=== PATIENT | female | born 1980 | race Two or more races ===

== ENCOUNTER 2024-10-14 13:42 | Inpatient (IN) | payer MEDICAID, OTHER ==
[~2024-10-14] VITALS: Ht 152.4 cm; Wt 58.5 kg
[2024-10-14] MEDS: InsuLIN REG 1unit/0.01ml Soln (100units/ml) IV ONE ×3 (16:28→20:10)
[2024-10-14] MEDS: ONDANSETRON HCL 4 MG/2 ML VIAL IV ONE (16:28)
[2024-10-14] MEDS: SODIUM CHLORIDE 0.9% 1,000 ML IV ONE (16:33)
--- NOTE | 2024-10-14 16:34 | ED.PDOC ---
GI ASSESSMENT HPI Comments 44-year-old female with a history of type 2 diabetes, insulin dependent, hypertension, GERD and a previous unknown abdominal surgery at [facility] 7 months ago brought in by EMS from home complaining of upper abdominal pain radiating to her lower abdomen for the last 4-5 days, associated with fever, nausea but no vomiting. She denies diarrhea, constipation or dysuria. EMS reports patient's blood glucose was in the 500s, and a L of IV normal saline was initiated EN route to the ED. Patient notes she had an abdominal surgery 7 months ago at [facility]. She states she can not recall what procedure was done or why she required surgery. Chief Complaint: General Weakness Time Seen by MD: 14:05 Primary Care Provider: GER Allergies: Coded Allergies: NO KNOWN ALLERGIES (Unverified , 10/14/24) Mode of Arrival: EMS Past Medical History PAST MEDICAL HISTORY: DM, GERD, HTN Surgical History (Other): Unknown abdominal surgery at [facility] 7 months ago Constitutional: denies: chills, diaphoresis, fatigue, fever, malaise, sweats, weakness, others EENTM: denies: blurred vision, double vision, ear bleeding, ear discharge, ear drainage, ear pain, ear ringing, eye pain, eye redness, hearing loss, mouth pain, mouth swelling, nasal discharge, nose bleeding, nose congestion, nose pain, photophobia, tearing, throat pain, throat swelling, voice changes, others Respiratory: denies: cough, hemoptysis, orthopnea, SOB at rest, shortness of breath, SOB with excertion, stridor, wheezing, others Cardiovascular: denies: chest pain, dizzy spells, diaphoresis, Dyspnea on exertion, edema, irregular heart beat, left arm pain, lightheadedness, palpitations, PND, syncope, others Gastrointestinal: denies: abdomen distended, abdominal pain, blood streaked bowels, constipated, diarrhea, dysphagia, difficulty swallowing, hematemesis, melena, nausea, poor appetite, poor fluid intake, rectal bleeding, rectal pain, vomiting, others Genitourinary: denies: abnormal vagina bleeding, burning, dyspareunia, dysuria, flank pain, frequency, hematuria, incontinence, pain, , vagina discharge, urgency, others Neurological: denies: dizziness, fainting, headache, left sided numbness, left sided weakness, numbness, paresthesia, pre-existing deficit, right sided numbness, right sided weakness, seizure, speech problems, tingling, tremors, weakness, others Musculoskeletal: denies: back pain, gout, joint pain, joint swelling, muscle pain, muscle stiffness, neck pain, others Integumetry: denies: bruises, change in color, change in hair/nails, dryness, laceration, lesions, lumps, rash, wounds, others Allergic/Immunocompromised: denies: Difficulty Healing, Frequent Infections, Hives, Itching, others Hematologic/Lymphatic: denies: anemia, blood clots, easy bleeding, easy bruising, swollen glands, others Endocrine: denies: excessive hunger, excessive sweating, excessive thirst, excessive urination, flushing, intolerance to cold, intolerance to heat, unexplained weight gain, unexplained weight loss, others Psychiatric: denies: anxiety, bipolar disorder, depression, hopeless, panic disorder, schizophrenia, sleepless, suicidal, others All Other Systems: Reviewed and Negative (Comprehensive systems review obtained and negative except for what is stated in the HPI.) Physical Exam General Appearance: Mild Distress HEENT: PERRL/EOMI Neck: Full Range of Motion, Normal Inspection Respiratory: Lungs Clear, No Accessory Muscle Use, No Respiratory Distress, Normal Breath Sounds Cardiovascular: No Edema, No JVD, Regular Rate/Rhythm Breast Exam: Deferred Gastrointestinal: Diffuse, Soft, Tenderness Genitalia: Deferred Pelvic: Deferred Rectal: Deferred Extremities: Normal inspection, Normal range of motion, Non-tender, No pedal edema Neurologic: Alert (Oriented x4), Normal Affect, Normal Mood, Other (No gross focal deficit) Cerebellar Function: NOT DONE Reflexes: NOT DONE Skin: Dry, Normal Color, Warm Lymphatic: NOT DONE Was a procedure done? Was a procedure done?: No GI differential Dx Differential Diagnosis: Angina/VT, Bowel Obstruction, Cholecystitis, Constipation, Diverticular disease, Ectopic , Gastritis/PUD, Ga stroenteritis, Inflammatory BD, Ischemic Bowel, Pancreatitis, UTI, Dehydration, Diabetes/ DKA, Electrolyte Imbalance, Food Poisoning, , Bacterial, Viral, Hypovolemia, Impaction, Renal Failure, Stress Ulcer X-Ray, Labs, Meds, VS Vital Signs Date Time Temp Pulse Resp B/P (MAP) Pulse Ox O2 Delivery O2 Flow Rate FiO2 3/9/25 20:18 107 17 97 Room Air* 0 21 10/14/24 19:30 98.3 102 17 119/87 (98) 99 98.3 10/14/24 18:24 119 10/14/24 18:00 97.4 115 29 115/65 (82) 97 97.4 10/14/24 17:56 112 29 115/69 10/14/24 17:14 111 35 115/69 10/14/24 16:00 97.7 109 20 120/62 (81) 98 97.7 10/14/24 14:10 Room Air* 0 21 10/14/24 13:59 104 10/14/24 13:55 97.5 108 16 105/66 (79) 99 97.5 10/14/24 13:42 97.5 108 16 105/66 (79) 99 Lab Test 10/14/24 20:15 10/14/24 20:05 10/14/24 18:54 10/14/24 18:15 Range/Units Urine Color Yellow Yellow Urine Clarity Turbid H Clear Urine pH 5.0 5.0-9.0 Urine Specific Irving 1.023 1.001-1.035 Urine Protein Trace H Negative Urine Ketones 1+ H Negative Urine Blood Negative Negative /uL Urine Nitrite Negative Negative Urine Bilirubin Negative Negative Urine Urobilinogen 2 H Negative mg/dL Urine Leukocyte Esterase 3+ Negative /uL Urine RBC 8 0 - 4 /hpf Urine Microscopic WBC 50 H 0-5 /HPF Urine Squamous Epithelial Cells Few <5 /hpf Urine Bacteria None seen None Seen /hpf Urine Hyaline Casts Many 0 - 2 /lpf Urine Mucus Few None Seen Urine Glucose 4+ H Normal mg/dL POC Glucose 510 *H 465 *H 70-106 mg/dl Sodium Level 127 L 136-145 mmol/L Potassium Level 4.4 3.5-5.1 mmol/L Chloride Level 90 L 98-107 mmol/L Carbon Dioxide Level 21 20-31 mmol/L Anion Gap 16 H 5-15 Blood Urea Nitrogen 39 H 9-23 mg/dL Creatinine 1.82 H 0.550-1.02 mg/dL Glomerular Filtration Rate Calc 34 >90 mL/min BUN/Creatinine Ratio 21.4 H 10.0-20.0 Serum Glucose 653 *H 74-106 mg/dL Lactic Acid Level 2.3 *H 0.4-2.0 mmol/L Calcium Level 9.0 8.7-10.4 mg/dL Troponin I High Sensitivity < 3 L </=34 ng/L Test 10/14/24 17:05 10/14/24 16:37 10/14/24 16:31 Range/Units POC Glucose 570 *H 70-106 mg/dl White Blood Count 15.4 H 4.4-10.8 10^3/uL Red Blood Count 4.65 4.0-5.20 10^6/uL Hemoglobin 12.2 12.2-16.2 g/dL Hematocrit 38.0 36.0-46.0 % Mean Corpuscular Volume 81.7 80.0-100.0 fL Mean Corpuscular Hemoglobin 26.3 L 28.0-32.0 pg Mean Corpuscular Hemoglobin Concent 32.2 32.0-36.0 g/dL Red Cell Distribution Width 16.3 H 11.8-14.3 % Platelet Count 464 H 140-450 10^3/uL Mean Platelet Volume 8.3 6.9-10.8 fL Neutrophils (%) (Auto) 95.6 H 37.0-80.0 % Lymphocytes (%) (Auto) 3.0 L 10.0-50.0 % Monocytes (%) (Auto) 1.2 0.0-12.0 % Eosinophils (%) (Auto) 0.1 0.0-7.0 % Basophils (%) (Auto) 0.1 0.0-2.0 % Neutrophils # (Auto) 14.7 H 1.6-8.6 10 ^3/uL Lymphocytes # (Auto) 0.5 0.4-5.4 10 ^3/uL Monocytes # (Auto) 0.2 0-1.3 10 ^3/uL Eosinophils # (Auto) 0 0-0.8 10 ^3/uL Basophils # (Auto) 0 0-0.2 10 ^3/uL Nucleated Red Blood Cells 0.0 % Sodium Level 124 L 136-145 mmol/L Potassium Level 4.4 3.5-5.1 mmol/L Chloride Level 86 L 98-107 mmol/L Carbon Dioxide Level 21 20-31 mmol/L Anion Gap 17 H 5-15 Blood Urea Nitrogen 34 H 9-23 mg/dL Creatinine 1.75 H 0.550-1.02 mg/dL Glomerular Filtration Rate Calc 36 >90 mL/min BUN/Creatinine Ratio 19.4 10.0-20.0 Serum Glucose 653 *H 74-106 mg/dL Lactic Acid Level 2.4 *H 0.4-2.0 mmol/L Calcium Level 8.6 L 8.7-10.4 mg/dL Total Bilirubin 0.3 0.2-1.0 mg/dL Aspartate Amino Transferase (AST) 16 13-40 U/L Alanine Aminotransferase (ALT) < 9 7-40 U/L Alkaline Phosphatase 78 46-116 U/L Troponin I High Sensitivity 3 L </=34 ng/L Total Protein 6.3 5.7-8.2 g/dL Albumin 3.1 L 3.2-4.8 g/dL Lipase 21 12-53 U/L Beta-Hydroxybutyric Acid 4.131 H < 0.4 mmol/L Beta HCG, Quantitative 2.1 1.5-4.2 mIU/mL Blood Gas Specimen Type Arterial Blood Gas Sample Site Right radial Blood Gas Patient Temperature 37.0 Arterial Blood Date Drawn [id number] Arterial Blood pH 7.469 H 7.350-7.450 Arterial Blood Partial Pressure CO2 31.2 L 32.0-45.0 mmHg Arterial Blood Partial Pressure O2 83.0 83.0-108.0 mmHg Arterial Blood HCO3 22.1 21.0-28.0 mmol/L Arterial Blood Oxygen Saturation 96.3 94.0-98.0 % Arterial Blood Base Excess -0.7 -2.0-3.0 mmol/L Arterial Blood Oxyhemoglobin 95.3 94.0-98.0 % Arterial Blood Carboxyhemoglobin 0.5 0.5-1.5 % Arterial Blood Methemoglobin 0.5 0.0-1.5 % Navi Test Yes Blood Gas Total Hemoglobin 13.00 12.0-16.0 g/dL Blood Gas Modality Room air FiO2 % 21.0 Current Medications Medications (Trade) Dose Ordered Sig/Rl Route Start Time Stop Time Status Last Admin Sodium Chloride 1,000 ml @ 1,000 mls/hr Q1H ONCE IV 10/14/24 16:30 10/14/24 17:29 DC 10/14/24 16:33 Ondansetron HCl (Zofran) 4 mg ONCE ONCE IV 10/14/24 16:30 10/14/24 16:31 DC 10/14/24 16:28 Insulin Human Regular (InsuLIN R) 7 units ONCE ONCE IV 10/14/24 16:30 10/14/24 16:31 DC 10/14/24 16:28 Morphine Sulfate 4 mg ONCE ONCE IV 10/14/24 16:45 10/14/24 16:46 DC 10/14/24 17:14 Insulin Human Regular (InsuLIN R) 10 units ONCE ONCE IV 10/14/24 18:00 10/14/24 18:01 DC 10/14/24 18:06 Sodium Chloride 2,000 ml @ 1,000 mls/hr Q2H ONCE IV 10/14/24 18:00 10/14/24 19:59 DC 10/14/24 18:06 Insulin Human Regular (InsuLIN R) 6 units ONCE ONCE IV 10/14/24 19:00 10/14/24 19:05 DC 10/14/24 20:10 [place] [id number] Ph: [phone] DIAGNOSTIC IMAGING Diagnostic Imaging Report : [id number] Signed PATIENT: AMANDA PERALTACT: [id number] UNIT: [id number] : 1980 LOC: ER ROOM / BED: / AGE / SEX: 44 / F ADM STATUS: REG ER SERVICE 658 ORDERING PHYSICIAN: KHRIS HO MD PROCEDURE(s): PELUS - PELVIC REASON: RLQ mass, eval for TOA ORDER NUMBER(s): [id number], ACCESSION NUMBER(s): [id number] Procedure: US PELVIC Study Date and Requested Time: 10/14/2024 07:14 PM Study Description: US PELVIC History: RLQ mass, eval for TOA Comparison: CT abdomen and pelvis 10/14/2024 Technique: Multiple transabdominal and transvaginal high resolution huynh-scale images obtained of the uterus and adnexa with color Doppler for evaluation of adnexal blood flow and vascularity as indicated. Findings: Uterus measures 11.8 x 4.4 x 5.1 cm, with 6.4 x 5.4 x 5.3 cm complex structure over the right side of the uterine fundus. Endometrium within normal limits, measuring 0.7 cm in thickness with smooth contour. Cervix is not well- visualized Bilateral ovaries are not visualized. Small amount of free fluid within the cul-de-sac. Incidentally noted thickened urinary bladder wall. Impression: 6.4 x 5.4 x 5.3 cm complex structure over the right-side of the uterine fundus which may represent an intrapelvic inflamed structure abutting the uterus versus tubo-ovarian abscess when correlated with CT abdomen and pelvis 10/14/2024 Bilateral ovaries are not visualized. Incidentally noted thickened urinary bladder wall. Recommend correlation with urinalysis for cystitis. ATED BY: YOLETTE STANTON DO DICTATED DATE/TIME: 10/14/242007 SIGNED BY: YOLETTE STANTON DO SIGNED DATE/TIME: 10/14/242007 CC: [place] [address] Ph: [phone] DIAGNOSTIC IMAGING Diagnostic Imaging Report : [id number] Signed PATIENT: AMANDA PERALTACT: [id number] UNIT: [id number] : 1980 LOC: ER ROOM / BED: / AGE / SEX: 44 / F ADM STATUS: REG ER SERVICE 55 ORDERING PHYSICIAN: KHRIS HO MD PROCEDURE(s): RTLQD - RIGHT LOWER QUAD REASON: RLQ mass, eval for appy/periappendiceal abscess ORDER NUMBER(s): [id number], ACCESSION NUMBER(s): [id number] Exam: US RIGHT LOWER QUAD Date: 10/14/2024 07:07 PM Clinical History: RLQ mass, eval for appy/periappendiceal abscess Comparison: None Technique: Targeted sonographic evaluation of the soft tissues of the [facility] was obtained utilizing grayscale and color Doppler imaging. Findings: There is no evidence for drainable collection. There is no evidence for solid or cystic mass in the site. No vascular abnormalities identified at this site. IMPRESSION: 1. No definite sonographic abnormality is identified in the soft tissues of the [facility]. ATED BY: MADISYN GALAVIZ Jr., DO DICTATED DATE/TIME: 10/14/241953 SIGNED BY: MADISYN GALAVIZ Jr., SIGNED DATE/TIME: 10/14/241953 CC: [place] [address] Ph: [phone] DIAGNOSTIC IMAGING Diagnostic Imaging Report : [id number] Signed PATIENT: ANNITA HARDY ACCT: [id number] UNIT: [id number] : 1980 LOC: ER ROOM / BED: / AGE / SEX: 44 / F ADM STATUS: REG ER SERVICE 16 ORDERING PHYSICIAN: KHRIS HO MD PROCEDURE(s): CXR1 - CHEST XRAY 1 VIEW REASON: gen weak hyperglycemia ORDER NUMBER(s): [id number], ACCESSION NUMBER(s): [id number] EXAM: XR Chest, 1 View CLINICAL INDICATION: gen weak hyperglycemia TECHNIQUE: Frontal view of the chest. COMPARISON: None FINDINGS: LUNGS AND PLEURAL SPACES: Unremarkable. No consolidation. No pneumothorax. HEART: Unremarkable. No cardiomegaly. MEDIASTINUM: Unremarkable. Normal mediastinal contour. BONES/JOINTS: Unremarkable. No acute fracture. OTHER FINDINGS: . None. IMPRESSION: No acute cardiopulmonary process. ATED BY: ANDREEA BARAJAS MD DICTATED DATE/TIME: 10/14/241753 SIGNED BY: ANDREEA BARAJAS MD SIGNED DATE/TIME: 10/14/241753 CC: [place] [address] Ph: [phone] DIAGNOSTIC IMAGING Diagnostic Imaging Report : [id number] Signed PATIENT: TALAT PERALTAAACCT: [id number] UNIT: [id number] : 1980 LOC: ER ROOM / BED: / AGE / SEX: 44 / F ADM STATUS: REG ER SERVICE 16 ORDERING PHYSICIAN: KHRIS HO MD PROCEDURE(s): ABPL - CT AB PEL WO CON-NO ORAL OR IV REASON: abd pain n/v ORDER NUMBER(s): [id number], ACCESSION NUMBER(s): [id number] Procedure: CT CT AB PEL WO CON-NO ORAL OR IV 10/14/2024 05:35 PM Indication: abd pain n/v Comparison Study: None Technique: Axial images were obtained and reformatted in coronal and sagittal planes. All CT scans at this medical facility are performed using dose modulation techniques as appropriate to a performed exam including the following: Automated exposure control was utilized; adjustment of the MA and/or KV according to patient size; and use of iterative reconstruction technique. CT Dose: CTDI volume is 11.8 mGy. Dose-length product is 628.85 mGy*cm FINDINGS: Lower Chest: Unremarkable. Hepatobiliary: Liver is grossly unremarkable. No calcified gallstones. No intrahepatic or extrahepatic ductal dilatation. Small amount of free fluid is seen adjacent to the liver extending to the right paracolic gutter. Small amount of fluid also noted in the left paracolic gutter extending to the pelvis. Spleen: Unremarkable. Pancreas: Unremarkable. Adrenal Glands: Unremarkable. tract: The kidneys are normal in size bilaterally without hydronephrosis or nephrolithiasis. Mild superior bladder wall thickening. GI tract: Distal esophagus is fluid distended measuring 2.7 cm in transverse suggesting gastroesophageal reflux. With mild circumferential mural thickening. Diffuse mesenteric fat infiltration noted. No evidence of pneumatosis intestinalis or pneumoperitoneum. The large bowel is grossly unremarkable. The appendix is not identified. Ill-defined, large approximately 7 x 6 cm inflammatory mass between the cecum and the uterine fundus the mass effect on the uterus noted. Lymphatics: No mesenteric, retroperitoneal or periportal lymphadenopathy. Vasculature: The abdominal aorta is normal in in caliber. Pelvic Organs: The uterus is anteverted. The left ovary is unremarkable. The right ovary is not well seen. Extensive inflammatory changes between the right uterine cornua/ovarian and cecum noted. Small amount of free fluid in cul-de-sac. Bones/soft tissues: No acute abnormality. Other: None. IMPRESSION: 1. Ill-defined, large approximately 7 x 6 cm inflammatory mass in the right lower quadrant between the cecum and uterus mass effect on the uterus that may represent appendiceal phlegmon, tubo-ovarian abscess or other etiologies. Evaluation is very limited due to lack of IV contrast. Recommend further evaluation by pelvic ultrasound, right lower quadrant sonogram if possible CT scan of the abdomen and pelvis with IV contrast. No free intraperitoneal air. 2. Extensive inflammatory changes of the mesentery most prominent in the right lower quadrant. 3. Small abdominopelvic ascites. 4. Mild superior bladder wall thickening likely related to the inflammatory changes in the right side of the pelvis. 5. Mild fluid distention of jejunum likely ileus. No evidence of bowel obstruction. 6. Moderate fluid distention of stomach with evidence of gastroesophageal reflux. No signs of aspiration pneumonia at this time. Recommend placement of an NG tube. ATED BY: JANE MCNEIL MD DICTATED DATE/TIME: 10/14/241827 SIGNED BY: JANE MCNEIL MD SIGNED DATE/TIME: 10/14/241827 CC: X-Ray, Labs, Meds, VS Comment 44-year-old female with a history of type 2 diabetes, insulin dependent, hypertension, GERD and a previous unknown abdominal surgery at [facility] 7 months ago brought in by EMS from home complaining of upper abdominal pain radiating to her lower abdomen for the last 4-5 days, associated with fever, nausea and hyperglycemia Vitals remarkable for heart rate 108 Exam remarkable for diffuse abdominal tenderness to percussion and palpation with voluntary guarding Rhythm strip independently interpreted by me: Sinus tach, rate 108, no ectopy. Chest x-ray IMPRESSION: No acute cardiopulmonary process. CT abdomen and pelvis IMPRESSION: 1. Ill-defined, large approximately 7 x 6 cm inflammatory mass in the right lower quadrant between the cecum and uterus mass effect on the uterus that may represent appendiceal phlegmon, tubo-ovarian abscess or other etiologies. Evaluation is very limited due to lack of IV contrast. Recommend further evaluation by pelvic ultrasound, right lower quadrant sonogram if possible CT scan of the abdomen and pelvis with IV contrast. No free intraperitoneal air. 2. Extensive inflammatory changes of the mesentery most prominent in the right lower quadrant. 3. Small abdominopelvic ascites. 4. Mild superior bladder wall thickening likely related to the inflammatory changes in the right side of the pelvis. 5. Mild fluid distention of jejunum likely ileus. No evidence of bowel obstr uction. 6. Moderate fluid distention of stomach with evidence of gastroesophageal reflux. No signs of aspiration pneumonia at this time. Recommend placement of an NG tube. Pelvic ultrasound Impression: 6.4 x 5.4 x 5.3 cm complex structure over the right-side of the uterine fundus which may represent an intrapelvic inflamed structure abutting the uterus versus tubo-ovarian abscess when correlated with CT abdomen and pelvis 10/14/2024 Bilateral ovaries are not visualized. Incidentally noted thickened urinary bladder wall. Recommend correlation with urinalysis for cystitis. Right lower quadrant ultrasound Findings: There is no evidence for drainable collection. There is no evidence for solid or cystic mass in the site. No vascular abnormalities identified at this site. IMPRESSION: 1. No definite sonographic abnormality is identified in the soft tissues CBC remarkable for WBC 15.4, platelets 464, CMP remarkable for sodium 124, chloride 86, BUN 36 creatinine 1.75, glucose 653, lactic 2.3, troponin negative, beta hydroxybutyrate 4.131, lipase normal, hCG negative, UA abnormal consistent with UTI, ABG pH 7.469, pCO2 31.2 Patient treated with the following in the ED: 1 L 0.9 normal saline IV bolus x2, regular insulin 7 units IV, regular insulin 10 units IV, morphine 4 mg IV, Zofran 4 mg IV, Zosyn 4.5 g IV, vancomycin IV per pharmacy On re-evaluation, patient states pain has improved. 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 Ruiz, who agreed to see the patient. Time of 1ST Reevaluation: 14:45 Reevaluation 1ST: Unchanged Patient Education/Counseling: Diagnosis, Treatment Family Education/Counseling: No Family Present Departure 1 Departure Time of Disposition: 20:00 Impression: Primary Impression: Diabetic ketosis Additional Impressions: Electrolyte imbalance Tubo-ovarian abscess UTI (urinary tract infection) Qualified Codes: N39.0 - Urinary tract infection, site not specified Disposition: ADMITTED INPATIENT Admit to: Tele Condition: Guarded Critical Care Note Critical Care Time?: Yes (45 min-critical care time only) Critical care comment: Critical care time including multiple bedside re-evaluations, review of lab and imaging studies, and discussion of the case with the admitting and consulting providers. Patient is high risk for metabolic decompensation. Stability Stability form required: No Heart Score Heart Score: Heart Score Response (Comments) Value History N/A 0 EKG N/A 0 Age N/A 0 Risk Factors N/A 0 Troponin N/A 0 Total 0 I personally scribed for KHRIS HO MD ([email or web address]) on 10/14/24 at 21:50. Electronically submitted by Yves Ngo ([facility]). KHRIS HO MD Oct 14, 2024 16:34
[2024-10-14 16:38] LABS: Base Excess -0.7 mmol/L (-2.0-3.0)
[2024-10-14 16:49] LABS: Basophils # (auto) 0 10 ^3/uL (0-0.2); Basophils % (auto) 0.1 % (0.0-2.0); Eosinophils # (auto) 0 10 ^3/uL (0-0.8); Eosinophils % (auto) 0.1 % (0.0-7.0); Hemoglobin 12.2 g/dL (12.2-16.2); Lymphocytes # (auto) 0.5 10 ^3/uL (0.4-5.4); Mean Corpuscular Hemoglobin 26.3 pg (28.0-32.0); Mean Corpuscular Hgb Conc. 32.2 g/dL (32.0-36.0); Mean Corpuscular Volume 81.7 fL (80.0-100.0); Monocytes # (auto) 0.2 10 ^3/uL (0-1.3); Monocytes % (auto) 1.2 % (0.0-12.0); Neutrophils # (auto) 14.7 10 ^3/uL (1.6-8.6); Neutrophils % (auto) 95.6 % (37.0-80.0); Platelet Count (auto) 464 10^3/uL (140-450); Red Blood Cells 4.65 10^6/uL (4.0-5.20); Red Cell Distribution Width 16.3 % (11.8-14.3); White Blood Cell 15.4 10^3/uL (4.4-10.8)
[2024-10-14 17:04] LABS: Alkaline Phosphatase 78 U/L (46-116); Anion Gap 17 (5-15); Aspartate Aminotransferase 16 U/L (13-40); BUN/Creatinine Ratio 19.4 (10.0-20.0); Bilirubin, Total 0.3 mg/dL (0.2-1.0); Carbon Dioxide 21 mmol/L (20-31); Lipase 21 U/L (12-53); Potassium 4.4 mmol/L (3.5-5.1); Total Protein 6.3 g/dL (5.7-8.2)
[2024-10-14 17:12] LABS: Lactic Acid w/Reflex 2.4 mmol/L (0.4-2.0)
[2024-10-14 17:13] LABS: Alanine Aminotransferase < 9 U/L (7-40); Albumin 3.1 g/dL (3.2-4.8); Blood Urea Nitrogen 34 mg/dL (9-23); Calcium 8.6 mg/dL (8.7-10.4); Chloride 86 mmol/L (98-107); Glucose 653 mg/dL (74-106); Sodium 124 mmol/L (136-145)
[2024-10-14] MEDS: MORPHINE SULFATE 4 MG/ML SYR/VIAL IV ONE (17:14)
--- NOTE | 2024-10-14 17:57 | DVH ---
EXAM: XR Chest, 1 View CLINICAL INDICATION: gen weak hyperglycemia TECHNIQUE: Frontal view of the chest. COMPARISON: None FINDINGS: LUNGS AND PLEURAL SPACES: Unremarkable. No consolidation. No pneumothorax. HEART: Unremarkable. No cardiomegaly. MEDIASTINUM: Unremarkable. Normal mediastinal contour. BONES/JOINTS: Unremarkable. No acute fracture. OTHER FINDINGS: . None. IMPRESSION: No acute cardiopulmonary process.
[2024-10-14] MEDS: SODIUM CHLORIDE 0.9% 2,000 ML IV ONE (18:06)
--- NOTE | 2024-10-14 18:31 | DVH ---
Procedure: CT CT AB PEL WO CON-NO ORAL OR IV 10/14/2024 05:35 PM Indication: abd pain n/v Comparison Study: None Technique: Axial images were obtained and reformatted in coronal and sagittal planes. All CT scans at this medical facility are performed using dose modulation techniques as appropriate to a performed e xam including the following: Automated exposure control was utilized; adjustment of the MA and/or KV according to patient size; and use of iterative reconstruction technique. CT Dose: CTDI volume is 11. 8 mGy. Dose-length product is 628.85 mGy*cm FINDINGS: Lower Chest: Unremarkable. Hepatobiliary: Liver is grossly unremarkable. No calcified gallstones. No intrahepatic or extrahepat ic ductal dilatation. Small amount of free fluid is seen adjacent to the liver extending to the right paracolic gutter. Small amount of fluid also noted in the left paracolic gutter extending to the pe lvis. Spleen: Unremarkable. Pancreas: Unremarkable. Adrenal Glands: Unremarkable. tract: The kidneys are normal in size bilaterally without hydronephrosis or nephrolithiasis. Mild superior bladder wall thickening. GI tract: Distal esophagus is fluid distended measuring 2.7 cm in transverse suggesting gastroesophag eal reflux. With mild circumferential mural thickening. Diffuse mesenteric fat infiltration noted. No evidence of pneumatosis intestinalis or pneumoperitoneum. The large bowel is grossly unremarkable. The appendix is not identified. Ill-defined, large approximately 7 x 6 cm inflammatory mass between the cecum and the uterine fundus the mass effect on the uterus noted. Lymphatics: No mesenteric, retroperitoneal or periportal lymphadenopathy. Vasculature: The abdominal aorta is normal in in caliber. Pelvic Organs: The uterus is anteverted. The left ovary is unremarkable. The right ovary is not wel l seen. Extensive inflammatory changes between the right uterine cornua/ovarian and cecum noted. Sma ll amount of free fluid in cul-de-sac. Bones/soft tissues: No acute abnormality. Other: None. IMPRESSION: 1. Ill-defined, large approximately 7 x 6 cm inflammatory mass in the right lower quadrant between th e cecum and uterus mass effect on the uterus that may represent appendiceal phlegmon, tubo-ovarian ab scess or other etiologies. Evaluation is very limited due to lack of IV contrast. Recommend further evaluation by pelvic ultrasound, right lower quadrant sonogram if possible CT scan of the abdomen and pelvis with IV contrast. No free intraperitoneal air. 2. Extensive inflammatory changes of the mesentery most prominent in the right lower quadrant. 3. Small abdominopelvic ascites. 4. Mild superior bladder wall thickening likely related to the inflammatory changes in the right side of the pelvis. 5. Mild fluid distention of jejunum likely ileus. No evidence of bowel obstruction. 6. Moderate fluid distention of stomach with evidence of gastroesophageal reflux. No signs of aspirat ion pneumonia at this time. Recommend placement of an NG tube.
[2024-10-14 19:49] LABS: Potassium 4.4 mmol/L (3.5-5.1)
[2024-10-14 19:50] LABS: Anion Gap 16 (5-15); Carbon Dioxide 21 mmol/L (20-31)
[2024-10-14 19:56] LABS: BUN/Creatinine Ratio 21.4 (10.0-20.0)
--- NOTE | 2024-10-14 19:57 | DVH ---
Exam: US RIGHT LOWER QUAD Date: 10/14/2024 07:07 PM Clinical History: RLQ mass, eval for appy/periappendiceal abscess Comparison: None Technique: Targeted sonographic evaluation of the soft tissues of the [facility] was obtained utiliz ing grayscale and color Doppler imaging. Findings: There is no evidence for drainable collection. There is no evidence for solid or cystic mass in the site. No vascular abnormalities identified at this site. IMPRESSION: 1. No definite sonographic abnormality is identified in the soft tissues of the [facility]
[2024-10-14 20:01] LABS: Blood Urea Nitrogen 39 mg/dL (9-23); Chloride 90 mmol/L (98-107); Sodium 127 mmol/L (136-145)
[2024-10-14 20:03] LABS: Glucose 653 mg/dL (74-106)
--- NOTE | 2024-10-14 20:10 | DVH ---
Procedure: US PELVIC Study Date and Requested Time: 10/14/2024 07:14 PM Study Description: US PELVIC History: RLQ mass, eval for TOA Comparison: CT abdomen and pelvis 10/14/2024 Technique: Multiple transabdominal and transvaginal high resolution huynh-scale images obtained of the uterus and adnexa with color Doppler for evaluation of adnexal blood flow and vascularity as indicat ed. Findings: Uterus measures 11.8 x 4.4 x 5.1 cm, with 6.4 x 5.4 x 5.3 cm complex structure over the right side of the uterine fundus. Endometrium within normal limits, measuring 0.7 cm in thickness with smooth con tour. Cervix is not well-visualized Bilateral ovaries are not visualized. Small amount of free fluid within the cul-de-sac. Incidentally noted thickened urinary bladder wall. Impression: 6.4 x 5.4 x 5.3 cm complex structure over the right-side of the uterine fundus which may represent an intrapelvic inflamed structure abutting the uterus versus tubo-ovarian abscess when correlated with CT abdomen and pelvis 10/14/2024 Bilateral ovaries are not visualized. Incidentally noted thickened urinary bladder wall. Recommend correlation with urinalysis for cystiti s.
[2024-10-14 20:16] LABS: Urine Bacteria None Seen /hpf (None Seen)
[2024-10-14 20:18] VITALS: PULSE 107; RESP 17; O2SAT 97
[2024-10-14 20:28] LABS: Urine Blood Negative /uL (Negative); Urine Clarity Turbid (Clear); Urine Color Yellow (Yellow); Urine Hyaline Cast MANY /lpf (0 - 2); Urine Mucus FEW (None Seen); Urine Protein, UAD TRACE (Negative); Urine Specific Gravity 1.023 (1.001-1.035); Urine Squamous Epithelial Cell FEW /hpf (<5); Urine Urobilinogen 2 mg/dL (Negative); Urine WBC 50 /HPF (0-5)
[2024-10-14] MEDS: VANCOMYCIN 1GM/250ML KIT 250 ML IV ONE ×2 (20:53→21:54)
[2024-10-14] MEDS ORDERED: ONDANSETRON HCL 4 MG/2 ML VIAL IV PRN (21:00)
[2024-10-14] MEDS ORDERED: NITROGLYCERIN 0.4 MG SL TAB SL PRN (21:00)
[2024-10-14] MEDS ORDERED: VANCOMYCIN 1GM/250ML KIT 250 ML IV ONE (21:00)
[2024-10-14] MEDS ORDERED: DEXTROSE (50%) 50ML SYRG IV PRN (21:00)
[2024-10-14] MEDS ORDERED: VANCOMYCIN PER PHARMACY 0 MG IV SCH (21:00)
[2024-10-14] MEDS: SODIUM CHLORIDE 0.9% 1,000 ML IV SCH (21:38)
[2024-10-14 22:10] LABS: INR 1.25 (0.9-1.15)
[2024-10-14] MEDS: InsuLIN REG 1unit/0.01ml Soln (100units/ml) SC SCH (22:16)
[2024-10-14] MEDS: PIPERACILLIN-TAZOB 3.375GM 100 ML IV SCH (22:23)
--- NOTE | 2024-10-14 23:24 | DVHINCON2 ---
Date of service: Oct 14, 2024 Referring Physician ER Attending Reason for Consultation Incidental finding left adnexal complex mass 6 x 4 x 5.4 x 5.3. Past Medical History Cardiac: No pertinent Hx Pulmonary: No pertinent Hx Central Nervous System: No pertinent Hx GI: No pertinent Hx Psychiatric: Anxiety Past Surgical History: Family History: DM Smoker: No Hx (Negative) Alocohol: None Drugs: None Lives with: Homeless Domestic Violence: Neg Review of Systems Constitutional: No symptom reported Ears, Nose, & Throat: No symptom reported Eyes: No symptom reported Pulmonary/Respiratory: No symptom reported Cardiovascular: No symptom reported Gastrointestinal: No symptom reported Genitourinary: No symptom reported Musculoskeletal: No symptom reported Skin: No symptom reported Psychiatric: No symptom reported Endocrine: No symptom reported Hemotologic/Lymphatic: No symptom reported H&P Exam Vital Signs Vital Signs Date Time Temp Pulse Resp B/P (MAP) Pulse Ox O2 Delivery O2 Flow Rate FiO2 10/14/24 22:00 98.2 102 14 114/64 (81) 97 98.2 10/14/24 20:18 Room Air* 0 21 Wounds None seen Labs/Xrays Labs Test 10/14/24 21:10 10/14/24 20:15 10/14/24 20:05 10/14/24 18:15 Range/Units Prothrombin Time 13.0 H 9.3-11.8 sec Prothrombin Time INR 1.25 H 0.9-1.15 Activated Partial Thromboplast Time 31.0 24.5-34.5 SEC Urine Color Yellow Yellow Urine Clarity Turbid H Clear Urine pH 5.0 5.0-9.0 Urine Specific [place] 1.023 1.001-1.035 Urine Protein Trace H Negative Urine Ketones 1+ H Negative Urine Blood Negative Negative /uL Urine Nitrite Negative Negative Urine Bilirubin Negative Negative Urine Urobilinogen 2 H Negative mg/dL Urine Leukocyte Esterase 3+ Negative /uL Urine RBC 8 0 - 4 /hpf Urine Microscopic WBC 50 H 0-5 /HPF Urine Squamous Epithelial Cells Few <5 /hpf Urine Bacteria None seen None Seen /hpf Urine Hyaline Casts Many 0 - 2 /lpf Urine Mucus Few None Seen Urine Glucose 4+ H Normal mg/dL POC Glucose 510 *H 70-106 mg/dl Sodium Level 127 L 136-145 mmol/L Potassium Level 4.4 3.5-5.1 mmol/L Chloride Level 90 L 98-107 mmol/L Carbon Dioxide Level 21 20-31 mmol/L Anion Gap 16 H 5-15 Blood Urea Nitrogen 39 H 9-23 mg/dL Creatinine 1.82 H 0.550-1.02 mg/dL Glomerular Filtration Rate Calc 34 >90 mL/min BUN/Creatinine Ratio 21.4 H 10.0-20.0 Serum Glucose 653 *H 74-106 mg/dL Lactic Acid Level 2.3 *H 0.4-2.0 mmol/L Calcium Level 9.0 8.7-10.4 mg/dL Troponin I High Sensitivity < 3 L </=34 ng/L Test 10/14/24 16:37 10/14/24 16:31 Range/Units White Blood Count 15.4 H 4.4-10.8 10^3/uL Red Blood Count 4.65 4.0-5.20 10^6/uL Hemoglobin 12.2 12.2-16.2 g/dL Hematocrit 38.0 36.0-46.0 % Mean Corpuscular Volume 81.7 80.0-100.0 fL Mean Corpuscular Hemoglobin 26.3 L 28.0-32.0 pg Mean Corpuscular Hemoglobin Concent 32.2 32.0-36.0 g/dL Red Cell Distribution Width 16.3 H 11.8-14.3 % Platelet Count 464 H 140-450 10^3/uL Mean Platelet Volume 8.3 6.9-10.8 fL Neutrophils (%) (Auto) 95.6 H 37.0-80.0 % Lymphocytes (%) (Auto) 3.0 L 10.0-50.0 % Monocytes (%) (Auto) 1.2 0.0-12.0 % Eosinophils (%) (Auto) 0.1 0.0-7.0 % Basophils (%) (Auto) 0.1 0.0-2.0 % Neutrophils # (Auto) 14.7 H 1.6-8.6 10 ^3/uL Lymphocytes # (Auto) 0.5 0.4-5.4 10 ^3/uL Monocytes # (Auto) 0.2 0-1.3 10 ^3/uL Eosinophils # (Auto) 0 0-0.8 10 ^3/uL Basophils # (Auto) 0 0-0.2 10 ^3/uL Nucleated Red Blood Cells 0.0 % Total Bilirubin 0.3 0.2-1.0 mg/dL Aspartate Amino Transferase (AST) 16 13-40 U/L Alanine Aminotransferase (ALT) < 9 7-40 U/L Alkaline Phosphatase 78 46-116 U/L Total Protein 6.3 5.7-8.2 g/dL Albumin 3.1 L 3.2-4.8 g/dL Lipase 21 12-53 U/L Beta-Hydroxybutyric Acid 4.131 H < 0.4 mmol/L Beta HCG, Quantitative 2.1 1.5-4.2 mIU/mL Blood Gas Specimen Type Arterial Blood Gas Sample Site Right radial Blood Gas Patient Temperature 37.0 Arterial Blood Date Drawn [id number] Arterial Blood pH 7.469 H 7.350-7.450 Arterial Blood Partial Pressure CO2 31.2 L 32.0-45.0 mmHg Arterial Blood Partial Pressure O2 83.0 83.0-108.0 mmHg Arterial Blood HCO3 22.1 21.0-28.0 mmol/L Arterial Blood Oxygen Saturation 96.3 94.0-98.0 % Arterial Blood Base Excess -0.7 -2.0-3.0 mmol/L Arterial Blood Oxyhemoglobin 95.3 94.0-98.0 % Arterial Blood Carboxyhemoglobin 0.5 0.5-1.5 % Arterial Blood Methemoglobin 0.5 0.0-1.5 % Navi Test Yes Blood Gas Total Hemoglobin 13.00 12.0-16.0 g/dL Blood Gas Modality Room air FiO2 % 21.0 Assessment/Plan Primary Diagnosis DKA conscious, pelvic right adnexal mass, PID, epigastric pain Plan Recommend as discussed with ER physician admission to medical medical hospitalist service for DKA management, no acute abdomen at this time, no s urgery at this time, recommend PID coverage IV antibiotics aerobic anaerobic Gram-negative. We will continue to follow up. Plan discussed with: Patient HEIDY GUTIERREZ DO Oct 14, 2024 23:23
[2024-10-14] MEDS ORDERED: OMEP20TA PO (23:38)
[2024-10-14] MEDS ORDERED: LISI2.5T47 PO (23:38)
[2024-10-14] MEDS ORDERED: INSLISPI SC (23:38)
[2024-10-15] VITALS (17 sets, daily range): BP systolic 101–134; BP diastolic 54–85; PULSE 109–122; RESP 20–44; TEMP 97.1–98.4; O2SAT 91–98
[2024-10-15] MEDS ORDERED: InsuLIN REG 1unit/0.01ml Soln (100units/ml) SC SCH ×2
[2024-10-15] MEDS ORDERED: ACCU-CHEK COMFORT CURVE STRIP VI SCH
--- NOTE | 2024-10-15 00:38 | DVHHP2 ---
History of Present Illness Reason for Visit: Abdominal pain History of Present Illness 44-year-old female presents for evaluation of abdominal pain. Patient reports a one-week history of epigastric abdominal pain that is radiating down to her right lower abdomen. She reports fever and nausea. She describes the pain as sharp. Patient is homeless and she reports being noncompliant with her blood sugar checks. On arrival patient's blood sugar was reading greater than 500. Patient is also tachycardic. No cardiac or respiratory complaints. Past Medical History Hypertension diabetes mellitus Family History Noncontributory Smoke: No ALCOHOL: none Drugs: None Lives: Homeless Review of Systems Review of Systems Review of systems are currently negative otherwise addressed in HPI. Allergies: Coded Allergies: NO KNOWN ALLERGIES (Unverified , 10/14/24) Medications Current Medications Medications Dose Ordered Sig/Rl Route Start Time Stop Time Status Last Admin Dose Admin Sodium Chloride 1,000 ml @ 100 mls/hr Q10H IV 10/14/24 21:00 10/14/24 21:38 100 MLS/HR Vancomycin HCl 0 ml @ 0 mls/hr UD IV 10/14/24 21:00 UNV Piperacillin Sod/ Tazobactam Sod 100 ml @ 25 mls/hr Q8HR IV 10/14/24 22:00 10/14/24 22:23 25 MLS/HR Ondansetron HCl 4 mg Q4HP PRN IV 10/14/24 21:00 Morphine Sulfate 2 mg Q4HPRN PRN IV 10/14/24 21:00 Nitroglycerin 0.4 mg Q5MINP PRN SL 10/14/24 21:00 Morphine Sulfate 2 mg Q30M PRN IV 10/14/24 21:00 Diagnostic Test (Pha) 1 strip IQ4HR 10/15/24 00:00 Insulin Human Regular IQ4HR SC 10/14/24 22:15 10/14/24 22:16 20 UNITS Exam Vital Signs Vital Signs Date Time Temp Pulse Resp B/P (MAP) Pulse Ox O2 Delivery O2 Flow Rate FiO2 10/14/24 22:00 98.2 102 14 114/64 (81) 97 98.2 10/14/24 20:18 Room Air* 0 21 Exam Gen: 44-year-old female in moderate Skin: Warm, dry, normal color and texture, no rash. HEENT: Normocephalic atraumatic, mucous membranes moist and pink. Neck: Cervical and supraclavicular nodes normal without enlargement, trachea is midline, thyroid gland is normal without masses. Pulmonary: Clear to auscultation and percussion bilaterally. Cardiac: Sinus tachycardia Abdomen: Soft, right lower quadrant tenderness, nondistended, bowel sounds present all 4 quadrants, no guarding, no rigidity, no organomegaly. Extremities: No cyanosis, clubbing, no edema Neuro: Cranial nerves II through XII grossly intact, normal affect and speech, no focal motor deficits. Labs/Xrays ORDERING PHYSICIAN: KHRIS HO MD PROCEDURE(s): CXR1 - CHEST XRAY 1 VIEW REASON: gen weak hyperglycemia ORDER NUMBER(s): [id number], ACCESSION NUMBER(s): [id number] EXAM: XR Chest, 1 View CLINICAL INDICATION: gen weak hyperglycemia TECHNIQUE: Frontal view of the chest. COMPARISON: None FINDINGS: LUNGS AND PLEURAL SPACES: Unremarkable. No consolidation. No pneumothorax. HEART: Unremarkable. No cardiomegaly. MEDIASTINUM: Unremarkable. Normal mediastinal contour. BONES/JOINTS: Unremarkable. No acute fracture. OTHER FINDINGS: . None. IMPRESSION: No acute cardiopulmonary process. RING PHYSICIAN: KHRIS HO MD PROCEDURE(s): RTLQD - RIGHT LOWER QUAD REASON: RLQ mass, eval for appy/periappendiceal abscess ORDER NUMBER(s): [id number], ACCESSION NUMBER(s): [id number] Exam: US RIGHT LOWER QUAD Date: 10/14/2024 07:07 PM Clinical History: RLQ mass, eval for appy/periappendiceal abscess Comparison: None Technique: Targeted sonographic evaluation of the soft tissues of the [facility] was obtained utilizing grayscale and color Doppler imaging. Findings: There is no evidence for drainable collection. There is no evidence for solid or cystic mass in the site. No vascular abnormalities identified at this site. IMPRESSION: 1. No definite sonographic abnormality is identified in the soft tissues of the [facility]. ATED BY: MADISYN GALAVIZ Jr., DO DICTATED DATE/TIME: 10/14/241953 ORDERING PHYSICIAN: KHRIS HO MD PROCEDURE(s): RTLQD - RIGHT LOWER QUAD REASON: RLQ mass, eval for appy/periappendiceal abscess ORDER NUMBER(s): [id number], ACCESSION NUMBER(s): [id number] Exam: US RIGHT LOWER QUAD Date: 10/14/2024 07:07 PM Clinical History: RLQ mass, eval for appy/periappendiceal abscess Comparison: None Technique: Targeted sonographic evaluation of the soft tissues of the [facility] was obtained utilizing grayscale and color Doppler imaging. Findings: There is no evidence for drainable collection. There is no evidence for solid or cystic mass in the site. No vascular abnormalities identified at this site. IMPRESSION: 1. No definite sonographic abnormality is identified in the soft tissues of the [facility]. ATED BY: MADISYN GALAVIZ Jr., DO DICTATED DATE/TIME: 10/14/241953 ORDERING PHYSICIAN: KHRIS HO MD PROCEDURE(s): PELUS - PELVIC REASON: RLQ mass, eval for TOA ORDER NUMBER(s): [id number], ACCESSION NUMBER(s): [id number] Procedure: US PELVIC Study Date and Requested Time: 10/14/2024 07:14 PM Study Description: US PELVIC History: RLQ mass, eval for TOA Comparison: CT abdomen and pelvis 10/14/2024 Technique: Multiple transabdominal and transvaginal high resolution huynh-scale images obtained of the uterus and adnexa with color Doppler for evaluation of adnexal blood flow and vascularity as indicated. Findings: Uterus measures 11.8 x 4.4 x 5.1 cm, with 6.4 x 5.4 x 5.3 cm complex structure over the right side of the uterine fundus. Endometrium within normal limits, measuring 0.7 cm in thickness with smooth contour. Cervix is not well- visualized Bilateral ovaries are not visualized. Small amount of free fluid within the cul-de-sac. Incidentally noted thickened urinary bladder wall. Impression: 6.4 x 5.4 x 5.3 cm complex structure over the right-side of the uterine fundus which may represent an intrapelvic inflamed structure abutting the uterus versus tubo-ovarian abscess when correlated with CT abdomen and pelvis 10/14/2024 Bilateral ovaries are not visualized. Incidentally noted thickened urinary bladder wall. Recommend correlation with urinalysis for cystitis. RING PHYSICIAN: KHRIS HO MD PROCEDURE(s): ABPL - CT AB PEL WO CON-NO ORAL OR IV REASON: abd pain n/v ORDER NUMBER(s): [id number], ACCESSION NUMBER(s): [id number] Procedure: CT CT AB PEL WO CON-NO ORAL OR IV 10/14/2024 05:35 PM Indication: abd pain n/v Comparison Study: None Technique: Axial images were obtained and reformatted in coronal and sagittal planes. All CT scans at this medical facility are performed using dose modulation techniques as appropriate to a performed exam including the following: Automated exposure control was utilized; adjustment of the MA and/or KV according to patient size; and use of iterative reconstruction technique. CT Dose: CTDI volume is 11.8 mGy. Dose-length product is 628.85 mGy*cm FINDINGS: Lower Chest: Unremarkable. Hepatobiliary: Liver is grossly unremarkable. No calcified gallstones. No intrahepatic or extrahepatic ductal dilatation. Small amount of free fluid is seen adjacent to the liver extending to the right paracolic gutter. Small amount of fluid also noted in the left paracolic gutter extending to the pelvis. Spleen: Unremarkable. Pancreas: Unremarkable. Adrenal Glands: Unremarkable. tract: The kidneys are normal in size bilaterally without hydronephrosis or nephrolithiasis. Mild superior bladder wall thickening. GI tract: Distal esophagus is fluid distended measuring 2.7 cm in transverse suggesting gastroesophageal reflux. With mild circumferential mural thickening. Diffuse mesenteric fat infiltration noted. No evidence of pneumatosis intestinalis or pneumoperitoneum. The large bowel is grossly unremarkable. The appendix is not identified. Ill-defined, large approximately 7 x 6 cm inflammatory mass between the cecum and the uterine fundus the mass effect on the uterus noted. Lymphatics: No mesenteric, retroperitoneal or periportal lymphadenopathy. Vasculature: The abdominal aorta is normal in in caliber. Pelvic Organs: The uterus is anteverted. The left ovary is unremarkable. The right ovary is not well seen. Extensive inflammatory changes between the right uterine cornua/ovarian and cecum noted. Small amount of free fluid in cul-de-sac. Bones/soft tissues: No acute abnormality. Other: None. IMPRESSION: 1. Ill-defined, large approximately 7 x 6 cm inflammatory mass in the right lower quadrant between the cecum and uterus mass effect on the uterus that may represent appendiceal phlegmon, tubo-ovarian abscess or other etiologies. Evalu ation is very limited due to lack of IV contrast. Recommend further evaluation by pelvic ultrasound, right lower quadrant sonogram if possible CT scan of the abdomen and pelvis with IV contrast. No free intraperitoneal air. 2. Extensive inflammatory changes of the mesentery most prominent in the right lower quadrant. 3. Small abdominopelvic ascites. 4. Mild superior bladder wall thickening likely related to the inflammatory changes in the right side of the pelvis. 5. Mild fluid distention of jejunum likely ileus. No evidence of bowel obstruction. 6. Moderate fluid distention of stomach with evidence of gastroesophageal reflux. No signs of aspiration pneumonia at this time. Recommend placement of an NG tube. Labs Test 10/15/24 00:27 10/14/24 21:10 10/14/24 20:15 10/14/24 20:05 Range/Units Prothrombin Time 13.0 H 9.3-11.8 sec Prothrombin Time INR 1.25 H 0.9-1.15 Activated Partial Thromboplast Time 31.0 24.5-34.5 SEC Urine Color Yellow Yellow Urine Clarity Turbid H Clear Urine pH 5.0 5.0-9.0 Urine Specific [place] 1.023 1.001-1.035 Urine Protein Trace H Negative Urine Ketones 1+ H Negative Urine Blood Negative Negative /uL Urine Nitrite Negative Negative Urine Bilirubin Negative Negative Urine Urobilinogen 2 H Negative mg/dL Urine Leukocyte Esterase 3+ Negative /uL Urine RBC 8 0 - 4 /hpf Urine Microscopic WBC 50 H 0-5 /HPF Urine Squamous Epithelial Cells Few <5 /hpf Urine Bacteria None seen None Seen /hpf Urine Hyaline Casts Many 0 - 2 /lpf Urine Mucus Few None Seen Urine Glucose 4+ H Normal mg/dL POC Glucose 510 *H 70-106 mg/dl Test 10/14/24 18:15 10/14/24 16:37 10/14/24 16:31 Range/Units Sodium Level 127 L 136-145 mmol/L Potassium Level 4.4 3.5-5.1 mmol/L Chloride Level 90 L 98-107 mmol/L Carbon Dioxide Level 21 20-31 mmol/L Anion Gap 16 H 5-15 Blood Urea Nitrogen 39 H 9-23 mg/dL Creatinine 1.82 H 0.550-1.02 mg/dL Glomerular Filtration Rate Calc 34 >90 mL/min BUN/Creatinine Ratio 21.4 H 10.0-20.0 Serum Glucose 653 *H 74-106 mg/dL Lactic Acid Level 2.3 *H 0.4-2.0 mmol/L Calcium Level 9.0 8.7-10.4 mg/dL White Blood Count 15.4 H 4.4-10.8 10^3/uL Red Blood Count 4.65 4.0-5.20 10^6/uL Hemoglobin 12.2 12.2-16.2 g/dL Hematocrit 38.0 36.0-46.0 % Mean Corpuscular Volume 81.7 80.0-100.0 fL Mean Corpuscular Hemoglobin 26.3 L 28.0-32.0 pg Mean Corpuscular Hemoglobin Concent 32.2 32.0-36.0 g/dL Red Cell Distribution Width 16.3 H 11.8-14.3 % Platelet Count 464 H 140-450 10^3/uL Mean Platelet Volume 8.3 6.9-10.8 fL Neutrophils (%) (Auto) 95.6 H 37.0-80.0 % Lymphocytes (%) (Auto) 3.0 L 10.0-50.0 % Monocytes (%) (Auto) 1.2 0.0-12.0 % Eosinophils (%) (Auto) 0.1 0.0-7.0 % Basophils (%) (Auto) 0.1 0.0-2.0 % Neutrophils # (Auto) 14.7 H 1.6-8.6 10 ^3/uL Lymphocytes # (Auto) 0.5 0.4-5.4 10 ^3/uL Monocytes # (Auto) 0.2 0-1.3 10 ^3/uL Eosinophils # (Auto) 0 0-0.8 10 ^3/uL Basophils # (Auto) 0 0-0.2 10 ^3/uL Nucleated Red Blood Cells 0.0 % Total Bilirubin 0.3 0.2-1.0 mg/dL Aspartate Amino Transferase (AST) 16 13-40 U/L Alanine Aminotransferase (ALT) < 9 7-40 U/L Alkaline Phosphatase 78 46-116 U/L Total Protein 6.3 5.7-8.2 g/dL Albumin 3.1 L 3.2-4.8 g/dL Lipase 21 12-53 U/L Beta-Hydroxybutyric Acid 4.131 H < 0.4 mmol/L Beta HCG, Quantitative 2.1 1.5-4.2 mIU/mL Blood Gas Specimen Type Arterial Blood Gas Sample Site Right radial Blood Gas Patient Temperature 37.0 Arterial Blood Date Drawn [id number] Arterial Blood pH 7.469 H 7.350-7.450 Arterial Blood Partial Pressure CO2 31.2 L 32.0-45.0 mmHg Arterial Blood Partial Pressure O2 83.0 83.0-108.0 mmHg Arterial Blood HCO3 22.1 21.0-28.0 mmol/L Arterial Blood Oxygen Saturation 96.3 94.0-98.0 % Arterial Blood Base Excess -0.7 -2.0-3.0 mmol/L Arterial Blood Oxyhemoglobin 95.3 94.0-98.0 % Arterial Blood Carboxyhemoglobin 0.5 0.5-1.5 % Arterial Blood Methemoglobin 0.5 0.0-1.5 % Navi Test Yes Blood Gas Total Hemoglobin 13.00 12.0-16.0 g/dL Blood Gas Modality Room air FiO2 % 21.0 Assessment/Plan Assessment/Plan Assessment Right adnexal mass,? Abscess Sepsis Acute kidney injury Mild DKA Plan Admit the patient to [facility] to the hospitalist Insulin drip per protocol OBGYN NPO Zosyn/vancomycin Pain management Continue treatment per orders. Total critical care time excluding procedures performed is 50 minutes. Plan discussed with: Patient My Orders Orders - AMANDA BORGES AGACNP Procedure Category Date Status Time Sodium Chloride 0.9% PHA 10/14/24 In Process 21:00 * Sports Physiologist Consultation CONS 10/14/24 Transmitted 20:55 Vancomycin Per PHA 10/14/24 Pending Pharmacy 21:00 Piperacillin-Tazob PHA 10/14/24 In Process 3.375gm (Zosyn 3.375g 22:00 Admit ADMIT 10/14/24 Transmitted 20:55 Ondansetron Hcl PHA 10/14/24 In Process (Zofran) 21:00 Complete Blood Count LAB 10/15/24 Logged 04:00 Comprehensive LAB 10/15/24 Logged Metabolic Panel 04:00 Npo (Nothing By DIET 10/15/24 Transmitted Mouth) Diet Breakfast Condition: Stable EMELINA 10/14/24 In Process 20:55 Bedrest With Bathroom EMELINA 10/14/24 In Process Privileg 20:55 Morphine Sulfate PHA 10/14/24 In Process Injection 21:00 Nitroglycerin PHA 10/14/24 In Process Sublingual (Ntrostat 21:00 Morphine Sulfate PHA 10/14/24 In Process Injection 21:00 Stat Ekg For Chest EMELINA 10/14/24 In Process Pain 20:55 Notify Md Of Changes EMELINA 10/14/24 In Process From Base 20:55 Magazine Hand For [facility] 10/14/24 In Process 24 Hours 20:55 Emergency Dysrhythmia EMELINA 10/14/24 In Process Protocol 20:55 Rhythm Strips Once EMELINA 10/14/24 In Process Every Shift 20:55 Oxygen By Nasal RT 10/14/24 Transmitted Cannula 20:55 Glucose Blood PHA 10/15/24 In Process (Accu-Chek Comfort 00:00 Insulin R (Human) PHA 10/14/24 In Process (Insulin R) 22:15 Hepatitis B Surface LAB 10/14/24 In Process Antigen 23:31 Hepatitis C Antibody LAB 10/14/24 In Process 23:31 * [employer] Operator CONS 10/14/24 Transmitted Consult 23:31 Sodium Chloride 0.9% PHA 10/15/24 In Process 00:00 Date of Service: Oct 14, 2024 Billing Provider: AMANDA BORGES Common Visit Codes: [id number] CARE 30-74 MIN AMANDA BORGES Oct 15, 2024 00:38
[2024-10-15] MEDS ORDERED: DEXTROSE (50%) 50ML SYRG IV PRN (00:45)
[2024-10-15] MEDS: ACCU-CHEK COMFORT CURVE STRIP VI SCH ×2 (00:47→02:12)
[2024-10-15 01:01] LABS: Potassium 4.2 mmol/L (3.5-5.1)
[2024-10-15 01:02] LABS: Anion Gap 10 (5-15); Carbon Dioxide 23 mmol/L (20-31)
[2024-10-15 01:03] LABS: Calcium 8.7 mg/dL (8.7-10.4)
[2024-10-15 01:14] LABS: Blood Urea Nitrogen 31 mg/dL (9-23); Chloride 92 mmol/L (98-107); Glucose 438 mg/dL (74-106); Sodium 125 mmol/L (136-145)
[2024-10-15] MEDS: INSULIN LANTUS (GLARGINE) 1 /0.01ml (100units/ml) SC ONE ×2 (01:21→16:35)
[2024-10-15] MEDS: SODIUM CHLORIDE 0.9% 500 ML IV ONE (02:04)
[2024-10-15] MEDS: INSULIN DRIP 100 UNIT/100ML 100 ML IV SCH (02:23)
[2024-10-15 05:23] LABS: Basophils # (auto) 0 10 ^3/uL (0-0.2); Eosinophils # (auto) 0 10 ^3/uL (0-0.8); Eosinophils % (auto) 0.1 % (0.0-7.0); Hematocrit 36.2 % (36.0-46.0); Hemoglobin 12.1 g/dL (12.2-16.2); Lymphocytes # (auto) 0.8 10 ^3/uL (0.4-5.4); Mean Corpuscular Hemoglobin 26.7 pg (28.0-32.0); Mean Corpuscular Hgb Conc. 33.4 g/dL (32.0-36.0); Mean Corpuscular Volume 80.1 fL (80.0-100.0); Monocytes # (auto) 0.5 10 ^3/uL (0-1.3); Monocytes % (auto) 2.3 % (0.0-12.0); Neutrophils # (auto) 18.5 10 ^3/uL (1.6-8.6); Neutrophils % (auto) 93.6 % (37.0-80.0); Platelet Count (auto) 422 10^3/uL (140-450); Red Blood Cells 4.52 10^6/uL (4.0-5.20); Red Cell Distribution Width 16.3 % (11.8-14.3); White Blood Cell 19.7 10^3/uL (4.4-10.8)
--- NOTE | 2024-10-15 05:25 | DVHPN2 ---
Chief Complaints Patient reports: No new complaints, Feels better, Other (No significant change) Objective Vitals Vital Signs Date Time Temp Pulse Resp B/P (MAP) Pulse Ox O2 Delivery O2 Flow Rate FiO2 10/15/24 04:00 116 10/15/24 04:00 30 106/68 (81) 95 10/15/24 00:30 Room Air* 0 21 10/15/24 00:00 98.1 98.1 Medications Current Medications Medications (Trade) Dose Ordered Sig/Rl Route PRN Reason Start Time Stop Time Status Last Admin Dextrose 50 ml UD PRN IV SEE CURRENT ALGORITHM or SCALE 10/15/24 00:45 Diagnostic Test (Pha) (Accu-Chek Comfort Curve T) 1 strip IQ4HR 10/15/24 00:00 10/15/24 04:03 Diagnostic Test (Pha) (Accu-Chek Comfort Curve T) 1 strip Q90MIN 10/15/24 01:30 10/15/24 03:56 Insulin Glargine (Lantus) 15 units DAILY SC 10/16/24 10:00 Insulin Human (Reg)/Sodium Chloride 100 ml @ 0.5 mls/hr Q24H IV 10/15/24 00:45 10/15/24 02:23 Insulin Human Regular (InsuLIN R) IQ4HR SC 10/14/24 22:15 10/15/24 00:46 Morphine Sulfate 2 mg Q30M PRN IV FOR CHEST PAIN 10/14/24 21:00 Morphine Sulfate 2 mg Q4HPRN PRN IV SEVERE PAIN (7-10 PAIN SCALE) 10/14/24 21:00 Nitroglycerin (Ntrostat Sublingual) 0.4 mg Q5MINP PRN SL FOR CHEST PAIN 10/14/24 21:00 Ondansetron HCl (Zofran) 4 mg Q4HP PRN IV NAUSEA / VOMITING 10/14/24 21:00 Piperacillin Sod/ Tazobactam Sod 100 ml @ 25 mls/hr Q8HR IV 10/14/24 22:00 10/14/24 22:23 Sodium Chloride 1,000 ml @ 100 mls/hr Q10H IV 10/14/24 21:00 10/14/24 21:38 Vancomycin HCl 0 ml @ 0 mls/hr UD IV 10/14/24 21:00 UNV General: Normal Lungs: Normal Cardiovascular: Normal (tachy 115) Abdominal: Soft (she continues to have mild epigastric pain) Musculoskeletal: Normal Skin: Normal Neurological: Normal Studies Test 10/15/24 04:32 Range/Units Serum Glucose Pending Ass/Plan Assessment DKA PID tachy sepsis Glucose 219 improved Sat 95% Plan Recommend 24 hours additional IV antibiotics with no significant clinical and/or laboratory improvement consider transfer to higher level care for exploratory laparotomy by General surgery possible appendectomy lysis of small bowel /colonic adhesions, possible TAHBSO. 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 HEIDY GUTIERREZ DO Oct 15, 2024 05:25
[2024-10-15 05:30] LABS: Alkaline Phosphatase 81 U/L (46-116); Anion Gap 11 (5-15); Aspartate Aminotransferase 21 U/L (13-40); BUN/Creatinine Ratio 36.1 (10.0-20.0); Carbon Dioxide 22 mmol/L (20-31); Potassium 3.7 mmol/L (3.5-5.1); Total Protein 6.3 g/dL (5.7-8.2)
[2024-10-15 05:31] LABS: Alanine Aminotransferase < 9 U/L (7-40); Albumin 3.1 g/dL (3.2-4.8); Bilirubin, Total 0.2 mg/dL (0.2-1.0); Blood Urea Nitrogen 30 mg/dL (9-23); Chloride 97 mmol/L (98-107); Glucose 222 mg/dL (74-106); Sodium 130 mmol/L (136-145)
[2024-10-15] MEDS: MORPHINE SULFATE INJ 2 MG/ml SYRG IV PRN (06:04)
[2024-10-15 06:52] LABS: Anion Gap 9 (5-15); Carbon Dioxide 24 mmol/L (20-31); Potassium 3.6 mmol/L (3.5-5.1)
[2024-10-15 06:53] LABS: Calcium 9.1 mg/dL (8.7-10.4)
[2024-10-15 06:56] LABS: Chloride 98 mmol/L (98-107); Sodium 131 mmol/L (136-145)
[2024-10-15 06:58] LABS: BUN/Creatinine Ratio 41.4 (10.0-20.0)
[2024-10-15 07:03] LABS: Blood Urea Nitrogen 29 mg/dL (9-23); Glucose 151 mg/dL (74-106)
[2024-10-15 10:34] LABS: Hepatitis B Surface Antigen Negative (Negative); Hepatitis C Antibody Negative (Negative)
[2024-10-15] MEDS: VANCOMYCIN 1GM/250ML KIT 250 ML IV SCH (11:47)
[2024-10-15 13:28] LABS: Anion Gap 11 (5-15); Carbon Dioxide 21 mmol/L (20-31); Chloride 99 mmol/L (98-107); Potassium 3.9 mmol/L (3.5-5.1)
[2024-10-15 13:29] LABS: Calcium 9.2 mg/dL (8.7-10.4)
[2024-10-15 13:34] LABS: BUN/Creatinine Ratio 35.1 (10.0-20.0); Blood Urea Nitrogen 20 mg/dL (9-23); Glucose 125 mg/dL (74-106); Sodium 131 mmol/L (136-145)
--- NOTE | 2024-10-15 15:51 | DVHPN2 ---
Subjective Patient continues to report having severe right lower quadrant pain Reviewed: Care Plan, Labs, Medications Changes from previous H/P or p: No Changes Objective Vitals Vital Signs Date Time Temp Pulse Resp B/P (MAP) Pulse Ox O2 Delivery O2 Flow Rate FiO2 10/15/24 14:00 122 38 102/54 (70) 91 10/15/24 14:00 Room Air* 0 21 10/15/24 12:00 98.2 98.2 Intake/Output Intake and Output 10/15/24 06:59 Intake Total 4250 ml Balance 4250 ml Intake IV Total 4250 ml General Appearance: Alert, Oriented X3, Cooperative, moderate distress HEENT: Atraumatic, PERRLA Cardiovascular: Normal S1, Normal S2 Abdomen: Normal bowel sounds, Soft, No hepatospenomegaly, Other (Right lower quadrant tenderness) Genitourinary: No Apparent Abnormalities Musculoskeletal: Normal sensory function, Normal motor function, Weak motor strength RLE, Weak motor strength LLE Skin: Dry, Intact, Warm Psych/Mental Status: Mental status NL, Mood NL Medications Current Medications Medications Dose Ordered Sig/Rl Route Start Time Stop Time Status Last Admin Dose Admin Sodium Chloride 1,000 ml @ 100 mls/hr Q10H IV 10/14/24 21:00 10/15/24 06:45 100 MLS/HR Vancomycin HCl 0 ml @ 0 mls/hr UD IV 10/14/24 21:00 Piperacillin Sod/ Tazobactam Sod 100 ml @ 25 mls/hr Q8HR IV 10/14/24 22:00 10/15/24 06:19 25 MLS/HR Ondansetron HCl 4 mg Q4HP PRN IV 10/14/24 21:00 Morphine Sulfate 2 mg Q4HPRN PRN IV 10/14/24 21:00 10/15/24 06:04 2 MG Nitroglycerin 0.4 mg Q5MINP PRN SL 10/14/24 21:00 Morphine Sulfate 2 mg Q30M PRN IV 10/14/24 21:00 Diagnostic Test (Pha) 1 strip IQ4HR 10/15/24 00:00 10/15/24 04:03 1 STRIP Insulin Human Regular IQ4HR SC 10/14/24 22:15 10/15/24 00:46 20 UNITS Dextrose 50 ml UD PRN IV 10/15/24 00:45 Diagnostic Test (Pha) 1 strip Q90MIN 10/15/24 01:30 10/15/24 12:56 1 STRIP Insulin Glargine 15 units DAILY SC 10/16/24 10:00 Vancomycin HCl 250 ml @ 200 mls/hr Q12H IV 10/15/24 11:00 10/15/24 11:47 200 MLS/HR Acetaminophen/ Hydrocodone Bitart 1 tab Q6HPRN PRN PO 10/15/24 15:45 UNV Acetaminophen 500 mg Q8HP PRN PO 10/15/24 15:45 UNV Ondansetron HCl 4 mg Q6HP PRN IV 10/15/24 15:45 UNV Laboratory Results Laboratory Tests 10/15/24 04:32 10/15/24 12:44 Chemistry Test 10/14/24 16:37 10/14/24 18:15 10/15/24 00:27 10/15/24 04:32 Albumin 3.1 g/dL (3.2-4.8) L 3.1 g/dL (3.2-4.8) L Calcium Level 8.6 mg/dL (8.7-10.4) L 9.0 mg/dL (8.7-10.4) 8.7 mg/dL (8.7-10.4) 9.0 mg/dL (8.7-10.4) Total Protein 6.3 g/dL (5.7-8.2) 6.3 g/dL (5.7-8.2) Test 10/15/24 06:27 10/15/24 12:44 Calcium Level 9.1 mg/dL (8.7-10.4) 9.2 mg/dL (8.7-10.4) Coagulation Test 10/14/24 21:10 Prothrombin Time 13.0 sec (9.3-11.8) H Prothrombin Time INR 1.25 (0.9-1.15) H Activated Partial Thromboplast Time 31.0 SEC (24.5-34.5) Lipid panel Test 10/14/24 16:37 Lipase 21 U/L (12-53) LFT Test 10/14/24 16:37 10/15/24 04:32 Alanine Aminotransferase (ALT) < 9 U/L (7-40) < 9 U/L (7-40) Alkaline Phosphatase 78 U/L (46-116) 81 U/L (46-116) Aspartate Amino Transferase (AST) 16 U/L (13-40) 21 U/L (13-40) Total Bilirubin 0.3 mg/dL (0.2-1.0) 0.2 mg/dL (0.2-1.0) Urinalysis Test 10/14/24 20:15 Urine Color Yellow (Yellow) Urine Clarity Turbid (Clear) H Urine pH 5.0 (5.0-9.0) Urine Specific [place] 1.023 (1.001-1.035) Urine Protein Trace (Negative) H Urine Ketones 1+ (Negative) H Urine Blood Negative /uL (Negative) Urine Nitrite Negative (Negative) Urine Bilirubin Negative (Negative) Urine Urobilinogen 2 mg/dL (Negative) H Urine Leukocyte Esterase 3+ /uL (Negative) Urine RBC 8 /hpf (0 - 4) Urine Microscopic WBC 50 /HPF (0-5) H Urine Squamous Epithelial Cells Few /hpf (<5) Urine Bacteria None seen /hpf (None Seen) Urine Hyaline Casts Many /lpf (0 - 2) Urine Mucus Few (None Seen) Urine Glucose 4+ mg/dL (Normal) H Blood Gas Results Test 10/14/24 16:31 Arterial Blood pH 7.469 (7.350-7.450) FiO2 % 21.0 Labs and/or images reviewed: Labs reviewed by me, Image(s) reviewed by me Assessment/Plan Assessment/Plan Impression: -diabetic ketoacidosis -severe sepsis -? Pelvic inflammatory disease -rule out appendicitis -complicated cystitis -diabetes mellitus with noncompliance -acute kidney injury, vasomotor nephropathy Plan: -DKA resolved, stop insulin drip, start Lantus and regular insulin sliding scale -increase normal saline to 150 mL/hour -continue vancomycin and Zosyn -UDS -blood and urine culture -attempt consistent carbohydrate diet -IV prokinetic -CT scan of the abdomen and pelvis with IV and oral contrast -transfer to telemetry unit -repeat labs in a.m. Critical care time spent with patient discussing and formulating plan of care: 40 minutes. This does not include time spent performing procedures. This medical document was created using an electronic medical record system with [employer] dictation system. Although this document has been carefully reviewed, there may still be some phonetic and typographical errors. These areas are purely typographical due to imperfections of the software programs, and do not reflect any compromise in the patient's medical care. Plan discussed with: Patient, Other (RN) My Orders Orders - GARY LIM NP Procedure Category Date Status Time Consistent DIET 10/15/24 Transmitted Carb(Ccho)Diabetes Dinner Drug Screen LAB 10/15/24 Logged 15:28 Hemoglobin A1c LAB 10/15/24 Logged 15:28 Basic Metabolic Panel LAB 10/16/24 Verified 04:00 Phosphorus LAB 10/16/24 Verified 04:00 Magnesium LAB 10/16/24 Verified 04:00 PTPTT LAB 10/16/24 Verified 04:00 Insulin Lantus PHA 10/15/24 Logged (Glargine) (Lantus) 15:30 Transfer Orders XFER 10/15/24 Transmitted 15:33 Hydrocodone-Acet PHA 10/15/24 Logged 5/325mg Tab ([place] 15:45 Acetaminophen Tab Or PHA 10/15/24 Logged Cap (Tylenol Tablet 15:45 Ondansetron Hcl PHA 10/15/24 Logged (Zofran) 15:45 Metoclopramide PHA 10/15/24 Logged Injection (Reglan 15:45 Ct Ab Pel With Oral CT 10/15/24 Logged Con Only 15:35 Date of Service: Oct 15, 2024 Billing Provider: GARY LIM NP Common Visit Codes: [id number] CARE 30-74 MIN GARY LIM NP Oct 15, 2024 15:51
[2024-10-15] MEDS: SODIUM CHLORIDE 0.9% 1,000 ML IV SCH (16:24)
[2024-10-15] MEDS: METOCLOPRAMIDE HCL 5MG/ml INJ 2ml VIAL IV ONE (16:25)
[2024-10-15 19:22] LABS: Chloride 99 mmol/L (98-107); Potassium 3.8 mmol/L (3.5-5.1)
[2024-10-15 19:23] LABS: Anion Gap 12 (5-15); Carbon Dioxide 20 mmol/L (20-31); Sodium 131 mmol/L (136-145)
[2024-10-15 19:28] LABS: BUN/Creatinine Ratio 27.5 (10.0-20.0); Blood Urea Nitrogen 14 mg/dL (9-23)
[2024-10-15 19:36] LABS: Glucose 142 mg/dL (74-106)
--- NOTE | 2024-10-15 23:00 | DVHPN2 ---
Chief Complaints Patient reports: No new complaints, Other (Patient is very confused ... Decreased cognition) Objective Vitals Vital Signs Date Time Temp Pulse Resp B/P (MAP) Pulse Ox O2 Delivery O2 Flow Rate FiO2 10/15/24 20:00 115 10/15/24 20:00 30 91 Room Air* 0 21 10/15/24 19:00 128/78 (95) 10/15/24 17:00 98.4 98.4 Medications Current Medications Medications (Trade) Dose Ordered Sig/Rl Route PRN Reason Start Time Stop Time Status Last Admin Acetaminophen (Tylenol Tablet Or Capsule) 500 mg Q8HP PRN PO PAIN SCALE 1-3 OR TEMP>100.4 10/15/24 15:45 Acetaminophen/ Hydrocodone Bitart ([employer] 5/325MG Tab) 1 tab Q6HPRN PRN PO MODERATE PAIN (4-6 PAIN SCALE) 10/15/24 15:45 Dextrose 50 ml UD PRN IV SEE CURRENT ALGORITHM or SCALE 10/15/24 00:45 Diagnostic Test (Pha) (Accu-Chek Comfort Curve T) 1 strip IQ4HR 10/15/24 00:00 10/15/24 20:37 Insulin Glargine (Lantus) 15 units DAILY SC 10/16/24 10:00 Ondansetron HCl (Zofran) 4 mg Q6HP PRN IV NAUSEA / VOMITING 10/15/24 15:45 Sodium Chloride 1,000 ml @ 150 mls/hr Q6H40M IV 10/15/24 16:00 10/15/24 21:20 Vancomycin HCl 250 ml @ 200 mls/hr Q12H IV 10/15/24 11:00 10/15/24 11:47 General: Normal, Cachetic Lungs: Normal Cardiovascular: Normal (tachy 115) Abdominal: Other (Her abdominopelvic exam was tender throughout left and right upper and lower quadrants pelvic exam she has cervical motion tenderness with malodorous discharge from the vagina) Musculoskeletal: Normal Skin: Normal Neurological: Normal Others Pelvic exam malodorous discharge cervical motion tenderness tenderness right and left adnexa and mid suprapubic area. She also has tenderness upper right and left quadrants and epigastric. Studies Laboratory Tests 10/15/24 18:30 10/15/24 04:32 Test 10/15/24 18:30 Range/Units Serum Glucose 142 H 74-106 mg/dL Ass/Plan Assessment DKA PID tachy sepsis Glucose was 219 now 150s Plan Recommend continued abx for 24 hrs if no sig improvement clinically transfer to higher level care for combined [facility] oncology / gen surgery / hospitalist team DKA, likely will need exploratory laparotomy possible appendectomy, small bowel lysis of adhesions, hysterectomy, BSO.... For further PROJECTION PRINTER consultation notify HEIDY Akins DO Oct 15, 2024 23:00
[2024-10-16] VITALS (16 sets, daily range): BP systolic 105–131; BP diastolic 66–82; PULSE 84–118; RESP 13–40; TEMP 96.7–98.8; O2SAT 93–100
[2024-10-16 06:28] LABS: Eosinophils # (auto) 0 10 ^3/uL (0-0.8); Lymphocytes # (auto) 0.6 10 ^3/uL (0.4-5.4); Lymphocytes % (auto) 2.7 % (10.0-50.0)
[2024-10-16 06:32] LABS: Basophils # (auto) 0.1 10 ^3/uL (0-0.2); Basophils % (auto) 0.5 % (0.0-2.0); Eosinophils % (auto) 0.1 % (0.0-7.0); Hematocrit 31.5 % (36.0-46.0); Hemoglobin 10.2 g/dL (12.2-16.2); Mean Corpuscular Hemoglobin 26.5 pg (28.0-32.0); Mean Corpuscular Hgb Conc. 32.5 g/dL (32.0-36.0); Mean Corpuscular Volume 81.5 fL (80.0-100.0); Monocytes # (auto) 0.4 10 ^3/uL (0-1.3); Monocytes % (auto) 1.8 % (0.0-12.0); Neutrophils % (auto) 94.9 % (37.0-80.0); Platelet Count (auto) 413 10^3/uL (140-450); Red Blood Cells 3.86 10^6/uL (4.0-5.20); Red Cell Distribution Width 16.5 % (11.8-14.3); White Blood Cell 22.1 10^3/uL (4.4-10.8)
[2024-10-16 06:45] LABS: Anion Gap 9 (5-15); Carbon Dioxide 23 mmol/L (20-31); Chloride 100 mmol/L (98-107); INR 1.05 (0.9-1.15); Partial Thromboplastin Time 30.7 SEC (24.5-34.5); Prothrombin Time 11.1 sec (9.3-11.8)
[2024-10-16 06:50] LABS: Calcium 8.4 mg/dL (8.7-10.4); Potassium 3.5 mmol/L (3.5-5.1); Sodium 132 mmol/L (136-145)
[2024-10-16 06:51] LABS: BUN/Creatinine Ratio 26.2 (10.0-20.0); Blood Urea Nitrogen 11 mg/dL (9-23); Magnesium 1.9 mg/dL (1.6-2.6)
[2024-10-16 06:52] LABS: Glucose 181 mg/dL (74-106)
[2024-10-16 06:53] LABS: Phosphorus 2.4 mg/dL (2.4-5.1)
[2024-10-16] MEDS: GASTROGRAFIN 30 ML SOL ONE (07:13)
--- NOTE | 2024-10-16 08:15 | ECG ---
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
--- NOTE | 2024-10-16 08:36 | DVHPN2 ---
Subjective Patient continues to report having severe right lower quadrant pain Reviewed: Care Plan, Labs, Medications Changes from previous H/P or p: No Changes General: Per HPI Objective Vitals Vital Signs Date Time Temp Pulse Resp B/P (MAP) Pulse Ox O2 Delivery O2 Flow Rate FiO2 10/16/24 06:00 98.8 112 32 123/74 (90) 100 98.8 10/16/24 06:00 Room Air* 0 21 Intake/Output Intake and Output 10/16/24 07:00 Intake Total 3605.0 ml Output Total 350 ml Balance 3255.0 ml Intake Oral 350 ml IV Total 3255.0 ml Output Urine Total 350 ml # Voids 1 General Appearance: Alert, Oriented X3, Cooperative, moderate distress, Other (Generalized weakness) HEENT: Atraumatic, PERRLA Cardiovascular: Normal S1, Normal S2 Abdomen: Normal bowel sounds, Soft, No hepatospenomegaly, Other (Severe tenderness to right lower quadrant.) Genitourinary: No Apparent Abnormalities Musculoskeletal: Normal sensory function, Normal motor function, Weak motor strength RLE, Weak motor strength LLE Neuro: Normal speech, Cranial nerves 3-12 NL Skin: Dry, Intact, Warm Psych/Mental Status: Mental status NL, Mood NL Medications Current Medications Medications Dose Ordered Sig/Rl Route Start Time Stop Time Status Last Admin Dose Admin Vancomycin HCl 0 ml @ 0 mls/hr UD IV 10/14/24 21:00 Piperacillin Sod/ Tazobactam Sod 100 ml @ 25 mls/hr Q8HR IV 10/14/24 22:00 10/16/24 05:45 25 MLS/HR Morphine Sulfate 2 mg Q4HPRN PRN IV 10/14/24 21:00 10/16/24 05:06 2 MG Nitroglycerin 0.4 mg Q5MINP PRN SL 10/14/24 21:00 Morphine Sulfate 2 mg Q30M PRN IV 10/14/24 21:00 Diagnostic Test (Pha) 1 strip IQ4HR 10/15/24 00:00 10/16/24 04:19 1 STRIP Insulin Human Regular IQ4HR SC 10/14/24 22:15 10/16/24 04:27 4 UNITS Dextrose 50 ml UD PRN IV 10/15/24 00:45 Insulin Glargine 15 units DAILY SC 10/16/24 10:00 Vancomycin HCl 250 ml @ 200 mls/hr Q12H IV 10/15/24 11:00 10/15/24 23:14 200 MLS/HR Acetaminophen/ Hydrocodone Bitart 1 tab Q6HPRN PRN PO 10/15/24 15:45 Acetaminophen 500 mg Q8HP PRN PO 10/15/24 15:45 Ondansetron HCl 4 mg Q6HP PRN IV 10/15/24 15:45 Sodium Chloride 1,000 ml @ 150 mls/hr Q6H40M IV 10/15/24 16:00 10/15/24 21:20 150 MLS/HR Laboratory Results Laboratory Tests 10/16/24 06:00 Chemistry Test 10/15/24 12:44 10/15/24 18:30 10/16/24 06:00 Calcium Level 9.2 mg/dL (8.7-10.4) 9.0 mg/dL (8.7-10.4) 8.4 mg/dL (8.7-10.4) L Magnesium Level 1.9 mg/dL (1.6-2.6) Phosphorus Level 2.4 mg/dL (2.4-5.1) Coagulation Test 10/16/24 06:00 Prothrombin Time 11.1 sec (9.3-11.8) Prothrombin Time INR 1.05 (0.9-1.15) Activated Partial Thromboplast Time 30.7 SEC (24.5-34.5) Urinalysis Test 10/14/24 20:15 Urine Color Yellow (Yellow) Urine Clarity Turbid (Clear) H Urine pH 5.0 (5.0-9.0) Urine Specific [place] 1.023 (1.001-1.035) Urine Protein Trace (Negative) H Urine Ketones 1+ (Negative) H Urine Blood Negative /uL (Negative) Urine Nitrite Negative (Negative) Urine Bilirubin Negative (Negative) Urine Urobilinogen 2 mg/dL (Negative) H Urine Leukocyte Esterase 3+ /uL (Negative) Urine RBC 8 /hpf (0 - 4) Urine Microscopic WBC 50 /HPF (0-5) H Urine Squamous Epithelial Cells Few /hpf (<5) Urine Bacteria None seen /hpf (None Seen) Urine Hyaline Casts Many /lpf (0 - 2) Urine Mucus Few (None Seen) Urine Glucose 4+ mg/dL (Normal) H Microbiology Microbiology Date/Time Source Procedure Growth Status 10/14/24 16:37 Blood Blood Culture - Preliminary Resulted Labs and/or images reviewed: Labs reviewed by me, Image(s) reviewed by me Assessment/Plan Assessment/Plan Impression: -diabetic ketoacidosis -severe sepsis -? Pelvic inflammatory disease -rule out appendicitis -complicated cystitis -diabetes mellitus with noncompliance -acute kidney injury, vasomotor nephropathy Plan: -events patient continues to present with severe malaise, right lower quadrant pain. Patient will be made NPO. Plans for CT scan of the abdomen and pelvis with IV and oral contrast. -change IV fluid to normal saline with 20 mEq of potassium chloride at 100 mL/hour -surgical consultation pending findings of CT scan -continue vancomycin and Zosyn -UDS -blood and urine culture -attempt consistent carbohydrate diet -IV prokinetic -CT scan of the abdomen and pelvis with IV and oral contrast -repeat labs in a.m. Critical care time spent with patient discussing and formulating plan of care: 40 minutes. This does not include time spent performing procedures. This medical document was created using an electronic medical record system with Qraved dictation system. Although this document has been carefully reviewed, there may still be some phonetic and typographical errors. These areas are purely typographical due to imperfections of the software programs, and do not reflect any compromise in the patient's medical care. Plan discussed with: Patient, Other (RN) My Orders Orders - GARY LIM PT SITTER Procedure Category Date Status Time Drug Screen LAB 10/15/24 Logged 15:28 Transfer Orders XFER 10/15/24 Transmitted 15:33 Hydrocodone-Acet PHA 10/15/24 In Process 5/325mg Tab ([place] 15:45 Acetaminophen Tab Or PHA 10/15/24 In Process Cap (Tylenol Tablet 15:45 Ondansetron Hcl PHA 10/15/24 In Process (Zofran) 15:45 Sodium Chloride 0.9% PHA 10/15/24 In Process 16:00 Transfer Orders XFER 10/15/24 Transmitted 16:[address] Pelvis W CT 10/16/24 Logged Con-Oral & Iv 08:16 Ct Abd Pelvis W CT 10/16/24 Logged Con-Oral & Iv 07:00 Npo Except For EMELINA 10/16/24 Transmitted Medications 08:24 Ns W Potassium 20meq PHA 10/16/24 Transmitted 08:30 Date of Service: Oct 16, 2024 Billing Provider: GARY LIM NP Common Visit Codes: [id number] CARE 30-74 MIN GARY LIM NP Oct 16, 2024 08:36
[2024-10-16] MEDS: ONDANSETRON HCL 4 MG/2 ML VIAL IV PRN (08:46)
[2024-10-16] MEDS: GOLYTELY 4L KIT PO ONE (09:37)
[2024-10-16] MEDS: INSULIN LANTUS (GLARGINE) 1 /0.01ml (100units/ml) SC SCH (10:14)
--- NOTE | 2024-10-16 10:27 | DVHINCON2 ---
Date of service: Oct 16, 2024 Referring Physician Joseph History of Present Illness HPI 44y Hx of C/Section x1, s/p BTL Admitted with acute abdominal pain and RUQ inflammatory mass seen on CT Patient endorses 2 wk history of acute RLQ pain, N/V and subjective fevers at home Denies any prior history of STI Patient is homeless, endorses prior use of drugs including methamphetamines, last used x 1 week ago Patient has not responded to IV antibiotics, pain is severe with a rigid abdomen and increasing leukocytosis. Home Meds Reported Medications Lisinopril (Lisinopril) 2.5 Mg Tab, 2.5 MG PO DAILY for 30 Days, MG 10/14/24 Omeprazole (Gnp Omeprazole) 20 Mg Tab, 1 TAB PO DAILY, #90 TAB 1 Refill 10/14/24 Insulin Lispro (Human) (Humalog) 100 Unit/Ml Inj, SC, INJ 10/14/24 Past Medical History Cardiac: No pertinent Hx Pulmonary: No pertinent Hx Central Nervous System: No pertinent Hx GI: No pertinent Hx Hemotology/Oncology: No pertinent Hx Hepatobiliary: No pertinent Hx Psychiatric: No pertinent Hx Musculoskeletal: No pertinent Hx Rheumotologic: No pertinent Hx Infectious Disease: No peritnent Hx ENT: No pertinent Hx Endocrine: IDDM Dermatology: No pertinent Hx Past Surgical History: , Tubal ligation Family History: No pertinent Hx Patient Family History: Diabetes mellitus G8 MOTHER FH: cirrhosis G8 MOTHER FH: heart disease G8 MOTHER Smoker: No Hx (Negative) Alocohol: None Lives with: Homeless Review of Systems Constitutional: Chills, Fever, Malaise, Weakness Ears, Nose, & Throat: No symptom reported Eyes: No symptom reported Pulmonary/Respiratory: No symptom reported Cardiovascular: No symptom reported Gastrointestinal: Nausea, Abdominal Pain Genitourinary: No symptom reported Musculoskeletal: No symptom reported Skin: No symptom reported Psychiatric: No symptom reported Endocrine: No symptom reported H&P Exam Vital Signs Vital Signs Date Time Temp Pulse Resp B/P (MAP) Pulse Ox O2 Delivery O2 Flow Rate FiO2 10/16/24 08:41 109 20 115/71 10/16/24 08:00 100 Room Air* 0 21 10/16/24 06:00 98.8 98.8 General Appeara: Moderate distress Head Exam: Normal inspection Neck Exam: Non-tender Eye Exam: bilateral eye PERRL Mouth: Dry mouth Cardiovascular/Chest: Tachycardia Abdominal Exam: Other (rigid abdomen, tender in RLQ and epigastrium. No palp masses) Rectal Exam: Deferred Pelvic Exam: Not done Appearance: Appropriate appearance Thoughts/Psych: Normal thought pattern Labs/Xrays Labs Test 10/16/24 08:26 10/16/24 06:00 10/15/24 04:32 10/15/24 00:27 Range/Units POC Glucose 190 H 70-106 mg/dl White Blood Count 22.1 H 4.4-10.8 10^3/uL Red Blood Count 3.86 L 4.0-5.20 10^6/uL Hemoglobin 10.2 #L 12.2-16.2 g/dL Hematocrit 31.5 #L 36.0-46.0 % Mean Corpuscular Volume 81.5 80.0-100.0 fL Mean Corpuscular Hemoglobin 26.5 L 28.0-32.0 pg Mean Corpuscular Hemoglobin Concent 32.5 32.0-36.0 g/dL Red Cell Distribution Width 16.5 H 11.8-14.3 % Platelet Count 413 140-450 10^3/uL Mean Platelet Volume 7.3 6.9-10.8 fL Neutrophils (%) (Auto) 94.9 H 37.0-80.0 % Lymphocytes (%) (Auto) 2.7 L 10.0-50.0 % Monocytes (%) (Auto) 1.8 0.0-12.0 % Eosinophils (%) (Auto) 0.1 0.0-7.0 % Basophils (%) (Auto) 0.5 0.0-2.0 % Neutrophils # (Auto) 21.0 H 1.6-8.6 10 ^3/uL Lymphocytes # (Auto) 0.6 0.4-5.4 10 ^3/uL Monocytes # (Auto) 0.4 0-1.3 10 ^3/uL Eosinophils # (Auto) 0 0-0.8 10 ^3/uL Basophils # (Auto) 0.1 0-0.2 10 ^3/uL Nucleated Red Blood Cells 0.0 % Prothrombin Time 11.1 9.3-11.8 sec Prothrombin Time INR 1.05 0.9-1.15 Activated Partial Thromboplast Time 30.7 24.5-34.5 SEC Sodium Level 132 L 136-145 mmol/L Potassium Level 3.5 3.5-5.1 mmol/L Chloride Level 100 98-107 mmol/L Carbon Dioxide Level 23 20-31 mmol/L Anion Gap 9 5-15 Blood Urea Nitrogen 11 9-23 mg/dL Creatinine 0.42 L 0.550-1.02 mg/dL Glomerular Filtration Rate Calc 122 >90 mL/min BUN/Creatinine Ratio 26.2 H 10.0-20.0 Serum Glucose 181 H 74-106 mg/dL Calcium Level 8.4 L 8.7-10.4 mg/dL Phosphorus Level 2.4 2.4-5.1 mg/dL Magnesium Level 1.9 1.6-2.6 mg/dL Hemoglobin A1c 13.5 H <5.7 % A1C Total Bilirubin 0.2 0.2-1.0 mg/dL Aspartate Amino Transferase (AST) 21 13-40 U/L Alanine Aminotransferase (ALT) < 9 7-40 U/L Alkaline Phosphatase 81 46-116 U/L Total Protein 6.3 5.7-8.2 g/dL Albumin 3.1 L 3.2-4.8 g/dL Troponin I High Sensitivity < 3 L </=34 ng/L Test 10/14/24 20:15 10/14/24 18:15 10/14/24 16:37 10/14/24 16:31 Range/Units Urine Color Yellow Yellow Urine Clarity Turbid H Clear Urine pH 5.0 5.0-9.0 Urine Specific [place] 1.023 1.001-1.035 Urine Protein Trace H Negative Urine Ketones 1+ H Negative Urine Blood Negative Negative /uL Urine Nitrite Negative Negative Urine Bilirubin Negative Negative Urine Urobilinogen 2 H Negative mg/dL Urine Leukocyte Esterase 3+ Negative /uL Urine RBC 8 0 - 4 /hpf Urine Microscopic WBC 50 H 0-5 /HPF Urine Squamous Epithelial Cells Few <5 /hpf Urine Bacteria None seen None Seen /hpf Urine Hyaline Casts Many 0 - 2 /lpf Urine Mucus Few None Seen Urine Glucose 4+ H Normal mg/dL Lactic Acid Level 2.3 *H 0.4-2.0 mmol/L Lipase 21 12-53 U/L Beta-Hydroxybutyric Acid 4.131 H < 0.4 mmol/L Beta HCG, Quantitative 2.1 1.5-4.2 mIU/mL Hepatitis B Surface Antigen Negative Negative Hepatitis C Antibody Negative Negative Blood Gas Specimen Type Arterial Blood Gas Sample Site Right radial Blood Gas Patient Temperature 37.0 Arterial Blood Date Drawn [id number] Arterial Blood pH 7.469 H 7.350-7.450 Arterial Blood Partial Pressure CO2 31.2 L 32.0-45.0 mmHg Arterial Blood Partial Pressure O2 83.0 83.0-108.0 mmHg Arterial Blood HCO3 22.1 21.0-28.0 mmol/L Arterial Blood Oxygen Saturation 96.3 94.0-98.0 % Arterial Blood Base Excess -0.7 -2.0-3.0 mmol/L Arterial Blood Oxyhemoglobin 95.3 94.0-98.0 % Arterial Blood Carboxyhemoglobin 0.5 0.5-1.5 % Arterial Blood Methemoglobin 0.5 0.0-1.5 % Navi Test Yes Blood Gas Total Hemoglobin 13.00 12.0-16.0 g/dL Blood Gas Modality Room air FiO2 % 21.0 Microbiology Date/Time Source Procedure Growth Status 10/14/24 16:37 Blood Blood Culture - Preliminary Resulted Assessment/Plan Admitting Diagnosis: 1. Pelvic Abscess TOA vs Acute appendicitis 2. Sepsis due to intrapelvic infection 3. Poorly controlled DM s/p DKA 4. Homeless Plan I was asked by Dr. Tomlin and Dr. Ruiz to assume care of patient She has NOT responded to medical therapy and condition has worsened clinically I obtained a general surgery consultation w/ Dr. Ramirez and we met at bedside to examine patient together Patient has an acute abdomen and needs to proceed to surgery I have consented patient for surgery: EXPLORATORY LAPAROTOMY, TOTAL VS SUBTOTAL HYSTERECTOMY, BSO, APPENDECTOMY, POSSIBLE BOWEL RESECTION, POSSIBLE COLOSTOMY, PLACEMENT OF CIRILO DRAINS, AND ALL OTHER INDICATED PROCEDURE. Patient verbalized understanding and agrees to proceed Risks/benefits/alternatives to surgery discussed in detail Risks of scar, bleeding, infection, injury to bowel/bladder, adjacent organs, blood transfusion, colostomy, sexual dysfunction, recurrence of infection, all discussed in detail. Plan discussed with: Patient, Other (Dr. Ramirez) Date of Service: Oct 16, 2024 Billing Provider: STANLEY HOOKS DO Common Visit Codes: CONSULT ONLY Consultation Codes: [id number] CONSULT <60MIN STANLEY HOOKS DO Oct 16, 2024 10:27
[2024-10-16] MEDS ORDERED: HYDROmorphone HCL 2 MG/ML VL/or syr ONE (10:39)
[2024-10-16] MEDS ORDERED: fentaNYL CITRATE 100 MCG/2 ML VL ONE ×2 (10:39→11:07)
[2024-10-16] MEDS: BUPIVACAINE W/ EPINEPH 0.5% INJ 50ML MDV IJ ONE (10:41)
[2024-10-16] MEDS ORDERED: DexAMETHasone SOD PHOS 10MG/1ML VIAL INJ ONE (10:52)
[2024-10-16] MEDS ORDERED: ETOMIDATE (2MG/ML) 20ML VIAL IV ONE (10:52)
[2024-10-16] MEDS ORDERED: PROPOFOL 10 MG/ML 20 ML IV ONE (10:52)
[2024-10-16] MEDS ORDERED: ROCURONIUM 10MG/ML 10ML VIAL IV ONE (11:24)
[2024-10-16] MEDS ORDERED: VANCOMYCIN PER PHARMACY 0 MG IV SCH (12:30)
[2024-10-16] MEDS ORDERED: VANCOMYCIN 750MG KIT 100 ML IV SCH (13:00)
[2024-10-16] MEDS: D5W/SOD CHL 0.45%/KCL 20MEQ 1,000 ML IV SCH (13:30)
[2024-10-16] MEDS ORDERED: hydrALAZINE HCL 20 MG/ML VL IV PRN (13:45)
[2024-10-16] MEDS ORDERED: MORPHINE SULFATE 4 MG/ML SYR/VIAL IV PRN (13:45)
[2024-10-16] MEDS: ONDANSETRON HCL 4 MG/2 ML VIAL IV ONE (13:45)
[2024-10-16] MEDS ORDERED: MIDAZOLAM HCL 2MG/2ML 2ml VIAL (1mg/ml) IV PRN (13:45)
[2024-10-16] MEDS ORDERED: ePHEDrine SULFATE 50 MG/ML AMP IV PRN (13:45)
[2024-10-16] MEDS: SUCCINYLCHOLINE CHLORIDE 20 MG/ML 10ML VIAL IV ONE (13:53)
[2024-10-16] MEDS: SODIUM CHLORIDE 0.9% 1,000 ML IV ONE (13:55)
--- NOTE | 2024-10-16 14:00 | DVHOP ---
DATE OF SURGERY: 10/16/2024 PREOPERATIVE DIAGNOSES: Acute abdomen. POSTOPERATIVE DIAGNOSES: Acute abdomen, right tubo-ovarian abscess, peritonitis. SURGEON: Jude Lee DO FINAL DRESSING CUTTER: Kvng Ramirez MD, general surgeon OTHER FINAL DRESSING CUTTER: Chad Hobbs NP TYPE OF ANESTHESIA: General endotracheal. ANESTHESIOLOGIST: Harshad Woodson MD ANESTHESIA: General anesthesia. DESCRIPTION OF FINDINGS: Midline laparotomy incision, frozen pelvis, edema and inflammation of the greater omentum and mesentery, dilated bowels. There was a fluid collection and pus in the right lower quadrant that was cultured and drained. No gross evidence of malignancy. A normal-sized uterus, intra-abdominal adhesions, left fallopian tube and ovary grossly within normal limits. The appendix was not grossly inflamed. PROCEDURES PERFORMED: Exploratory laparotomy, evacuation of pelvic abscess, right salpingo-oophorectomy, appendectomy, partial omentectomy. TECHNICAL PROCEDURE: After informed consent was obtained, the patient was taken to the operating room where she underwent smooth induction with general anesthesia. The patient was placed in the supine position. She was sterilely prepped and draped in the usual fashion. A midline incision was made and carried down sharply to the underlying layer of fascia. The fascia was incised and extended superiorly and inferiorly. Entrance into the peritoneal cavity was then performed sharply. The peritoneal incision was extended superiorly and inferiorly with good visualization of underlying organs. Upon entry into the abdomen, the above noted findings were noted. Exploration of the abdomen revealed a large inflammatory mass in the right lower quadrant through a manipulation. There was purulent fluid that was drained. The fluid was cultured x2. The pelvis was thoroughly irrigated. The appendix was found. It was adherent to the mesentery of the large bowel. The appendix was freed by Dr. Ramirez. The appendiceal artery and the mesoappendix was transected and suture ligated with 0 Vicryl ties. The appendiceal stump was clamped and cut at the confluence with the cecum and tied with 2 ties of 0 Vicryl. The appendix was submitted to pathology. Next, the infundibulopelvic ligament and utero-ovarian ligaments were identified. They were clamped, transected and suture ligated with 0 Vicryl across the utero-ovarian ligament. The DOROTHY stapler was used for added hemostasis. The remainder of the uterus and left tube and ovary were not removed. There were loculations and fluid in the left upper quadrant. The abdomen and pelvis were thoroughly flushed with approximately 5 liters of saline. Vascular pedicles were inspected. Two CIRILO drains were inserted, 1 in the lower pelvis and 1 in the upper abdomen. The ends of the drains were tied in the left lower quadrant and right lower quadrant with 0 silk ties. At this point, all instrumentation was removed from the patient's abdomen. I then proceeded to close the rectus fascia using 0 double looped PDS in continuous running fashion using a good tissue approximation. The subcutaneous tissue was approximated with 2-0 plain gut and the skin closed in subcuticular fashion using 3-0 Monocryl on a PS2 needle. Steri-Strips and sterile dressing was then placed over the incisions. The patient was awakened and taken to recovery room in guarded condition. INTRAOPERATIVE COMPLICATIONS: None. ESTIMATED BLOOD LOSS: 100 mL. POSTOPERATIVE CONDITION: Guarded due to acute illness. SPECIMENS: Right fallopian tube and ovary, segment of the omentum and appendix. DO JOANA Herrera/NINA TID: [id number] RECEIPT: [id number] MTD
[2024-10-16] MEDS: HYDROmorphone HCL 2 MG/ML VL/or syr IV PRN (14:05)
[2024-10-16] MEDS: VANCOMYCIN 750 MG/150 ML IV SCH (16:03)
[2024-10-16] MEDS: SOD CHL 0.9%/ KCL 20MEQ 1,000 ML IV SCH (18:30)
--- NOTE | 2024-10-16 23:11 | DVHINCON2 ---
DATE OF CONSULTATION: 10/16/2024 HISTORY OF PRESENT ILLNESS: The patient was seen in the Emergency Room for complaint of abdominal pain, nausea, and vomiting. The patient was admitted through the Emergency Room with a complaint of abdominal pain, fever, nausea, and vomiting. The patient was admitted on 10/14/2024. I was consulted this morning on 10/16/2024. The patient examined in her bed in the ER bay 9. She is a 44-year-old homeless female who presents with several days of right lower quadrant abdominal pain. The patient had been previously evaluated by BLACK STUDIES PROFESSOR sharepoint consultant and the ER physician. The patient is a methamphetamine user, claims not to have used any methamphetamine in the last 2 weeks. SOCIAL HISTORY: She is a nonsmoker, nondrinker. ALLERGIES: Has no known medicinal allergies. REVIEW OF SYSTEMS: There is no significant contributory information in any of the 12 systems reviewed. PHYSICAL EXAMINATION: GENERAL: The patient is well-developed, well-nourished, in distress due to abdominal pain. She seems somewhat confused on occasion. HEENT: The patient's pupils are equal, round, react to light equally. Sclerae nonicteric. Extraocular motion is intact. Uvula midline. Trachea midline. Carotids are full without bruits. Jugular veins are collapsed. HEART: Regular rate and rhythm without murmur or gallop. ABDOMEN: Tender in all 4 quadrants, maximally tender in the right lower quadrant with guarding and rebound tenderness. The patient is without CVA tenderness. EXTREMITIES: No peripheral vascular insufficiency. No venous stasis. LABORATORY DATA: On admission, her white count was 15.4, which has now risen to 22.1, with a marked left shift. The patient's platelet count is 413. . Hemoglobin is 10.2 and hematocrit is 31.5, somewhat lower than admitting values due to rehydration and dilution. The patient's coags, her INR is 10.5 and her PT is 11.1. The patient's chemistry shows hyponatremia, normal potassium, normal chloride. The patient's bilirubin is normal. The patient's imaging was done by means of a CT scan without contrast, which shows a phlegmon in the right lower quadrant. The remainder of her imaging is not significantly contributory to the current illness. The patient most likely has either a tubo-ovarian abscess, possibly periappendiceal abscess, which I doubt. ASSESSMENT AND PLAN: Due to the patient's white count, slight confusion and extreme tenderness, she needs an urgent abdominal exploration. The operation, risks and potential complications were explained in detail. MD DIANA Leblanc/KIMBERLY/BECKA TID: [id number] RECEIPT: [id number]
[2024-10-17] VITALS (10 sets, daily range): BP systolic 111–129; BP diastolic 68–77; PULSE 79–102; RESP 16–81; TEMP 96.9–97.7; O2SAT 94–96
--- NOTE | 2024-10-17 00:34 | DVH ---
CHEST RADIOGRAPH Indication: ng tube placement confirmation Technique: Single frontal view of the chest was obtained Comparison: XY CHEST XRAY 1 VIEW on DOS: 10/14/24 FINDINGS: Lines and Tubes: Enteric tube appears in proper position. Lungs: Clear Pleura: No effusion. No pneumothorax. Cardiomediastinal contours: Unremarkable Bones: Unremarkable IMPRESSION: Low lung volumes with mild bronchovascular crowding. Enteric tube appears in proper position.
--- NOTE | 2024-10-17 06:41 | DVHPN2 ---
Visit Coding OBGYN Date of Service: Oct 17, 2024 Billing Provider: STANLEY HOOKS DO [facility] Common Visit Codes: PROCEDURE ONLY [facility] Procedure Codes: [id number] OVIDUCT/OVARY (Exploratory laparotomy, Right Salpingoophorectomy, Appendectomy (general surgeon)) STANLEY HOOKS DO Oct 17, 2024 06:41
--- NOTE | 2024-10-17 06:43 | DVHPN2 ---
Subjective Progress Notes Subjective POD#1 s/p Ex Lap RSO Appendectomy, Evacuation of pelvic abscess S: Moderate pain. Objective PHYSICAL EXAM Physical Exam: Alert, NAD Abd: non distended, tenderness+, Drains x [address] ext: neg nikki sign Vital Signs and I&O Vital Signs Date Time Temp Pulse Resp B/P (MAP) Pulse Ox O2 Delivery O2 Flow Rate FiO2 10/17/24 05:00 97.5 79 20 118/77 (91) 94 97.5 10/16/24 20:00 Nasal Cannula* 6 44 Intake and Output 10/17/24 07:00 Intake Total 1550 ml Output Total 1335 ml Balance 215 ml Intake Oral 0 ml IV Total 1550 ml Output Urine Total 1110 ml Gastric Drainage Total 150 ml Drainage Total 30 ml Other 45 ml Lab results Laboratory Tests Test 10/14/24 16:31 10/14/24 16:37 10/14/24 17:05 10/14/24 18:15 Range/Units Blood Gas Specimen Type Arterial Blood Gas Sample Site Right radial Blood Gas Patient Temperature 37.0 Arterial Blood Date Drawn [id number] Arterial Blood pH 7.469 H 7.350-7.450 Arterial Blood Partial Pressure CO2 31.2 L 32.0-45.0 mmHg Arterial Blood Partial Pressure O2 83.0 83.0-108.0 mmHg Arterial Blood HCO3 22.1 21.0-28.0 mmol/L Arterial Blood Oxygen Saturation 96.3 94.0-98.0 % Arterial Blood Base Excess -0.7 -2.0-3.0 mmol/L Arterial Blood Oxyhemoglobin 95.3 94.0-98.0 % Arterial Blood Carboxyhemoglobin 0.5 0.5-1.5 % Arterial Blood Methemoglobin 0.5 0.0-1.5 % Navi Test Yes Blood Gas Total Hemoglobin 13.00 12.0-16.0 g/dL Blood Gas Modality Room air FiO2 % 21.0 White Blood Count 15.4 H 4.4-10.8 10^3/uL Red Blood Count 4.65 4.0-5.20 10^6/uL Hemoglobin 12.2 12.2-16.2 g/dL Hematocrit 38.0 36.0-46.0 % Mean Corpuscular Volume 81.7 80.0-100.0 fL Mean Corpuscular Hemoglobin 26.3 L 28.0-32.0 pg Mean Corpuscular Hemoglobin Concent 32.2 32.0-36.0 g/dL Red Cell Distribution Width 16.3 H 11.8-14.3 % Platelet Count 464 H 140-450 10^3/uL Mean Platelet Volume 8.3 6.9-10.8 fL Neutrophils (%) (Auto) 95.6 H 37.0-80.0 % Lymphocytes (%) (Auto) 3.0 L 10.0-50.0 % Monocytes (%) (Auto) 1.2 0.0-12.0 % Eosinophils (%) (Auto) 0.1 0.0-7.0 % Basophils (%) (Auto) 0.1 0.0-2.0 % Neutrophils # (Auto) 14.7 H 1.6-8.6 10 ^3/uL Lymphocytes # (Auto) 0.5 0.4-5.4 10 ^3/uL Monocytes # (Auto) 0.2 0-1.3 10 ^3/uL Eosinophils # (Auto) 0 0-0.8 10 ^3/uL Basophils # (Auto) 0 0-0.2 10 ^3/uL Nucleated Red Blood Cells 0.0 % Sodium Level 124 L 127 L 136-145 mmol/L Potassium Level 4.4 4.4 3.5-5.1 mmol/L Chloride Level 86 L 90 L 98-107 mmol/L Carbon Dioxide Level 21 21 20-31 mmol/L Anion Gap 17 H 16 H 5-15 Blood Urea Nitrogen 34 H 39 H 9-23 mg/dL Creatinine 1.75 H 1.82 H 0.550-1.02 mg/dL Glomerular Filtration Rate Calc 36 34 >90 mL/min BUN/Creatinine Ratio 19.4 21.4 H 10.0-20.0 Serum Glucose 653 *H 653 *H 74-106 mg/dL Lactic Acid Level 2.4 *H 2.3 *H 0.4-2.0 mmol/L Calcium Level 8.6 L 9.0 8.7-10.4 mg/dL Total Bilirubin 0.3 0.2-1.0 mg/dL Aspartate Amino Transferase (AST) 16 13-40 U/L Alanine Aminotransferase (ALT) < 9 7-40 U/L Alkaline Phosphatase 78 46-116 U/L Troponin I High Sensitivity 3 L < 3 L </=34 ng/L Total Protein 6.3 5.7-8.2 g/dL Albumin 3.1 L 3.2-4.8 g/dL Lipase 21 12-53 U/L Beta-Hydroxybutyric Acid 4.131 H < 0.4 mmol/L Beta HCG, Quantitative 2.1 1.5-4.2 mIU/mL Hepatitis B Surface Antigen Negative Negative Hepatitis C Antibody Negative Negative POC Glucose 570 *H 70-106 mg/dl Test 10/14/24 18:54 10/14/24 20:05 10/14/24 20:15 10/14/24 21:10 Range/Units POC Glucose 465 *H 510 *H 70-106 mg/dl Urine Color Yellow Yellow Urine Clarity Turbid H Clear Urine pH 5.0 5.0-9.0 Urine Specific [place] 1.023 1.001-1.035 Urine Protein Trace H Negative Urine Ketones 1+ H Negative Urine Blood Negative Negative /uL Urine Nitrite Negative Negative Urine Bilirubin Negative Negative Urine Urobilinogen 2 H Negative mg/dL Urine Leukocyte Esterase 3+ Negative /uL Urine RBC 8 0 - 4 /hpf Urine Microscopic WBC 50 H 0-5 /HPF Urine Squamous Epithelial Cells Few <5 /hpf Urine Bacteria None seen None Seen /hpf Urine Hyaline Casts Many 0 - 2 /lpf Urine Mucus Few None Seen Urine Glucose 4+ H Normal mg/dL Prothrombin Time 13.0 H 9.3-11.8 sec Prothrombin Time INR 1.25 H 0.9-1.15 Activated Partial Thromboplast Time 31.0 24.5-34.5 SEC Test 10/15/24 00:27 10/15/24 00:41 10/15/24 01:21 10/15/24 02:12 Range/Units Sodium Level 125 L 136-145 mmol/L Potassium Level 4.2 3.5-5.1 mmol/L Chloride Level 92 L 98-107 mmol/L Carbon Dioxide Level 23 20-31 mmol/L Anion Gap 10 5-15 Blood Urea Nitrogen 31 H 9-23 mg/dL Creatinine 1.15 #H 0.550-1.02 mg/dL Glomerular Filtration Rate Calc 60 >90 mL/min BUN/Creatinine Ratio 27.0 H 10.0-20.0 Serum Glucose 438 *H 74-106 mg/dL Calcium Level 8.7 8.7-10.4 mg/dL Troponin I High Sensitivity < 3 L </=34 ng/L POC Glucose 367 H 348 H 302 H 70-106 mg/dl Test 10/15/24 03:56 10/15/24 04:32 10/15/24 05:24 10/15/24 06:27 Range/Units POC Glucose 219 H 156 H 70-106 mg/dl White Blood Count 19.7 #H 4.4-10.8 10^3/uL Red Blood Count 4.52 4.0-5.20 10^6/uL Hemoglobin 12.1 L 12.2-16.2 g/dL Hematocrit 36.2 36.0-46.0 % Mean Corpuscular Volume 80.1 80.0-100.0 fL Mean Corpuscular Hemoglobin 26.7 L 28.0-32.0 pg Mean Corpuscular Hemoglobin Concent 33.4 32.0-36.0 g/dL Red Cell Distribution Width 16.3 H 11.8-14.3 % Platelet Count 422 140-450 10^3/uL Mean Platelet Volume 7.9 6.9-10.8 fL Neutrophils (%) (Auto) 93.6 H 37.0-80.0 % Lymphocytes (%) (Auto) 4.0 L 10.0-50.0 % Monocytes (%) (Auto) 2.3 0.0-12.0 % Eosinophils (%) (Auto) 0.1 0.0-7.0 % Basophils (%) (Auto) 0.0 0.0-2.0 % Neutrophils # (Auto) 18.5 H 1.6-8.6 10 ^3/uL Lymphocytes # (Auto) 0.8 0.4-5.4 10 ^3/uL Monocytes # (Auto) 0.5 0-1.3 10 ^3/uL Eosinophils # (Auto) 0 0-0.8 10 ^3/uL Basophils # (Auto) 0 0-0.2 10 ^3/uL Nucleated Red Blood Cells 0.0 % Sodium Level 130 #L 131 L 136-145 mmol/L Potassium Level 3.7 3.6 3.5-5.1 mmol/L Chloride Level 97 L 98 98-107 mmol/L Carbon Dioxide Level 22 24 20-31 mmol/L Anion Gap 11 9 5-15 Blood Urea Nitrogen 30 H 29 H 9-23 mg/dL Creatinine 0.83 0.70 0.550-1.02 mg/dL Glomerular Filtration Rate Calc 88 108 >90 mL/min BUN/Creatinine Ratio 36.1 H 41.4 H 10.0-20.0 Serum Glucose 222 H 151 H 74-106 mg/dL Hemoglobin A1c 13.5 H <5.7 % A1C Calcium Level 9.0 9.1 8.7-10.4 mg/dL Total Bilirubin 0.2 0.2-1.0 mg/dL Aspartate Amino Transferase (AST) 21 13-40 U/L Alanine Aminotransferase (ALT) < 9 7-40 U/L Alkaline Phosphatase 81 46-116 U/L Total Protein 6.3 5.7-8.2 g/dL Albumin 3.1 L 3.2-4.8 g/dL Test 10/15/24 06:51 10/15/24 08:33 10/15/24 10:11 10/15/24 11:32 Range/Units POC Glucose 117 H 122 H 112 H 121 H 70-106 mg/dl Test 10/15/24 12:44 10/15/24 12:52 10/15/24 14:42 10/15/24 16:31 Range/Units Sodium Level 131 L 136-145 mmol/L Potassium Level 3.9 3.5-5.1 mmol/L Chloride Level 99 98-107 mmol/L Carbon Dioxide Level 21 20-31 mmol/L Anion Gap 11 5-15 Blood Urea Nitrogen 20 9-23 mg/dL Creatinine 0.57 0.550-1.02 mg/dL Glomerular Filtration Rate Calc 113 >90 mL/min BUN/Creatinine Ratio 35.1 H 10.0-20.0 Serum Glucose 125 H 74-106 mg/dL Calcium Level 9.2 8.7-10.4 mg/dL POC Glucose 116 H 112 H 130 H 70-106 mg/dl Test 10/15/24 18:30 10/15/24 20:29 10/15/24 23:40 10/16/24 04:22 Range/Units Sodium Level 131 L 136-145 mmol/L Potassium Level 3.8 3.5-5.1 mmol/L Chloride Level 99 98-107 mmol/L Carbon Dioxide Level 20 20-31 mmol/L Anion Gap 12 5-15 Blood Urea Nitrogen 14 9-23 mg/dL Creatinine 0.51 L 0.550-1.02 mg/dL Glomerular Filtration Rate Calc 117 >90 mL/min BUN/Creatinine Ratio 27.5 H 10.0-20.0 Serum Glucose 142 H 74-106 mg/dL Calcium Level 9.0 8.7-10.4 mg/dL POC Glucose 152 H 213 H 167 H 70-106 mg/dl Test 10/16/24 06:00 10/16/24 08:26 10/16/24 10:13 10/16/24 10:14 Range/Units White Blood Count 22.1 H 4.4-10.8 10^3/uL Red Blood Count 3.86 L 4.0-5.20 10^6/uL Hemoglobin 10.2 #L 12.2-16.2 g/dL Hematocrit 31.5 #L 36.0-46.0 % Mean Corpuscular Volume 81.5 80.0-100.0 fL Mean Corpuscular Hemoglobin 26.5 L 28.0-32.0 pg Mean Corpuscular Hemoglobin Concent 32.5 32.0-36.0 g/dL Red Cell Distribution Width 16.5 H 11.8-14.3 % Platelet Count 413 140-450 10^3/uL Mean Platelet Volume 7.3 6.9-10.8 fL Neutrophils (%) (Auto) 94.9 H 37.0-80.0 % Lymphocytes (%) (Auto) 2.7 L 10.0-50.0 % Monocytes (%) (Auto) 1.8 0.0-12.0 % Eosinophils (%) (Auto) 0.1 0.0-7.0 % Basophils (%) (Auto) 0.5 0.0-2.0 % Neutrophils # (Auto) 21.0 H 1.6-8.6 10 ^3/uL Lymphocytes # (Auto) 0.6 0.4-5.4 10 ^3/uL Monocytes # (Auto) 0.4 0-1.3 10 ^3/uL Eosinophils # (Auto) 0 0-0.8 10 ^3/uL Basophils # (Auto) 0.1 0-0.2 10 ^3/uL Nucleated Red Blood Cells 0.0 % Prothrombin Time 11.1 9.3-11.8 sec Prothrombin Time INR 1.05 0.9-1.15 Activated Partial Thromboplast Time 30.7 24.5-34.5 SEC Sodium Level 132 L 136-145 mmol/L Potassium Level 3.5 3.5-5.1 mmol/L Chloride Level 100 98-107 mmol/L Carbon Dioxide Level 23 20-31 mmol/L Anion Gap 9 5-15 Blood Urea Nitrogen 11 9-23 mg/dL Creatinine 0.42 L 0.550-1.02 mg/dL Glomerular Filtration Rate Calc 122 >90 mL/min BUN/Creatinine Ratio 26.2 H 10.0-20.0 Serum Glucose 181 H 74-106 mg/dL Calcium Level 8.4 L 8.7-10.4 mg/dL Phosphorus Level 2.4 2.4-5.1 mg/dL Magnesium Level 1.9 1.6-2.6 mg/dL Hepatitis C Antibody Pending POC Glucose 190 H 216 H 70-106 mg/dl Vancomycin Level Trough 8.6 5-10 ug/mL Test 10/16/24 13:39 10/16/24 16:11 10/16/24 21:15 10/17/24 00:12 Range/Units POC Glucose 200 H 245 H 192 H 70-106 mg/dl Treponema pallidum Antibody Non-reactive Negative HIV (1&2) Antibody Negative Negative Test 10/17/24 03:27 Range/Units POC Glucose 167 H 70-106 mg/dl Assessment and Plan ASSESSMENT AND PLAN Assessment and Plan POD#1 s/p ex lap , RSO, Appendectomy Plan: Continue supportive care Broad spectrum IV antibiotics Pending wound culture (abscess) results Keep NPO until flatus My orders: Orders - STANLEY HOOKS DO * Surgical Consult (10/16/24 ) Procedure Being Performed: (10/17/24 04:00) Obtain Consent For: (10/17/24 04:00) Obtain Consent For Anesthesia (10/16/24 09:27) Chlamydia/Gc Amplification (10/16/24 13:20) Plan discussed with: Patient Visit Coding OBGYN Date of Service: Oct 17, 2024 Billing Provider: STANLEY HOOKS DO HYDROPULPER Common Visit Codes: [id number] INP/OBS CARE(HIGH) STANLEY HOOKS DO Oct 17, 2024 06:43
[2024-10-17 07:14] LABS: Chloride 106 mmol/L (98-107); Potassium 4.4 mmol/L (3.5-5.1); Sodium 136 mmol/L (136-145)
[2024-10-17 07:15] LABS: Anion Gap 8 (5-15); Carbon Dioxide 22 mmol/L (20-31)
[2024-10-17 07:19] LABS: Calcium 8.4 mg/dL (8.7-10.4)
[2024-10-17 07:20] LABS: BUN/Creatinine Ratio 29.3 (10.0-20.0); Blood Urea Nitrogen 12 mg/dL (9-23)
[2024-10-17 07:25] LABS: Glucose 172 mg/dL (74-106)
[2024-10-17 07:27] LABS: Hemoglobin 9.4 g/dL (12.2-16.2)
[2024-10-17 07:31] LABS: Mean Corpuscular Hemoglobin 27.1 pg (28.0-32.0); Mean Corpuscular Hgb Conc. 33.5 g/dL (32.0-36.0); Platelet Count (auto) 412 10^3/uL (140-450); Red Blood Cells 3.46 10^6/uL (4.0-5.20); White Blood Cell 17.9 10^3/uL (4.4-10.8)
[2024-10-17 07:39] LABS: Basophils % (manual) 0 (0.0-2.0); Blast Cells 0; Eosinophils % (manual) 0 (0-7); Metamyelocytes % 0; Myelocytes % 0; Promyelocytes % 0; Reactive Lymphocytes 0
--- NOTE | 2024-10-17 09:09 | DVHPN2 ---
Progress Note Date Seen: Oct 17, 2024 Medical Necessity Reason Pt with a Central, PICC or Fol: No Objective vital signs Vital Sign Date Time Temp Pulse Resp B/P (MAP) Pulse Ox O2 Delivery O2 Flow Rate FiO2 10/17/24 05:00 97.5 79 20 118/77 (91) 94 97.5 10/16/24 20:00 Nasal Cannula* 6 44 Total Intake and Output 10/16/24 10/16/24 10/17/24 15:00 23:00 07:00 Intake Total 250 ml 100 ml 1200 ml Output Total 0 ml 75 ml 1260 ml Balance 250 ml 25 ml -60 ml medications Current Medications Medications Dose Ordered Sig/Rl Route Start Time Stop Time Status Last Admin Dose Admin Vancomycin HCl 0 ml @ 0 mls/hr UD IV 10/14/24 21:00 Piperacillin Sod/ Tazobactam Sod 100 ml @ 25 mls/hr Q8HR IV 10/14/24 22:00 10/17/24 06:06 25 MLS/HR Morphine Sulfate 2 mg Q4HPRN PRN IV 10/14/24 21:00 10/17/24 03:47 2 MG Nitroglycerin 0.4 mg Q5MINP PRN SL 10/14/24 21:00 Morphine Sulfate 2 mg Q30M PRN IV 10/14/24 21:00 Diagnostic Test (Pha) 1 strip IQ4HR 10/15/24 00:00 10/17/24 08:33 1 STRIP Insulin Human Regular IQ4HR SC 10/14/24 22:15 10/17/24 00:20 4 UNITS Dextrose 50 ml UD PRN IV 10/15/24 00:45 Insulin Glargine 15 units DAILY SC 10/16/24 10:00 10/16/24 10:14 15 UNITS Acetaminophen/ Hydrocodone Bitart 1 tab Q6HPRN PRN PO 10/15/24 15:45 Acetaminophen 500 mg Q8HP PRN PO 10/15/24 15:45 Ondansetron HCl 4 mg Q6HP PRN IV 10/15/24 15:45 10/16/24 08:46 4 MG Potassium Chloride/Sodium Chloride 1,000 ml @ 100 mls/hr Q10H IV 10/16/24 08:30 10/17/24 06:24 100 MLS/HR Vancomycin HCl 100 ml @ 100 mls/hr Q8H IV 10/16/24 14:15 10/17/24 06:06 100 MLS/HR laboratory and microbiology Laboratory Tests 10/17/24 06:31 Test 10/17/24 06:31 Range/Units Serum Glucose 172 H 74-106 mg/dL Problem List/Assessment/Plan Problem List/Assessment/Plan 10/17/24FEELS BETTER THAN BEFORE OPERATION, NO FLATUS,IS HUNGRY, ABDOMEN SOFT, APPROPRIATELY TENDER, CIRILO DRAINAGE SEROSANGUINEOUS. WILL DC NGT AND ALLOW ICE CHIPS, NEEDS TO START AMBULATION/ WBC STILL ELEVATED, H/H/STABLE. Plan discussed with: Patient RUBEN DEL VALLE MD Oct 17, 2024 09:08
[2024-10-17 11:52] LABS: Band Neutrophils % (manual) 9; Lymphocytes % (manual) 4 (10.0-50.0); Monocytes % (manual) 4 (0-12)
[2024-10-17 11:53] LABS: Platelet Estimate Adequate
--- NOTE | 2024-10-17 14:24 | DVHPN2 ---
Subjective Patient was states that her abdominal pain has improved. Denies having any bowel sounds, flatus, but does report belching. Reviewed: Care Plan, Labs, Medications Changes from previous H/P or p: No Changes General: Per HPI Objective Vitals Vital Signs Date Time Temp Pulse Resp B/P (MAP) Pulse Ox O2 Delivery O2 Flow Rate FiO2 10/17/24 13:00 97.5 89 16 126/75 (92) 96 97.5 10/16/24 20:00 Nasal Cannula* 6 44 Intake/Output Intake and Output 10/17/24 07:00 Intake Total 1550 ml Output Total 1335 ml Balance 215 ml Intake Oral 0 ml IV Total 1550 ml Output Urine Total 1110 ml Gastric Drainage Total 150 ml Drainage Total 30 ml Other 45 ml General Appearance: Alert, Oriented X3, Cooperative, moderate distress, Other (Generalized weakness) HEENT: Atraumatic, PERRLA Lungs: Clear to auscultation, Normal air movement Cardiovascular: Normal S1, Normal S2 Abdomen: Normal bowel sounds, Soft, No hepatospenomegaly, Other (Severe tenderness to right lower quadrant.) Genitourinary: No Apparent Abnormalities Musculoskeletal: Normal sensory function, Normal motor function, Weak motor strength RLE, Weak motor strength LLE Neuro: Normal speech, Cranial nerves 3-12 NL Skin: Dry, Intact, Warm Psych/Mental Status: Mental status NL, Mood NL Medications Current Medications Medications Dose Ordered Sig/Rl Route Start Time Stop Time Status Last Admin Dose Admin Vancomycin HCl 0 ml @ 0 mls/hr UD IV 10/14/24 21:00 Piperacillin Sod/ Tazobactam Sod 100 ml @ 25 mls/hr Q8HR IV 10/14/24 22:00 10/17/24 06:06 25 MLS/HR Morphine Sulfate 2 mg Q4HPRN PRN IV 10/14/24 21:00 10/17/24 10:03 2 MG Nitroglycerin 0.4 mg Q5MINP PRN SL 10/14/24 21:00 Morphine Sulfate 2 mg Q30M PRN IV 10/14/24 21:00 Dextrose 50 ml UD PRN IV 10/15/24 00:45 Insulin Glargine 15 units DAILY SC 10/16/24 10:00 10/17/24 10:01 15 UNITS Acetaminophen/ Hydrocodone Bitart 1 tab Q6HPRN PRN PO 10/15/24 15:45 Acetaminophen 500 mg Q8HP PRN PO 10/15/24 15:45 Ondansetron HCl 4 mg Q6HP PRN IV 10/15/24 15:45 10/16/24 08:46 4 MG Vancomycin HCl 100 ml @ 100 mls/hr Q8H IV 10/16/24 14:15 10/17/24 06:06 100 MLS/HR Pantoprazole Sodium 40 mg DAILY IV 10/18/24 10:00 UNV Laboratory Results Laboratory Tests 10/17/24 06:31 Chemistry Test 10/17/24 06:31 Calcium Level 8.4 mg/dL (8.7-10.4) L Urinalysis Test 10/14/24 20:15 Urine Color Yellow (Yellow) Urine Clarity Turbid (Clear) H Urine pH 5.0 (5.0-9.0) Urine Specific [place] 1.023 (1.001-1.035) Urine Protein Trace (Negative) H Urine Ketones 1+ (Negative) H Urine Blood Negative /uL (Negative) Urine Nitrite Negative (Negative) Urine Bilirubin Negative (Negative) Urine Urobilinogen 2 mg/dL (Negative) H Urine Leukocyte Esterase 3+ /uL (Negative) Urine RBC 8 /hpf (0 - 4) Urine Microscopic WBC 50 /HPF (0-5) H Urine Squamous Epithelial Cells Few /hpf (<5) Urine Bacteria None seen /hpf (None Seen) Urine Hyaline Casts Many /lpf (0 - 2) Urine Mucus Few (None Seen) Urine Glucose 4+ mg/dL (Normal) H Microbiology Microbiology Date/Time Source Procedure Growth Status 10/16/24 12:55 Abdomen Gram Stain - Final Resulted 10/16/24 12:55 Abdomen Anaerobic Culture - Preliminary Resulted 10/16/24 12:55 Abdomen Aerobic Culture - Preliminary Resulted 10/14/24 20:15 Voided Urine Urine Culture - Final Complete 10/14/24 16:37 Blood Blood Culture - Preliminary Resulted Labs and/or images reviewed: Labs reviewed by me, Image(s) reviewed by me Assessment/Plan Assessment/Plan Impression: -diabetic ketoacidosis -severe sepsis -? Pelvic inflammatory disease -rule out appendicitis -complicated cystitis -diabetes mellitus with noncompliance -acute kidney injury, vasomotor nephropathy Plan: -events: Patient taken to OR yesterday for exploratory laparotomy with findings of large abscess, appendicitis. -continue clear liquid diet -change IV fluids to normal saline at 75 mL/hour -continue vancomycin and Zosyn -blood and urine culture -continue Lantus and regular insulin sliding scale -PPI -pain management -repeat labs in a.m. Total time spent with patient discussing and formulating plan of care: 35 minutes. This medical document was created using an electronic medical record system with [employer] dictation system. Although this document has been carefully reviewed, there may still be some phonetic and typographical errors. These areas are purely typographical due to imperfections of the software programs, and do not reflect any compromise in the patient's medical care. Plan discussed with: Patient, Other (RN) My Orders Orders - GARY LIM NP Procedure Category Date Status Time Hepatitis C Antibody LAB 10/16/24 In Process 16:31 * Certified Coder CONS 10/16/24 Transmitted Consult 16:31 Pantoprazole PHA 10/18/24 Logged (Protonix) 10:00 Basic Metabolic Panel LAB 10/18/24 Verified 04:00 Complete Blood Count LAB 10/18/24 Verified 04:00 Date of Service: Oct 17, 2024 Billing Provider: GARY LIM NP Common Visit Codes: [id number] INP/OBS CARE(HIGH) GARY LIM NP Oct 17, 2024 14:24
[2024-10-17] MEDS: SODIUM CHLORIDE 0.9% 1,000 ML IV SCH (15:18)
[2024-10-17] MEDS: InsuLIN REG 1unit/0.01ml Soln (100units/ml) SC SCH (19:21)
[2024-10-17] MEDS: ACCU-CHEK COMFORT CURVE STRIP VI SCH (19:21)
[2024-10-18] VITALS (10 sets, daily range): BP systolic 112–129; BP diastolic 69–79; PULSE 76–107; RESP 16–20; TEMP 97.5–97.8; O2SAT 90–94
--- NOTE | 2024-10-18 07:00 | DVHPN2 ---
Subjective Progress Notes Subjective Moderate pain, no fever/chills. No BM or flatus. Denies N/V. Patient is hungry Objective PHYSICAL EXAM Physical Exam: Abdomen: Non distended, soft, incision C/D/I CIRILO drains x 2, minimal serosang. d/c ext no cyanosis or edema Vital Signs and I&O Vital Signs Date Time Temp Pulse Resp B/P (MAP) Pulse Ox O2 Delivery O2 Flow Rate FiO2 10/18/24 05:00 97.6 90 16 126/79 (95) 94 97.6 10/17/24 20:00 Nasal Cannula* 2 28 Intake and Output 10/18/24 07:00 Intake Total 1200 ml Output Total 1300 ml Balance -100 ml Intake Oral 400 ml IV Total 400 ml Other 400 ml Output Urine Total 1300 ml Lab results Laboratory Tests Test 10/14/24 16:31 10/14/24 16:37 10/14/24 17:05 10/14/24 18:15 Range/Units Blood Gas Specimen Type Arterial Blood Gas Sample Site Right radial Blood Gas Patient Temperature 37.0 Arterial Blood Date Drawn [id number] Arterial Blood pH 7.469 H 7.350-7.450 Arterial Blood Partial Pressure CO2 31.2 L 32.0-45.0 mmHg Arterial Blood Partial Pressure O2 83.0 83.0-108.0 mmHg Arterial Blood HCO3 22.1 21.0-28.0 mmol/L Arterial Blood Oxygen Saturation 96.3 94.0-98.0 % Arterial Blood Base Excess -0.7 -2.0-3.0 mmol/L Arterial Blood Oxyhemoglobin 95.3 94.0-98.0 % Arterial Blood Carboxyhemoglobin 0.5 0.5-1.5 % Arterial Blood Methemoglobin 0.5 0.0-1.5 % Navi Test Yes Blood Gas Total Hemoglobin 13.00 12.0-16.0 g/dL Blood Gas Modality Room air FiO2 % 21.0 White Blood Count 15.4 H 4.4-10.8 10^3/uL Red Blood Count 4.65 4.0-5.20 10^6/uL Hemoglobin 12.2 12.2-16.2 g/dL Hematocrit 38.0 36.0-46.0 % Mean Corpuscular Volume 81.7 80.0-100.0 fL Mean Corpuscular Hemoglobin 26.3 L 28.0-32.0 pg Mean Corpuscular Hemoglobin Concent 32.2 32.0-36.0 g/dL Red Cell Distribution Width 16.3 H 11.8-14.3 % Platelet Count 464 H 140-450 10^3/uL Mean Platelet Volume 8.3 6.9-10.8 fL Neutrophils (%) (Auto) 95.6 H 37.0-80.0 % Lymphocytes (%) (Auto) 3.0 L 10.0-50.0 % Monocytes (%) (Auto) 1.2 0.0-12.0 % Eosinophils (%) (Auto) 0.1 0.0-7.0 % Basophils (%) (Auto) 0.1 0.0-2.0 % Neutrophils # (Auto) 14.7 H 1.6-8.6 10 ^3/uL Lymphocytes # (Auto) 0.5 0.4-5.4 10 ^3/uL Monocytes # (Auto) 0.2 0-1.3 10 ^3/uL Eosinophils # (Auto) 0 0-0.8 10 ^3/uL Basophils # (Auto) 0 0-0.2 10 ^3/uL Nucleated Red Blood Cells 0.0 % Sodium Level 124 L 127 L 136-145 mmol/L Potassium Level 4.4 4.4 3.5-5.1 mmol/L Chloride Level 86 L 90 L 98-107 mmol/L Carbon Dioxide Level 21 21 20-31 mmol/L Anion Gap 17 H 16 H 5-15 Blood Urea Nitrogen 34 H 39 H 9-23 mg/dL Creatinine 1.75 H 1.82 H 0.550-1.02 mg/dL Glomerular Filtration Rate Calc 36 34 >90 mL/min BUN/Creatinine Ratio 19.4 21.4 H 10.0-20.0 Serum Glucose 653 *H 653 *H 74-106 mg/dL Lactic Acid Level 2.4 *H 2.3 *H 0.4-2.0 mmol/L Calcium Level 8.6 L 9.0 8.7-10.4 mg/dL Total Bilirubin 0.3 0.2-1.0 mg/dL Aspartate Amino Transferase (AST) 16 13-40 U/L Alanine Aminotransferase (ALT) < 9 7-40 U/L Alkaline Phosphatase 78 46-116 U/L Troponin I High Sensitivity 3 L < 3 L </=34 ng/L Total Protein 6.3 5.7-8.2 g/dL Albumin 3.1 L 3.2-4.8 g/dL Lipase 21 12-53 U/L Beta-Hydroxybutyric Acid 4.131 H < 0.4 mmol/L Beta HCG, Quantitative 2.1 1.5-4.2 mIU/mL Hepatitis B Surface Antigen Negative Negative Hepatitis C Antibody Negative Negative POC Glucose 570 *H 70-106 mg/dl Test 10/14/24 18:54 10/14/24 20:05 10/14/24 20:15 10/14/24 21:10 Range/Units POC Glucose 465 *H 510 *H 70-106 mg/dl Urine Color Yellow Yellow Urine Clarity Turbid H Clear Urine pH 5.0 5.0-9.0 Urine Specific [place] 1.023 1.001-1.035 Urine Protein Trace H Negative Urine Ketones 1+ H Negative Urine Blood Negative Negative /uL Urine Nitrite Negative Negative Urine Bilirubin Negative Negative Urine Urobilinogen 2 H Negative mg/dL Urine Leukocyte Esterase 3+ Negative /uL Urine RBC 8 0 - 4 /hpf Urine Microscopic WBC 50 H 0-5 /HPF Urine Squamous Epithelial Cells Few <5 /hpf Urine Bacteria None seen None Seen /hpf Urine Hyaline Casts Many 0 - 2 /lpf Urine Mucus Few None Seen Urine Glucose 4+ H Normal mg/dL Prothrombin Time 13.0 H 9.3-11.8 sec Prothrombin Time INR 1.25 H 0.9-1.15 Activated Partial Thromboplast Time 31.0 24.5-34.5 SEC Test 10/15/24 00:27 10/15/24 00:41 10/15/24 01:21 10/15/24 02:12 Range/Units Sodium Level 125 L 136-145 mmol/L Potassium Level 4.2 3.5-5.1 mmol/L Chloride Level 92 L 98-107 mmol/L Carbon Dioxide Level 23 20-31 mmol/L Anion Gap 10 5-15 Blood Urea Nitrogen 31 H 9-23 mg/dL Creatinine 1.15 #H 0.550-1.02 mg/dL Glomerular Filtration Rate Calc 60 >90 mL/min BUN/Creatinine Ratio 27.0 H 10.0-20.0 Serum Glucose 438 *H 74-106 mg/dL Calcium Level 8.7 8.7-10.4 mg/dL Troponin I High Sensitivity < 3 L </=34 ng/L POC Glucose 367 H 348 H 302 H 70-106 mg/dl Test 10/15/24 03:56 10/15/24 04:32 10/15/24 05:24 10/15/24 06:27 Range/Units POC Glucose 219 H 156 H 70-106 mg/dl White Blood Count 19.7 #H 4.4-10.8 10^3/uL Red Blood Count 4.52 4.0-5.20 10^6/uL Hemoglobin 12.1 L 12.2-16.2 g/dL Hematocrit 36.2 36.0-46.0 % Mean Corpuscular Volume 80.1 80.0-100.0 fL Mean Corpuscular Hemoglobin 26.7 L 28.0-32.0 pg Mean Corpuscular Hemoglobin Concent 33.4 32.0-36.0 g/dL Red Cell Distribution Width 16.3 H 11.8-14.3 % Platelet Count 422 140-450 10^3/uL Mean Platelet Volume 7.9 6.9-10.8 fL Neutrophils (%) (Auto) 93.6 H 37.0-80.0 % Lymphocytes (%) (Auto) 4.0 L 10.0-50.0 % Monocytes (%) (Auto) 2.3 0.0-12.0 % Eosinophils (%) (Auto) 0.1 0.0-7.0 % Basophils (%) (Auto) 0.0 0.0-2.0 % Neutrophils # (Auto) 18.5 H 1.6-8.6 10 ^3/uL Lymphocytes # (Auto) 0.8 0.4-5.4 10 ^3/uL Monocytes # (Auto) 0.5 0-1.3 10 ^3/uL Eosinophils # (Auto) 0 0-0.8 10 ^3/uL Basophils # (Auto) 0 0-0.2 10 ^3/uL Nucleated Red Blood Cells 0.0 % Sodium Level 130 #L 131 L 136-145 mmol/L Potassium Level 3.7 3.6 3.5-5.1 mmol/L Chloride Level 97 L 98 98-107 mmol/L Carbon Dioxide Level 22 24 20-31 mmol/L Anion Gap 11 9 5-15 Blood Urea Nitrogen 30 H 29 H 9-23 mg/dL Creatinine 0.83 0.70 0.550-1.02 mg/dL Glomerular Filtration Rate Calc 88 108 >90 mL/min BUN/Creatinine Ratio 36.1 H 41.4 H 10.0-20.0 Serum Glucose 222 H 151 H 74-106 mg/dL Hemoglobin A1c 13.5 H <5.7 % A1C Calcium Level 9.0 9.1 8.7-10.4 mg/dL Total Bilirubin 0.2 0.2-1.0 mg/dL Aspartate Amino Transferase (AST) 21 13-40 U/L Alanine Aminotransferase (ALT) < 9 7-40 U/L Alkaline Phosphatase 81 46-116 U/L Total Protein 6.3 5.7-8.2 g/dL Albumin 3.1 L 3.2-4.8 g/dL Test 10/15/24 06:51 10/15/24 08:33 10/15/24 10:11 10/15/24 11:32 Range/Units POC Glucose 117 H 122 H 112 H 121 H 70-106 mg/dl Test 10/15/24 12:44 10/15/24 12:52 10/15/24 14:42 10/15/24 16:31 Range/Units Sodium Level 131 L 136-145 mmol/L Potassium Level 3.9 3.5-5.1 mmol/L Chloride Level 99 98-107 mmol/L Carbon Dioxide Level 21 20-31 mmol/L Anion Gap 11 5-15 Blood Urea Nitrogen 20 9-23 mg/dL Creatinine 0.57 0.550-1.02 mg/dL Glomerular Filtration Rate Calc 113 >90 mL/min BUN/Creatinine Ratio 35.1 H 10.0-20.0 Serum Glucose 125 H 74-106 mg/dL Calcium Level 9.2 8.7-10.4 mg/dL POC Glucose 116 H 112 H 130 H 70-106 mg/dl Test 10/15/24 18:30 10/15/24 20:29 10/15/24 23:40 10/16/24 04:22 Range/Units Sodium Level 131 L 136-145 mmol/L Potassium Level 3.8 3.5-5.1 mmol/L Chloride Level 99 98-107 mmol/L Carbon Dioxide Level 20 20-31 mmol/L Anion Gap 12 5-15 Blood Urea Nitrogen 14 9-23 mg/dL Creatinine 0.51 L 0.550-1.02 mg/dL Glomerular Filtration Rate Calc 117 >90 mL/min BUN/Creatinine Ratio 27.5 H 10.0-20.0 Serum Glucose 142 H 74-106 mg/dL Calcium Level 9.0 8.7-10.4 mg/dL POC Glucose 152 H 213 H 167 H 70-106 mg/dl Test 10/16/24 06:00 10/16/24 08:26 10/16/24 10:13 10/16/24 10:14 Range/Units White Blood Count 22.1 H 4.4-10.8 10^3/uL Red Blood Count 3.86 L 4.0-5.20 10^6/uL Hemoglobin 10.2 #L 12.2-16.2 g/dL Hematocrit 31.5 #L 36.0-46.0 % Mean Corpuscular Volume 81.5 80.0-100.0 fL Mean Corpuscular Hemoglobin 26.5 L 28.0-32.0 pg Mean Corpuscular Hemoglobin Concent 32.5 32.0-36.0 g/dL Red Cell Distribution Width 16.5 H 11.8-14.3 % Platelet Count 413 140-450 10^3/uL Mean Platelet Volume 7.3 6.9-10.8 fL Neutrophils (%) (Auto) 94.9 H 37.0-80.0 % Lymphocytes (%) (Auto) 2.7 L 10.0-50.0 % Monocytes (%) (Auto) 1.8 0.0-12.0 % Eosinophils (%) (Auto) 0.1 0.0-7.0 % Basophils (%) (Auto) 0.5 0.0-2.0 % Neutrophils # (Auto) 21.0 H 1.6-8.6 10 ^3/uL Lymphocytes # (Auto) 0.6 0.4-5.4 10 ^3/uL Monocytes # (Auto) 0.4 0-1.3 10 ^3/uL Eosinophils # (Auto) 0 0-0.8 10 ^3/uL Basophils # (Auto) 0.1 0-0.2 10 ^3/uL Nucleated Red Blood Cells 0.0 % Prothrombin Time 11.1 9.3-11.8 sec Prothrombin Time INR 1.05 0.9-1.15 Activated Partial Thromboplast Time 30.7 24.5-34.5 SEC Sodium Level 132 L 136-145 mmol/L Potassium Level 3.5 3.5-5.1 mmol/L Chloride Level 100 98-107 mmol/L Carbon Dioxide Level 23 20-31 mmol/L Anion Gap 9 5-15 Blood Urea Nitrogen 11 9-23 mg/dL Creatinine 0.42 L 0.550-1.02 mg/dL Glomerular Filtration Rate Calc 122 >90 mL/min BUN/Creatinine Ratio 26.2 H 10.0-20.0 Serum Glucose 181 H 74-106 mg/dL Calcium Level 8.4 L 8.7-10.4 mg/dL Phosphorus Level 2.4 2.4-5.1 mg/dL Magnesium Level 1.9 1.6-2.6 mg/dL Hepatitis C Antibody Pending POC Glucose 190 H 216 H 70-106 mg/dl Vancomycin Level Trough 8.6 5-10 ug/mL Test 10/16/24 13:39 10/16/24 16:11 10/16/24 21:15 10/17/24 00:12 Range/Units POC Glucose 200 H 245 H 192 H 70-106 mg/dl Treponema pallidum Antibody Non-reactive Negative HIV (1&2) Antibody Negative Negative Test 10/17/24 03:27 10/17/24 06:31 10/17/24 08:33 10/17/24 12:40 Range/Units POC Glucose 167 H 165 H 70-106 mg/dl White Blood Count 17.9 H 4.4-10.8 10^3/uL Red Blood Count 3.46 L 4.0-5.20 10^6/uL Hemoglobin 9.4 L 12.2-16.2 g/dL Hematocrit 28.0 #L 36.0-46.0 % Mean Corpuscular Volume 81.0 80.0-100.0 fL Mean Corpuscular Hemoglobin 27.1 L 28.0-32.0 pg Mean Corpuscular Hemoglobin Concent 33.5 32.0-36.0 g/dL Red Cell Distribution Width 17.0 H 11.8-14.3 % Platelet Count 412 140-450 10^3/uL Mean Platelet Volume 7.4 6.9-10.8 fL Neutrophils (%) (Auto) 37.0-80.0 % Lymphocytes (%) (Auto) 10.0-50.0 % Monocytes (%) (Auto) 0.0-12.0 % Basophils (%) (Auto) 0.0-2.0 % Neutrophils # (Auto) 1.6-8.6 10 ^3/uL Lymphocytes # (Auto) 0.4-5.4 10 ^3/uL Monocytes # (Auto) 0-1.3 10 ^3/uL Differential Total Cells Counted 100.0 100 Neutrophils % (Manual) 83 H 37.0-80.0 Band Neutrophils % (Manual) 9 Lymphocytes % (Manual) 4 L 10.0-50.0 Monocytes % (Manual) 4 0-12 Eosinophils % (Manual) 0 0-7 Basophils % (Manual) 0 0.0-2.0 Metamyelocytes % (manual) 0 Myelocytes % (Manual) 0 Promyelocytes % (Manual) 0 Blast Cells % (Manual) 0 Reactive Lymphocytes 0 Platelet Estimate Adequate Sodium Level 136 136-145 mmol/L Potassium Level 4.4 3.5-5.1 mmol/L Chloride Level 106 98-107 mmol/L Carbon Dioxide Level 22 20-31 mmol/L Anion Gap 8 5-15 Blood Urea Nitrogen 12 9-23 mg/dL Creatinine 0.41 L 0.550-1.02 mg/dL Glomerular Filtration Rate Calc 123 >90 mL/min BUN/Creatinine Ratio 29.3 H 10.0-20.0 Serum Glucose 172 H 74-106 mg/dL Calcium Level 8.4 L 8.7-10.4 mg/dL Vancomycin Level Trough 15.1 H 5-10 ug/mL Test 10/17/24 19:20 10/17/24 21:45 10/18/24 06:20 10/18/24 06:29 Range/Units POC Glucose 142 H 135 H 126 H 70-106 mg/dl White Blood Count Pending Red Blood Count Pending Hemoglobin Pending Hematocrit Pending Mean Corpuscular Volume Pending Mean Corpuscular Hemoglobin Pending Mean Corpuscular Hemoglobin Concent Pending Red Cell Distribution Width Pending Platelet Count Pending Mean Platelet Volume Pending Neutrophils (%) (Auto) Pending Lymphocytes (%) (Auto) Pending Monocytes (%) (Auto) Pending Basophils (%) (Auto) Pending Neutrophils # (Auto) Pending Lymphocytes # (Auto) Pending Monocytes # (Auto) Pending Sodium Level Pending Potassium Level Pending Chloride Level Pending Carbon Dioxide Level Pending Anion Gap Pending Blood Urea Nitrogen Pending Creatinine Pending Glomerular Filtration Rate Calc Pending BUN/Creatinine Ratio Pending Serum Glucose Pending Calcium Level Pending Phosphorus Level Pending Magnesium Level Pending Assessment and Plan ASSESSMENT AND PLAN Assessment and Plan POD#2 s/p Ex Lap RSO appendectomy for TOA/Pelvic abscess, improving Plan: 1. D/C hoover catheter 2. Incentive Spirometry 10x/hr while awake 3. Ambulate with PT 4. Advance to liquid diet if ok by general surgeon today My orders: Orders - STANLEY HOOKS DO * Surgical Consult (10/16/24 ) Procedure Being Performed: (10/17/24 04:00) Obtain Consent For: (10/17/24 04:00) Obtain Consent For Anesthesia (10/16/24 09:27) Chlamydia/Gc Amplification (10/16/24 13:20) Plan discussed with: Patient Visit Coding OBGYN Date of Service: Oct 18, 2024 Billing Provider: STANLEY HOOKS DO [employer] Common Visit Codes: [id number] SAME DATE (HIGH) STANLEY HOOKS DO Oct 18, 2024 07:00
[2024-10-18 07:10] LABS: Hematocrit 29.3 % (36.0-46.0); Hemoglobin 9.4 g/dL (12.2-16.2); Mean Corpuscular Hgb Conc. 32.3 g/dL (32.0-36.0); Mean Corpuscular Volume 80.6 fL (80.0-100.0); Platelet Count (auto) 471 10^3/uL (140-450); Red Blood Cells 3.63 10^6/uL (4.0-5.20); White Blood Cell 16.7 10^3/uL (4.4-10.8)
[2024-10-18 07:15] LABS: Basophils % (manual) 0 (0.0-2.0); Blast Cells 0; Eosinophils % (manual) 0 (0-7); Promyelocytes % 0; Reactive Lymphocytes 0
[2024-10-18 07:24] LABS: Anion Gap 8 (5-15); Carbon Dioxide 21 mmol/L (20-31); Chloride 108 mmol/L (98-107); Potassium 3.9 mmol/L (3.5-5.1); Sodium 137 mmol/L (136-145)
[2024-10-18 07:28] LABS: Calcium 8.4 mg/dL (8.7-10.4)
[2024-10-18 07:30] LABS: BUN/Creatinine Ratio 33.3 (10.0-20.0); Blood Urea Nitrogen 11 mg/dL (9-23); Magnesium 1.9 mg/dL (1.6-2.6)
[2024-10-18 07:32] LABS: Glucose 127 mg/dL (74-106); Phosphorus 2.8 mg/dL (2.4-5.1)
--- NOTE | 2024-10-18 08:56 | DVHPN2 ---
Progress Note Date Seen: Oct 18, 2024 Medical Necessity Reason Pt with a Central, PICC or Fol: No Objective vital signs Vital Sign Date Time Temp Pulse Resp B/P (MAP) Pulse Ox O2 Delivery O2 Flow Rate FiO2 10/18/24 05:00 97.6 90 16 126/79 (95) 94 97.6 10/17/24 20:00 Nasal Cannula* 2 28 Total Intake and Output 10/17/24 10/17/24 10/18/24 15:00 23:00 07:00 Intake Total 200 ml 500 ml 600 ml Output Total 900 ml 400 ml Balance 200 ml -400 ml 200 ml medications Current Medications Medications Dose Ordered Sig/Rl Route Start Time Stop Time Status Last Admin Dose Admin Vancomycin HCl 0 ml @ 0 mls/hr UD IV 10/14/24 21:00 Piperacillin Sod/ Tazobactam Sod 100 ml @ 25 mls/hr Q8HR IV 10/14/24 22:00 10/18/24 05:44 25 MLS/HR Morphine Sulfate 2 mg Q4HPRN PRN IV 10/14/24 21:00 10/18/24 02:57 2 MG Nitroglycerin 0.4 mg Q5MINP PRN SL 10/14/24 21:00 Morphine Sulfate 2 mg Q30M PRN IV 10/14/24 21:00 Insulin Glargine 15 units DAILY SC 10/16/24 10:00 10/17/24 10:01 15 UNITS Acetaminophen/ Hydrocodone Bitart 1 tab Q6HPRN PRN PO 10/15/24 15:45 Acetaminophen 500 mg Q8HP PRN PO 10/15/24 15:45 Ondansetron HCl 4 mg Q6HP PRN IV 10/15/24 15:45 10/16/24 08:46 4 MG Vancomycin HCl 100 ml @ 100 mls/hr Q8H IV 10/16/24 14:15 10/18/24 05:44 100 MLS/HR Pantoprazole Sodium 40 mg DAILY IV 10/18/24 10:00 Sodium Chloride 1,000 ml @ 75 mls/hr [id number] IV 10/17/24 14:30 10/17/24 15:18 75 MLS/HR Diagnostic Test (Pha) 1 strip ACHS 10/17/24 17:00 10/18/24 06:34 1 STRIP Insulin Human Regular ACHS SC 10/17/24 17:00 Dextrose 50 ml UD PRN IV 10/17/24 14:30 laboratory and microbiology Laboratory Tests 10/18/24 06:20 Test 10/18/24 06:20 Range/Units Serum Glucose 127 H 74-106 mg/dL Problem List/Assessment/Plan Problem List/Assessment/Plan 10/17/24FEELS BETTER THAN BEFORE OPERATION, NO FLATUS,IS HUNGRY, ABDOMEN SOFT, APPROPRIATELY TENDER, CIRILO DRAINAGE SEROSANGUINEOUS. WILL DC NGT AND ALLOW ICE CHIPS, NEEDS TO START AMBULATION/ WBC STILL ELEVATED, H/H/STABLE. 10/18/24 afebrile, normotensive, wound clean and well approximated, drainage sero sanguineous, labs ok with leukocytosis decreasing. abdomen soft, appropriately tender , patient claims to have passed flatus, will start po intake, must ambulate Plan discussed with: Patient Dietary Evaluation Review Comments: 1) Advance to CCHO 45 + 2 gm Na diet as medically feasible 2) Conor 1 pk BID 3) Continue current plan of care Expected Outcomes/Goals: Pt will meet >75% estimated needs Fu 2-3 days RUBEN DEL VALLE MD Oct 18, 2024 08:56
[2024-10-18] MEDS: PANTOPRAZOLE 40 MG/10 ML VIAL INJ IV SCH (09:57)
[2024-10-18 10:25] LABS: Band Neutrophils % (manual) 9; Lymphocytes % (manual) 8 (10.0-50.0); Metamyelocytes % 3; Monocytes % (manual) 7 (0-12); Myelocytes % 2; Platelet Estimate Increased
--- NOTE | 2024-10-18 10:41 | DVH ---
Date: 10/18/2024 09:24 AM Examination: XY KUB ABDOMEN SINGLE VIEW History: post op ileus Comparison: None TECHNIQUE: Frontal views of the abdomen was obtained. FINDINGS: Large stool burden. Diffusely dilated small bowel loops, which could represent a small bowel ileus. IMPRESSION: Large stool burden. Diffusely dilated small bowel loops, which could represent a small bowel ileus.
--- NOTE | 2024-10-18 13:13 | DVHPN2 ---
Subjective Denies flatus. C/O surgical site pain. Reviewed: Care Plan, Labs, Medications Changes from previous H/P or p: No Changes General: Per HPI Objective Vitals Vital Signs Date Time Temp Pulse Resp B/P (MAP) Pulse Ox O2 Delivery O2 Flow Rate FiO2 10/18/24 11:56 97.8 76 20 129/78 (95) 92 97.8 10/18/24 08:18 Nasal Cannula* 5 40 Intake/Output Intake and Output 10/18/24 07:00 Intake Total 1300 ml Output Total 1300 ml Balance 0 ml Intake Oral 400 ml IV Total 500 ml Other 400 ml Output Urine Total 1300 ml General Appearance: Alert, Oriented X3, Cooperative, moderate distress, Other (Generalized weakness) HEENT: Atraumatic, PERRLA Lungs: Clear to auscultation, Normal air movement Cardiovascular: Normal S1, Normal S2 Abdomen: Normal bowel sounds, Soft, No hepatospenomegaly, Other (Dressing D&I) Genitourinary: No Apparent Abnormalities Musculoskeletal: Normal sensory function, Normal motor function, Weak motor strength RLE, Weak motor strength LLE Neuro: Normal speech, Cranial nerves 3-12 NL Skin: Dry, Intact, Warm Psych/Mental Status: Mental status NL, Mood NL Medications Current Medications Medications Dose Ordered Sig/Rl Route Start Time Stop Time Status Last Admin Dose Admin Vancomycin HCl 0 ml @ 0 mls/hr UD IV 10/14/24 21:00 Piperacillin Sod/ Tazobactam Sod 100 ml @ 25 mls/hr Q8HR IV 10/14/24 22:00 10/18/24 05:44 25 MLS/HR Morphine Sulfate 2 mg Q4HPRN PRN IV 10/14/24 21:00 10/18/24 09:58 2 MG Nitroglycerin 0.4 mg Q5MINP PRN SL 10/14/24 21:00 Morphine Sulfate 2 mg Q30M PRN IV 10/14/24 21:00 Insulin Glargine 15 units DAILY SC 10/16/24 10:00 10/18/24 09:59 15 UNITS Acetaminophen/ Hydrocodone Bitart 1 tab Q6HPRN PRN PO 10/15/24 15:45 Acetaminophen 500 mg Q8HP PRN PO 10/15/24 15:45 Ondansetron HCl 4 mg Q6HP PRN IV 10/15/24 15:45 10/16/24 08:46 4 MG Vancomycin HCl 100 ml @ 100 mls/hr Q8H IV 10/16/24 14:15 10/18/24 05:44 100 MLS/HR Pantoprazole Sodium 40 mg DAILY IV 10/18/24 10:00 10/18/24 09:57 40 MG Sodium Chloride 1,000 ml @ 75 mls/hr [id number] IV 10/17/24 14:30 10/17/24 15:18 75 MLS/HR Diagnostic Test (Pha) 1 strip ACHS 10/17/24 17:00 10/18/24 11:31 1 STRIP Insulin Human Regular ACHS SC 10/17/24 17:00 10/18/24 11:35 3 UNITS Dextrose 50 ml UD PRN IV 10/17/24 14:30 Laboratory Results Laboratory Tests 10/18/24 06:20 Chemistry Test 10/18/24 06:20 Calcium Level 8.4 mg/dL (8.7-10.4) L Magnesium Level 1.9 mg/dL (1.6-2.6) Phosphorus Level 2.8 mg/dL (2.4-5.1) Urinalysis Test 10/14/24 20:15 Urine Color Yellow (Yellow) Urine Clarity Turbid (Clear) H Urine pH 5.0 (5.0-9.0) Urine Specific [place] 1.023 (1.001-1.035) Urine Protein Trace (Negative) H Urine Ketones 1+ (Negative) H Urine Blood Negative /uL (Negative) Urine Nitrite Negative (Negative) Urine Bilirubin Negative (Negative) Urine Urobilinogen 2 mg/dL (Negative) H Urine Leukocyte Esterase 3+ /uL (Negative) Urine RBC 8 /hpf (0 - 4) Urine Microscopic WBC 50 /HPF (0-5) H Urine Squamous Epithelial Cells Few /hpf (<5) Urine Bacteria None seen /hpf (None Seen) Urine Hyaline Casts Many /lpf (0 - 2) Urine Mucus Few (None Seen) Urine Glucose 4+ mg/dL (Normal) H Microbiology Microbiology Date/Time Source Procedure Growth Status 10/16/24 12:55 Abdomen Gram Stain - Final Resulted 10/16/24 12:55 Abdomen Anaerobic Culture - Preliminary Resulted 10/16/24 12:55 Aerobic Culture - Preliminary Streptococcus Group B Resulted 10/14/24 20:15 Voided Urine Urine Culture - Final Complete 10/14/24 16:37 Blood Blood Culture - Preliminary Resulted Labs and/or images reviewed: Labs reviewed by me, Image(s) reviewed by me Assessment/Plan Assessment/Plan Impression: -diabetic ketoacidosis -severe sepsis -? Pelvic inflammatory disease -rule out appendicitis -complicated cystitis -diabetes mellitus with noncompliance -acute kidney injury, vasomotor nephropathy Plan: -events: OOB to chair -continue IVF. -Positive Strep B. Change antibiotics to Ampicillin -blood and urine culture -continue Lantus and regular insulin sliding scale -PPI -pain management -repeat labs in a.m. Total time spent with patient discussing and formulating plan of care: 35 minutes. This medical document was created using an electronic medical record system with [employer] dictation system. Although this document has been carefully reviewed, there may still be some phonetic and typographical errors. These areas are purely typographical due to imperfections of the software programs, and do not reflect any compromise in the patient's medical care. Plan discussed with: Patient, Other (RN) My Orders Orders - GARY LIM NP Procedure Category Date Status Time Pantoprazole PHA 10/18/24 In Process (Protonix) 10:00 Sodium Chloride 0.9% PHA 10/17/24 In Process 14:30 Glucose Blood PHA 10/17/24 In Process (Accu-Chek Comfort 17:00 Insulin R (Human) PHA 10/17/24 In Process (Insulin R) 17:00 Dextrose 50% Syringe PHA 10/17/24 In Process 14:30 Morphine Sulfate PHA 10/18/24 Verified Injection 13:15 Comprehensive LAB 10/19/24 Verified Metabolic Panel 04:00 Complete Blood Count LAB 10/19/24 Verified 04:00 Date of Service: Oct 18, 2024 Billing Provider: GARY LIM NP Common Visit Codes: [id number] INP/OBS CARE(HIGH) GARY LIM NP Oct 18, 2024 13:13
[2024-10-18] MEDS: AMPICILLIN SOD 2GM INJ 2 GM in SODIUM CHL 0.9% 100 ML IV SCH (16:14)
[2024-10-18] MEDS: MORPHINE SULFATE INJ 2 MG/ml SYRG IV ONE (16:15)
[2024-10-19] VITALS (7 sets, daily range): BP systolic 120–138; BP diastolic 71–81; PULSE 94–105; RESP 18–22; TEMP 97.5–98.1; O2SAT 87–95
[2024-10-19 05:28] LABS: Basophils # (auto) 0 10 ^3/uL (0-0.2); Hemoglobin 10.4 g/dL (12.2-16.2); Monocytes # (auto) 0.6 10 ^3/uL (0-1.3); White Blood Cell 14.4 10^3/uL (4.4-10.8)
[2024-10-19 05:30] LABS: Basophils % (auto) 0.1 % (0.0-2.0); Eosinophils # (auto) 0.6 10 ^3/uL (0-0.8); Eosinophils % (auto) 4.1 % (0.0-7.0); Hematocrit 34.2 % (36.0-46.0); Lymphocytes # (auto) 0.8 10 ^3/uL (0.4-5.4); Lymphocytes % (auto) 5.3 % (10.0-50.0); Mean Corpuscular Hemoglobin 19.2 pg (28.0-32.0); Mean Corpuscular Hgb Conc. 30.5 g/dL (32.0-36.0); Mean Corpuscular Volume 62.9 fL (80.0-100.0); Monocytes % (auto) 4.3 % (0.0-12.0); Neutrophils # (auto) 12.4 10 ^3/uL (1.6-8.6); Neutrophils % (auto) 86.2 % (37.0-80.0); Nucleated Red Blood Cells % 0.1 %; Platelet Count (auto) 270 10^3/uL (140-450); Red Blood Cells 5.43 10^6/uL (4.0-5.20); Red Cell Distribution Width 15.4 % (11.8-14.3)
[2024-10-19] MEDS: DEXTROSE (50%) 50ML SYRG IV PRN (05:40)
[2024-10-19 05:41] LABS: Alanine Aminotransferase 13 U/L (7-40); Albumin 4.1 g/dL (3.2-4.8); Alkaline Phosphatase 104 U/L (46-116); Anion Gap 6 (5-15); BUN/Creatinine Ratio 27.5 (10.0-20.0); Bilirubin, Total 0.8 mg/dL (0.2-1.0); Blood Urea Nitrogen 22 mg/dL (9-23); Calcium 9.4 mg/dL (8.7-10.4); Carbon Dioxide 30 mmol/L (20-31); Chloride 104 mmol/L (98-107); Potassium 4.3 mmol/L (3.5-5.1); Sodium 140 mmol/L (136-145); Total Protein 6.5 g/dL (5.7-8.2)
[2024-10-19 05:51] LABS: Aspartate Aminotransferase 10 U/L (13-40); Glucose 135 mg/dL (74-106)
[2024-10-19 08:01] LABS: Hypochromia Marked; Ovalocytes FEW; Platelet Estimate Adequate
--- NOTE | 2024-10-19 09:57 | DVHPN2 ---
Subjective Date Seen: Oct 19, 2024 Post op day Post op day: 3 Patient reports: No new complaints, Other (Patient is very confused ... Decreased cognition) Nursing reports: No new complaints General: Normal HNT: Normal Cardiovascular: Normal Respiratory: Normal Gastrointestinal: Nausea, Abdominal Pain Genitourinary: Normal Musculoskeletal: Normal Neurological: Normal Objective Vitals Vital Sign Date Time Temp Pulse Resp B/P (MAP) Pulse Ox O2 Delivery O2 Flow Rate FiO2 10/19/24 09:48 103 22 124/76 10/19/24 08:00 98.1 98.1 10/19/24 05:00 90 10/18/24 20:00 Nasal Cannula* 5 40 Total Intake and Output 10/18/24 10/18/24 10/19/24 15:00 23:00 07:00 Intake Total 100 ml 220 ml 1075 ml Output Total 550 ml 95 ml 350 ml Balance -450 ml 125 ml 725 ml Medications Current Medications Medications Dose Ordered Sig/Rl Route Start Time Stop Time Status Last Admin Dose Admin Morphine Sulfate 2 mg Q4HPRN PRN IV 10/14/24 21:00 10/19/24 09:48 2 MG Nitroglycerin 0.4 mg Q5MINP PRN SL 10/14/24 21:00 Morphine Sulfate 2 mg Q30M PRN IV 10/14/24 21:00 Insulin Glargine 15 units DAILY SC 10/16/24 10:00 10/18/24 09:59 15 UNITS Acetaminophen/ Hydrocodone Bitart 1 tab Q6HPRN PRN PO 10/15/24 15:45 Acetaminophen 500 mg Q8HP PRN PO 10/15/24 15:45 Ondansetron HCl 4 mg Q6HP PRN IV 10/15/24 15:45 10/16/24 08:46 4 MG Pantoprazole Sodium 40 mg DAILY IV 10/18/24 10:00 10/19/24 09:47 40 MG Sodium Chloride 1,000 ml @ 75 mls/hr [id number] IV 10/17/24 14:30 10/19/24 05:30 75 MLS/HR Diagnostic Test (Pha) 1 strip ACHS 10/17/24 17:00 10/19/24 05:39 1 STRIP Insulin Human Regular ACHS SC 10/17/24 17:00 10/18/24 22:00 3 UNITS Dextrose 50 ml UD PRN IV 10/17/24 14:30 10/19/24 05:40 50 ML Ampicillin Sodium 2 gm/Sodium Chloride 100 ml @ 100 mls/hr Q6HR IV 10/18/24 18:00 10/19/24 05:30 100 MLS/HR General: Normal, Well developed, Well nourished, Cachetic Head/Eyes: Normal ENT: Normal Lungs: Normal Cardiovascular: Normal (tachy 115) Abdominal: Normal, Soft, Other (Her abdominopelvic exam was tender throughout left and right upper and lower quadrants pelvic exam she has cervical motion tenderness with malodorous discharge from the vagina) Musculoskeletal: Normal Extremities: Normal, No edema Skin: Normal Neurological: Normal Labs and Microbiology Laboratory Tests 10/19/24 04:54 Test 10/19/24 04:54 Range/Units Serum Glucose 135 H 74-106 mg/dL Ass/Plan Labs and/or images reviewed: Labs reviewed by me, Image(s) reviewed by me Problem List 10/17/24FEELS BETTER THAN BEFORE OPERATION, NO FLATUS,IS HUNGRY, ABDOMEN SOFT, APPROPRIATELY TENDER, CIRILO DRAINAGE SEROSANGUINEOUS. WILL DC NGT AND ALLOW ICE CHIPS, NEEDS TO START AMBULATION/ WBC STILL ELEVATED, H/H/STABLE. 10/18/24 afebrile, normotensive, wound clean and well approximated, drainage sero sanguineous, labs ok with leukocytosis decreasing. abdomen soft, appropriately tender , patient claims to have passed flatus, will start po intake, must ambulate Assessment/Plan patient complaint of abdominal pain and nausea from pain abdomen soft , non distended, appropriately tender passing flatus, no BM CIRILO drain serous fluid 10cc Plan: Continue with current diet patient to ambulate continue IV antibiotics Prognosis: Excellent Plan discussed with Dr. Ramirez , patient Visit Coding Surgery Date of Service if different f: Oct 19, 2024 Billing Provider: RUBEN RAMIREZ MD Surgery Visit Codes: [id number] INP/OBS CARE(HIGH) [facility] Oct 19, 2024 09:57
[2024-10-19] MEDS: HYDROcodone-ACET 5/325MG TAB PO PRN (12:42)
--- NOTE | 2024-10-19 12:52 | DVHPN2 ---
Subjective Denies flatus. C/O surgical site pain. Reviewed: Care Plan, Labs, Medications Changes from previous H/P or p: No Changes General: Per HPI Objective Vitals Vital Signs Date Time Temp Pulse Resp B/P (MAP) Pulse Ox O2 Delivery O2 Flow Rate FiO2 10/19/24 10:18 94 20 128/81 10/19/24 08:00 98.1 98.1 10/19/24 08:00 Nasal Cannula* 2 28 10/19/24 05:00 90 Intake/Output Intake and Output 10/19/24 07:00 Intake Total 1395 ml Output Total 995 ml Balance 400 ml Intake Oral 220 ml IV Total 1175 ml Output Urine Total 850 ml Drainage Total 145 ml General Appearance: Alert, Oriented X3, Cooperative, moderate distress, Other (Generalized weakness) HEENT: Atraumatic, PERRLA Lungs: Clear to auscultation, Normal air movement Cardiovascular: Normal S1, Normal S2 Abdomen: Normal bowel sounds, Soft, No hepatospenomegaly, Other (Dressing D&I) Genitourinary: No Apparent Abnormalities Musculoskeletal: Normal sensory function, Normal motor function, Weak motor strength RLE, Weak motor strength LLE Neuro: Normal speech, Cranial nerves 3-12 NL Skin: Dry, Intact, Warm Psych/Mental Status: Mental status NL, Mood NL Medications Current Medications Medications Dose Ordered Sig/Rl Route Start Time Stop Time Status Last Admin Dose Admin Morphine Sulfate 2 mg Q4HPRN PRN IV 10/14/24 21:00 10/19/24 09:48 2 MG Nitroglycerin 0.4 mg Q5MINP PRN SL 10/14/24 21:00 Morphine Sulfate 2 mg Q30M PRN IV 10/14/24 21:00 Insulin Glargine 15 units DAILY SC 10/16/24 10:00 10/19/24 10:00 15 UNITS Acetaminophen/ Hydrocodone Bitart 1 tab Q6HPRN PRN PO 10/15/24 15:45 10/19/24 12:42 1 TAB Acetaminophen 500 mg Q8HP PRN PO 10/15/24 15:45 Ondansetron HCl 4 mg Q6HP PRN IV 10/15/24 15:45 10/16/24 08:46 4 MG Pantoprazole Sodium 40 mg DAILY IV 10/18/24 10:00 10/19/24 09:47 40 MG Sodium Chloride 1,000 ml @ 75 mls/hr [id number] IV 10/17/24 14:30 10/19/24 05:30 75 MLS/HR Diagnostic Test (Pha) 1 strip ACHS 10/17/24 17:00 10/19/24 11:06 1 STRIP Insulin Human Regular ACHS SC 10/17/24 17:00 10/19/24 11:07 3 UNITS Dextrose 50 ml UD PRN IV 10/17/24 14:30 10/19/24 05:40 50 ML Ampicillin Sodium 2 gm/Sodium Chloride 100 ml @ 100 mls/hr Q6HR IV 10/18/24 18:00 10/19/24 12:34 100 MLS/HR Laboratory Results Laboratory Tests 10/19/24 04:54 Chemistry Test 10/19/24 04:54 Albumin 4.1 g/dL (3.2-4.8) Calcium Level 9.4 mg/dL (8.7-10.4) Total Protein 6.5 g/dL (5.7-8.2) LFT Test 10/19/24 04:54 Alanine Aminotransferase (ALT) 13 U/L (7-40) Alkaline Phosphatase 104 U/L (46-116) Aspartate Amino Transferase (AST) 10 U/L (13-40) L Total Bilirubin 0.8 mg/dL (0.2-1.0) Urinalysis Test 10/14/24 20:15 Urine Color Yellow (Yellow) Urine Clarity Turbid (Clear) H Urine pH 5.0 (5.0-9.0) Urine Specific [place] 1.023 (1.001-1.035) Urine Protein Trace (Negative) H Urine Ketones 1+ (Negative) H Urine Blood Negative /uL (Negative) Urine Nitrite Negative (Negative) Urine Bilirubin Negative (Negative) Urine Urobilinogen 2 mg/dL (Negative) H Urine Leukocyte Esterase 3+ /uL (Negative) Urine RBC 8 /hpf (0 - 4) Urine Microscopic WBC 50 /HPF (0-5) H Urine Squamous Epithelial Cells Few /hpf (<5) Urine Bacteria None seen /hpf (None Seen) Urine Hyaline Casts Many /lpf (0 - 2) Urine Mucus Few (None Seen) Urine Glucose 4+ mg/dL (Normal) H Microbiology Microbiology Date/Time Source Procedure Growth Status 10/16/24 12:55 Abdomen Gram Stain - Final Resulted 10/16/24 12:55 Abdomen Anaerobic Culture - Preliminary Resulted 10/16/24 12:55 Aerobic Culture - Preliminary Streptococcus Group B Resulted 10/14/24 20:15 Voided Urine Urine Culture - Final Complete 10/14/24 16:37 Blood Blood Culture - Final Staphylococcus epidermidis Complete Labs and/or images reviewed: Labs reviewed by me, Image(s) reviewed by me Assessment/Plan Assessment/Plan Impression: -diabetic ketoacidosis -severe sepsis -? Pelvic inflammatory disease -rule out appendicitis -complicated cystitis -diabetes mellitus with noncompliance -acute kidney injury, vasomotor nephropathy Plan: -events: Hypoglycemic this morning. Stop Lantus. Continue sliding scale. Out of bed as tolerated. Nursing to please ambulate patient. -continue IVF -Positive Strep B. Change antibiotics to Ampicillin -blood and urine culture -continue Lantus and regular insulin sliding scale -PPI -pain management -repeat labs in a.m. Total time spent with patient discussing and formulating plan of care: 35 minutes. This medical document was created using an electronic medical record system with [employer] dictation system. Although this document has been carefully reviewed, there may still be some phonetic and typographical errors. These areas are purely typographical due to imperfections of the software programs, and do not reflect any compromise in the patient's medical care. Plan discussed with: Patient, Other (RN) My Orders Orders - GARY LIM NP Procedure Category Date Status Time Ampicillin Sod 2gm Inj PHA 10/18/24 In Process 18:00 Basic Metabolic Panel LAB 10/20/24 Verified 04:00 Complete Blood Count LAB 10/20/24 Verified 04:00 Date of Service: Oct 19, 2024 Billing Provider: GARY LIM NP Common Visit Codes: [id number] INP/OBS CARE(HIGH) GARY LIM NP Oct 19, 2024 12:52
--- NOTE | 2024-10-19 14:25 | DVHPN2 ---
Subjective Progress Notes Subjective POD#3 s/p Ex LAP,, RSO, Appendectomy, Wash out due to TOA S: Patient is more awake, alert. Moderate to severe pain still requires MS + Flatus, no BM, Tolerating PO liquids only. NO N/V Objective PHYSICAL EXAM Physical Exam: Alert, NAD Abd;: non distended, tympanic+, no masses. Incisions C/D/I/ B/L CIRILO drains w/ minimal output, serosang. fluid Ext No edema or cyanosis. Vital Signs and I&O Vital Signs Date Time Temp Pulse Resp B/P (MAP) Pulse Ox O2 Delivery O2 Flow Rate FiO2 10/19/24 14:01 94 20 128/81 10/19/24 08:00 98.1 98.1 10/19/24 08:00 Nasal Cannula* 2 28 10/19/24 05:00 90 Intake and Output 10/19/24 07:00 Intake Total 1395 ml Output Total 995 ml Balance 400 ml Intake Oral 220 ml IV Total 1175 ml Output Urine Total 850 ml Drainage Total 145 ml Lab results Laboratory Tests Test 10/14/24 16:31 10/14/24 16:37 10/14/24 17:05 10/14/24 18:15 Range/Units Blood Gas Specimen Type Arterial Blood Gas Sample Site Right radial Blood Gas Patient Temperature 37.0 Arterial Blood Date Drawn [id number] Arterial Blood pH 7.469 H 7.350-7.450 Arterial Blood Partial Pressure CO2 31.2 L 32.0-45.0 mmHg Arterial Blood Partial Pressure O2 83.0 83.0-108.0 mmHg Arterial Blood HCO3 22.1 21.0-28.0 mmol/L Arterial Blood Oxygen Saturation 96.3 94.0-98.0 % Arterial Blood Base Excess -0.7 -2.0-3.0 mmol/L Arterial Blood Oxyhemoglobin 95.3 94.0-98.0 % Arterial Blood Carboxyhemoglobin 0.5 0.5-1.5 % Arterial Blood Methemoglobin 0.5 0.0-1.5 % Navi Test Yes Blood Gas Total Hemoglobin 13.00 12.0-16.0 g/dL Blood Gas Modality Room air FiO2 % 21.0 White Blood Count 15.4 H 4.4-10.8 10^3/uL Red Blood Count 4.65 4.0-5.20 10^6/uL Hemoglobin 12.2 12.2-16.2 g/dL Hematocrit 38.0 36.0-46.0 % Mean Corpuscular Volume 81.7 80.0-100.0 fL Mean Corpuscular Hemoglobin 26.3 L 28.0-32.0 pg Mean Corpuscular Hemoglobin Concent 32.2 32.0-36.0 g/dL Red Cell Distribution Width 16.3 H 11.8-14.3 % Platelet Count 464 H 140-450 10^3/uL Mean Platelet Volume 8.3 6.9-10.8 fL Neutrophils (%) (Auto) 95.6 H 37.0-80.0 % Lymphocytes (%) (Auto) 3.0 L 10.0-50.0 % Monocytes (%) (Auto) 1.2 0.0-12.0 % Eosinophils (%) (Auto) 0.1 0.0-7.0 % Basophils (%) (Auto) 0.1 0.0-2.0 % Neutrophils # (Auto) 14.7 H 1.6-8.6 10 ^3/uL Lymphocytes # (Auto) 0.5 0.4-5.4 10 ^3/uL Monocytes # (Auto) 0.2 0-1.3 10 ^3/uL Eosinophils # (Auto) 0 0-0.8 10 ^3/uL Basophils # (Auto) 0 0-0.2 10 ^3/uL Nucleated Red Blood Cells 0.0 % Sodium Level 124 L 127 L 136-145 mmol/L Potassium Level 4.4 4.4 3.5-5.1 mmol/L Chloride Level 86 L 90 L 98-107 mmol/L Carbon Dioxide Level 21 21 20-31 mmol/L Anion Gap 17 H 16 H 5-15 Blood Urea Nitrogen 34 H 39 H 9-23 mg/dL Creatinine 1.75 H 1.82 H 0.550-1.02 mg/dL Glomerular Filtration Rate Calc 36 34 >90 mL/min BUN/Creatinine Ratio 19.4 21.4 H 10.0-20.0 Serum Glucose 653 *H 653 *H 74-106 mg/dL Lactic Acid Level 2.4 *H 2.3 *H 0.4-2.0 mmol/L Calcium Level 8.6 L 9.0 8.7-10.4 mg/dL Total Bilirubin 0.3 0.2-1.0 mg/dL Aspartate Amino Transferase (AST) 16 13-40 U/L Alanine Aminotransferase (ALT) < 9 7-40 U/L Alkaline Phosphatase 78 46-116 U/L Troponin I High Sensitivity 3 L < 3 L </=34 ng/L Total Protein 6.3 5.7-8.2 g/dL Albumin 3.1 L 3.2-4.8 g/dL Lipase 21 12-53 U/L Beta-Hydroxybutyric Acid 4.131 H < 0.4 mmol/L Beta HCG, Quantitative 2.1 1.5-4.2 mIU/mL Hepatitis B Surface Antigen Negative Negative Hepatitis C Antibody Negative Negative POC Glucose 570 *H 70-106 mg/dl Test 10/14/24 18:54 10/14/24 20:05 10/14/24 20:15 10/14/24 21:10 Range/Units POC Glucose 465 *H 510 *H 70-106 mg/dl Urine Color Yellow Yellow Urine Clarity Turbid H Clear Urine pH 5.0 5.0-9.0 Urine Specific [place] 1.023 1.001-1.035 Urine Protein Trace H Negative Urine Ketones 1+ H Negative Urine Blood Negative Negative /uL Urine Nitrite Negative Negative Urine Bilirubin Negative Negative Urine Urobilinogen 2 H Negative mg/dL Urine Leukocyte Esterase 3+ Negative /uL Urine RBC 8 0 - 4 /hpf Urine Microscopic WBC 50 H 0-5 /HPF Urine Squamous Epithelial Cells Few <5 /hpf Urine Bacteria None seen None Seen /hpf Urine Hyaline Casts Many 0 - 2 /lpf Urine Mucus Few None Seen Urine Glucose 4+ H Normal mg/dL Prothrombin Time 13.0 H 9.3-11.8 sec Prothrombin Time INR 1.25 H 0.9-1.15 Activated Partial Thromboplast Time 31.0 24.5-34.5 SEC Test 10/15/24 00:27 10/15/24 00:41 10/15/24 01:21 10/15/24 02:12 Range/Units Sodium Level 125 L 136-145 mmol/L Potassium Level 4.2 3.5-5.1 mmol/L Chloride Level 92 L 98-107 mmol/L Carbon Dioxide Level 23 20-31 mmol/L Anion Gap 10 5-15 Blood Urea Nitrogen 31 H 9-23 mg/dL Creatinine 1.15 #H 0.550-1.02 mg/dL Glomerular Filtration Rate Calc 60 >90 mL/min BUN/Creatinine Ratio 27.0 H 10.0-20.0 Serum Glucose 438 *H 74-106 mg/dL Calcium Level 8.7 8.7-10.4 mg/dL Troponin I High Sensitivity < 3 L </=34 ng/L POC Glucose 367 H 348 H 302 H 70-106 mg/dl Test 10/15/24 03:56 10/15/24 04:32 10/15/24 05:24 10/15/24 06:27 Range/Units POC Glucose 219 H 156 H 70-106 mg/dl White Blood Count 19.7 #H 4.4-10.8 10^3/uL Red Blood Count 4.52 4.0-5.20 10^6/uL Hemoglobin 12.1 L 12.2-16.2 g/dL Hematocrit 36.2 36.0-46.0 % Mean Corpuscular Volume 80.1 80.0-100.0 fL Mean Corpuscular Hemoglobin 26.7 L 28.0-32.0 pg Mean Corpuscular Hemoglobin Concent 33.4 32.0-36.0 g/dL Red Cell Distribution Width 16.3 H 11.8-14.3 % Platelet Count 422 140-450 10^3/uL Mean Platelet Volume 7.9 6.9-10.8 fL Neutrophils (%) (Auto) 93.6 H 37.0-80.0 % Lymphocytes (%) (Auto) 4.0 L 10.0-50.0 % Monocytes (%) (Auto) 2.3 0.0-12.0 % Eosinophils (%) (Auto) 0.1 0.0-7.0 % Basophils (%) (Auto) 0.0 0.0-2.0 % Neutrophils # (Auto) 18.5 H 1.6-8.6 10 ^3/uL Lymphocytes # (Auto) 0.8 0.4-5.4 10 ^3/uL Monocytes # (Auto) 0.5 0-1.3 10 ^3/uL Eosinophils # (Auto) 0 0-0.8 10 ^3/uL Basophils # (Auto) 0 0-0.2 10 ^3/uL Nucleated Red Blood Cells 0.0 % Sodium Level 130 #L 131 L 136-145 mmol/L Potassium Level 3.7 3.6 3.5-5.1 mmol/L Chloride Level 97 L 98 98-107 mmol/L Carbon Dioxide Level 22 24 20-31 mmol/L Anion Gap 11 9 5-15 Blood Urea Nitrogen 30 H 29 H 9-23 mg/dL Creatinine 0.83 0.70 0.550-1.02 mg/dL Glomerular Filtration Rate Calc 88 108 >90 mL/min BUN/Creatinine Ratio 36.1 H 41.4 H 10.0-20.0 Serum Glucose 222 H 151 H 74-106 mg/dL Hemoglobin A1c 13.5 H <5.7 % A1C Calcium Level 9.0 9.1 8.7-10.4 mg/dL Total Bilirubin 0.2 0.2-1.0 mg/dL Aspartate Amino Transferase (AST) 21 13-40 U/L Alanine Aminotransferase (ALT) < 9 7-40 U/L Alkaline Phosphatase 81 46-116 U/L Total Protein 6.3 5.7-8.2 g/dL Albumin 3.1 L 3.2-4.8 g/dL Test 10/15/24 06:51 10/15/24 08:33 10/15/24 10:11 10/15/24 11:32 Range/Units POC Glucose 117 H 122 H 112 H 121 H 70-106 mg/dl Test 10/15/24 12:44 10/15/24 12:52 10/15/24 14:42 10/15/24 16:31 Range/Units Sodium Level 131 L 136-145 mmol/L Potassium Level 3.9 3.5-5.1 mmol/L Chloride Level 99 98-107 mmol/L Carbon Dioxide Level 21 20-31 mmol/L Anion Gap 11 5-15 Blood Urea Nitrogen 20 9-23 mg/dL Creatinine 0.57 0.550-1.02 mg/dL Glomerular Filtration Rate Calc 113 >90 mL/min BUN/Creatinine Ratio 35.1 H 10.0-20.0 Serum Glucose 125 H 74-106 mg/dL Calcium Level 9.2 8.7-10.4 mg/dL POC Glucose 116 H 112 H 130 H 70-106 mg/dl Test 10/15/24 18:30 10/15/24 20:29 10/15/24 23:40 10/16/24 04:22 Range/Units Sodium Level 131 L 136-145 mmol/L Potassium Level 3.8 3.5-5.1 mmol/L Chloride Level 99 98-107 mmol/L Carbon Dioxide Level 20 20-31 mmol/L Anion Gap 12 5-15 Blood Urea Nitrogen 14 9-23 mg/dL Creatinine 0.51 L 0.550-1.02 mg/dL Glomerular Filtration Rate Calc 117 >90 mL/min BUN/Creatinine Ratio 27.5 H 10.0-20.0 Serum Glucose 142 H 74-106 mg/dL Calcium Level 9.0 8.7-10.4 mg/dL POC Glucose 152 H 213 H 167 H 70-106 mg/dl Test 10/16/24 06:00 10/16/24 08:26 10/16/24 10:13 10/16/24 10:14 Range/Units White Blood Count 22.1 H 4.4-10.8 10^3/uL Red Blood Count 3.86 L 4.0-5.20 10^6/uL Hemoglobin 10.2 #L 12.2-16.2 g/dL Hematocrit 31.5 #L 36.0-46.0 % Mean Corpuscular Volume 81.5 80.0-100.0 fL Mean Corpuscular Hemoglobin 26.5 L 28.0-32.0 pg Mean Corpuscular Hemoglobin Concent 32.5 32.0-36.0 g/dL Red Cell Distribution Width 16.5 H 11.8-14.3 % Platelet Count 413 140-450 10^3/uL Mean Platelet Volume 7.3 6.9-10.8 fL Neutrophils (%) (Auto) 94.9 H 37.0-80.0 % Lymphocytes (%) (Auto) 2.7 L 10.0-50.0 % Monocytes (%) (Auto) 1.8 0.0-12.0 % Eosinophils (%) (Auto) 0.1 0.0-7.0 % Basophils (%) (Auto) 0.5 0.0-2.0 % Neutrophils # (Auto) 21.0 H 1.6-8.6 10 ^3/uL Lymphocytes # (Auto) 0.6 0.4-5.4 10 ^3/uL Monocytes # (Auto) 0.4 0-1.3 10 ^3/uL Eosinophils # (Auto) 0 0-0.8 10 ^3/uL Basophils # (Auto) 0.1 0-0.2 10 ^3/uL Nucleated Red Blood Cells 0.0 % Prothrombin Time 11.1 9.3-11.8 sec Prothrombin Time INR 1.05 0.9-1.15 Activated Partial Thromboplast Time 30.7 24.5-34.5 SEC Sodium Level 132 L 136-145 mmol/L Potassium Level 3.5 3.5-5.1 mmol/L Chloride Level 100 98-107 mmol/L Carbon Dioxide Level 23 20-31 mmol/L Anion Gap 9 5-15 Blood Urea Nitrogen 11 9-23 mg/dL Creatinine 0.42 L 0.550-1.02 mg/dL Glomerular Filtration Rate Calc 122 >90 mL/min BUN/Creatinine Ratio 26.2 H 10.0-20.0 Serum Glucose 181 H 74-106 mg/dL Calcium Level 8.4 L 8.7-10.4 mg/dL Phosphorus Level 2.4 2.4-5.1 mg/dL Magnesium Level 1.9 1.6-2.6 mg/dL Hepatitis C Antibody Negative Negative POC Glucose 190 H 216 H 70-106 mg/dl Vancomycin Level Trough 8.6 5-10 ug/mL Test 10/16/24 13:39 10/16/24 16:11 10/16/24 21:15 10/17/24 00:12 Range/Units POC Glucose 200 H 245 H 192 H 70-106 mg/dl Treponema pallidum Antibody Non-reactive Negative HIV (1&2) Antibody Negative Negative Test 10/17/24 03:27 10/17/24 06:31 10/17/24 08:33 10/17/24 12:40 Range/Units POC Glucose 167 H 165 H 70-106 mg/dl White Blood Count 17.9 H 4.4-10.8 10^3/uL Red Blood Count 3.46 L 4.0-5.20 10^6/uL Hemoglobin 9.4 L 12.2-16.2 g/dL Hematocrit 28.0 #L 36.0-46.0 % Mean Corpuscular Volume 81.0 80.0-100.0 fL Mean Corpuscular Hemoglobin 27.1 L 28.0-32.0 pg Mean Corpuscular Hemoglobin Concent 33.5 32.0-36.0 g/dL Red Cell Distribution Width 17.0 H 11.8-14.3 % Platelet Count 412 140-450 10^3/uL Mean Platelet Volume 7.4 6.9-10.8 fL Neutrophils (%) (Auto) 37.0-80.0 % Lymphocytes (%) (Auto) 10.0-50.0 % Monocytes (%) (Auto) 0.0-12.0 % Basophils (%) (Auto) 0.0-2.0 % Neutrophils # (Auto) 1.6-8.6 10 ^3/uL Lymphocytes # (Auto) 0.4-5.4 10 ^3/uL Monocytes # (Auto) 0-1.3 10 ^3/uL Differential Total Cells Counted 100.0 100 Neutrophils % (Manual) 83 H 37.0-80.0 Band Neutrophils % (Manual) 9 Lymphocytes % (Manual) 4 L 10.0-50.0 Monocytes % (Manual) 4 0-12 Eosinophils % (Manual) 0 0-7 Basophils % (Manual) 0 0.0-2.0 Metamyelocytes % (manual) 0 Myelocytes % (Manual) 0 Promyelocytes % (Manual) 0 Blast Cells % (Manual) 0 Reactive Lymphocytes 0 Platelet Estimate Adequate Sodium Level 136 136-145 mmol/L Potassium Level 4.4 3.5-5.1 mmol/L Chloride Level 106 98-107 mmol/L Carbon Dioxide Level 22 20-31 mmol/L Anion Gap 8 5-15 Blood Urea Nitrogen 12 9-23 mg/dL Creatinine 0.41 L 0.550-1.02 mg/dL Glomerular Filtration Rate Calc 123 >90 mL/min BUN/Creatinine Ratio 29.3 H 10.0-20.0 Serum Glucose 172 H 74-106 mg/dL Calcium Level 8.4 L 8.7-10.4 mg/dL Vancomycin Level Trough 15.1 H 5-10 ug/mL Test 10/17/24 19:20 10/17/24 21:45 10/18/24 06:20 10/18/24 06:29 Range/Units POC Glucose 142 H 135 H 126 H 70-106 mg/dl White Blood Count 16.7 H 4.4-10.8 10^3/uL Red Blood Count 3.63 L 4.0-5.20 10^6/uL Hemoglobin 9.4 L 12.2-16.2 g/dL Hematocrit 29.3 L 36.0-46.0 % Mean Corpuscular Volume 80.6 80.0-100.0 fL Mean Corpuscular Hemoglobin 26.0 L 28.0-32.0 pg Mean Corpuscular Hemoglobin Concent 32.3 32.0-36.0 g/dL Red Cell Distribution Width 17.0 H 11.8-14.3 % Platelet Count 471 H 140-450 10^3/uL Mean Platelet Volume 7.3 6.9-10.8 fL Neutrophils (%) (Auto) 37.0-80.0 % Lymphocytes (%) (Auto) 10.0-50.0 % Monocytes (%) (Auto) 0.0-12.0 % Basophils (%) (Auto) 0.0-2.0 % Neutrophils # (Auto) 1.6-8.6 10 ^3/uL Lymphocytes # (Auto) 0.4-5.4 10 ^3/uL Monocytes # (Auto) 0-1.3 10 ^3/uL Differential Total Cells Counted 100.0 100 Neutrophils % (Manual) 71 37.0-80.0 Band Neutrophils % (Manual) 9 Lymphocytes % (Manual) 8 L 10.0-50.0 Monocytes % (Manual) 7 0-12 Eosinophils % (Manual) 0 0-7 Basophils % (Manual) 0 0.0-2.0 Metamyelocytes % (manual) 3 Myelocytes % (Manual) 2 Promyelocytes % (Manual) 0 Blast Cells % (Manual) 0 Reactive Lymphocytes 0 Platelet Estimate Increased Sodium Level 137 136-145 mmol/L Potassium Level 3.9 3.5-5.1 mmol/L Chloride Level 108 H 98-107 mmol/L Carbon Dioxide Level 21 20-31 mmol/L Anion Gap 8 5-15 Blood Urea Nitrogen 11 9-23 mg/dL Creatinine 0.33 L 0.550-1.02 mg/dL Glomerular Filtration Rate Calc 129 >90 mL/min BUN/Creatinine Ratio 33.3 H 10.0-20.0 Serum Glucose 127 H 74-106 mg/dL Calcium Level 8.4 L 8.7-10.4 mg/dL Phosphorus Level 2.8 2.4-5.1 mg/dL Magnesium Level 1.9 1.6-2.6 mg/dL Test 10/18/24 08:18 10/18/24 11:30 10/18/24 15:53 10/19/24 04:54 Range/Units POC Glucose 124 H 169 H 279 H 70-106 mg/dl White Blood Count 14.4 H 4.4-10.8 10^3/uL Red Blood Count 5.43 H 4.0-5.20 10^6/uL Hemoglobin 10.4 L 12.2-16.2 g/dL Hematocrit 34.2 #L 36.0-46.0 % Mean Corpuscular Volume 62.9 #L 80.0-100.0 fL Mean Corpuscular Hemoglobin 19.2 L 28.0-32.0 pg Mean Corpuscular Hemoglobin Concent 30.5 L 32.0-36.0 g/dL Red Cell Distribution Width 15.4 H 11.8-14.3 % Platelet Count 270 140-450 10^3/uL Mean Platelet Volume 8.6 6.9-10.8 fL Neutrophils (%) (Auto) 86.2 H 37.0-80.0 % Lymphocytes (%) (Auto) 5.3 L 10.0-50.0 % Monocytes (%) (Auto) 4.3 0.0-12.0 % Eosinophils (%) (Auto) 4.1 0.0-7.0 % Basophils (%) (Auto) 0.1 0.0-2.0 % Neutrophils # (Auto) 12.4 H 1.6-8.6 10 ^3/uL Lymphocytes # (Auto) 0.8 0.4-5.4 10 ^3/uL Monocytes # (Auto) 0.6 0-1.3 10 ^3/uL Eosinophils # (Auto) 0.6 0-0.8 10 ^3/uL Basophils # (Auto) 0 0-0.2 10 ^3/uL Nucleated Red Blood Cells 0.1 % Platelet Estimate Adequate Hypochromasia (manual) Marked Microcytosis Marked Ovalocytes Few Sodium Level 140 136-145 mmol/L Potassium Level 4.3 3.5-5.1 mmol/L Chloride Level 104 98-107 mmol/L Carbon Dioxide Level 30 20-31 mmol/L Anion Gap 6 5-15 Blood Urea Nitrogen 22 # 9-23 mg/dL Creatinine 0.80 # 0.550-1.02 mg/dL Glomerular Filtration Rate Calc 92 >90 mL/min BUN/Creatinine Ratio 27.5 H 10.0-20.0 Serum Glucose 135 H 74-106 mg/dL Calcium Level 9.4 8.7-10.4 mg/dL Total Bilirubin 0.8 0.2-1.0 mg/dL Aspartate Amino Transferase (AST) 10 L 13-40 U/L Alanine Aminotransferase (ALT) 13 7-40 U/L Alkaline Phosphatase 104 46-116 U/L Total Protein 6.5 5.7-8.2 g/dL Albumin 4.1 3.2-4.8 g/dL Test 10/19/24 05:37 Range/Units POC Glucose 28 *L 70-106 mg/dl Assessment and Plan ASSESSMENT AND PLAN Assessment and Plan POD#3 s/p Ex Lap RSO Appendectomy Pelvic Washout Plan: continue current care, advance diet to regular once OK by General Surgery Labs improving, afebrile Decrease Narcotic pain use if possible Ambulate 4x day and IS 10x/ hr while awake Continue IV antibiotics Care endorsed to primary IM team and Dr. Tomlin MASH GRINDER covering until Tuesday. My orders: Orders - STANLEY HOOKS DO * Surgical Consult (10/16/24 ) Procedure Being Performed: (10/17/24 04:00) Obtain Consent For: (10/17/24 04:00) Obtain Consent For Anesthesia (10/16/24 09:27) Chlamydia/Gc Amplification (10/16/24 13:20) Ambulate X 4 Daily On Pod #1 (10/18/24 07:00) Ambulate (10/18/24 07:00) Out Of Bed Ambulate (10/18/24 07:00) Discontinue Plummer Catheter (10/18/24 07:00) Incentive Spirometry Q 1hr (10/18/24 07:00) Kub Abdomen Single View (10/18/24 07:00) Plan discussed with: Patient Visit Coding OBGYN Date of Service: Oct 19, 2024 Billing Provider: STANLEY HOOKS DO [employer] Common Visit Codes: [id number] INP/OBS CARE(HIGH) STANLEY HOOKS DO Oct 19, 2024 14:25
[2024-10-20] VITALS (8 sets, daily range): BP systolic 135–157; BP diastolic 79–91; PULSE 86–99; RESP 18–20; TEMP 97.4–98; O2SAT 90–94
[2024-10-20 06:32] LABS: Basophils # (auto) 0 10 ^3/uL (0-0.2); Eosinophils # (auto) 0.1 10 ^3/uL (0-0.8); Hemoglobin 9.1 g/dL (12.2-16.2); Lymphocytes # (auto) 0.9 10 ^3/uL (0.4-5.4); Mean Corpuscular Volume 79.7 fL (80.0-100.0); Monocytes # (auto) 0.5 10 ^3/uL (0-1.3); White Blood Cell 10.1 10^3/uL (4.4-10.8)
[2024-10-20 06:34] LABS: Basophils % (auto) 0.2 % (0.0-2.0); Eosinophils % (auto) 0.7 % (0.0-7.0); Hematocrit 27.3 % (36.0-46.0); Lymphocytes % (auto) 9.1 % (10.0-50.0); Mean Corpuscular Hemoglobin 26.5 pg (28.0-32.0); Mean Corpuscular Hgb Conc. 33.3 g/dL (32.0-36.0); Monocytes % (auto) 5.2 % (0.0-12.0); Neutrophils # (auto) 8.6 10 ^3/uL (1.6-8.6); Neutrophils % (auto) 84.8 % (37.0-80.0); Platelet Count (auto) 435 10^3/uL (140-450); Red Blood Cells 3.42 10^6/uL (4.0-5.20); Red Cell Distribution Width 16.4 % (11.8-14.3)
[2024-10-20 06:47] LABS: Chloride 106 mmol/L (98-107); Sodium 139 mmol/L (136-145)
[2024-10-20 06:48] LABS: Anion Gap 7 (5-15); Carbon Dioxide 26 mmol/L (20-31)
[2024-10-20 06:55] LABS: BUN/Creatinine Ratio 15.2 (10.0-20.0); Blood Urea Nitrogen < 5 mg/dL (9-23); Calcium 7.6 mg/dL (8.7-10.4); Glucose 144 mg/dL (74-106); Potassium 3.1 mmol/L (3.5-5.1)
--- NOTE | 2024-10-20 11:39 | DVHPN2 ---
Progress Note Date Seen: Oct 20, 2024 Medical Necessity Reason Pt with a Central, PICC or Fol: No Objective vital signs Vital Sign Date Time Temp Pulse Resp B/P (MAP) Pulse Ox O2 Delivery O2 Flow Rate FiO2 10/20/24 11:00 100 16 140/83 10/20/24 09:00 97.4 90 97.4 10/19/24 20:00 Nasal Cannula* 3 32 Total Intake and Output 10/19/24 10/19/24 10/20/24 15:00 23:00 07:00 Intake Total 520 ml 800 ml Balance 520 ml 800 ml medications Current Medications Medications Dose Ordered Sig/Rl Route Start Time Stop Time Status Last Admin Dose Admin Morphine Sulfate 2 mg Q4HPRN PRN IV 10/14/24 21:00 10/20/24 11:00 2 MG Nitroglycerin 0.4 mg Q5MINP PRN SL 10/14/24 21:00 Morphine Sulfate 2 mg Q30M PRN IV 10/14/24 21:00 Acetaminophen/ Hydrocodone Bitart 1 tab Q6HPRN PRN PO 10/15/24 15:45 10/19/24 23:31 1 TAB Acetaminophen 500 mg Q8HP PRN PO 10/15/24 15:45 Ondansetron HCl 4 mg Q6HP PRN IV 10/15/24 15:45 10/16/24 08:46 4 MG Pantoprazole Sodium 40 mg DAILY IV 10/18/24 10:00 10/20/24 10:58 40 MG Sodium Chloride 1,000 ml @ 75 mls/hr [id number] IV 10/17/24 14:30 10/19/24 20:23 75 MLS/HR Diagnostic Test (Pha) 1 strip ACHS 10/17/24 17:00 10/20/24 11:10 1 STRIP Insulin Human Regular ACHS SC 10/17/24 17:00 10/20/24 05:07 2 UNITS Dextrose 50 ml UD PRN IV 10/17/24 14:30 10/19/24 05:40 50 ML Ampicillin Sodium 2 gm/Sodium Chloride 100 ml @ 100 mls/hr Q6HR IV 10/18/24 18:00 10/20/24 04:45 100 MLS/HR laboratory and microbiology Laboratory Tests 10/20/24 05:59 Test 10/20/24 05:59 Range/Units Serum Glucose 144 H 74-106 mg/dL Problem List/Assessment/Plan Problem List/Assessment/Plan 10/17/24FEELS BETTER THAN BEFORE OPERATION, NO FLATUS,IS HUNGRY, ABDOMEN SOFT, APPROPRIATELY TENDER, CIRILO DRAINAGE SEROSANGUINEOUS. WILL DC NGT AND ALLOW ICE CHIPS, NEEDS TO START AMBULATION/ WBC STILL ELEVATED, H/H/STABLE. 10/18/24 afebrile, normotensive, wound clean and well approximated, drainage sero sanguineous, labs ok with leukocytosis decreasing. abdomen soft, appropriately tender , patient claims to have passed flatus, will start po intake, must ambulate 10/20/24 stable, having bowel movements, tolerated po, abdomen appropriately tender, wound clean and well approximated, CIRILO drainage sero sanguineous, Labs OK, reluctant to ambulate, explained significance. advance po Plan discussed with: Patient Dietary Evaluation Review Comments: 1) Advance to CCHO 45 + 2 gm Na diet as medically feasible 2) Conor 1 pk BID 3) Continue current plan of care Expected Outcomes/Goals: Pt will meet >75% estimated needs Fu 2-3 days RUBEN DEL VALLE MD Oct 20, 2024 11:39
--- NOTE | 2024-10-20 14:43 | DVHPN2 ---
Subjective Reporting positive flatus. Continues to have abdominal pain. Reviewed: Care Plan, Labs, Medications Changes from previous H/P or p: No Changes General: Per HPI Objective Vitals Vital Signs Date Time Temp Pulse Resp B/P (MAP) Pulse Ox O2 Delivery O2 Flow Rate FiO2 10/20/24 13:00 97.7 97 19 147/79 (101) 90 97.7 10/19/24 20:00 Nasal Cannula* 3 32 Intake/Output Intake and Output 10/20/24 07:00 Intake Total 1320 ml Balance 1320 ml Intake Oral 1320 ml # Voids 3 General Appearance: Alert, Oriented X3, Cooperative, moderate distress, Other (Generalized weakness) HEENT: Atraumatic, PERRLA Lungs: Clear to auscultation, Normal air movement Cardiovascular: Normal S1, Normal S2 Abdomen: Normal bowel sounds, Soft, No hepatospenomegaly, Other (Dressing D&I) Genitourinary: No Apparent Abnormalities Musculoskeletal: Normal sensory function, Normal motor function, Weak motor strength RLE, Weak motor strength LLE Neuro: Normal speech, Cranial nerves 3-12 NL Skin: Dry, Intact, Warm Psych/Mental Status: Mental status NL, Mood NL Medications Current Medications Medications Dose Ordered Sig/Rl Route Start Time Stop Time Status Last Admin Dose Admin Morphine Sulfate 2 mg Q4HPRN PRN IV 10/14/24 21:00 10/20/24 11:00 2 MG Nitroglycerin 0.4 mg Q5MINP PRN SL 10/14/24 21:00 Morphine Sulfate 2 mg Q30M PRN IV 10/14/24 21:00 Acetaminophen/ Hydrocodone Bitart 1 tab Q6HPRN PRN PO 10/15/24 15:45 10/20/24 13:47 1 TAB Acetaminophen 500 mg Q8HP PRN PO 10/15/24 15:45 Ondansetron HCl 4 mg Q6HP PRN IV 10/15/24 15:45 10/16/24 08:46 4 MG Pantoprazole Sodium 40 mg DAILY IV 10/18/24 10:00 10/20/24 10:58 40 MG Diagnostic Test (Pha) 1 strip ACHS 10/17/24 17:00 10/20/24 11:10 1 STRIP Insulin Human Regular ACHS SC 10/17/24 17:00 10/20/24 05:07 2 UNITS Dextrose 50 ml UD PRN IV 10/17/24 14:30 10/19/24 05:40 50 ML Ampicillin Sodium 2 gm/Sodium Chloride 100 ml @ 100 mls/hr Q6HR IV 10/18/24 18:00 10/20/24 12:28 100 MLS/HR Laboratory Results Laboratory Tests 10/20/24 05:59 Chemistry Test 10/20/24 05:59 Calcium Level 7.6 mg/dL (8.7-10.4) L Urinalysis Test 10/14/24 20:15 Urine Color Yellow (Yellow) Urine Clarity Turbid (Clear) H Urine pH 5.0 (5.0-9.0) Urine Specific [place] 1.023 (1.001-1.035) Urine Protein Trace (Negative) H Urine Ketones 1+ (Negative) H Urine Blood Negative /uL (Negative) Urine Nitrite Negative (Negative) Urine Bilirubin Negative (Negative) Urine Urobilinogen 2 mg/dL (Negative) H Urine Leukocyte Esterase 3+ /uL (Negative) Urine RBC 8 /hpf (0 - 4) Urine Microscopic WBC 50 /HPF (0-5) H Urine Squamous Epithelial Cells Few /hpf (<5) Urine Bacteria None seen /hpf (None Seen) Urine Hyaline Casts Many /lpf (0 - 2) Urine Mucus Few (None Seen) Urine Glucose 4+ mg/dL (Normal) H Microbiology Microbiology Date/Time Source Procedure Growth Status 10/16/24 12:55 Abdomen Gram Stain - Final Resulted 10/16/24 12:55 Abdomen Anaerobic Culture - Preliminary Resulted 10/16/24 12:55 Aerobic Culture - Final Streptococcus Group B Resulted 10/14/24 20:15 Voided Urine Urine Culture - Final Complete 10/14/24 16:37 Blood Blood Culture - Final Staphylococcus epidermidis Complete Labs and/or images reviewed: Labs reviewed by me, Image(s) reviewed by me Assessment/Plan Assessment/Plan Impression: -diabetic ketoacidosis -severe sepsis -? Pelvic inflammatory disease -rule out appendicitis -complicated cystitis -diabetes mellitus with noncompliance -acute kidney injury, vasomotor nephropathy Plan: -events: Planning of pain. Hypokalemic. Passing gas. White blood cell count now normalized. -continue IVF -Positive Strep B. Change antibiotics to Ampicillin -blood and urine culture -continue Lantus and regular insulin sliding scale -PPI -change to Percocet -ambulate -repeat labs in a.m. Total time spent with patient discussing and formulating plan of care: 35 minutes. This medical document was created using an electronic medical record system with [employer] dictation system. Although this document has been carefully reviewed, there may still be some phonetic and typographical errors. These areas are purely typographical due to imperfections of the software programs, and do not reflect any compromise in the patient's medical care. Plan discussed with: Patient, Other (RN) My Orders Orders - GARY LIM NP Procedure Category Date Status Time Basic Metabolic Panel LAB 10/21/24 Verified 04:00 Magnesium LAB 10/21/24 Verified 04:00 Complete Blood Count LAB 10/21/24 Verified 04:00 Potassium Effervesent PHA 10/20/24 Logged Tab (Klor-Con/Ef) 14:45 Sod Chl 0.9%/ Kcl PHA 10/20/24 Logged 40meq 14:45 Date of Service: Oct 20, 2024 Billing Provider: GARY LIM NP Common Visit Codes: [id number] INP/OBS CARE(HIGH) GARY LIM NP Oct 20, 2024 14:43
[2024-10-20] MEDS: POTASSIUM EFFERVESENT TAB 25 MEQ PO ONE (15:55)
[2024-10-20] MEDS: SOD CHL 0.9%/ KCL 40MEQ 1,000 ML IV ONE (15:59)
--- NOTE | 2024-10-20 18:33 | DVHPN2 ---
Chief Complaints Patient reports: No new complaints, Other (Patient is very confused ... Decreased cognition) Nursing reports: No new complaints Objective Vitals Vital Signs Date Time Temp Pulse Resp B/P (MAP) Pulse Ox O2 Delivery O2 Flow Rate FiO2 10/20/24 17:00 97.4 95 19 152/86 (108) 93 97.4 10/20/24 08:00 Nasal Cannula* 2 28 Medications Current Medications Medications (Trade) Dose Ordered Sig/Rl Route PRN Reason Start Time Stop Time Status Last Admin Oxycodone/ Acetaminophen (Percocet 5/ 325MG Tablet) 1 tab Q4HP PRN PO MODERATE PAIN (4-6 PAIN SCALE) 10/20/24 14:45 General: Normal, Well developed, Well nourished, Cachetic Head/Eyes: Normal ENT: Normal Lungs: Normal Cardiovascular: Normal (tachy 115) Abdominal: Normal, Soft, Other (Her abdominopelvic exam was tender throughout left and right upper and lower quadrants pelvic exam she has cervical motion tenderness with malodorous discharge from the vagina) Musculoskeletal: Normal Extremities: Normal, No edema Skin: Normal Neurological: Normal Studies Laboratory Tests 10/20/24 05:59 Test 10/20/24 05:59 Range/Units Serum Glucose 144 H 74-106 mg/dL Ass/Plan Assessment s/p expl lap Plan supportive care Visit Coding OBGYN Date of Service: Oct 20, 2024 Billing Provider: GUTIERREZ HUTCHINSON DO [facility] Common Visit Codes: [id number] SAME DATE (MOD) [facility] Consultation Codes: [id number] INPATIENT CONSULT (MOD) GUTIERREZ HUTCHINSON DO Oct 20, 2024 18:33
[2024-10-20] MEDS: OXYCODONE W/ ACETAMINOPHEN 5/325MG TABLET PO PRN (22:53)
[2024-10-21] VITALS (8 sets, daily range): BP systolic 137–151; BP diastolic 78–85; PULSE 92–105; RESP 18–20; TEMP 97.7–98.2; O2SAT 90–98
[2024-10-21 07:06] LABS: Hemoglobin 9.1 g/dL (12.2-16.2); Red Cell Distribution Width 16.7 % (11.8-14.3)
[2024-10-21 07:09] LABS: Hematocrit 27.2 % (36.0-46.0); Mean Corpuscular Hemoglobin 26.7 pg (28.0-32.0); Mean Corpuscular Hgb Conc. 33.3 g/dL (32.0-36.0); Mean Corpuscular Volume 80.3 fL (80.0-100.0); Platelet Count (auto) 447 10^3/uL (140-450); Red Blood Cells 3.39 10^6/uL (4.0-5.20); White Blood Cell 10.9 10^3/uL (4.4-10.8)
[2024-10-21 07:13] LABS: Anion Gap 5 (5-15); Carbon Dioxide 29 mmol/L (20-31); Chloride 104 mmol/L (98-107); Potassium 3.8 mmol/L (3.5-5.1); Sodium 138 mmol/L (136-145)
[2024-10-21 07:15] LABS: Calcium 7.9 mg/dL (8.7-10.4)
[2024-10-21 07:20] LABS: Magnesium 1.7 mg/dL (1.6-2.6)
[2024-10-21 07:21] LABS: BUN/Creatinine Ratio 12.2 (10.0-20.0); Blood Urea Nitrogen < 5 mg/dL (9-23); Glucose 228 mg/dL (74-106)
[2024-10-21 07:22] LABS: Band Neutrophils % (manual) 0; Basophils % (manual) 0 (0.0-2.0); Blast Cells 0; Eosinophils % (manual) 0 (0-7); Metamyelocytes % 0; Myelocytes % 0; Promyelocytes % 0; Reactive Lymphocytes 0
[2024-10-21 08:16] LABS: Lymphocytes % (manual) 9 (10.0-50.0); Monocytes % (manual) 5 (0-12); Platelet Estimate Adequate
--- NOTE | 2024-10-21 12:13 | DVHPN2 ---
Chief Complaints Patient reports: No new complaints, Feels better, Other (Patient is very confused ... Decreased cognition) Nursing reports: No new complaints Objective Vitals Vital Signs Date Time Temp Pulse Resp B/P (MAP) Pulse Ox O2 Delivery O2 Flow Rate FiO2 10/21/24 11:55 90 16 137/75 10/21/24 09:00 97.8 91 97.8 10/20/24 20:00 Nasal Cannula* 2 28 Medications Current Medications Medications (Trade) Dose Ordered Sig/Rl Route PRN Reason Start Time Stop Time Status Last Admin Oxycodone/ Acetaminophen (Percocet 5/ 325MG Tablet) 1 tab Q4HP PRN PO MODERATE PAIN (4-6 PAIN SCALE) 10/20/24 14:45 10/21/24 07:05 General: Normal, Well developed, Well nourished, Cachetic Head/Eyes: Normal ENT: Normal Lungs: Normal Cardiovascular: Normal (tachy 115) Abdominal: Normal, Soft, Non tender, Other (Her abdominopelvic exam was tender throughout left and right upper and lower quadrants pelvic exam she has cervical motion tenderness with malodorous discharge from the vagina) Musculoskeletal: Normal Extremities: Normal, No edema Skin: Normal Neurological: Normal Studies Laboratory Tests 10/21/24 05:55 Test 10/21/24 05:55 Range/Units Serum Glucose 228 H 74-106 mg/dL Ass/Plan Assessment s/p expl lap Plan SUPPORTIVE CARE Visit Coding OBGYN Date of Service: Oct 21, 2024 Billing Provider: GUTIERREZ HUTCHINSON DO NURSE ADMINISTRATOR Common Visit Codes: [id number] SAME DATE (HIGH) NURSE ADMINISTRATOR Consultation Codes: [id number] INPATIENT CONSULT (MOD) GUTIERREZ HUTCHINSON DO Oct 21, 2024 12:13
--- NOTE | 2024-10-21 12:49 | DVHPN2 ---
Subjective Reporting positive flatus. Continues to have abdominal pain. Reviewed: Care Plan, Labs, Medications Changes from previous H/P or p: No Changes General: Per HPI Objective Vitals Vital Signs Date Time Temp Pulse Resp B/P (MAP) Pulse Ox O2 Delivery O2 Flow Rate FiO2 10/21/24 11:55 90 16 137/75 10/21/24 09:00 97.8 91 97.8 10/20/24 20:00 Nasal Cannula* 2 28 Intake/Output Intake and Output 10/21/24 07:00 Intake Total 2635 ml Balance 2635 ml Intake Oral 2635 ml # Voids 8 General Appearance: Alert, Oriented X3, Cooperative, moderate distress, Other (Generalized weakness) HEENT: Atraumatic, PERRLA Lungs: Clear to auscultation, Normal air movement Cardiovascular: Normal S1, Normal S2 Abdomen: Normal bowel sounds, Soft, No hepatospenomegaly, Other (Dressing D&I) Genitourinary: No Apparent Abnormalities Musculoskeletal: Normal sensory function, Normal motor function, Weak motor strength RLE, Weak motor strength LLE Neuro: Normal speech, Cranial nerves 3-12 NL Skin: Dry, Intact, Warm Psych/Mental Status: Mental status NL, Mood NL Medications Current Medications Medications Dose Ordered Sig/Rl Route Start Time Stop Time Status Last Admin Dose Admin Morphine Sulfate 2 mg Q4HPRN PRN IV 10/14/24 21:00 10/21/24 10:41 2 MG Nitroglycerin 0.4 mg Q5MINP PRN SL 10/14/24 21:00 Morphine Sulfate 2 mg Q30M PRN IV 10/14/24 21:00 Acetaminophen 500 mg Q8HP PRN PO 10/15/24 15:45 Ondansetron HCl 4 mg Q6HP PRN IV 10/15/24 15:45 10/16/24 08:46 4 MG Pantoprazole Sodium 40 mg DAILY IV 10/18/24 10:00 10/21/24 10:36 40 MG Diagnostic Test (Pha) 1 strip ACHS 10/17/24 17:00 10/21/24 11:55 1 STRIP Insulin Human Regular ACHS SC 10/17/24 17:00 10/21/24 11:55 4 UNITS Dextrose 50 ml UD PRN IV 10/17/24 14:30 10/19/24 05:40 50 ML Ampicillin Sodium 2 gm/Sodium Chloride 100 ml @ 100 mls/hr Q6HR IV 10/18/24 18:00 10/21/24 06:14 100 MLS/HR Oxycodone/ Acetaminophen 1 tab Q4HP PRN PO 10/20/24 14:45 10/21/24 07:05 1 TAB Laboratory Results Laboratory Tests 10/21/24 05:55 Chemistry Test 10/21/24 05:55 Calcium Level 7.9 mg/dL (8.7-10.4) L Magnesium Level 1.7 mg/dL (1.6-2.6) Urinalysis Test 10/14/24 20:15 Urine Color Yellow (Yellow) Urine Clarity Turbid (Clear) H Urine pH 5.0 (5.0-9.0) Urine Specific [place] 1.023 (1.001-1.035) Urine Protein Trace (Negative) H Urine Ketones 1+ (Negative) H Urine Blood Negative /uL (Negative) Urine Nitrite Negative (Negative) Urine Bilirubin Negative (Negative) Urine Urobilinogen 2 mg/dL (Negative) H Urine Leukocyte Esterase 3+ /uL (Negative) Urine RBC 8 /hpf (0 - 4) Urine Microscopic WBC 50 /HPF (0-5) H Urine Squamous Epithelial Cells Few /hpf (<5) Urine Bacteria None seen /hpf (None Seen) Urine Hyaline Casts Many /lpf (0 - 2) Urine Mucus Few (None Seen) Urine Glucose 4+ mg/dL (Normal) H Microbiology Microbiology Date/Time Source Procedure Growth Status 10/16/24 12:55 Abdomen Gram Stain - Final Resulted 10/16/24 12:55 Abdomen Anaerobic Culture - Preliminary Resulted 10/16/24 12:55 Aerobic Culture - Final Streptococcus Group B Resulted 10/14/24 20:15 Voided Urine Urine Culture - Final Complete 10/14/24 16:37 Blood Blood Culture - Final Staphylococcus epidermidis Complete Labs and/or images reviewed: Labs reviewed by me, Image(s) reviewed by me Assessment/Plan Assessment/Plan Impression: -diabetic ketoacidosis -severe sepsis -? Pelvic inflammatory disease -rule out appendicitis -complicated cystitis -diabetes mellitus with noncompliance -acute kidney injury, vasomotor nephropathy Plan: -events: Patient ambulating. Continues to be hypoxic. Chest x-ray pending. Stop IV fluids. -Positive Strep B. Change antibiotics to Ampicillin -continue Lantus and regular insulin sliding scale -stool softener -PPI -pain management achieved with Percocet -ambulate -repeat labs in a.m. Total time spent with patient discussing and formulating plan of care: 35 minutes. This medical document was created using an electronic medical record system with [employer] dictation system. Although this document has been carefully reviewed, there may still be some phonetic and typographical errors. These areas are purely typographical due to imperfections of the software programs, and do not reflect any compromise in the patient's medical care. Plan discussed with: Patient, Other (Rn) My Orders Orders - GARY LIM NP Procedure Category Date Status Time Oxycodone W/ Acet PHA 10/20/24 In Process 5/325mg Tab (Percocet 14:45 Date of Service: Oct 21, 2024 Billing Provider: GARY LIM NP Common Visit Codes: [id number] INP/OBS CARE(HIGH) GARY LIM NP Oct 21, 2024 12:49
--- NOTE | 2024-10-21 16:04 | DVH ---
CHEST RADIOGRAPH Indication: chf Technique: Single frontal view of the chest was obtained COMPARISON: XY CHEST XRAY 1 VIEW on DOS: 10/17/24, FINDINGS: Lines and Tubes: Removal of enteric tube. Lungs: Worsening bibasilar atelectasis versus consolidation, right worse than left. Possible small b ilateral pleural effusions. No pneumothorax. Cardiomediastinal contours: Unremarkable Bones: Unremarkable IMPRESSION: 1. Worsening bibasilar atelectasis versus consolidation with possible component of edema. Possible s mall bilateral pleural effusions.
[2024-10-21] MEDS: DOCUSATE SOD 100 MG CAP PO SCH (22:48)
[2024-10-22] VITALS (12 sets, daily range): BP systolic 98–157; BP diastolic 74–95; PULSE 79–102; RESP 16–20; TEMP 79.9–98.5; O2SAT 92–99
[2024-10-22 08:01] LABS: Basophils # (auto) 0 10 ^3/uL (0-0.2); Basophils % (auto) 0.4 % (0.0-2.0); Eosinophils # (auto) 0.1 10 ^3/uL (0-0.8); Eosinophils % (auto) 1.2 % (0.0-7.0); Hematocrit 27.5 % (36.0-46.0); Hemoglobin 9.1 g/dL (12.2-16.2); Lymphocytes # (auto) 1.2 10 ^3/uL (0.4-5.4); Lymphocytes % (auto) 11.3 % (10.0-50.0); Mean Corpuscular Hemoglobin 26.7 pg (28.0-32.0); Mean Corpuscular Hgb Conc. 33.2 g/dL (32.0-36.0); Mean Corpuscular Volume 80.4 fL (80.0-100.0); Monocytes # (auto) 0.5 10 ^3/uL (0-1.3); Monocytes % (auto) 5.1 % (0.0-12.0); Neutrophils # (auto) 8.6 10 ^3/uL (1.6-8.6); Nucleated Red Blood Cells % 0.1 %; Platelet Count (auto) 522 10^3/uL (140-450); Red Blood Cells 3.42 10^6/uL (4.0-5.20); Red Cell Distribution Width 16.8 % (11.8-14.3); White Blood Cell 10.5 10^3/uL (4.4-10.8)
[2024-10-22 08:30] LABS: Chloride 102 mmol/L (98-107); Sodium 137 mmol/L (136-145)
[2024-10-22 08:31] LABS: Anion Gap 4 (5-15)
[2024-10-22 08:39] LABS: BUN/Creatinine Ratio 9.4 (10.0-20.0); Blood Urea Nitrogen < 5 mg/dL (9-23); Calcium 8.1 mg/dL (8.7-10.4); Carbon Dioxide 31 mmol/L (20-31); Glucose 265 mg/dL (74-106)
[2024-10-22] MEDS: FUROSEMIDE 40 MG/4 ML VIAL IV ONE (11:28)
--- NOTE | 2024-10-22 13:37 | DVHPN2 ---
Progress Note Date Seen: Oct 22, 2024 Medical Necessity Reason Pt with a Central, PICC or Fol: No Objective vital signs Vital Sign Date Time Temp Pulse Resp B/P (MAP) Pulse Ox O2 Delivery O2 Flow Rate FiO2 10/22/24 12:37 97.8 90 18 130/74 (92) 95 97.8 10/21/24 20:00 Nasal Cannula* 4 36 Total Intake and Output 10/21/24 10/21/24 10/22/24 15:00 23:00 07:00 Intake Total 1420 ml 750 ml Output Total 900 ml Balance 1420 ml -150 ml medications Current Medications Medications Dose Ordered Sig/Rl Route Start Time Stop Time Status Last Admin Dose Admin Morphine Sulfate 2 mg Q4HPRN PRN IV 10/14/24 21:00 10/22/24 11:45 2 MG Nitroglycerin 0.4 mg Q5MINP PRN SL 10/14/24 21:00 Morphine Sulfate 2 mg Q30M PRN IV 10/14/24 21:00 Acetaminophen 500 mg Q8HP PRN PO 10/15/24 15:45 Ondansetron HCl 4 mg Q6HP PRN IV 10/15/24 15:45 10/16/24 08:46 4 MG Pantoprazole Sodium 40 mg DAILY IV 10/18/24 10:00 10/22/24 11:28 40 MG Diagnostic Test (Pha) 1 strip ACHS 10/17/24 17:00 10/22/24 11:43 1 STRIP Insulin Human Regular ACHS SC 10/17/24 17:00 10/22/24 11:56 4 UNITS Dextrose 50 ml UD PRN IV 10/17/24 14:30 10/19/24 05:40 50 ML Ampicillin Sodium 2 gm/Sodium Chloride 100 ml @ 100 mls/hr Q6HR IV 10/18/24 18:00 10/22/24 11:29 100 MLS/HR Oxycodone/ Acetaminophen 1 tab Q4HP PRN PO 10/20/24 14:45 10/22/24 08:44 1 TAB Docusate Sodium 100 mg BID PO 10/21/24 22:00 10/22/24 11:28 100 MG laboratory and microbiology Laboratory Tests 10/22/24 07:28 Test 10/22/24 07:28 Range/Units Serum Glucose 265 H 74-106 mg/dL Problem List/Assessment/Plan Problem List/Assessment/Plan 10/17/24FEELS BETTER THAN BEFORE OPERATION, NO FLATUS,IS HUNGRY, ABDOMEN SOFT, APPROPRIATELY TENDER, CHRIS DRAINAGE SEROSANGUINEOUS. WILL DC NGT AND ALLOW ICE CHIPS, NEEDS TO START AMBULATION/ WBC STILL ELEVATED, H/H/STABLE. 10/18/24 afebrile, normotensive, wound clean and well approximated, drainage sero sanguineous, labs ok with leukocytosis decreasing. abdomen soft, appropriately tender , patient claims to have passed flatus, will start po intake, must ambulate 10/20/24 stable, having bowel movements, tolerated po, abdomen appropriately tender, wound clean and well approximated, CHRIS drainage sero sanguineous, Labs OK, reluctant to ambulate, explained significance. advance po 10/22/24 AFEBRILE, NORMOTENSIVE, NORMAL BOWEL ACTIVITY, chris DRAINAGE SEROUS, WOUND CLEAN AND WELL APPROXIMATED, LABS REVIEWED, HAS AMBULATED, ABDOMEN SOFT, NON DISTENDED, APPROPRIATELY TENDER. Plan discussed with: Patient Dietary Evaluation Review Comments: 1) [facility] + 2 gm Na diet as medically feasible 2) Conor 1 pk BID 3) Continue current plan of care Expected Outcomes/Goals: Pt will meet >75% estimated needs Fu 2-3 days RUBEN DEL VLALE MD Oct 22, 2024 13:37
--- NOTE | 2024-10-22 14:56 | DVHPN2 ---
Subjective Reporting positive flatus. Continues to have abdominal pain. Reviewed: Care Plan, Labs, Medications Changes from previous H/P or p: No Changes General: Per HPI Objective Vitals Vital Signs Date Time Temp Pulse Resp B/P (MAP) Pulse Ox O2 Delivery O2 Flow Rate FiO2 10/22/24 12:37 97.8 90 18 130/74 (92) 95 97.8 10/21/24 20:00 Nasal Cannula* 4 36 Intake/Output Intake and Output 10/22/24 07:00 Intake Total 2170 ml Output Total 900 ml Balance 1270 ml Intake Oral 2070 ml IV Total 100 ml Output Urine Total 900 ml # Voids 5 # Bowel Movements 1 General Appearance: Alert, Oriented X3, Cooperative, moderate distress, Other (Generalized weakness) HEENT: Atraumatic, PERRLA Lungs: Clear to auscultation, Normal air movement Cardiovascular: Normal S1, Normal S2 Abdomen: Normal bowel sounds, Soft, No hepatospenomegaly, Other (Dressing D&I) Genitourinary: No Apparent Abnormalities Musculoskeletal: Normal sensory function, Normal motor function, Weak motor strength RLE, Weak motor strength LLE Neuro: Normal speech, Cranial nerves 3-12 NL Skin: Dry, Intact, Warm Psych/Mental Status: Mental status NL, Mood NL Medications Current Medications Medications Dose Ordered Sig/Rl Route Start Time Stop Time Status Last Admin Dose Admin Morphine Sulfate 2 mg Q4HPRN PRN IV 10/14/24 21:00 10/22/24 11:45 2 MG Nitroglycerin 0.4 mg Q5MINP PRN SL 10/14/24 21:00 Morphine Sulfate 2 mg Q30M PRN IV 10/14/24 21:00 Acetaminophen 500 mg Q8HP PRN PO 10/15/24 15:45 Ondansetron HCl 4 mg Q6HP PRN IV 10/15/24 15:45 10/16/24 08:46 4 MG Pantoprazole Sodium 40 mg DAILY IV 10/18/24 10:00 10/22/24 11:28 40 MG Diagnostic Test (Pha) 1 strip ACHS 10/17/24 17:00 10/22/24 11:43 1 STRIP Insulin Human Regular ACHS SC 10/17/24 17:00 10/22/24 11:56 4 UNITS Dextrose 50 ml UD PRN IV 10/17/24 14:30 10/19/24 05:40 50 ML Ampicillin Sodium 2 gm/Sodium Chloride 100 ml @ 100 mls/hr Q6HR IV 10/18/24 18:00 10/22/24 11:29 100 MLS/HR Oxycodone/ Acetaminophen 1 tab Q4HP PRN PO 10/20/24 14:45 10/22/24 08:44 1 TAB Docusate Sodium 100 mg BID PO 10/21/24 22:00 10/22/24 11:28 100 MG Laboratory Results Laboratory Tests 10/22/24 07:28 Chemistry Test 10/22/24 07:28 Calcium Level 8.1 mg/dL (8.7-10.4) L Urinalysis Test 10/14/24 20:15 Urine Color Yellow (Yellow) Urine Clarity Turbid (Clear) H Urine pH 5.0 (5.0-9.0) Urine Specific [place] 1.023 (1.001-1.035) Urine Protein Trace (Negative) H Urine Ketones 1+ (Negative) H Urine Blood Negative /uL (Negative) Urine Nitrite Negative (Negative) Urine Bilirubin Negative (Negative) Urine Urobilinogen 2 mg/dL (Negative) H Urine Leukocyte Esterase 3+ /uL (Negative) Urine RBC 8 /hpf (0 - 4) Urine Microscopic WBC 50 /HPF (0-5) H Urine Squamous Epithelial Cells Few /hpf (<5) Urine Bacteria None seen /hpf (None Seen) Urine Hyaline Casts Many /lpf (0 - 2) Urine Mucus Few (None Seen) Urine Glucose 4+ mg/dL (Normal) H Microbiology Microbiology Date/Time Source Procedure Growth Status 10/16/24 12:55 Abdomen Gram Stain - Final Complete 10/16/24 12:55 Abdomen Anaerobic Culture - Final Complete 10/16/24 12:55 Aerobic Culture - Final Streptococcus Group B Complete 10/14/24 20:15 Voided Urine Urine Culture - Final Complete 10/14/24 16:37 Blood Blood Culture - Final Staphylococcus epidermidis Complete Labs and/or images reviewed: Labs reviewed by me, Image(s) reviewed by me Assessment/Plan Assessment/Plan Impression: -diabetic ketoacidosis -severe sepsis -? Pelvic inflammatory disease -rule out appendicitis -complicated cystitis -diabetes mellitus with noncompliance -acute kidney injury, vasomotor nephropathy -acute hypoxic respiratory failure Plan: -events: X-ray reviewed. Atelectasis and pleural fluid noted. Patient continues to be on O2 supplementation. -continue diuresis -start bronchodilators and EzPAP -Positive Strep B. Change antibiotics to Ampicillin -continue Lantus and regular insulin sliding scale -stool softener, laxative -PPI -pain management achieved with Percocet -ambulate -repeat labs in a.m. Total time spent with patient discussing and formulating plan of care: 35 minutes. This medical document was created using an electronic medical record system with [employer] dictation system. Although this document has been carefully reviewed, there may still be some phonetic and typographical errors. These areas are purely typographical due to imperfections of the software programs, and do not reflect any compromise in the patient's medical care. Plan discussed with: Patient, Other (RN) My Orders Orders - GARY LIM NP Procedure Category Date Status Time Basic Metabolic Panel LAB 10/23/24 Verified 04:00 Complete Blood Count LAB 10/23/24 Verified 04:00 Oob To Chair EMELINA 10/22/24 In Process 08:43 Insulin Lantus PHA 10/22/24 Verified (Glargine) (Lantus) 22:00 Ez-Pap RT 10/22/24 Verified 14:47 Incentive Spirometry ORDERS 10/22/24 Verified Q 1hr 14:47 Albuterol Medneb PHA 10/22/24 Verified (Ventolin Medneb) 18:00 Ipratropium Medneb PHA 10/22/24 Verified (Atrovent Medneb) 18:00 Chest Portable XY 10/23/24 Verified 04:00 Furosemide Tablet PHA 10/23/24 Verified (Lasix Tablet) 10:00 Date of Service: Oct 22, 2024 Billing Provider: GARY LIM NP Common Visit Codes: [id number] INP/OBS CARE(HIGH) GARY LIM NP Oct 22, 2024 14:56
--- NOTE | 2024-10-22 15:28 | DVHPN2 ---
Subjective Progress Notes Subjective Denies any acute complaints. Tolerating regular diet, PO intake is adequate No fever/chills Objective PHYSICAL EXAM Physical Exam: ALert, RIANNA ABd soft, NT Ext soft, neg nikki sign Labs reviewed. Vital Signs and I&O Vital Signs Date Time Temp Pulse Resp B/P (MAP) Pulse Ox O2 Delivery O2 Flow Rate FiO2 10/22/24 12:37 97.8 90 18 130/74 (92) 95 97.8 10/21/24 20:00 Nasal Cannula* 4 36 Intake and Output 10/22/24 07:00 Intake Total 2170 ml Output Total 900 ml Balance 1270 ml Intake Oral 2070 ml IV Total 100 ml Output Urine Total 900 ml # Voids 5 # Bowel Movements 1 Lab results Laboratory Tests Test 10/14/24 16:31 10/14/24 16:37 10/14/24 17:05 10/14/24 18:15 Range/Units Blood Gas Specimen Type Arterial Blood Gas Sample Site Right radial Blood Gas Patient Temperature 37.0 Arterial Blood Date Drawn [id number] Arterial Blood pH 7.469 H 7.350-7.450 Arterial Blood Partial Pressure CO2 31.2 L 32.0-45.0 mmHg Arterial Blood Partial Pressure O2 83.0 83.0-108.0 mmHg Arterial Blood HCO3 22.1 21.0-28.0 mmol/L Arterial Blood Oxygen Saturation 96.3 94.0-98.0 % Arterial Blood Base Excess -0.7 -2.0-3.0 mmol/L Arterial Blood Oxyhemoglobin 95.3 94.0-98.0 % Arterial Blood Carboxyhemoglobin 0.5 0.5-1.5 % Arterial Blood Methemoglobin 0.5 0.0-1.5 % Navi Test Yes Blood Gas Total Hemoglobin 13.00 12.0-16.0 g/dL Blood Gas Modality Room air FiO2 % 21.0 White Blood Count 15.4 H 4.4-10.8 10^3/uL Red Blood Count 4.65 4.0-5.20 10^6/uL Hemoglobin 12.2 12.2-16.2 g/dL Hematocrit 38.0 36.0-46.0 % Mean Corpuscular Volume 81.7 80.0-100.0 fL Mean Corpuscular Hemoglobin 26.3 L 28.0-32.0 pg Mean Corpuscular Hemoglobin Concent 32.2 32.0-36.0 g/dL Red Cell Distribution Width 16.3 H 11.8-14.3 % Platelet Count 464 H 140-450 10^3/uL Mean Platelet Volume 8.3 6.9-10.8 fL Neutrophils (%) (Auto) 95.6 H 37.0-80.0 % Lymphocytes (%) (Auto) 3.0 L 10.0-50.0 % Monocytes (%) (Auto) 1.2 0.0-12.0 % Eosinophils (%) (Auto) 0.1 0.0-7.0 % Basophils (%) (Auto) 0.1 0.0-2.0 % Neutrophils # (Auto) 14.7 H 1.6-8.6 10 ^3/uL Lymphocytes # (Auto) 0.5 0.4-5.4 10 ^3/uL Monocytes # (Auto) 0.2 0-1.3 10 ^3/uL Eosinophils # (Auto) 0 0-0.8 10 ^3/uL Basophils # (Auto) 0 0-0.2 10 ^3/uL Nucleated Red Blood Cells 0.0 % Sodium Level 124 L 127 L 136-145 mmol/L Potassium Level 4.4 4.4 3.5-5.1 mmol/L Chloride Level 86 L 90 L 98-107 mmol/L Carbon Dioxide Level 21 21 20-31 mmol/L Anion Gap 17 H 16 H 5-15 Blood Urea Nitrogen 34 H 39 H 9-23 mg/dL Creatinine 1.75 H 1.82 H 0.550-1.02 mg/dL Glomerular Filtration Rate Calc 36 34 >90 mL/min BUN/Creatinine Ratio 19.4 21.4 H 10.0-20.0 Serum Glucose 653 *H 653 *H 74-106 mg/dL Lactic Acid Level 2.4 *H 2.3 *H 0.4-2.0 mmol/L Calcium Level 8.6 L 9.0 8.7-10.4 mg/dL Total Bilirubin 0.3 0.2-1.0 mg/dL Aspartate Amino Transferase (AST) 16 13-40 U/L Alanine Aminotransferase (ALT) < 9 7-40 U/L Alkaline Phosphatase 78 46-116 U/L Troponin I High Sensitivity 3 L < 3 L </=34 ng/L Total Protein 6.3 5.7-8.2 g/dL Albumin 3.1 L 3.2-4.8 g/dL Lipase 21 12-53 U/L Beta-Hydroxybutyric Acid 4.131 H < 0.4 mmol/L Beta HCG, Quantitative 2.1 1.5-4.2 mIU/mL Hepatitis B Surface Antigen Negative Negative Hepatitis C Antibody Negative Negative POC Glucose 570 *H 70-106 mg/dl Test 10/14/24 18:54 10/14/24 20:05 10/14/24 20:15 10/14/24 21:10 Range/Units POC Glucose 465 *H 510 *H 70-106 mg/dl Urine Color Yellow Yellow Urine Clarity Turbid H Clear Urine pH 5.0 5.0-9.0 Urine Specific Bath 1.023 1.001-1.035 Urine Protein Trace H Negative Urine Ketones 1+ H Negative Urine Blood Negative Negative /uL Urine Nitrite Negative Negative Urine Bilirubin Negative Negative Urine Urobilinogen 2 H Negative mg/dL Urine Leukocyte Esterase 3+ Negative /uL Urine RBC 8 0 - 4 /hpf Urine Microscopic WBC 50 H 0-5 /HPF Urine Squamous Epithelial Cells Few <5 /hpf Urine Bacteria None seen None Seen /hpf Urine Hyaline Casts Many 0 - 2 /lpf Urine Mucus Few None Seen Urine Glucose 4+ H Normal mg/dL Prothrombin Time 13.0 H 9.3-11.8 sec Prothrombin Time INR 1.25 H 0.9-1.15 Activated Partial Thromboplast Time 31.0 24.5-34.5 SEC Test 10/15/24 00:27 10/15/24 00:41 10/15/24 01:21 10/15/24 02:12 Range/Units Sodium Level 125 L 136-145 mmol/L Potassium Level 4.2 3.5-5.1 mmol/L Chloride Level 92 L 98-107 mmol/L Carbon Dioxide Level 23 20-31 mmol/L Anion Gap 10 5-15 Blood Urea Nitrogen 31 H 9-23 mg/dL Creatinine 1.15 #H 0.550-1.02 mg/dL Glomerular Filtration Rate Calc 60 >90 mL/min BUN/Creatinine Ratio 27.0 H 10.0-20.0 Serum Glucose 438 *H 74-106 mg/dL Calcium Level 8.7 8.7-10.4 mg/dL Troponin I High Sensitivity < 3 L </=34 ng/L POC Glucose 367 H 348 H 302 H 70-106 mg/dl Test 10/15/24 03:56 10/15/24 04:32 10/15/24 05:24 10/15/24 06:27 Range/Units POC Glucose 219 H 156 H 70-106 mg/dl White Blood Count 19.7 #H 4.4-10.8 10^3/uL Red Blood Count 4.52 4.0-5.20 10^6/uL Hemoglobin 12.1 L 12.2-16.2 g/dL Hematocrit 36.2 36.0-46.0 % Mean Corpuscular Volume 80.1 80.0-100.0 fL Mean Corpuscular Hemoglobin 26.7 L 28.0-32.0 pg Mean Corpuscular Hemoglobin Concent 33.4 32.0-36.0 g/dL Red Cell Distribution Width 16.3 H 11.8-14.3 % Platelet Count 422 140-450 10^3/uL Mean Platelet Volume 7.9 6.9-10.8 fL Neutrophils (%) (Auto) 93.6 H 37.0-80.0 % Lymphocytes (%) (Auto) 4.0 L 10.0-50.0 % Monocytes (%) (Auto) 2.3 0.0-12.0 % Eosinophils (%) (Auto) 0.1 0.0-7.0 % Basophils (%) (Auto) 0.0 0.0-2.0 % Neutrophils # (Auto) 18.5 H 1.6-8.6 10 ^3/uL Lymphocytes # (Auto) 0.8 0.4-5.4 10 ^3/uL Monocytes # (Auto) 0.5 0-1.3 10 ^3/uL Eosinophils # (Auto) 0 0-0.8 10 ^3/uL Basophils # (Auto) 0 0-0.2 10 ^3/uL Nucleated Red Blood Cells 0.0 % Sodium Level 130 #L 131 L 136-145 mmol/L Potassium Level 3.7 3.6 3.5-5.1 mmol/L Chloride Level 97 L 98 98-107 mmol/L Carbon Dioxide Level 22 24 20-31 mmol/L Anion Gap 11 9 5-15 Blood Urea Nitrogen 30 H 29 H 9-23 mg/dL Creatinine 0.83 0.70 0.550-1.02 mg/dL Glomerular Filtration Rate Calc 88 108 >90 mL/min BUN/Creatinine Ratio 36.1 H 41.4 H 10.0-20.0 Serum Glucose 222 H 151 H 74-106 mg/dL Hemoglobin A1c 13.5 H <5.7 % A1C Calcium Level 9.0 9.1 8.7-10.4 mg/dL Total Bilirubin 0.2 0.2-1.0 mg/dL Aspartate Amino Transferase (AST) 21 13-40 U/L Alanine Aminotransferase (ALT) < 9 7-40 U/L Alkaline Phosphatase 81 46-116 U/L Total Protein 6.3 5.7-8.2 g/dL Albumin 3.1 L 3.2-4.8 g/dL Test 10/15/24 06:51 10/15/24 08:33 10/15/24 10:11 10/15/24 11:32 Range/Units POC Glucose 117 H 122 H 112 H 121 H 70-106 mg/dl Test 10/15/24 12:44 10/15/24 12:52 10/15/24 14:42 10/15/24 16:31 Range/Units Sodium Level 131 L 136-145 mmol/L Potassium Level 3.9 3.5-5.1 mmol/L Chloride Level 99 98-107 mmol/L Carbon Dioxide Level 21 20-31 mmol/L Anion Gap 11 5-15 Blood Urea Nitrogen 20 9-23 mg/dL Creatinine 0.57 0.550-1.02 mg/dL Glomerular Filtration Rate Calc 113 >90 mL/min BUN/Creatinine Ratio 35.1 H 10.0-20.0 Serum Glucose 125 H 74-106 mg/dL Calcium Level 9.2 8.7-10.4 mg/dL POC Glucose 116 H 112 H 130 H 70-106 mg/dl Test 10/15/24 18:30 10/15/24 20:29 10/15/24 23:40 10/16/24 04:22 Range/Units Sodium Level 131 L 136-145 mmol/L Potassium Level 3.8 3.5-5.1 mmol/L Chloride Level 99 98-107 mmol/L Carbon Dioxide Level 20 20-31 mmol/L Anion Gap 12 5-15 Blood Urea Nitrogen 14 9-23 mg/dL Creatinine 0.51 L 0.550-1.02 mg/dL Glomerular Filtration Rate Calc 117 >90 mL/min BUN/Creatinine Ratio 27.5 H 10.0-20.0 Serum Glucose 142 H 74-106 mg/dL Calcium Level 9.0 8.7-10.4 mg/dL POC Glucose 152 H 213 H 167 H 70-106 mg/dl Test 10/16/24 06:00 10/16/24 08:26 10/16/24 10:13 10/16/24 10:14 Range/Units White Blood Count 22.1 H 4.4-10.8 10^3/uL Red Blood Count 3.86 L 4.0-5.20 10^6/uL Hemoglobin 10.2 #L 12.2-16.2 g/dL Hematocrit 31.5 #L 36.0-46.0 % Mean Corpuscular Volume 81.5 80.0-100.0 fL Mean Corpuscular Hemoglobin 26.5 L 28.0-32.0 pg Mean Corpuscular Hemoglobin Concent 32.5 32.0-36.0 g/dL Red Cell Distribution Width 16.5 H 11.8-14.3 % Platelet Count 413 140-450 10^3/uL Mean Platelet Volume 7.3 6.9-10.8 fL Neutrophils (%) (Auto) 94.9 H 37.0-80.0 % Lymphocytes (%) (Auto) 2.7 L 10.0-50.0 % Monocytes (%) (Auto) 1.8 0.0-12.0 % Eosinophils (%) (Auto) 0.1 0.0-7.0 % Basophils (%) (Auto) 0.5 0.0-2.0 % Neutrophils # (Auto) 21.0 H 1.6-8.6 10 ^3/uL Lymphocytes # (Auto) 0.6 0.4-5.4 10 ^3/uL Monocytes # (Auto) 0.4 0-1.3 10 ^3/uL Eosinophils # (Auto) 0 0-0.8 10 ^3/uL Basophils # (Auto) 0.1 0-0.2 10 ^3/uL Nucleated Red Blood Cells 0.0 % Prothrombin Time 11.1 9.3-11.8 sec Prothrombin Time INR 1.05 0.9-1.15 Activated Partial Thromboplast Time 30.7 24.5-34.5 SEC Sodium Level 132 L 136-145 mmol/L Potassium Level 3.5 3.5-5.1 mmol/L Chloride Level 100 98-107 mmol/L Carbon Dioxide Level 23 20-31 mmol/L Anion Gap 9 5-15 Blood Urea Nitrogen 11 9-23 mg/dL Creatinine 0.42 L 0.550-1.02 mg/dL Glomerular Filtration Rate Calc 122 >90 mL/min BUN/Creatinine Ratio 26.2 H 10.0-20.0 Serum Glucose 181 H 74-106 mg/dL Calcium Level 8.4 L 8.7-10.4 mg/dL Phosphorus Level 2.4 2.4-5.1 mg/dL Magnesium Level 1.9 1.6-2.6 mg/dL Hepatitis C Antibody Negative Negative POC Glucose 190 H 216 H 70-106 mg/dl Vancomycin Level Trough 8.6 5-10 ug/mL Test 10/16/24 13:39 10/16/24 16:11 10/16/24 21:15 10/17/24 00:12 Range/Units POC Glucose 200 H 245 H 192 H 70-106 mg/dl Treponema pallidum Antibody Non-reactive Negative HIV (1&2) Antibody Negative Negative Test 10/17/24 03:27 10/17/24 06:31 10/17/24 08:33 10/17/24 12:40 Range/Units POC Glucose 167 H 165 H 70-106 mg/dl White Blood Count 17.9 H 4.4-10.8 10^3/uL Red Blood Count 3.46 L 4.0-5.20 10^6/uL Hemoglobin 9.4 L 12.2-16.2 g/dL Hematocrit 28.0 #L 36.0-46.0 % Mean Corpuscular Volume 81.0 80.0-100.0 fL Mean Corpuscular Hemoglobin 27.1 L 28.0-32.0 pg Mean Corpuscular Hemoglobin Concent 33.5 32.0-36.0 g/dL Red Cell Distribution Width 17.0 H 11.8-14.3 % Platelet Count 412 140-450 10^3/uL Mean Platelet Volume 7.4 6.9-10.8 fL Neutrophils (%) (Auto) 37.0-80.0 % Lymphocytes (%) (Auto) 10.0-50.0 % Monocytes (%) (Auto) 0.0-12.0 % Basophils (%) (Auto) 0.0-2.0 % Neutrophils # (Auto) 1.6-8.6 10 ^3/uL Lymphocytes # (Auto) 0.4-5.4 10 ^3/uL Monocytes # (Auto) 0-1.3 10 ^3/uL Differential Total Cells Counted 100.0 100 Neutrophils % (Manual) 83 H 37.0-80.0 Band Neutrophils % (Manual) 9 Lymphocytes % (Manual) 4 L 10.0-50.0 Monocytes % (Manual) 4 0-12 Eosinophils % (Manual) 0 0-7 Basophils % (Manual) 0 0.0-2.0 Metamyelocytes % (manual) 0 Myelocytes % (Manual) 0 Promyelocytes % (Manual) 0 Blast Cells % (Manual) 0 Reactive Lymphocytes 0 Platelet Estimate Adequate Sodium Level 136 136-145 mmol/L Potassium Level 4.4 3.5-5.1 mmol/L Chloride Level 106 98-107 mmol/L Carbon Dioxide Level 22 20-31 mmol/L Anion Gap 8 5-15 Blood Urea Nitrogen 12 9-23 mg/dL Creatinine 0.41 L 0.550-1.02 mg/dL Glomerular Filtration Rate Calc 123 >90 mL/min BUN/Creatinine Ratio 29.3 H 10.0-20.0 Serum Glucose 172 H 74-106 mg/dL Calcium Level 8.4 L 8.7-10.4 mg/dL Vancomycin Level Trough 15.1 H 5-10 ug/mL Test 10/17/24 19:20 10/17/24 21:45 10/18/24 06:20 10/18/24 06:29 Range/Units POC Glucose 142 H 135 H 126 H 70-106 mg/dl White Blood Count 16.7 H 4.4-10.8 10^3/uL Red Blood Count 3.63 L 4.0-5.20 10^6/uL Hemoglobin 9.4 L 12.2-16.2 g/dL Hematocrit 29.3 L 36.0-46.0 % Mean Corpuscular Volume 80.6 80.0-100.0 fL Mean Corpuscular Hemoglobin 26.0 L 28.0-32.0 pg Mean Corpuscular Hemoglobin Concent 32.3 32.0-36.0 g/dL Red Cell Distribution Width 17.0 H 11.8-14.3 % Platelet Count 471 H 140-450 10^3/uL Mean Platelet Volume 7.3 6.9-10.8 fL Neutrophils (%) (Auto) 37.0-80.0 % Lymphocytes (%) (Auto) 10.0-50.0 % Monocytes (%) (Auto) 0.0-12.0 % Basophils (%) (Auto) 0.0-2.0 % Neutrophils # (Auto) 1.6-8.6 10 ^3/uL Lymphocytes # (Auto) 0.4-5.4 10 ^3/uL Monocytes # (Auto) 0-1.3 10 ^3/uL Differential Total Cells Counted 100.0 100 Neutrophils % (Manual) 71 37.0-80.0 Band Neutrophils % (Manual) 9 Lymphocytes % (Manual) 8 L 10.0-50.0 Monocytes % (Manual) 7 0-12 Eosinophils % (Manual) 0 0-7 Basophils % (Manual) 0 0.0-2.0 Metamyelocytes % (manual) 3 Myelocytes % (Manual) 2 Promyelocytes % (Manual) 0 Blast Cells % (Manual) 0 Reactive Lymphocytes 0 Platelet Estimate Increased Sodium Level 137 136-145 mmol/L Potassium Level 3.9 3.5-5.1 mmol/L Chloride Level 108 H 98-107 mmol/L Carbon Dioxide Level 21 20-31 mmol/L Anion Gap 8 5-15 Blood Urea Nitrogen 11 9-23 mg/dL Creatinine 0.33 L 0.550-1.02 mg/dL Glomerular Filtration Rate Calc 129 >90 mL/min BUN/Creatinine Ratio 33.3 H 10.0-20.0 Serum Glucose 127 H 74-106 mg/dL Calcium Level 8.4 L 8.7-10.4 mg/dL Phosphorus Level 2.8 2.4-5.1 mg/dL Magnesium Level 1.9 1.6-2.6 mg/dL Test 10/18/24 08:18 10/18/24 11:30 10/18/24 15:53 10/19/24 04:54 Range/Units POC Glucose 124 H 169 H 279 H 70-106 mg/dl White Blood Count 14.4 H 4.4-10.8 10^3/uL Red Blood Count 5.43 H 4.0-5.20 10^6/uL Hemoglobin 10.4 L 12.2-16.2 g/dL Hematocrit 34.2 #L 36.0-46.0 % Mean Corpuscular Volume 62.9 #L 80.0-100.0 fL Mean Corpuscular Hemoglobin 19.2 L 28.0-32.0 pg Mean Corpuscular Hemoglobin Concent 30.5 L 32.0-36.0 g/dL Red Cell Distribution Width 15.4 H 11.8-14.3 % Platelet Count 270 140-450 10^3/uL Mean Platelet Volume 8.6 6.9-10.8 fL Neutrophils (%) (Auto) 86.2 H 37.0-80.0 % Lymphocytes (%) (Auto) 5.3 L 10.0-50.0 % Monocytes (%) (Auto) 4.3 0.0-12.0 % Eosinophils (%) (Auto) 4.1 0.0-7.0 % Basophils (%) (Auto) 0.1 0.0-2.0 % Neutrophils # (Auto) 12.4 H 1.6-8.6 10 ^3/uL Lymphocytes # (Auto) 0.8 0.4-5.4 10 ^3/uL Monocytes # (Auto) 0.6 0-1.3 10 ^3/uL Eosinophils # (Auto) 0.6 0-0.8 10 ^3/uL Basophils # (Auto) 0 0-0.2 10 ^3/uL Nucleated Red Blood Cells 0.1 % Platelet Estimate Adequate Hypochromasia (manual) Marked Microcytosis Marked Ovalocytes Few Sodium Level 140 136-145 mmol/L Potassium Level 4.3 3.5-5.1 mmol/L Chloride Level 104 98-107 mmol/L Carbon Dioxide Level 30 20-31 mmol/L Anion Gap 6 5-15 Blood Urea Nitrogen 22 # 9-23 mg/dL Creatinine 0.80 # 0.550-1.02 mg/dL Glomerular Filtration Rate Calc 92 >90 mL/min BUN/Creatinine Ratio 27.5 H 10.0-20.0 Serum Glucose 135 H 74-106 mg/dL Calcium Level 9.4 8.7-10.4 mg/dL Total Bilirubin 0.8 0.2-1.0 mg/dL Aspartate Amino Transferase (AST) 10 L 13-40 U/L Alanine Aminotransferase (ALT) 13 7-40 U/L Alkaline Phosphatase 104 46-116 U/L Total Protein 6.5 5.7-8.2 g/dL Albumin 4.1 3.2-4.8 g/dL Test 10/19/24 05:37 10/19/24 17:17 10/19/24 21:50 10/20/24 05:01 Range/Units POC Glucose 28 *L 137 H 131 H 143 H 70-106 mg/dl Test 10/20/24 05:59 10/20/24 10:56 10/20/24 17:11 10/20/24 20:56 Range/Units White Blood Count 10.1 # 4.4-10.8 10^3/uL Red Blood Count 3.42 L 4.0-5.20 10^6/uL Hemoglobin 9.1 L 12.2-16.2 g/dL Hematocrit 27.3 #L 36.0-46.0 % Mean Corpuscular Volume 79.7 #L 80.0-100.0 fL Mean Corpuscular Hemoglobin 26.5 L 28.0-32.0 pg Mean Corpuscular Hemoglobin Concent 33.3 32.0-36.0 g/dL Red Cell Distribution Width 16.4 H 11.8-14.3 % Platelet Count 435 140-450 10^3/uL Mean Platelet Volume 6.7 L 6.9-10.8 fL Neutrophils (%) (Auto) 84.8 H 37.0-80.0 % Lymphocytes (%) (Auto) 9.1 L 10.0-50.0 % Monocytes (%) (Auto) 5.2 0.0-12.0 % Eosinophils (%) (Auto) 0.7 0.0-7.0 % Basophils (%) (Auto) 0.2 0.0-2.0 % Neutrophils # (Auto) 8.6 1.6-8.6 10 ^3/uL Lymphocytes # (Auto) 0.9 0.4-5.4 10 ^3/uL Monocytes # (Auto) 0.5 0-1.3 10 ^3/uL Eosinophils # (Auto) 0.1 0-0.8 10 ^3/uL Basophils # (Auto) 0 0-0.2 10 ^3/uL Nucleated Red Blood Cells 0.0 % Sodium Level 139 136-145 mmol/L Potassium Level 3.1 L 3.5-5.1 mmol/L Chloride Level 106 98-107 mmol/L Carbon Dioxide Level 26 20-31 mmol/L Anion Gap 7 5-15 Blood Urea Nitrogen < 5 #L 9-23 mg/dL Creatinine 0.33 #L 0.550-1.02 mg/dL Glomerular Filtration Rate Calc 129 >90 mL/min BUN/Creatinine Ratio 15.2 10.0-20.0 Serum Glucose 144 H 74-106 mg/dL Calcium Level 7.6 L 8.7-10.4 mg/dL POC Glucose 97 162 H 178 H 70-106 mg/dl Test 10/21/24 05:55 10/21/24 11:00 10/21/24 16:50 10/22/24 06:41 Range/Units White Blood Count 10.9 H 4.4-10.8 10^3/uL Red Blood Count 3.39 L 4.0-5.20 10^6/uL Hemoglobin 9.1 L 12.2-16.2 g/dL Hematocrit 27.2 L 36.0-46.0 % Mean Corpuscular Volume 80.3 80.0-100.0 fL Mean Corpuscular Hemoglobin 26.7 L 28.0-32.0 pg Mean Corpuscular Hemoglobin Concent 33.3 32.0-36.0 g/dL Red Cell Distribution Width 16.7 H 11.8-14.3 % Platelet Count 447 140-450 10^3/uL Mean Platelet Volume 6.9 6.9-10.8 fL Neutrophils (%) (Auto) 37.0-80.0 % Lymphocytes (%) (Auto) 10.0-50.0 % Monocytes (%) (Auto) 0.0-12.0 % Basophils (%) (Auto) 0.0-2.0 % Neutrophils # (Auto) 1.6-8.6 10 ^3/uL Lymphocytes # (Auto) 0.4-5.4 10 ^3/uL Monocytes # (Auto) 0-1.3 10 ^3/uL Differential Total Cells Counted 100.0 100 Neutrophils % (Manual) 86 H 37.0-80.0 Band Neutrophils % (Manual) 0 Lymphocytes % (Manual) 9 L 10.0-50.0 Monocytes % (Manual) 5 0-12 Eosinophils % (Manual) 0 0-7 Basophils % (Manual) 0 0.0-2.0 Metamyelocytes % (manual) 0 Myelocytes % (Manual) 0 Promyelocytes % (Manual) 0 Blast Cells % (Manual) 0 Reactive Lymphocytes 0 Platelet Estimate Adequate Sodium Level 138 136-145 mmol/L Potassium Level 3.8 3.5-5.1 mmol/L Chloride Level 104 98-107 mmol/L Carbon Dioxide Level 29 20-31 mmol/L Anion Gap 5 5-15 Blood Urea Nitrogen < 5 L 9-23 mg/dL Creatinine 0.41 L 0.550-1.02 mg/dL Glomerular Filtration Rate Calc 123 >90 mL/min BUN/Creatinine Ratio 12.2 10.0-20.0 Serum Glucose 228 H 74-106 mg/dL Calcium Level 7.9 L 8.7-10.4 mg/dL Magnesium Level 1.7 1.6-2.6 mg/dL POC Glucose 239 H 232 H 255 H 70-106 mg/dl Test 10/22/24 07:28 10/22/24 11:24 Range/Units White Blood Count 10.5 4.4-10.8 10^3/uL Red Blood Count 3.42 L 4.0-5.20 10^6/uL Hemoglobin 9.1 L 12.2-16.2 g/dL Hematocrit 27.5 L 36.0-46.0 % Mean Corpuscular Volume 80.4 80.0-100.0 fL Mean Corpuscular Hemoglobin 26.7 L 28.0-32.0 pg Mean Corpuscular Hemoglobin Concent 33.2 32.0-36.0 g/dL Red Cell Distribution Width 16.8 H 11.8-14.3 % Platelet Count 522 H 140-450 10^3/uL Mean Platelet Volume 6.4 L 6.9-10.8 fL Neutrophils (%) (Auto) 82.0 H 37.0-80.0 % Lymphocytes (%) (Auto) 11.3 10.0-50.0 % Monocytes (%) (Auto) 5.1 0.0-12.0 % Eosinophils (%) (Auto) 1.2 0.0-7.0 % Basophils (%) (Auto) 0.4 0.0-2.0 % Neutrophils # (Auto) 8.6 1.6-8.6 10 ^3/uL Lymphocytes # (Auto) 1.2 0.4-5.4 10 ^3/uL Monocytes # (Auto) 0.5 0-1.3 10 ^3/uL Eosinophils # (Auto) 0.1 0-0.8 10 ^3/uL Basophils # (Auto) 0 0-0.2 10 ^3/uL Nucleated Red Blood Cells 0.1 % Sodium Level 137 136-145 mmol/L Potassium Level 4.0 3.5-5.1 mmol/L Chloride Level 102 98-107 mmol/L Carbon Dioxide Level 31 20-31 mmol/L Anion Gap 4 L 5-15 Blood Urea Nitrogen < 5 L 9-23 mg/dL Creatinine 0.53 L 0.550-1.02 mg/dL Glomerular Filtration Rate Calc 115 >90 mL/min BUN/Creatinine Ratio 9.4 L 10.0-20.0 Serum Glucose 265 H 74-106 mg/dL Calcium Level 8.1 L 8.7-10.4 mg/dL POC Glucose 228 H 70-106 mg/dl Assessment and Plan ASSESSMENT AND PLAN Assessment and Plan s/p Ex Lap RSO and appendectomy, TOA s/p washout - Continue current care - ambulate -pain control -regular diet (Diabetic diet) - Wound culture ;GBS+ and Staph Auricularis (? contaminant), consider ID consult may need Tx with VANCOMYCIN, ampicillin may not be sufficient coverage Diabetes, continue BS control. No longer any acute EMPLOYER RELATIONS REPRESENTATIVE intervention indicated at this time, EMPLOYER RELATIONS REPRESENTATIVE will sign off. F/U in office EMPLOYER RELATIONS REPRESENTATIVE after discharge. Re-consult if necessary. My orders: Orders - STANLEY HOOKS DO * Surgical Consult (10/16/24 ) Procedure Being Performed: (10/17/24 04:00) Obtain Consent For: (10/17/24 04:00) Obtain Consent For Anesthesia (10/16/24 09:27) Chlamydia/Gc Amplification (10/16/24 13:20) Ambulate X 4 Daily On Pod #1 (10/18/24 07:00) Ambulate (10/18/24 07:00) Out Of Bed Ambulate (10/18/24 07:00) Discontinue Plummer Catheter (10/18/24 07:00) Incentive Spirometry Q 1hr (10/18/24 07:00) Kub Abdomen Single View (10/18/24 07:00) Plan discussed with: Patient Visit Coding OBGYN Date of Service: Oct 22, 2024 Billing Provider: STANLEY HOOKS DO INPATIENT AUDITOR Common Visit Codes: [id number] INP/OBS CARE(HIGH) STANLEY HOOKS DO Oct 22, 2024 15:27
[2024-10-22] MEDS: POLYETHYLENE GLYCOL 17 GM PWDR PO ONE (16:47)
[2024-10-22] MEDS: IPRATROPIUM BROM 0.5 MG/2.5ML INH SOL NEB SCH (19:15)
[2024-10-22] MEDS: ALBUTEROL SULF 2.5 MG/0.5ML(0.5%) NEB SOLN NEB SCH (19:16)
[2024-10-22] MEDS: INSULIN LANTUS (GLARGINE) 1 /0.01ml (100units/ml) SC SCH (22:13)
[2024-10-23] VITALS (15 sets, daily range): BP systolic 139–148; BP diastolic 77–87; PULSE 89–105; RESP 16–19; TEMP 97.2–98.6; O2SAT 94–100
[2024-10-23 05:46] LABS: Basophils # (auto) 0 10 ^3/uL (0-0.2); Basophils % (auto) 0.2 % (0.0-2.0); Eosinophils # (auto) 0.1 10 ^3/uL (0-0.8); Eosinophils % (auto) 0.8 % (0.0-7.0); Hematocrit 27.2 % (36.0-46.0); Hemoglobin 8.9 g/dL (12.2-16.2); Mean Corpuscular Hgb Conc. 32.7 g/dL (32.0-36.0); Mean Corpuscular Volume 79.7 fL (80.0-100.0); Monocytes # (auto) 0.6 10 ^3/uL (0-1.3); Monocytes % (auto) 4.8 % (0.0-12.0); Neutrophils # (auto) 9.7 10 ^3/uL (1.6-8.6); Neutrophils % (auto) 85.2 % (37.0-80.0); Platelet Count (auto) 596 10^3/uL (140-450); Red Blood Cells 3.42 10^6/uL (4.0-5.20); Red Cell Distribution Width 16.9 % (11.8-14.3); White Blood Cell 11.4 10^3/uL (4.4-10.8)
[2024-10-23 05:57] LABS: Chloride 99 mmol/L (98-107); Potassium 3.8 mmol/L (3.5-5.1); Sodium 137 mmol/L (136-145)
[2024-10-23 05:58] LABS: Anion Gap 5 (5-15)
[2024-10-23 06:01] LABS: Calcium 8.1 mg/dL (8.7-10.4); Carbon Dioxide 33 mmol/L (20-31)
[2024-10-23 06:03] LABS: BUN/Creatinine Ratio 14.6 (10.0-20.0)
[2024-10-23 06:06] LABS: Blood Urea Nitrogen 6 mg/dL (9-23); Glucose 202 mg/dL (74-106)
--- NOTE | 2024-10-23 07:00 | DVH ---
CHEST RADIOGRAPH Indication: Atelectasis Technique: Single frontal view of the chest was obtained Comparison: XY CHEST XRAY 1 VIEW on DOS: 10/21/24, XY CHEST XRAY 1 VIEW on DOS: 10/17/24, XY CHEST XRAY 1 VIEW on DOS: 10/14/24 FINDINGS: Lines and Tubes: None Lungs: There is pulmonary edema. Pleura: Right pleural effusion. No pneumothorax. Cardiomediastinal contours: Stable Cardiovascular silhouette. Bones: No acute osseous abnormality. IMPRESSION: 1. Pulmonary edema and right pleural effusion similar to prior study.
[2024-10-23] MEDS: FUROSEMIDE 20 MG TAB PO SCH (08:42)
--- NOTE | 2024-10-23 12:31 | DVHPN2 ---
Progress Note Date Seen: Oct 23, 2024 Medical Necessity Reason Pt with a Central, PICC or Fol: No Objective vital signs Vital Sign Date Time Temp Pulse Resp B/P (MAP) Pulse Ox O2 Delivery O2 Flow Rate FiO2 10/23/24 11:54 98 16 95 10/23/24 11:48 Nasal Cannula 3.0 10/23/24 11:48 32 10/23/24 10:59 118/60 10/23/24 09:00 98.2 98.2 Total Intake and Output 10/22/24 10/22/24 10/23/24 15:00 23:00 07:00 Intake Total 825 ml 1000 ml Output Total 2100 ml 1140 ml Balance -1275 ml -140 ml medications Current Medications Medications Dose Ordered Sig/Rl Route Start Time Stop Time Status Last Admin Dose Admin Morphine Sulfate 2 mg Q4HPRN PRN IV 10/14/24 21:00 10/23/24 08:42 2 MG Nitroglycerin 0.4 mg Q5MINP PRN SL 10/14/24 21:00 Morphine Sulfate 2 mg Q30M PRN IV 10/14/24 21:00 Acetaminophen 500 mg Q8HP PRN PO 10/15/24 15:45 Ondansetron HCl 4 mg Q6HP PRN IV 10/15/24 15:45 10/16/24 08:46 4 MG Pantoprazole Sodium 40 mg DAILY IV 10/18/24 10:00 10/23/24 08:42 40 MG Diagnostic Test (Pha) 1 strip ACHS 10/17/24 17:00 10/23/24 11:00 1 STRIP Insulin Human Regular ACHS SC 10/17/24 17:00 10/23/24 11:15 9 UNITS Dextrose 50 ml UD PRN IV 10/17/24 14:30 10/19/24 05:40 50 ML Ampicillin Sodium 2 gm/Sodium Chloride 100 ml @ 100 mls/hr Q6HR IV 10/18/24 18:00 10/23/24 12:25 100 MLS/HR Oxycodone/ Acetaminophen 1 tab Q4HP PRN PO 10/20/24 14:45 10/23/24 11:10 1 TAB Docusate Sodium 100 mg BID PO 10/21/24 22:00 10/23/24 08:42 100 MG Insulin Glargine 10 units HS SC 10/22/24 22:00 10/22/24 22:13 10 UNITS Albuterol 2.5 mg Q6HWA NEB 10/22/24 18:00 10/23/24 11:48 2.5 MG Ipratropium Premont 0.5 mg Q6HWA NEB 10/22/24 18:00 10/23/24 11:48 0.5 MG Furosemide 20 mg DAILY PO 10/23/24 10:00 10/23/24 08:42 20 MG laboratory and microbiology Laboratory Tests 10/23/24 05:08 Test 10/23/24 05:08 Range/Units Serum Glucose 202 H 74-106 mg/dL Problem List/Assessment/Plan Problem List/Assessment/Plan 10/17/24FEELS BETTER THAN BEFORE OPERATION, NO FLATUS,IS HUNGRY, ABDOMEN SOFT, APPROPRIATELY TENDER, CHRIS DRAINAGE SEROSANGUINEOUS. WILL DC NGT AND ALLOW ICE CHIPS, NEEDS TO START AMBULATION/ WBC STILL ELEVATED, H/H/STABLE. 10/18/24 afebrile, normotensive, wound clean and well approximated, drainage sero sanguineous, labs ok with leukocytosis decreasing. abdomen soft, appropriately tender , patient claims to have passed flatus, will start po intake, must ambulate 10/20/24 stable, having bowel movements, tolerated po, abdomen appropriately tender, wound clean and well approximated, CHRIS drainage sero sanguineous, Labs OK, reluctant to ambulate, explained significance. advance po 10/22/24 AFEBRILE, NORMOTENSIVE, NORMAL BOWEL ACTIVITY, chris DRAINAGE SEROUS, WOUND CLEAN AND WELL APPROXIMATED, LABS REVIEWED, HAS AMBULATED, ABDOMEN SOFT, NON DISTENDED, APPROPRIATELY TENDER. 10/23/24 normal bowel and bladder function, wound clean and well approximated, CHRIS drainage non purulent, has been ambulating better. tolerating po intake Plan discussed with: Patient Dietary Evaluation Review Comments: 1) Advance to CCHO 45 + 2 gm Na diet as medically feasible 2) Conor 1 pk BID 3) Continue current plan of care Expected Outcomes/Goals: Pt will meet >75% estimated needs Fu 2-3 days RUBEN DEL VALLE MD Oct 23, 2024 12:31
--- NOTE | 2024-10-23 14:21 | DVHPN2 ---
Subjective Reporting positive flatus. Continues to have abdominal pain. Reviewed: Care Plan, Labs, Medications Changes from previous H/P or p: No Changes General: Per HPI Objective Vitals Vital Signs Date Time Temp Pulse Resp B/P (MAP) Pulse Ox O2 Delivery O2 Flow Rate FiO2 10/23/24 12:43 105 16 147/87 10/23/24 11:54 95 10/23/24 11:48 Nasal Cannula 3.0 10/23/24 11:48 32 10/23/24 09:00 98.2 98.2 Intake/Output Intake and Output 10/23/24 07:00 Intake Total 1825 ml Output Total 3240 ml Balance -1415 ml Intake Oral 1725 ml IV Total 100 ml Output Urine Total 3240 ml General Appearance: Alert, Oriented X3, Cooperative, moderate distress, Other (Generalized weakness) HEENT: Atraumatic, PERRLA Lungs: Clear to auscultation, Normal air movement Cardiovascular: Normal S1, Normal S2 Abdomen: Normal bowel sounds, Soft, No hepatospenomegaly, Other (Dressing D&I) Genitourinary: No Apparent Abnormalities Musculoskeletal: Normal sensory function, Normal motor function, Weak motor strength RLE, Weak motor strength LLE Neuro: Normal speech, Cranial nerves 3-12 NL Skin: Dry, Intact, Warm Psych/Mental Status: Mental status NL, Mood NL Medications Current Medications Medications Dose Ordered Sig/Rl Route Start Time Stop Time Status Last Admin Dose Admin Morphine Sulfate 2 mg Q4HPRN PRN IV 10/14/24 21:00 10/23/24 12:43 2 MG Nitroglycerin 0.4 mg Q5MINP PRN SL 10/14/24 21:00 Morphine Sulfate 2 mg Q30M PRN IV 10/14/24 21:00 Acetaminophen 500 mg Q8HP PRN PO 10/15/24 15:45 Ondansetron HCl 4 mg Q6HP PRN IV 10/15/24 15:45 10/16/24 08:46 4 MG Pantoprazole Sodium 40 mg DAILY IV 10/18/24 10:00 10/23/24 08:42 40 MG Diagnostic Test (Pha) 1 strip ACHS 10/17/24 17:00 10/23/24 11:00 1 STRIP Insulin Human Regular ACHS SC 10/17/24 17:00 10/23/24 11:15 9 UNITS Dextrose 50 ml UD PRN IV 10/17/24 14:30 10/19/24 05:40 50 ML Ampicillin Sodium 2 gm/Sodium Chloride 100 ml @ 100 mls/hr Q6HR IV 10/18/24 18:00 10/23/24 12:25 100 MLS/HR Oxycodone/ Acetaminophen 1 tab Q4HP PRN PO 10/20/24 14:45 10/23/24 11:10 1 TAB Docusate Sodium 100 mg BID PO 10/21/24 22:00 10/23/24 08:42 100 MG Insulin Glargine 10 units HS SC 10/22/24 22:00 10/22/24 22:13 10 UNITS Albuterol 2.5 mg Q6HWA NEB 10/22/24 18:00 10/23/24 11:48 2.5 MG Ipratropium [place] 0.5 mg Q6HWA NEB 10/22/24 18:00 10/23/24 11:48 0.5 MG Furosemide 20 mg DAILY PO 10/23/24 10:00 10/23/24 08:42 20 MG Laboratory Results Laboratory Tests 10/23/24 05:08 Chemistry Test 10/23/24 05:08 Calcium Level 8.1 mg/dL (8.7-10.4) L Urinalysis Test 10/14/24 20:15 Urine Color Yellow (Yellow) Urine Clarity Turbid (Clear) H Urine pH 5.0 (5.0-9.0) Urine Specific [place] 1.023 (1.001-1.035) Urine Protein Trace (Negative) H Urine Ketones 1+ (Negative) H Urine Blood Negative /uL (Negative) Urine Nitrite Negative (Negative) Urine Bilirubin Negative (Negative) Urine Urobilinogen 2 mg/dL (Negative) H Urine Leukocyte Esterase 3+ /uL (Negative) Urine RBC 8 /hpf (0 - 4) Urine Microscopic WBC 50 /HPF (0-5) H Urine Squamous Epithelial Cells Few /hpf (<5) Urine Bacteria None seen /hpf (None Seen) Urine Hyaline Casts Many /lpf (0 - 2) Urine Mucus Few (None Seen) Urine Glucose 4+ mg/dL (Normal) H Microbiology Microbiology Date/Time Source Procedure Growth Status 10/16/24 12:55 Abdomen Gram Stain - Final Complete 10/16/24 12:55 Abdomen Anaerobic Culture - Final Complete 10/16/24 12:55 Aerobic Culture - Final Streptococcus Group B Complete 10/14/24 20:15 Voided Urine Urine Culture - Final Complete 10/14/24 16:37 Blood Blood Culture - Final Staphylococcus epidermidis Complete Labs and/or images reviewed: Labs reviewed by me, Image(s) reviewed by me Assessment/Plan Assessment/Plan Impression: -diabetic ketoacidosis -severe sepsis -? Pelvic inflammatory disease -rule out appendicitis -complicated cystitis -diabetes mellitus with noncompliance -acute kidney injury, vasomotor nephropathy -acute hypoxic respiratory failure Plan: -events: Chest ultrasound ordered. Minimal pleural effusion. X-ray changes probable atelectasis. Continue bronchodilators with EzPAP. Instructed patient to use IS q.1 hour while awake. -continue diuresis -start bronchodilators and EzPAP -Positive Strep B. Change antibiotics to Ampicillin -continue Lantus and regular insulin sliding scale -stool softener, laxative -PPI -pain management achieved with Percocet -ambulate -repeat labs in a.m. Total time spent with patient discussing and formulating plan of care: 35 minutes. This medical document was created using an electronic medical record system with [employer] dictation system. Although this document has been carefully reviewed, there may still be some phonetic and typographical errors. These areas are purely typographical due to imperfections of the software programs, and do not reflect any compromise in the patient's medical care. Plan discussed with: Patient, Other (RN) My Orders Orders - GARY LIM NP Procedure Category Date Status Time Ez-Pap RT 10/22/24 Transmitted 14:47 Incentive Spirometry ORDERS 10/22/24 Transmitted Q 1hr 14:47 Albuterol Medneb PHA 10/22/24 In Process (Ventolin Medneb) 18:00 Ipratropium Medneb PHA 10/22/24 In Process (Atrovent Medneb) 18:00 Chest Portable XY 10/23/24 Resulted 04:00 Furosemide Tablet PHA 10/23/24 In Process (Lasix Tablet) 10:00 Transfer Orders XFER 10/22/24 Transmitted 14:56 Chest Ultrasound US 10/23/24 Taken 13:04 Insulin Lantus PHA 10/23/24 Logged (Glargine) (Lantus) 22:00 Consistent DIET 10/23/24 Transmitted Carb(Ccho)Diabetes Dinner Basic Metabolic Panel LAB 10/24/24 Verified 04:00 Complete Blood Count LAB 10/24/24 Verified 04:00 Date of Service: Oct 23, 2024 Billing Provider: GARY LIM NP Common Visit Codes: [id number] INP/OBS CARE(HIGH) GARY LIM NP Oct 23, 2024 14:21
[2024-10-23] MEDS: LACTULOSE 20Gm/30ML SOLN PO ONE (17:09)
--- NOTE | 2024-10-23 19:33 | DVH ---
Bilateral Chest Sonogram Clinical history: assess right pleural effusion Technique: Grayscale ultrasound imaging of the bilateral chest to evaluate for pleural effusion. Comparison: Chest radiograph obtained earlier the same day. Findings and impression: Trace bilateral pleural effusions noted.
[2024-10-23] MEDS: INSULIN LANTUS (GLARGINE) 1 /0.01ml (100units/ml) SC SCH (20:13)
[2024-10-24] VITALS (16 sets, daily range): BP systolic 123–138; BP diastolic 67–81; PULSE 89–115; RESP 16–18; TEMP 97.8–98.6; O2SAT 81–95
[2024-10-24 07:56] LABS: Basophils # (auto) 0 10 ^3/uL (0-0.2); Basophils % (auto) 0.1 % (0.0-2.0); Lymphocytes # (auto) 1.3 10 ^3/uL (0.4-5.4); Monocytes # (auto) 0.6 10 ^3/uL (0-1.3)
[2024-10-24 07:59] LABS: Eosinophils # (auto) 0 10 ^3/uL (0-0.8); Eosinophils % (auto) 0.2 % (0.0-7.0); Hematocrit 27.2 % (36.0-46.0); Lymphocytes % (auto) 6.3 % (10.0-50.0); Mean Corpuscular Hemoglobin 26.3 pg (28.0-32.0); Mean Corpuscular Hgb Conc. 33.1 g/dL (32.0-36.0); Mean Corpuscular Volume 79.4 fL (80.0-100.0); Monocytes % (auto) 2.6 % (0.0-12.0); Neutrophils # (auto) 19.1 10 ^3/uL (1.6-8.6); Neutrophils % (auto) 90.8 % (37.0-80.0); Platelet Count (auto) 626 10^3/uL (140-450); Red Blood Cells 3.43 10^6/uL (4.0-5.20); Red Cell Distribution Width 16.4 % (11.8-14.3); White Blood Cell 21.1 10^3/uL (4.4-10.8)
[2024-10-24 08:08] LABS: Anion Gap 4 (5-15); Chloride 99 mmol/L (98-107); Sodium 136 mmol/L (136-145)
[2024-10-24 08:10] LABS: Calcium 8.5 mg/dL (8.7-10.4); Carbon Dioxide 33 mmol/L (20-31)
[2024-10-24 08:14] LABS: BUN/Creatinine Ratio 12.2 (10.0-20.0)
[2024-10-24 08:16] LABS: Blood Urea Nitrogen 6 mg/dL (9-23); Glucose 181 mg/dL (74-106)
--- NOTE | 2024-10-24 13:22 | DVHPN2 ---
Subjective Reporting positive flatus. Continues to have abdominal pain. Reviewed: Care Plan, Labs, Medications Changes from previous H/P or p: No Changes General: Per HPI Objective Vitals Vital Signs Date Time Temp Pulse Resp B/P (MAP) Pulse Ox O2 Delivery O2 Flow Rate FiO2 10/24/24 12:16 110 18 138/77 10/24/24 11:43 93 10/24/24 11:35 Oxymizer 6 N/A 10/24/24 09:00 98.3 98.3 Intake/Output Intake and Output 10/24/24 07:00 Intake Total 1250 ml Output Total 1125 ml Balance 125 ml Intake Oral 1050 ml IV Total 200 ml Output Urine Total 1125 ml # Voids 3 General Appearance: Alert, Oriented X3, Cooperative, moderate distress, Other (Generalized weakness) HEENT: Atraumatic, PERRLA Lungs: Clear to auscultation, Normal air movement Cardiovascular: Normal S1, Normal S2 Abdomen: Normal bowel sounds, Soft, No hepatospenomegaly, Other (Dressing D&I) Genitourinary: No Apparent Abnormalities Musculoskeletal: Normal sensory function, Normal motor function, Weak motor strength RLE, Weak motor strength LLE Neuro: Normal speech, Cranial nerves 3-12 NL Skin: Dry, Intact, Warm Psych/Mental Status: Mental status NL, Mood NL Medications Current Medications Medications Dose Ordered Sig/Rl Route Start Time Stop Time Status Last Admin Dose Admin Morphine Sulfate 2 mg Q4HPRN PRN IV 10/14/24 21:00 10/24/24 10:27 2 MG Nitroglycerin 0.4 mg Q5MINP PRN SL 10/14/24 21:00 Morphine Sulfate 2 mg Q30M PRN IV 10/14/24 21:00 Acetaminophen 500 mg Q8HP PRN PO 10/15/24 15:45 Ondansetron HCl 4 mg Q6HP PRN IV 10/15/24 15:45 10/16/24 08:46 4 MG Pantoprazole Sodium 40 mg DAILY IV 10/18/24 10:00 10/24/24 08:57 40 MG Diagnostic Test (Pha) 1 strip ACHS 10/17/24 17:00 10/24/24 12:15 1 STRIP Insulin Human Regular ACHS SC 10/17/24 17:00 10/24/24 12:11 6 UNITS Dextrose 50 ml UD PRN IV 10/17/24 14:30 10/19/24 05:40 50 ML Ampicillin Sodium 2 gm/Sodium Chloride 100 ml @ 100 mls/hr Q6HR IV 10/18/24 18:00 10/24/24 12:15 100 MLS/HR Oxycodone/ Acetaminophen 1 tab Q4HP PRN PO 10/20/24 14:45 10/24/24 08:58 1 TAB Docusate Sodium 100 mg BID PO 10/21/24 22:00 10/24/24 08:58 100 MG Albuterol 2.5 mg Q6HWA NEB 10/22/24 18:00 10/24/24 11:35 2.5 MG Ipratropium [place] 0.5 mg Q6HWA NEB 10/22/24 18:00 10/24/24 11:35 0.5 MG Insulin Glargine 15 units HS SC 10/23/24 22:00 10/23/24 20:13 15 UNITS Laboratory Results Laboratory Tests 10/24/24 07:30 Chemistry Test 10/24/24 07:30 Calcium Level 8.5 mg/dL (8.7-10.4) L Urinalysis Test 10/14/24 20:15 Urine Color Yellow (Yellow) Urine Clarity Turbid (Clear) H Urine pH 5.0 (5.0-9.0) Urine Specific [place] 1.023 (1.001-1.035) Urine Protein Trace (Negative) H Urine Ketones 1+ (Negative) H Urine Blood Negative /uL (Negative) Urine Nitrite Negative (Negative) Urine Bilirubin Negative (Negative) Urine Urobilinogen 2 mg/dL (Negative) H Urine Leukocyte Esterase 3+ /uL (Negative) Urine RBC 8 /hpf (0 - 4) Urine Microscopic WBC 50 /HPF (0-5) H Urine Squamous Epithelial Cells Few /hpf (<5) Urine Bacteria None seen /hpf (None Seen) Urine Hyaline Casts Many /lpf (0 - 2) Urine Mucus Few (None Seen) Urine Glucose 4+ mg/dL (Normal) H Microbiology Microbiology Date/Time Source Procedure Growth Status 10/16/24 12:55 Abdomen Gram Stain - Final Complete 10/16/24 12:55 Abdomen Anaerobic Culture - Final Complete 10/16/24 12:55 Aerobic Culture - Final Streptococcus Group B Complete 10/14/24 20:15 Voided Urine Urine Culture - Final Complete 10/14/24 16:37 Blood Blood Culture - Final Staphylococcus epidermidis Complete Labs and/or images reviewed: Labs reviewed by me, Image(s) reviewed by me Assessment/Plan Assessment/Plan Impression: -diabetic ketoacidosis -severe sepsis -? Pelvic inflammatory disease -rule out appendicitis -complicated cystitis -diabetes mellitus with noncompliance -acute kidney injury, vasomotor nephropathy -acute hypoxic respiratory failure Plan: -events: Patient now with elevated white blood cell count. Some abdominal distention. Patient was to be made NPO with stat CT scan of the abdomen and pelvis with IV contrast. Discussed with both patient and nurse. -continue diuresis -start bronchodilators and EzPAP -Positive Strep B. Change antibiotics to Ampicillin -continue Lantus and regular insulin sliding scale -stool softener, laxative -PPI -pain management achieved with Percocet -ambulate -repeat labs in a.m. Total time spent with patient discussing and formulating plan of care: 35 minutes. This medical document was created using an electronic medical record system with [employer] dictation system. Although this document has been carefully reviewed, there may still be some phonetic and typographical errors. These areas are purely typographical due to imperfections of the software programs, and do not reflect any compromise in the patient's medical care. Plan discussed with: Patient, Other (RN) My Orders Orders - GARY LIM NP Procedure Category Date Status Time Insulin Lantus PHA 10/23/24 In Process (Glargine) (Lantus) 22:00 Consistent DIET 10/23/24 Transmitted Carb(Ccho)Diabetes Dinner Basic Metabolic Panel LAB 10/25/24 Verified 04:00 Complete Blood Count LAB 10/25/24 Verified 04:00 Ct Ab Pel With Iv Con CT 10/24/24 Logged Only 13:14 Date of Service: Oct 24, 2024 Billing Provider: GARY LIM NP Common Visit Codes: [id number] INP/OBS CARE(HIGH) GARY LIM NP Oct 24, 2024 13:22
[2024-10-24] MEDS: ACETAMINOPHEN 500 MG TAB or CAP PO PRN (16:17)
--- NOTE | 2024-10-24 16:47 | DVH ---
Procedure: CT CT AB PEL WITH IV CON ONLY 10/24/2024 03:46 PM Indication: evaluate post op abscess Comparison Study: CT scan dated 10/14/2024 Technique: Axial images were obtained and reformatted in coronal and sagittal planes. All CT scans at this medical facility are performed using dose modulation techniques as appropriate to a performed e xam including the following: Automated exposure control was utilized; adjustment of the MA and/or KV according to patient size; and use of iterative reconstruction technique. CT Dose: CTDI volume is 11. 05 mGy. Dose-length product is 623.5 mGy*cm FINDINGS: Interval development of small bilateral pleural effusions extensive bilateral lower lobes consolidati ons most compatible with pneumonia. Bilateral breast implants noted. Right and left lower quadrant approach drainage catheters are noted. Right central catheter extends t o the right upper quadrant with the tip anterior to segment 4 of the liver. The left central catheter terminates in the left paramedian upper pelvis anterior to the uterine fundus. Large, approximately 10 x 3.5 x 7.3 cm abscess in the right lower quadrant inferior to the cecum noted abutting inferior c ecal wall, right lateral uterine fundus and right upper bladder wall. The drainage catheters do not e xtends to this fluid collection. A 3.6 x 1 cm fluid collection is seen along the right lateral perito neum anterior to mid ascending colon. A 1.3 x 1.3 cm peripherally enhancing pocket of fluid/ abscess noted in the right lower quadrant superior to terminal ileum. N a subcapsular abscess seen inferior to segment 6 of the right hepatic lobe measuring 6.3 x 2.5 x 3.4 cm. No evidence of bowel obstruction . No free fluid is seen in the abdomen or pelvis. Diffuse mesenteric edema noted. Moderate fecal rete ntion throughout the large bowel. No free intraperitoneal air. Small bowel is normal in caliber with no evidence of obstruction. IMPRESSION: 1. Postoperative changes of the abdomen noted 2 drainage catheters seen. 2. Several right-sided abdominal abscesses are seen measuring 10 cm, 6.3 cm, 3.6 cm and 1.3 cm. The 2 drainage catheters do not extends to these fluid collections. 3. Moderate mesenteric inflammation in the right lower abdomen. 4. No evidence of bowel obstruction. 5. Moderate fecal retention.
[2024-10-24] MEDS: BISACODYL 10 MG RECT SUPP PR ONE (17:34)
[2024-10-24] MEDS: MORPHINE SULFATE INJ 2 MG/ml SYRG IV PRN (17:34)
[2024-10-25] VITALS (14 sets, daily range): BP systolic 122–138; BP diastolic 73–81; PULSE 90–100; RESP 16–20; TEMP 97.6–99.1; O2SAT 90–96
[2024-10-25 06:50] LABS: Eosinophils # (auto) 0.1 10 ^3/uL (0-0.8); Hemoglobin 8.6 g/dL (12.2-16.2); Lymphocytes # (auto) 1.4 10 ^3/uL (0.4-5.4); Neutrophils % (auto) 80.7 % (37.0-80.0); Red Cell Distribution Width 16.6 % (11.8-14.3)
[2024-10-25 06:52] LABS: Basophils # (auto) 0 10 ^3/uL (0-0.2); Basophils % (auto) 0.4 % (0.0-2.0); Eosinophils % (auto) 1.3 % (0.0-7.0); Hematocrit 25.9 % (36.0-46.0); Lymphocytes % (auto) 12.3 % (10.0-50.0); Mean Corpuscular Hemoglobin 26.4 pg (28.0-32.0); Monocytes # (auto) 0.6 10 ^3/uL (0-1.3); Monocytes % (auto) 5.3 % (0.0-12.0); Neutrophils # (auto) 9.5 10 ^3/uL (1.6-8.6); Nucleated Red Blood Cells % 0.2 %; Red Blood Cells 3.24 10^6/uL (4.0-5.20); White Blood Cell 11.7 10^3/uL (4.4-10.8)
[2024-10-25 07:08] LABS: Anion Gap 4 (5-15); Chloride 101 mmol/L (98-107); Potassium 3.8 mmol/L (3.5-5.1); Sodium 138 mmol/L (136-145)
[2024-10-25 07:14] LABS: BUN/Creatinine Ratio 12.8 (10.0-20.0); Blood Urea Nitrogen < 5 mg/dL (9-23); Calcium 8.4 mg/dL (8.7-10.4); Carbon Dioxide 33 mmol/L (20-31); Glucose 171 mg/dL (74-106)
[2024-10-25 07:31] LABS: Platelet Count (auto) 613 10^3/uL (140-450)
--- NOTE | 2024-10-25 09:05 | DVHPN2 ---
Progress Note Date Seen: Oct 25, 2024 Medical Necessity Reason Pt with a Central, PICC or Fol: No Objective vital signs Vital Sign Date Time Temp Pulse Resp B/P (MAP) Pulse Ox O2 Delivery O2 Flow Rate FiO2 10/25/24 07:18 96 16 137/92 10/25/24 06:06 94 10/25/24 06:00 Nasal Cannula 5.0 10/25/24 06:00 40 10/25/24 05:00 98.3 98.3 Total Intake and Output 10/24/24 10/24/24 10/25/24 14:59 22:59 06:59 Intake Total 750 ml Output Total 15 ml 600 ml Balance -15 ml 750 ml -600 ml medications Current Medications Medications Dose Ordered Sig/Rl Route Start Time Stop Time Status Last Admin Dose Admin Nitroglycerin 0.4 mg Q5MINP PRN SL 10/14/24 21:00 Morphine Sulfate 2 mg Q30M PRN IV 10/14/24 21:00 Acetaminophen 500 mg Q8HP PRN PO 10/15/24 15:45 10/24/24 16:17 500 MG Ondansetron HCl 4 mg Q6HP PRN IV 10/15/24 15:45 10/16/24 08:46 4 MG Pantoprazole Sodium 40 mg DAILY IV 10/18/24 10:00 10/24/24 08:57 40 MG Diagnostic Test (Pha) 1 strip ACHS 10/17/24 17:00 10/25/24 06:42 1 STRIP Insulin Human Regular ACHS SC 10/17/24 17:00 10/25/24 06:42 8 UNITS Dextrose 50 ml UD PRN IV 10/17/24 14:30 10/19/24 05:40 50 ML Oxycodone/ Acetaminophen 1 tab Q4HP PRN PO 10/20/24 14:45 10/24/24 13:47 1 TAB Docusate Sodium 100 mg BID PO 10/21/24 22:00 10/24/24 21:37 100 MG Albuterol 2.5 mg Q6HWA NEB 10/22/24 18:00 10/25/24 06:00 2.5 MG Ipratropium [place] 0.5 mg Q6HWA NEB 10/22/24 18:00 10/25/24 06:00 0.5 MG Insulin Glargine 15 units HS SC 10/23/24 22:00 10/23/24 20:13 15 UNITS Morphine Sulfate 2 mg Q3HPRN PRN IV 10/24/24 16:30 10/25/24 06:48 2 MG Metronidazole 100 ml @ 100 mls/hr Q8HR IV 10/25/24 14:00 Meropenem 50 ml @ 17 mls/hr Q8H IV 10/25/24 10:00 laboratory and microbiology Laboratory Tests 10/25/24 06:16 Test 10/25/24 06:16 Range/Units Serum Glucose 171 H 74-106 mg/dL Problem List/Assessment/Plan Problem List/Assessment/Plan 10/17/24FEELS BETTER THAN BEFORE OPERATION, NO FLATUS,IS HUNGRY, ABDOMEN SOFT, APPROPRIATELY TENDER, CHRIS DRAINAGE SEROSANGUINEOUS. WILL DC NGT AND ALLOW ICE CHIPS, NEEDS TO START AMBULATION/ WBC STILL ELEVATED, H/H/STABLE. 10/18/24 afebrile, normotensive, wound clean and well approximated, drainage sero sanguineous, labs ok with leukocytosis decreasing. abdomen soft, appropriately tender , patient claims to have passed flatus, will start po intake, must ambulate 10/20/24 stable, having bowel movements, tolerated po, abdomen appropriately tender, wound clean and well approximated, CHRIS drainage sero sanguineous, Labs OK, reluctant to ambulate, explained significance. advance po 10/22/24 AFEBRILE, NORMOTENSIVE, NORMAL BOWEL ACTIVITY, chris DRAINAGE SEROUS, WOUND CLEAN AND WELL APPROXIMATED, LABS REVIEWED, HAS AMBULATED, ABDOMEN SOFT, NON DISTENDED, APPROPRIATELY TENDER. 10/23/24 normal bowel and bladder function, wound clean and well approximated, CHRIS drainage non purulent, has been ambulating better. tolerating po intake 10/25/24 ct shows multiple "abscesses" in the right abdomen, WBC improved since yesterday, collections in abdomen could be sequestered irrigation fluid ,will ask radiology to aspirate the largest collection, abdomen sopft, non distended, wound clean drains with clear serous fluid. Explained to patient Plan discussed with: Patient Dietary Evaluation Review Comments: 1) Advance to CCHO 45 + 2 gm Na diet as medically feasible 2) Conor 1 pk BID 3) Continue current plan of care Expected Outcomes/Goals: Pt will meet >75% estimated needs Fu 2-3 days RUBEN DEL VALLE MD Oct 25, 2024 09:05
[2024-10-25] MEDS: MEROPENEM 1GM IVPB 50 ML IV SCH (10:00)
[2024-10-25] MEDS: MORPHINE SULFATE INJ 2 MG/ml SYRG IV PRN (10:01)
--- NOTE | 2024-10-25 14:17 | DVHPN2 ---
Subjective Reporting positive flatus. Continues to have abdominal pain. Reviewed: Care Plan, Labs, Medications Changes from previous H/P or p: No Changes General: Per HPI Objective Vitals Vital Signs Date Time Temp Pulse Resp B/P (MAP) Pulse Ox O2 Delivery O2 Flow Rate FiO2 10/25/24 13:07 98.0 95 18 135/81 (99) 96 98.0 10/25/24 10:05 Nasal Cannula 5.0 10/25/24 10:05 40 Intake/Output Intake and Output 10/25/24 07:00 Intake Total 750 ml Output Total 615 ml Balance 135 ml Intake Oral 750 ml Output Urine Total 600 ml Drainage Total 15 ml # Voids 5 # Bowel Movements 1 General Appearance: Alert, Oriented X3, Cooperative, moderate distress, Other (Generalized weakness) HEENT: Atraumatic, PERRLA Lungs: Clear to auscultation, Normal air movement Cardiovascular: Normal S1, Normal S2 Abdomen: Normal bowel sounds, Soft, No hepatospenomegaly, Other (Dressing D&I) Genitourinary: No Apparent Abnormalities Musculoskeletal: Normal sensory function, Normal motor function, Weak motor strength RLE, Weak motor strength LLE Neuro: Normal speech, Cranial nerves 3-12 NL Skin: Dry, Intact, Warm Psych/Mental Status: Mental status NL, Mood NL Medications Current Medications Medications Dose Ordered Sig/Rl Route Start Time Stop Time Status Last Admin Dose Admin Nitroglycerin 0.4 mg Q5MINP PRN SL 10/14/24 21:00 Morphine Sulfate 2 mg Q30M PRN IV 10/14/24 21:00 10/25/24 10:01 2 MG Acetaminophen 500 mg Q8HP PRN PO 10/15/24 15:45 10/24/24 16:17 500 MG Ondansetron HCl 4 mg Q6HP PRN IV 10/15/24 15:45 10/16/24 08:46 4 MG Pantoprazole Sodium 40 mg DAILY IV 10/18/24 10:00 10/25/24 10:00 40 MG Diagnostic Test (Pha) 1 strip ACHS 10/17/24 17:00 10/25/24 12:45 1 STRIP Insulin Human Regular ACHS SC 10/17/24 17:00 10/25/24 06:42 8 UNITS Dextrose 50 ml UD PRN IV 10/17/24 14:30 10/19/24 05:40 50 ML Oxycodone/ Acetaminophen 1 tab Q4HP PRN PO 10/20/24 14:45 10/24/24 13:47 1 TAB Docusate Sodium 100 mg BID PO 10/21/24 22:00 10/24/24 21:37 100 MG Albuterol 2.5 mg Q6HWA NEB 10/22/24 18:00 10/25/24 06:00 2.5 MG Ipratropium [place] 0.5 mg Q6HWA NEB 10/22/24 18:00 10/25/24 06:00 0.5 MG Insulin Glargine 15 units HS SC 10/23/24 22:00 10/23/24 20:13 15 UNITS Morphine Sulfate 2 mg Q3HPRN PRN IV 10/24/24 16:30 10/25/24 06:48 2 MG Metronidazole 100 ml @ 100 mls/hr Q8HR IV 10/25/24 14:00 Meropenem 50 ml @ 17 mls/hr Q8H IV 10/25/24 10:00 10/25/24 10:00 17 MLS/HR Laboratory Results Laboratory Tests 10/25/24 06:16 Chemistry Test 10/25/24 06:16 Calcium Level 8.4 mg/dL (8.7-10.4) L Urinalysis Test 10/14/24 20:15 Urine Color Yellow (Yellow) Urine Clarity Turbid (Clear) H Urine pH 5.0 (5.0-9.0) Urine Specific [place] 1.023 (1.001-1.035) Urine Protein Trace (Negative) H Urine Ketones 1+ (Negative) H Urine Blood Negative /uL (Negative) Urine Nitrite Negative (Negative) Urine Bilirubin Negative (Negative) Urine Urobilinogen 2 mg/dL (Negative) H Urine Leukocyte Esterase 3+ /uL (Negative) Urine RBC 8 /hpf (0 - 4) Urine Microscopic WBC 50 /HPF (0-5) H Urine Squamous Epithelial Cells Few /hpf (<5) Urine Bacteria None seen /hpf (None Seen) Urine Hyaline Casts Many /lpf (0 - 2) Urine Mucus Few (None Seen) Urine Glucose 4+ mg/dL (Normal) H Microbiology Microbiology Date/Time Source Procedure Growth Status 10/16/24 12:55 Abdomen Gram Stain - Final Complete 10/16/24 12:55 Abdomen Anaerobic Culture - Final Complete 10/16/24 12:55 Aerobic Culture - Final Streptococcus Group B Complete 10/14/24 20:15 Voided Urine Urine Culture - Final Complete 10/14/24 16:37 Blood Blood Culture - Final Staphylococcus epidermidis Complete Labs and/or images reviewed: Labs reviewed by me, Image(s) reviewed by me Assessment/Plan Assessment/Plan Impression: -diabetic ketoacidosis -severe sepsis -? Pelvic inflammatory disease -rule out appendicitis -complicated cystitis -diabetes mellitus with noncompliance -acute kidney injury, vasomotor nephropathy -acute hypoxic respiratory failure Plan: -events: CT scan with IV contrast reveals multiple areas of abscess. Discussed case with surgical team. Patient we will have IR drainage of large abscess for evaluation. -continue diuresis -continue bronchodilators with EzPAP -change antibiotic therapy to meropenem and Flagyl and given recurrent abscess -continue Lantus and regular insulin sliding scale -stool softener, laxative -PPI -pain management achieved with Percocet -ambulate -repeat labs in a.m. Total time spent with patient discussing and formulating plan of care: 35 minutes. This medical document was created using an electronic medical record system with [employer] dictation system. Although this document has been carefully reviewed, there may still be some phonetic and typographical errors. These areas are purely typographical due to imperfections of the software programs, and do not reflect any compromise in the patient's medical care. Plan discussed with: Patient, Other (RN) My Orders Orders - GARY LIM NP Procedure Category Date Status Time Morphine Sulfate PHA 10/24/24 In Process Injection 16:30 Metronidazole PHA 10/25/24 In Process 500mg/100ml (Flagyl 14:00 Meropenem 1gm Ivpb PHA 10/25/24 In Process (Merrem 1gm/ Ns) 10:[address] 10/25/24 Logged Needle Placeme 11:[address] 10/25/24 Logged 11:15 Ultra Guided Abcess US 10/25/24 Logged Drainage 12:37 Date of Service: Oct 25, 2024 Billing Provider: GARY LIM NP Common Visit Codes: [id number] INP/OBS CARE(HIGH) GARY LIM NP Oct 25, 2024 14:16
--- NOTE | 2024-10-25 15:15 | DVH ---
CT PELVIS WO CONTRAST, HISTORY: ABSCESS DRAINAGE COMPARISON: US PELVIC on DOS: 10/14/24 PROCEDURE: Informed consent was obtained. The patient was placed supine on the CT scanner. IV sedatio n was administered. The right lower quadrant fluid collection was localized under US/CT scan and the overlying skin prepped with chlorhexidine which was allowed to dry and draped in the usual sterile fa shion and infiltrated with Xylocaine. Time out was performed. With US/CT guidance, a 19-gauge centesi s needle catheter was advanced via trans-peritoneal approach into the right lower quadrant fluid byron ection. Following aspiration of a small amount of fluid, a 0.035 wire was advanced into the fluid col lection. Placement was confirmed with CT scan. After serial dilatation, a 8 [place] multipurpose pig[place] drain was placed into the collection. Approximately 10 cc of thick serosanguinous fluid was aspir ated, with specimen sent for appropriate laboratory evaluation. The drain was sutured at the skin georg[place] face and connected to suction drainage. No immediate complication was noted. Post procedure CT imagin g through the drain site was obtained. The right upper quadrang fluid collection was localized under US/CT scan and the overlying skin prepp ed with chlorhexidine which was allowed to dry and draped in the usual sterile fashion and infiltrate d with Xylocaine. Time out was performed. With US/CT guidance, a 19-gauge centesis needle catheter wa s advanced via trans-peritoneal approach into the right upper quadrant fluid collection. Following as piration of a small amount of fluid, a 0.035 wire was advanced into the fluid collection. Placement w as confirmed with CT scan. After serial dilatation, a 8 [place] multipurpose pigtail drain was placed into the collection. Approximately 3 cc of serosanguinous fluid was aspirated, with specimen sent f or appropriate laboratory evaluation. The drain was sutured at the skin surface and connected to suct ion drainage. No immediate complication was noted. Post procedure CT imaging through the drain site w as obtained. DLP = 1585 mGy-cm. SEDATION: Dr. Rebecca Maldonado was personally responsible for the administration of moderate sedation during the procedure performed, including the use of an independent trained observer who had no other duties during the procedure. The drugs utilized were IV fentanyl and versed (see nursing log for details). The total time of supervision by the attending physician was approximately 45 minutes. FINDINGS: Limited CT scan of through the abdomen and pelvis demonstrates a small to medium sized flui d collection in the right upper and right lower quadrant of the abdomen. Collection appears complex. Post procedure scan shows pigtail drain within the collection , which is decreased in size. No immedi ate complication was identified. IMPRESSION: US/ CT guided placement of 8 Macedonian pigtail drain into a right lower quadrant pelvic, and right upper quadrant subhepatic complex septated fluid collection . PLAN: Routine tube care.
[2024-10-25] MEDS: metroNIDAZOLE 500MG/100ML 100 ML IV SCH (15:18)
[2024-10-26] VITALS (16 sets, daily range): BP systolic 113–135; BP diastolic 66–79; PULSE 80–109; RESP 17–20; TEMP 97.4–98.7; O2SAT 91–96
--- NOTE | 2024-10-26 11:31 | DVHPN2 ---
Progress Note Date Seen: Oct 26, 2024 Medical Necessity Reason Pt with a Central, PICC or Fol: No Objective vital signs Vital Sign Date Time Temp Pulse Resp B/P (MAP) Pulse Ox O2 Delivery O2 Flow Rate FiO2 10/26/24 10:14 93 18 139/79 10/26/24 08:37 97.9 94 97.9 10/26/24 05:45 Nasal Cannula* 5 40 Total Intake and Output 10/25/24 10/25/24 10/26/24 15:00 23:00 07:00 Intake Total 100 ml 150 ml 0 ml Output Total 105 ml Balance 100 ml 150 ml -105 ml medications Current Medications Medications Dose Ordered Sig/Rl Route Start Time Stop Time Status Last Admin Dose Admin Nitroglycerin 0.4 mg Q5MINP PRN SL 10/14/24 21:00 Morphine Sulfate 2 mg Q30M PRN IV 10/14/24 21:00 10/25/24 10:01 2 MG Acetaminophen 500 mg Q8HP PRN PO 10/15/24 15:45 10/24/24 16:17 500 MG Ondansetron HCl 4 mg Q6HP PRN IV 10/15/24 15:45 10/26/24 10:52 4 MG Pantoprazole Sodium 40 mg DAILY IV 10/18/24 10:00 10/26/24 09:59 40 MG Diagnostic Test (Pha) 1 strip ACHS 10/17/24 17:00 10/26/24 06:01 1 STRIP Insulin Human Regular ACHS SC 10/17/24 17:00 10/25/24 06:42 8 UNITS Dextrose 50 ml UD PRN IV 10/17/24 14:30 10/19/24 05:40 50 ML Oxycodone/ Acetaminophen 1 tab Q4HP PRN PO 10/20/24 14:45 10/26/24 10:12 1 TAB Docusate Sodium 100 mg BID PO 10/21/24 22:00 10/25/24 22:07 100 MG Albuterol 2.5 mg Q6HWA NEB 10/22/24 18:00 10/26/24 05:45 2.5 MG Ipratropium [place] 0.5 mg Q6HWA NEB 10/22/24 18:00 10/26/24 05:45 0.5 MG Insulin Glargine 15 units HS SC 10/23/24 22:00 3/18/25 20:13 15 UNITS Morphine Sulfate 2 mg Q3HPRN PRN IV 10/24/24 16:30 10/26/24 08:47 2 MG Metronidazole 100 ml @ 100 mls/hr Q8HR IV 10/25/24 14:00 10/26/24 05:30 100 MLS/HR Meropenem 50 ml @ 17 mls/hr Q8H IV 10/25/24 10:00 10/26/24 11:10 17 MLS/HR laboratory and microbiology Laboratory Tests 10/25/24 06:16 Test 10/25/24 06:16 Range/Units Serum Glucose 171 H 74-106 mg/dL Problem List/Assessment/Plan Problem List/Assessment/Plan 10/17/24FEELS BETTER THAN BEFORE OPERATION, NO FLATUS,IS HUNGRY, ABDOMEN SOFT, APPROPRIATELY TENDER, CHRIS DRAINAGE SEROSANGUINEOUS. WILL DC NGT AND ALLOW ICE CHIPS, NEEDS TO START AMBULATION/ WBC STILL ELEVATED, H/H/STABLE. 10/18/24 afebrile, normotensive, wound clean and well approximated, drainage sero sanguineous, labs ok with leukocytosis decreasing. abdomen soft, appropriately tender , patient claims to have passed flatus, will start po intake, must ambulate 10/20/24 stable, having bowel movements, tolerated po, abdomen appropriately tender, wound clean and well approximated, CHRIS drainage sero sanguineous, Labs OK, reluctant to ambulate, explained significance. advance po 10/22/24 AFEBRILE, NORMOTENSIVE, NORMAL BOWEL ACTIVITY, chris DRAINAGE SEROUS, WOUND CLEAN AND WELL APPROXIMATED, LABS REVIEWED, HAS AMBULATED, ABDOMEN SOFT, NON DISTENDED, APPROPRIATELY TENDER. 10/23/24 normal bowel and bladder function, wound clean and well approximated, CHRIS drainage non purulent, has been ambulating better. tolerating po intake 10/25/24 ct shows multiple "abscesses" in the right abdomen, WBC improved since yesterday, collections in abdomen could be sequestered irrigation fluid ,will ask radiology to aspirate the largest collection, abdomen sopft, non distended, wound clean drains with clear serous fluid. Explained to patient 10/26/24 had aspiration of the largest collection by IR, abdomen non tender, wound clean, will resume po intake, she has a productive cough, will get pulmonary consult r/o pneumonia Plan discussed with: Patient Dietary Evaluation Review Comments: 1) Advance to [facility] 45 + 2 gm Na diet as medically feasible 2) Conor 1 pk BID 3) Continue current plan of care Expected Outcomes/Goals: Pt will meet >75% estimated needs Fu 2-3 days RUBEN DEL VALLE MD Oct 26, 2024 11:31
--- NOTE | 2024-10-26 12:14 | DVH ---
CHEST RADIOGRAPH Indication: PNEUMONIA Technique: Single frontal view of the chest was obtained COMPARISON: XY CHEST PORTABLE on DOS: 10/23/24, XY CHEST XRAY 1 VIEW on DOS: 10/21/24, XY CHEST XRAY 1 VIEW on DOS: 10/17/24, XY CHEST XRAY 1 VIEW on DOS: 10/14/24 FINDINGS: Lines and Tubes: None Lungs: Right lower lobe airspace disease. Pleura: No effusion. No pneumothorax. Cardiomediastinal contours: Unremarkable Bones: Unremarkable IMPRESSION: Right lower lobe pneumonia
--- NOTE | 2024-10-26 16:24 | DVHPN2 ---
Subjective Reporting positive flatus. Continues to have abdominal pain. Reviewed: Care Plan, Labs, Medications Changes from previous H/P or p: No Changes General: Per HPI Objective Vitals Vital Signs Date Time Temp Pulse Resp B/P (MAP) Pulse Ox O2 Delivery O2 Flow Rate FiO2 10/26/24 13:27 94 16 108/61 10/26/24 12:44 97.4 91 97.4 10/26/24 11:33 Nasal Cannula 5.0 10/26/24 11:33 40 Intake/Output Intake and Output 10/26/24 07:00 Intake Total 250 ml Output Total 105 ml Balance 145 ml Intake Oral 0 ml IV Total 250 ml Drainage Total 75 ml Other 30 ml # Voids 5 # Bowel Movements 2 General Appearance: Alert, Oriented X3, Cooperative, moderate distress, Other (Generalized weakness) HEENT: Atraumatic, PERRLA Lungs: Clear to auscultation, Normal air movement Cardiovascular: Normal S1, Normal S2 Abdomen: Normal bowel sounds, Soft, No hepatospenomegaly, Other (Dressing D&I) Genitourinary: No Apparent Abnormalities Musculoskeletal: Normal sensory function, Normal motor function, Weak motor strength RLE, Weak motor strength LLE Neuro: Normal speech, Cranial nerves 3-12 NL Skin: Dry, Intact, Warm Psych/Mental Status: Mental status NL, Mood NL Medications Current Medications Medications Dose Ordered Sig/Rl Route Start Time Stop Time Status Last Admin Dose Admin Nitroglycerin 0.4 mg Q5MINP PRN SL 10/14/24 21:00 Morphine Sulfate 2 mg Q30M PRN IV 10/14/24 21:00 10/25/24 10:01 2 MG Acetaminophen 500 mg Q8HP PRN PO 10/15/24 15:45 10/24/24 16:17 500 MG Ondansetron HCl 4 mg Q6HP PRN IV 10/15/24 15:45 10/26/24 10:52 4 MG Pantoprazole Sodium 40 mg DAILY IV 10/18/24 10:00 10/26/24 09:59 40 MG Diagnostic Test (Pha) 1 strip ACHS 10/17/24 17:00 10/26/24 11:30 1 STRIP Insulin Human Regular ACHS SC 10/17/24 17:00 10/25/24 06:42 8 UNITS Dextrose 50 ml UD PRN IV 10/17/24 14:30 10/19/24 05:40 50 ML Oxycodone/ Acetaminophen 1 tab Q4HP PRN PO 10/20/24 14:45 10/26/24 14:30 1 TAB Docusate Sodium 100 mg BID PO 10/21/24 22:00 10/25/24 22:07 100 MG Albuterol 2.5 mg Q6HWA NEB 10/22/24 18:00 10/26/24 11:33 2.5 MG Ipratropium [place] 0.5 mg Q6HWA NEB 10/22/24 18:00 10/26/24 11:33 0.5 MG Insulin Glargine 15 units HS SC 10/23/24 22:00 10/23/24 20:13 15 UNITS Morphine Sulfate 2 mg Q3HPRN PRN IV 10/24/24 16:30 10/26/24 12:42 2 MG Metronidazole 100 ml @ 100 mls/hr Q8HR IV 10/25/24 14:00 10/26/24 14:30 100 MLS/HR Meropenem 50 ml @ 17 mls/hr Q8H IV 10/25/24 10:00 10/26/24 11:10 17 MLS/HR Laboratory Results Laboratory Tests 10/25/24 06:16 Urinalysis Test 10/14/24 20:15 Urine Color Yellow (Yellow) Urine Clarity Turbid (Clear) H Urine pH 5.0 (5.0-9.0) Urine Specific [place] 1.023 (1.001-1.035) Urine Protein Trace (Negative) H Urine Ketones 1+ (Negative) H Urine Blood Negative /uL (Negative) Urine Nitrite Negative (Negative) Urine Bilirubin Negative (Negative) Urine Urobilinogen 2 mg/dL (Negative) H Urine Leukocyte Esterase 3+ /uL (Negative) Urine RBC 8 /hpf (0 - 4) Urine Microscopic WBC 50 /HPF (0-5) H Urine Squamous Epithelial Cells Few /hpf (<5) Urine Bacteria None seen /hpf (None Seen) Urine Hyaline Casts Many /lpf (0 - 2) Urine Mucus Few (None Seen) Urine Glucose 4+ mg/dL (Normal) H Microbiology Microbiology Date/Time Source Procedure Growth Status 10/25/24 15:10 Aspirate Gram Stain - Final Resulted 10/25/24 15:10 Aspirate Body Fluid Culture - Preliminary Resulted 10/16/24 12:55 Abdomen Gram Stain - Final Complete 10/16/24 12:55 Abdomen Anaerobic Culture - Final Complete 10/16/24 12:55 Aerobic Culture - Final Streptococcus Group B Complete 10/14/24 20:15 Voided Urine Urine Culture - Final Complete 10/14/24 16:37 Blood Blood Culture - Final Staphylococcus epidermidis Complete Labs and/or images reviewed: Labs reviewed by me, Image(s) reviewed by me Assessment/Plan Assessment/Plan Impression: -diabetic ketoacidosis -severe sepsis -? Pelvic inflammatory disease -rule out appendicitis -complicated cystitis -diabetes mellitus with noncompliance -acute kidney injury, vasomotor nephropathy -acute hypoxic respiratory failure Plan: -events: Patient was status post IR drainage of abscess sites with two additional drains placed. Patient's heart rate improved. Cultures pending. Continue broad-spectrum antibiotics. Pulmonology consultation placed by surgery for patient was right lower lobe pneumonia. Continue current treatments. Instructed patient to please increase your activity. -continue diuresis -continue bronchodilators with EzPAP -change antibiotic therapy to meropenem and Flagyl and given recurrent abscess -continue Lantus and regular insulin sliding scale -stool softener, laxative -PPI -pain management achieved with Percocet -ambulate -repeat labs in a.m. Total time spent with patient discussing and formulating plan of care: 35 minutes. This medical document was created using an electronic medical record system with [employer] dictation system. Although this document has been carefully reviewed, there may still be some phonetic and typographical errors. These areas are purely typographical due to imperfections of the software programs, and do not reflect any compromise in the patient's medical care. Plan discussed with: Patient, Other (RN ) My Orders Orders - GARY LIM NP Procedure Category Date Status Time Complete Blood Count LAB 10/27/24 Verified 05:00 Complete Blood Count LAB 10/28/24 Verified 05:00 Complete Blood Count LAB 10/29/24 Verified 05:00 Basic Metabolic Panel LAB 10/27/24 Verified 05:00 Basic Metabolic Panel LAB 10/28/24 Verified 05:00 Basic Metabolic Panel LAB 10/29/24 Verified 05:00 Date of Service: Oct 26, 2024 Billing Provider: GARY LIM NP Common Visit Codes: [id number] INP/OBS CARE(HIGH) GARY LIM JIG WORKER Oct 26, 2024 16:24
--- NOTE | 2024-10-26 22:42 | DVHINCON2 ---
Date of service: Oct 26, 2024 Referring Physician Daljit Jaffe NP Reason for Consultation Acute hypoxic respiratory failure History of Present Illness A 44-year-old woman with PMHx of hypertension and diabetes mellitus who initially presented to ED on 10/14/24 for evaluation of abdominal pain. Patient reported 1-week history of epigastric abdominal pain radiating down to her right lower abdomen with associated fever and nausea. Patient is homeless and she reported being noncompliant with her blood sugar checks. On arrival patient's blood sugar was reading greater than 500. Patient was also tachycardic. Denied cardiac or respiratory complaints. Patient was admitted for further care w/ findings of tubo-ovarian abscess. Pulmonary consultation is requested for evaluation and management of acute hypoxic respiratory failure. Review of Systems: 14-point review of systems negative unless otherwise noted above. Past Medical History: Hypertension and diabetes mellitus Past Surgical History: None Medications: Reviewed. Allergies: No known drug allergies. Family History: DM, cirrhosis, heart disease Social History: Nonsmoker. No alcohol use. Admits to prior use of drugs including methamphetamines, last used x 1 week ago Patient is homeless Family History: Diabetes mellitus G8 MOTHER FH: cirrhosis G8 MOTHER FH: heart disease G8 MOTHER Allergies: Coded Allergies: NO KNOWN ALLERGIES (Unverified , 10/14/24) Home Meds Reported Medications Lisinopril (Lisinopril) 2.5 Mg Tab, 2.5 MG PO DAILY for 30 Days, MG 10/14/24 Omeprazole (Gnp Omeprazole) 20 Mg Tab, 1 TAB PO DAILY, #90 TAB 1 Refill 10/14/24 Insulin Lispro (Human) (Humalog) 100 Unit/Ml Inj, SC, INJ 10/14/24 Vital Signs Vital Signs Date Time Temp Pulse Resp B/P (MAP) Pulse Ox O2 Delivery O2 Flow Rate FiO2 10/26/24 21:06 102 18 110/63 10/26/24 20:00 93 Nasal Cannula* 5 40 10/26/24 16:46 98.0 98.0 Physical Exam Gen.: Patient lying in bed in no apparent distress. On supplemental oxygen. Head: Normocephalic, atraumatic. Eyes: EOMI/PERRLA. Ears: Normal hearing. Normal anatomy. Neck/trachea: Trachea midline, supple. Nose: Normal external anatomy. Mouth: Moist mucous membranes. Chest: Decreased air entry bilaterally. No wheezing or rhonchi. Cardiovascular: Positive S1, positive S2. Regular rate and rhythm. Abdomen: Positive bowel sounds in all 4 quadrants. Soft, non-tender, non- distended. : Deferred. Rectal: Deferred. Skin: Warm, dry. Intact. Extremities: 2+ radial pulses bilaterally. No lower extremity edema. Neuro: Awake, alert, oriented x3. No gross motor or sensory deficits. Cranial nerves II through XII intact. Gait not assessed. Labs/Diagnostic Data Labs Test 10/26/24 20:41 10/25/24 15:10 10/25/24 06:16 10/21/24 05:55 Range/Units POC Glucose 273 H 70-106 mg/dl Body Fluid Glucose 3 . mg/dL White Blood Count 11.7 #H 4.4-10.8 10^3/uL Red Blood Count 3.24 L 4.0-5.20 10^6/uL Hemoglobin 8.6 L 12.2-16.2 g/dL Hematocrit 25.9 L 36.0-46.0 % Mean Corpuscular Volume 80.0 80.0-100.0 fL Mean Corpuscular Hemoglobin 26.4 L 28.0-32.0 pg Mean Corpuscular Hemoglobin Concent 33.0 32.0-36.0 g/dL Red Cell Distribution Width 16.6 H 11.8-14.3 % Platelet Count 613 H 140-450 10^3/uL Mean Platelet Volume 6.6 L 6.9-10.8 fL Neutrophils (%) (Auto) 80.7 H 37.0-80.0 % Lymphocytes (%) (Auto) 12.3 10.0-50.0 % Monocytes (%) (Auto) 5.3 0.0-12.0 % Eosinophils (%) (Auto) 1.3 0.0-7.0 % Basophils (%) (Auto) 0.4 0.0-2.0 % Neutrophils # (Auto) 9.5 H 1.6-8.6 10 ^3/uL Lymphocytes # (Auto) 1.4 0.4-5.4 10 ^3/uL Monocytes # (Auto) 0.6 0-1.3 10 ^3/uL Eosinophils # (Auto) 0.1 0-0.8 10 ^3/uL Basophils # (Auto) 0 0-0.2 10 ^3/uL Nucleated Red Blood Cells 0.2 % Sodium Level 138 136-145 mmol/L Potassium Level 3.8 3.5-5.1 mmol/L Chloride Level 101 98-107 mmol/L Carbon Dioxide Level 33 H 20-31 mmol/L Anion Gap 4 L 5-15 Blood Urea Nitrogen < 5 L 9-23 mg/dL Creatinine 0.39 L 0.550-1.02 mg/dL Glomerular Filtration Rate Calc 124 >90 mL/min BUN/Creatinine Ratio 12.8 10.0-20.0 Serum Glucose 171 H 74-106 mg/dL Calcium Level 8.4 L 8.7-10.4 mg/dL Differential Total Cells Counted 100.0 100 Neutrophils % (Manual) 86 H 37.0-80.0 Band Neutrophils % (Manual) 0 Lymphocytes % (Manual) 9 L 10.0-50.0 Monocytes % (Manual) 5 0-12 Eosinophils % (Manual) 0 0-7 Basophils % (Manual) 0 0.0-2.0 Metamyelocytes % (manual) 0 Myelocytes % (Manual) 0 Promyelocytes % (Manual) 0 Blast Cells % (Manual) 0 Reactive Lymphocytes 0 Platelet Estimate Adequate Magnesium Level 1.7 1.6-2.6 mg/dL Test 10/19/24 04:54 10/18/24 06:20 10/17/24 12:40 10/16/24 21:15 Range/Units Hypochromasia (manual) Marked Microcytosis Marked Ovalocytes Few Total Bilirubin 0.8 0.2-1.0 mg/dL Aspartate Amino Transferase (AST) 10 L 13-40 U/L Alanine Aminotransferase (ALT) 13 7-40 U/L Alkaline Phosphatase 104 46-116 U/L Total Protein 6.5 5.7-8.2 g/dL Albumin 4.1 3.2-4.8 g/dL Phosphorus Level 2.8 2.4-5.1 mg/dL Vancomycin Level Trough 15.1 H 5-10 ug/mL Treponema pallidum Antibody Non-reactive Negative HIV (1&2) Antibody Negative Negative Test 10/16/24 06:00 10/15/24 04:32 10/15/24 00:27 10/14/24 20:15 Range/Units Prothrombin Time 11.1 9.3-11.8 sec Prothrombin Time INR 1.05 0.9-1.15 Activated Partial Thromboplast Time 30.7 24.5-34.5 SEC Hepatitis C Antibody Negative Negative Hemoglobin A1c 13.5 H <5.7 % A1C Troponin I High Sensitivity < 3 L </=34 ng/L Urine Color Yellow Yellow Urine Clarity Turbid H Clear Urine pH 5.0 5.0-9.0 Urine Specific [place] 1.023 1.001-1.035 Urine Protein Trace H Negative Urine Ketones 1+ H Negative Urine Blood Negative Negative /uL Urine Nitrite Negative Negative Urine Bilirubin Negative Negative Urine Urobilinogen 2 H Negative mg/dL Urine Leukocyte Esterase 3+ Negative /uL Urine RBC 8 0 - 4 /hpf Urine Microscopic WBC 50 H 0-5 /HPF Urine Squamous Epithelial Cells Few <5 /hpf Urine Bacteria None seen None Seen /hpf Urine Hyaline Casts Many 0 - 2 /lpf Urine Mucus Few None Seen Urine Glucose 4+ H Normal mg/dL Test 10/14/24 18:15 10/14/24 16:37 10/14/24 16:31 Range/Units Lactic Acid Level 2.3 *H 0.4-2.0 mmol/L Lipase 21 12-53 U/L Beta-Hydroxybutyric Acid 4.131 H < 0.4 mmol/L Beta HCG, Quantitative 2.1 1.5-4.2 mIU/mL Hepatitis B Surface Antigen Negative Negative Blood Gas Specimen Type Arterial Blood Gas Sample Site Right radial Blood Gas Patient Temperature 37.0 Arterial Blood Date Drawn [id number] Arterial Blood pH 7.469 H 7.350-7.450 Arterial Blood Partial Pressure CO2 31.2 L 32.0-45.0 mmHg Arterial Blood Partial Pressure O2 83.0 83.0-108.0 mmHg Arterial Blood HCO3 22.1 21.0-28.0 mmol/L Arterial Blood Oxygen Saturation 96.3 94.0-98.0 % Arterial Blood Base Excess -0.7 -2.0-3.0 mmol/L Arterial Blood Oxyhemoglobin 95.3 94.0-98.0 % Arterial Blood Carboxyhemoglobin 0.5 0.5-1.5 % Arterial Blood Methemoglobin 0.5 0.0-1.5 % Navi Test Yes Blood Gas Total Hemoglobin 13.00 12.0-16.0 g/dL Blood Gas Modality Room air FiO2 % 21.0 Microbiology Date/Time Source Procedure Growth Status 10/25/24 15:10 Aspirate Gram Stain - Final Resulted 10/25/24 15:10 Aspirate Body Fluid Culture - Preliminary Resulted 10/16/24 12:55 Abdomen Gram Stain - Final Complete 10/16/24 12:55 Abdomen Anaerobic Culture - Final Complete 10/16/24 12:55 Aerobic Culture - Final Streptococcus Group B Complete 10/14/24 20:15 Voided Urine Urine Culture - Final Complete 10/14/24 16:37 Blood Blood Culture - Final Staphylococcus epidermidis Complete Assessment Impression: Acute hypoxic respiratory failure Dependence on supplemental oxygen Cough Abdominal pain Tubo-ovarian abscess Atelectasis Substance abuse Poorly controlled DM, s/p DKA Homeless Pleural effusion Plan: Supplemental oxygen 5 LPM NC Titrate to keep O2 sats above 92%. Taper O2 as tolerated. CXR demonstrates right lower lobe pneumonia. Obtain chest x-ray in the AM to assess interval changes. Obtain CT chest w/o contrast for further evaluation Continue bronchodilators. Continue antibiotics Incentive spirometry Pain control Avoid oversedation Accu-Cheks, ISS. Monitor renal function. Monitor electrolytes. Supplement as necessary. Monitor ins and outs. Counseled against substance abuse. DVT prophylaxis. Prognosis: Poor given patient's multiple co-morbidities. Rest of plan per hospitalist and other consultants. Thank you, LEORA Jaffe, for allowing me to participate in this patient's care. Further recommendations will depend on the patient's clinical course. Please do not hesitate to contact me if you have any questions or concerns. This medical document was created using an electronic medical record system with [employer] dictation system. Although these documentations are being carefully reviewed, there may still be some phonetic and typographical changes. The errors are purely typographical, due to imperfection on the software program, and do not reflect any compromise in the patient's medical care. Plan discussed with: Patient, Other (AUGUSTO Gonzalez/LEORA Jaffe/) GISELA CABRALES MD Oct 26, 2024 22:42
[2024-10-27] VITALS (13 sets, daily range): BP systolic 122–148; BP diastolic 76–88; PULSE 74–99; RESP 16–20; TEMP 97.5–98.2; O2SAT 87–100
[2024-10-27 06:04] LABS: Basophils # (auto) 0 10 ^3/uL (0-0.2); Eosinophils # (auto) 0.1 10 ^3/uL (0-0.8); Hemoglobin 8.2 g/dL (12.2-16.2); Lymphocytes # (auto) 1.1 10 ^3/uL (0.4-5.4)
[2024-10-27 06:06] LABS: Basophils % (auto) 0.7 % (0.0-2.0); Eosinophils % (auto) 1.3 % (0.0-7.0); Lymphocytes % (auto) 16.8 % (10.0-50.0); Mean Corpuscular Hgb Conc. 32.7 g/dL (32.0-36.0); Mean Corpuscular Volume 79.5 fL (80.0-100.0); Monocytes # (auto) 0.6 10 ^3/uL (0-1.3); Monocytes % (auto) 9.3 % (0.0-12.0); Neutrophils # (auto) 4.5 10 ^3/uL (1.6-8.6); Neutrophils % (auto) 71.9 % (37.0-80.0); Platelet Count (auto) 630 10^3/uL (140-450); Red Blood Cells 3.15 10^6/uL (4.0-5.20); Red Cell Distribution Width 16.6 % (11.8-14.3); White Blood Cell 6.3 10^3/uL (4.4-10.8)
[2024-10-27 06:14] LABS: Anion Gap 5 (5-15); Carbon Dioxide 30 mmol/L (20-31); Chloride 101 mmol/L (98-107)
[2024-10-27 06:20] LABS: BUN/Creatinine Ratio 14.6 (10.0-20.0)
[2024-10-27 06:29] LABS: Blood Urea Nitrogen 7 mg/dL (9-23); Calcium 8.4 mg/dL (8.7-10.4); Glucose 279 mg/dL (74-106); Sodium 136 mmol/L (136-145)
--- NOTE | 2024-10-27 09:04 | DVHPN2 ---
Progress Note Date Seen: Oct 27, 2024 Medical Necessity Reason Pt with a Central, PICC or Fol: No Objective vital signs Vital Sign Date Time Temp Pulse Resp B/P (MAP) Pulse Ox O2 Delivery O2 Flow Rate FiO2 10/27/24 08:38 89 16 139/77 10/27/24 08:37 98.0 96 98.0 10/27/24 08:00 Nasal Cannula* 5 40 Total Intake and Output 10/26/24 10/26/24 10/27/24 15:00 23:00 07:00 Intake Total 300 ml 950 ml Balance 300 ml 950 ml medications Current Medications Medications Dose Ordered Sig/Rl Route Start Time Stop Time Status Last Admin Dose Admin Nitroglycerin 0.4 mg Q5MINP PRN SL 10/14/24 21:00 Morphine Sulfate 2 mg Q30M PRN IV 10/14/24 21:00 10/25/24 10:01 2 MG Acetaminophen 500 mg Q8HP PRN PO 10/15/24 15:45 10/24/24 16:17 500 MG Ondansetron HCl 4 mg Q6HP PRN IV 10/15/24 15:45 10/26/24 10:52 4 MG Pantoprazole Sodium 40 mg DAILY IV 10/18/24 10:00 10/26/24 09:59 40 MG Diagnostic Test (Pha) 1 strip ACHS 10/17/24 17:00 10/27/24 05:17 1 STRIP Insulin Human Regular ACHS SC 10/17/24 17:00 10/27/24 05:17 6 UNITS Dextrose 50 ml UD PRN IV 10/17/24 14:30 10/19/24 05:40 50 ML Oxycodone/ Acetaminophen 1 tab Q4HP PRN PO 10/20/24 14:45 10/27/24 04:16 1 TAB Docusate Sodium 100 mg BID PO 10/21/24 22:00 10/26/24 20:35 100 MG Albuterol 2.5 mg Q6HWA NEB 10/22/24 18:00 10/27/24 05:51 2.5 MG Ipratropium [place] 0.5 mg Q6HWA NEB 10/22/24 18:00 10/27/24 05:51 0.5 MG Insulin Glargine 15 units HS SC 10/23/24 22:00 10/26/24 20:46 15 UNITS Morphine Sulfate 2 mg Q3HPRN PRN IV 10/24/24 16:30 10/27/24 06:31 2 MG Metronidazole 100 ml @ 100 mls/hr Q8HR IV 10/25/24 14:00 10/27/24 05:11 100 MLS/HR Meropenem 50 ml @ 17 mls/hr Q8H IV 10/25/24 10:00 10/27/24 01:33 17 MLS/HR laboratory and microbiology Laboratory Tests 10/27/24 05:16 Test 10/27/24 05:16 Range/Units Serum Glucose 279 H 74-106 mg/dL Problem List/Assessment/Plan Problem List/Assessment/Plan 10/17/24FEELS BETTER THAN BEFORE OPERATION, NO FLATUS,IS HUNGRY, ABDOMEN SOFT, APPROPRIATELY TENDER, CHRIS DRAINAGE SEROSANGUINEOUS. WILL DC NGT AND ALLOW ICE CHIPS, NEEDS TO START AMBULATION/ WBC STILL ELEVATED, H/H/STABLE. 10/18/24 afebrile, normotensive, wound clean and well approximated, drainage sero sanguineous, labs ok with leukocytosis decreasing. abdomen soft, appropriately tender , patient claims to have passed flatus, will start po intake, must ambulate 10/20/24 stable, having bowel movements, tolerated po, abdomen appropriately tender, wound clean and well approximated, CHRIS drainage sero sanguineous, Labs OK, reluctant to ambulate, explained significance. advance po 10/22/24 AFEBRILE, NORMOTENSIVE, NORMAL BOWEL ACTIVITY, chris DRAINAGE SEROUS, WOUND CLEAN AND WELL APPROXIMATED, LABS REVIEWED, HAS AMBULATED, ABDOMEN SOFT, NON DISTENDED, APPROPRIATELY TENDER. 10/23/24 normal bowel and bladder function, wound clean and well approximated, CHIRS drainage non purulent, has been ambulating better. tolerating po intake 10/25/24 ct shows multiple "abscesses" in the right abdomen, WBC improved since yesterday, collections in abdomen could be sequestered irrigation fluid ,will ask radiology to aspirate the largest collection, abdomen sopft, non distended, wound clean drains with clear serous fluid. Explained to patient 10/26/24 had aspiration of the largest collection by IR, abdomen non tender, wound clean, will resume po intake, she has a productive cough, will get pulmonary consult r/o pneumonia 10/27/24 Pneumonia most likely cause of her on going septic picture, abdomen B9 Plan discussed with: Patient Dietary Evaluation Review Comments: 1) Advance to [facility] 45 + 2 gm Na diet as medically feasible 2) Conor 1 pk BID 3) Continue current plan of care Expected Outcomes/Goals: Pt will meet >75% estimated needs Fu 2-3 days RUBEN DEL VALLE MD Oct 27, 2024 09:04
--- NOTE | 2024-10-27 13:59 | DVHPN2 ---
Subjective The patient is seen and examined. No complaint today Reviewed: Care Plan, Labs, Medications Changes from previous H/P or p: No Changes General: Per HPI Objective Vitals Vital Signs Date Time Temp Pulse Resp B/P (MAP) Pulse Ox O2 Delivery O2 Flow Rate FiO2 10/27/24 13:31 94 17 127/80 10/27/24 13:00 97.9 94 97.9 10/27/24 11:20 Nasal Cannula* 5 40 Intake/Output Intake and Output 10/27/24 07:00 Intake Total 1250 ml Balance 1250 ml Intake Oral 800 ml IV Total 450 ml # Voids 6 # Bowel Movements 1 General Appearance: Alert, Oriented X3, Cooperative, moderate distress, Other (Generalized weakness) HEENT: Atraumatic, PERRLA Lungs: Clear to auscultation, Normal air movement Cardiovascular: Normal S1, Normal S2 Abdomen: Normal bowel sounds, Soft, No hepatospenomegaly, Other (Dressing D&I) Genitourinary: No Apparent Abnormalities Musculoskeletal: Normal sensory function, Normal motor function, Weak motor strength RLE, Weak motor strength LLE Neuro: Normal speech, Cranial nerves 3-12 NL Skin: Dry, Intact, Warm Psych/Mental Status: Mental status NL, Mood NL Medications Current Medications Medications Dose Ordered Sig/Rl Route Start Time Stop Time Status Last Admin Dose Admin Nitroglycerin 0.4 mg Q5MINP PRN SL 10/14/24 21:00 Morphine Sulfate 2 mg Q30M PRN IV 10/14/24 21:00 10/27/24 10:15 2 MG Acetaminophen 500 mg Q8HP PRN PO 10/15/24 15:45 10/24/24 16:17 500 MG Ondansetron HCl 4 mg Q6HP PRN IV 10/15/24 15:45 10/26/24 10:52 4 MG Pantoprazole Sodium 40 mg DAILY IV 10/18/24 10:00 10/27/24 09:17 40 MG Diagnostic Test (Pha) 1 strip ACHS 10/17/24 17:00 10/27/24 11:20 1 STRIP Insulin Human Regular ACHS SC 10/17/24 17:00 10/27/24 11:30 3 UNITS Dextrose 50 ml UD PRN IV 10/17/24 14:30 10/19/24 05:40 50 ML Oxycodone/ Acetaminophen 1 tab Q4HP PRN PO 10/20/24 14:45 10/27/24 11:48 1 TAB Docusate Sodium 100 mg BID PO 10/21/24 22:00 10/27/24 09:16 100 MG Albuterol 2.5 mg Q6HWA NEB 10/22/24 18:00 10/27/24 11:19 2.5 MG Ipratropium [place] 0.5 mg Q6HWA NEB 10/22/24 18:00 10/27/24 11:19 0.5 MG Insulin Glargine 15 units HS SC 10/23/24 22:00 10/26/24 20:46 15 UNITS Morphine Sulfate 2 mg Q3HPRN PRN IV 10/24/24 16:30 10/27/24 13:31 2 MG Metronidazole 100 ml @ 100 mls/hr Q8HR IV 10/25/24 14:00 10/27/24 13:38 100 MLS/HR Meropenem 50 ml @ 17 mls/hr Q8H IV 10/25/24 10:00 10/27/24 09:16 17 MLS/HR Laboratory Results Laboratory Tests 10/27/24 05:16 Chemistry Test 10/27/24 05:16 Calcium Level 8.4 mg/dL (8.7-10.4) L Urinalysis Test 10/14/24 20:15 Urine Color Yellow (Yellow) Urine Clarity Turbid (Clear) H Urine pH 5.0 (5.0-9.0) Urine Specific [place] 1.023 (1.001-1.035) Urine Protein Trace (Negative) H Urine Ketones 1+ (Negative) H Urine Blood Negative /uL (Negative) Urine Nitrite Negative (Negative) Urine Bilirubin Negative (Negative) Urine Urobilinogen 2 mg/dL (Negative) H Urine Leukocyte Esterase 3+ /uL (Negative) Urine RBC 8 /hpf (0 - 4) Urine Microscopic WBC 50 /HPF (0-5) H Urine Squamous Epithelial Cells Few /hpf (<5) Urine Bacteria None seen /hpf (None Seen) Urine Hyaline Casts Many /lpf (0 - 2) Urine Mucus Few (None Seen) Urine Glucose 4+ mg/dL (Normal) H Microbiology Microbiology Date/Time Source Procedure Growth Status 10/25/24 15:10 Aspirate Gram Stain - Final Resulted 10/25/24 15:10 Aspirate Body Fluid Culture - Preliminary Resulted 10/16/24 12:55 Abdomen Gram Stain - Final Complete 10/16/24 12:55 Abdomen Anaerobic Culture - Final Complete 10/16/24 12:55 Aerobic Culture - Final Streptococcus Group B Complete 10/14/24 20:15 Voided Urine Urine Culture - Final Complete 10/14/24 16:37 Blood Blood Culture - Final Staphylococcus epidermidis Complete Labs and/or images reviewed: Labs reviewed by me Assessment/Plan Assessment/Plan -diabetic ketoacidosis -severe sepsis -? Pelvic inflammatory disease -rule out appendicitis -complicated cystitis -diabetes mellitus with noncompliance -acute kidney injury, vasomotor nephropathy -acute hypoxic respiratory failure Plan: Continuing current management. The patient has drainage tube put out about 120 manual overnight. Continuing with IV Lasix. Continuing with meropenem and Flagyl. Continuing with nebulizer. Continuing with proton pump inhibitor, stool softener and Lantus. Continuing with Percocet. Encouraged the patient to be out of bed and ambulate. This medical document was created using an electronic medical record system with [employer] direct computerized dictation system. Although this document has been carefully reviewed, there may still be some phonetic and typographical errors. These areas are purely typographical due to imperfections of the software programs, and do not reflect any compromise in the patient's medical care. Plan discussed with: Patient Date of Service: Oct 27, 2024 Billing Provider: WILTON SNIDER MD Common Visit Codes: [id number] INP/OBS CARE(HIGH) WILTON SNIDER MD Oct 27, 2024 13:59
--- NOTE | 2024-10-27 14:46 | DVH ---
Procedure: CT CHEST WITHOUT CONTRAST Reason for study/Clinical History: R/O Pneumonia Comparison Study: None available at time of dictation. Exam Date: 10/27/2024 01:43 PM TECHNIQUE: Multidetector CT of the chest was performed from the lung apices to the upper abdomen with out the use of intravenous contract. Axial, coronal and sagittal multiplanar reformats were performed . Radiation Dose Information: CT Dose: CTDI volume is 10.29 mGy. Dose-length product is 308.08 mGy*cm The dose indicators for CT are the volume Computed Tomography (CT) Dose Index (CTDIvol) and the Dose Length Product (DLP), and are measured in units of mGy and mGy-cm, respectively. These indicators are not patient dose, but values generated from the CT scanner acquisition factors. The report includes radiation exposure data for exposures received during this examination. FINDINGS: Lower neck: Normal thyroid. Lungs: Bilateral perihilar infiltrates and bibasilar infiltrates and atelectasis. Heart/Vascular Structures: Normal heart size. No pericardial effusion. Lymph Nodes: No adenopathy Pleura: Small bilateral pleural effusions Musculoskeletal: No acute osseous abnormality. Soft tissues: Normal. Upper abdomen: Limited portions of the upper abdomen are unremarkable. IMPRESSION: 1. Small bilateral pleural effusions 2. Small bilateral perihilar infiltrates infiltrates and atelectasis in the bases. Radiation optimization: All CT scans at this facility use at least one of these dose optimization james hniques: automated exposure control mA and/or kV adjustment per patient size (includes targeted exam s where dose is matched to clinical indication) or iterative reconstruction.
--- NOTE | 2024-10-27 19:37 | DVHPN2 ---
Progress Note - Dictate Date Seen: Oct 27, 2024 Medical Necessity Reason Pt with a Central, PICC or Fol: No Subjective Patient seen and examined at bedside. Remains on supplemental oxygen Overnight events reviewed. vital signs Vital Sign Date Time Temp Pulse Resp B/P (MAP) Pulse Ox O2 Delivery O2 Flow Rate FiO2 10/27/24 19:21 99 20 87 10/27/24 19:15 Nasal Cannula* 6 44 10/27/24 18:33 138/80 10/27/24 16:56 98.2 98.2 Total Intake and Output 10/26/24 10/26/24 10/27/24 15:00 23:00 07:00 Intake Total 300 ml 950 ml Balance 300 ml 950 ml medications Current Medications Medications Dose Ordered Sig/Rl Route Start Time Stop Time Status Last Admin Dose Admin Nitroglycerin 0.4 mg Q5MINP PRN SL 10/14/24 21:00 Morphine Sulfate 2 mg Q30M PRN IV 10/14/24 21:00 10/27/24 10:15 2 MG Acetaminophen 500 mg Q8HP PRN PO 10/15/24 15:45 10/24/24 16:17 500 MG Ondansetron HCl 4 mg Q6HP PRN IV 10/15/24 15:45 10/26/24 10:52 4 MG Pantoprazole Sodium 40 mg DAILY IV 10/18/24 10:00 10/27/24 09:17 40 MG Diagnostic Test (Pha) 1 strip ACHS 10/17/24 17:00 10/27/24 17:02 1 STRIP Insulin Human Regular ACHS SC 10/17/24 17:00 10/27/24 17:02 3 UNITS Dextrose 50 ml UD PRN IV 10/17/24 14:30 10/19/24 05:40 50 ML Oxycodone/ Acetaminophen 1 tab Q4HP PRN PO 10/20/24 14:45 10/27/24 16:17 1 TAB Docusate Sodium 100 mg BID PO 10/21/24 22:00 10/27/24 09:16 100 MG Albuterol 2.5 mg Q6HWA NEB 10/22/24 18:00 10/27/24 19:16 2.5 MG Ipratropium [place] 0.5 mg Q6HWA NEB 10/22/24 18:00 10/27/24 19:15 0.5 MG Insulin Glargine 15 units HS SC 10/23/24 22:00 10/26/24 20:46 15 UNITS Morphine Sulfate 2 mg Q3HPRN PRN IV 10/24/24 16:30 10/27/24 17:10 2 MG Metronidazole 100 ml @ 100 mls/hr Q8HR IV 10/25/24 14:00 10/27/24 13:38 100 MLS/HR Meropenem 50 ml @ 17 mls/hr Q8H IV 10/25/24 10:00 10/27/24 18:12 17 MLS/HR objective Gen.: Patient lying in bed in no apparent distress. On supplemental oxygen. Head: Normocephalic, atraumatic. Eyes: EOMI/PERRLA. Ears: Normal hearing. Normal anatomy. Neck/trachea: Trachea midline, supple. Nose: Normal external anatomy. Mouth: Moist mucous membranes. Chest: Decreased air entry bilaterally. No wheezing or rhonchi. Cardiovascular: Positive S1, positive S2. Regular rate and rhythm. Abdomen: Positive bowel sounds in all 4 quadrants. Soft, non-tender, non- distended. : Deferred. Rectal: Deferred. Skin: Warm, dry. Intact. Extremities: 2+ radial pulses bilaterally. No lower extremity edema. Neuro: Awake, alert, oriented x3. No gross motor or sensory deficits. Cranial nerves II through XII intact. Gait not assessed. laboratory and microbiology Laboratory Tests 10/27/24 05:16 Test 10/27/24 05:16 Range/Units Serum Glucose 279 H 74-106 mg/dL Assessment/Plan Impression: Acute hypoxic respiratory failure Dependence on supplemental oxygen Cough Abdominal pain Tubo-ovarian abscess Atelectasis Substance abuse Poorly controlled DM, s/p DKA Homeless Events: Remains on supplemental oxygen, 2 LPM NC Taper O2 as tolerated CXR demonstrated right lower lobe pneumonia. Obtain CT chest w/o contrast to rule out pneumonia. CT reviewed, demonstrates small bilateral pleural effusions. Small bilateral perihilar infiltrates and bibasilar infiltrates and atelectasis in the bases. Continue antibiotics Continue bronchodilators. Incentive spirometry Pain control Avoid oversedation Labs and imaging reviewed. Rest of plan as noted below. Plan: Supplemental oxygen Titrate to keep O2 sats above 92%. Continue bronchodilators. Continue antibiotics Incentive spirometry Pain control Avoid oversedation Accu-Cheks, ISS PRN. Monitor renal function. Monitor electrolytes. Supplement as necessary. Monitor ins and outs. Counseled against substance abuse. DVT prophylaxis. Prognosis: Poor given patient's multiple co-morbidities. Rest of plan per hospitalist and other consultants. Thank you, LEORA Jaffe, for allowing me to participate in this patient's care. Further recommendations will depend on the patient's clinical course. Please do not hesitate to contact me if you have any questions or concerns. This medical document was created using an electronic medical record system with [employer] dictation system. Although these documentations are being carefully reviewed, there may still be some phonetic and typographical changes. The errors are purely typographical, due to imperfection on the software program, and do not reflect any compromise in the patient's medical care. Dietary Evaluation Review Comments: 1) Advance to [facility] 45 + 2 gm Na diet as medically feasible 2) Conor 1 pk BID 3) Continue current plan of care Expected Outcomes/Goals: Pt will meet >75% estimated needs Fu 2-3 days Plan discussed with: Patient, Other (AUGUSTO Gonzalez) GISELA CABRALES MD Oct 27, 2024 19:37
[2024-10-28] VITALS (14 sets, daily range): BP systolic 114–132; BP diastolic 53–85; PULSE 82–97; RESP 14–20; TEMP 97.6–98.1; O2SAT 93–98
[2024-10-28 06:00] LABS: Basophils # (auto) 0 10 ^3/uL (0-0.2); Basophils % (auto) 0.6 % (0.0-2.0); Eosinophils # (auto) 0.1 10 ^3/uL (0-0.8); Eosinophils % (auto) 1.4 % (0.0-7.0); Hematocrit 26.7 % (36.0-46.0); Hemoglobin 8.7 g/dL (12.2-16.2); Lymphocytes # (auto) 1.4 10 ^3/uL (0.4-5.4); Lymphocytes % (auto) 21.4 % (10.0-50.0); Mean Corpuscular Hemoglobin 26.2 pg (28.0-32.0); Mean Corpuscular Hgb Conc. 32.7 g/dL (32.0-36.0); Mean Corpuscular Volume 80.1 fL (80.0-100.0); Monocytes # (auto) 0.6 10 ^3/uL (0-1.3); Monocytes % (auto) 9.6 % (0.0-12.0); Neutrophils # (auto) 4.3 10 ^3/uL (1.6-8.6); Nucleated Red Blood Cells % 0.1 %; Platelet Count (auto) 700 10^3/uL (140-450); Red Blood Cells 3.33 10^6/uL (4.0-5.20); Red Cell Distribution Width 16.5 % (11.8-14.3); White Blood Cell 6.5 10^3/uL (4.4-10.8)
[2024-10-28 06:17] LABS: Anion Gap 7 (5-15); Calcium 8.9 mg/dL (8.7-10.4); Chloride 99 mmol/L (98-107); Potassium 4.1 mmol/L (3.5-5.1); Sodium 138 mmol/L (136-145)
[2024-10-28 06:23] LABS: BUN/Creatinine Ratio 14.3 (10.0-20.0)
[2024-10-28 06:29] LABS: Blood Urea Nitrogen 6 mg/dL (9-23); Carbon Dioxide 32 mmol/L (20-31); Glucose 174 mg/dL (74-106)
--- NOTE | 2024-10-28 23:12 | DVHPN2 ---
Subjective The patient is seen and examined at bedside. The patient feel better today. Reviewed: Care Plan, Labs, Medications Changes from previous H/P or p: No Changes General: Per HPI Objective Vitals Vital Signs Date Time Temp Pulse Resp B/P (MAP) Pulse Ox O2 Delivery O2 Flow Rate FiO2 10/28/24 21:00 97.7 87 17 128/85 (99) 96 97.7 10/28/24 18:39 Nasal Cannula* 4 36 Intake/Output Intake and Output 10/28/24 07:00 Intake Total 2250 ml Balance 2250 ml Intake Oral 1900 ml IV Total 350 ml # Voids 5 General Appearance: Alert, Oriented X3, Cooperative, moderate distress, Other (Generalized weakness) HEENT: Atraumatic, PERRLA Lungs: Clear to auscultation, Normal air movement Cardiovascular: Normal S1, Normal S2 Abdomen: Normal bowel sounds, Soft, No hepatospenomegaly, Other (Dressing D&I) Genitourinary: No Apparent Abnormalities Musculoskeletal: Normal sensory function, Normal motor function, Weak motor strength RLE, Weak motor strength LLE Neuro: Normal speech, Cranial nerves 3-12 NL Skin: Dry, Intact, Warm Psych/Mental Status: Mental status NL, Mood NL Medications Current Medications Medications Dose Ordered Sig/Rl Route Start Time Stop Time Status Last Admin Dose Admin Nitroglycerin 0.4 mg Q5MINP PRN SL 10/14/24 21:00 Morphine Sulfate 2 mg Q30M PRN IV 10/14/24 21:00 10/27/24 10:15 2 MG Acetaminophen 500 mg Q8HP PRN PO 10/15/24 15:45 10/24/24 16:17 500 MG Ondansetron HCl 4 mg Q6HP PRN IV 10/15/24 15:45 10/26/24 10:52 4 MG Pantoprazole Sodium 40 mg DAILY IV 10/18/24 10:00 10/28/24 09:30 40 MG Diagnostic Test (Pha) 1 strip ACHS 10/17/24 17:00 10/28/24 21:04 1 STRIP Insulin Human Regular ACHS SC 10/17/24 17:00 10/28/24 21:05 3 UNITS Dextrose 50 ml UD PRN IV 10/17/24 14:30 10/19/24 05:40 50 ML Oxycodone/ Acetaminophen 1 tab Q4HP PRN PO 10/20/24 14:45 10/28/24 22:34 1 TAB Docusate Sodium 100 mg BID PO 10/21/24 22:00 10/28/24 09:39 100 MG Albuterol 2.5 mg Q6HWA NEB 10/22/24 18:00 10/28/24 18:50 2.5 MG Ipratropium [place] 0.5 mg Q6HWA NEB 10/22/24 18:00 10/28/24 18:50 0.5 MG Insulin Glargine 15 units HS SC 10/23/24 22:00 10/28/24 21:07 15 UNITS Morphine Sulfate 2 mg Q3HPRN PRN IV 10/24/24 16:30 10/28/24 20:05 2 MG Metronidazole 100 ml @ 100 mls/hr Q8HR IV 10/25/24 14:00 10/28/24 22:28 100 MLS/HR Meropenem 50 ml @ 17 mls/hr Q8H IV 10/25/24 10:00 10/28/24 18:26 17 MLS/HR Laboratory Results Laboratory Tests 10/28/24 05:17 Chemistry Test 10/28/24 05:17 Calcium Level 8.9 mg/dL (8.7-10.4) Urinalysis Test 10/14/24 20:15 Urine Color Yellow (Yellow) Urine Clarity Turbid (Clear) H Urine pH 5.0 (5.0-9.0) Urine Specific [place] 1.023 (1.001-1.035) Urine Protein Trace (Negative) H Urine Ketones 1+ (Negative) H Urine Blood Negative /uL (Negative) Urine Nitrite Negative (Negative) Urine Bilirubin Negative (Negative) Urine Urobilinogen 2 mg/dL (Negative) H Urine Leukocyte Esterase 3+ /uL (Negative) Urine RBC 8 /hpf (0 - 4) Urine Microscopic WBC 50 /HPF (0-5) H Urine Squamous Epithelial Cells Few /hpf (<5) Urine Bacteria None seen /hpf (None Seen) Urine Hyaline Casts Many /lpf (0 - 2) Urine Mucus Few (None Seen) Urine Glucose 4+ mg/dL (Normal) H Microbiology Microbiology Date/Time Source Procedure Growth Status 10/25/24 15:10 Aspirate Gram Stain - Final Resulted 10/25/24 15:10 Aspirate Body Fluid Culture - Preliminary Resulted 10/16/24 12:55 Abdomen Gram Stain - Final Complete 10/16/24 12:55 Abdomen Anaerobic Culture - Final Complete 10/16/24 12:55 Aerobic Culture - Final Streptococcus Group B Complete 10/14/24 20:15 Voided Urine Urine Culture - Final Complete 10/14/24 16:37 Blood Blood Culture - Final Staphylococcus epidermidis Complete Labs and/or images reviewed: Labs reviewed by me Assessment/Plan Assessment/Plan -diabetic ketoacidosis -severe sepsis -? Pelvic inflammatory disease -rule out appendicitis -complicated cystitis -diabetes mellitus with noncompliance -acute kidney injury, vasomotor nephropathy -acute hypoxic respiratory failure Plan: Continuing current management. The patient has drainage tube put out about 120 manual overnight. Continuing with IV Lasix. Continuing with meropenem and Flagyl. Continuing with nebulizer. Continuing with proton pump inhibitor, stool softener and Lantus. Continuing with Percocet. Encouraged the patient to be out of bed and ambulate. This medical document was created using an electronic medical record system with [employer] computerized dictation system. Although this document has been carefully reviewed, there may still be some phonetic and typographical errors. These areas are purely typographical due to imperfections of the software programs, and do not reflect any compromise in the patient's medical care. Plan discussed with: Patient Date of Service: Oct 28, 2024 Billing Provider: WILTON SNIDER MD Common Visit Codes: [id number] INP/OBS CARE(HIGH) WILTON SNIDER MD Oct 28, 2024 23:12
[2024-10-29] VITALS (15 sets, daily range): BP systolic 120–146; BP diastolic 77–86; PULSE 76–93; RESP 16–20; TEMP 97.6–98.4; O2SAT 89–100
[2024-10-29] MEDS: LIDOCAINE 2%HCL (LOCAL ANESTH.) INJ 10ml MDV ONE (07:32)
[2024-10-29] MEDS: fentaNYL CITRATE 100 MCG/2 ML VL IV ONE (07:32)
[2024-10-29] MEDS: IOHEXOL 300 MG/ML 100ML BOTTLE IJ ONE (07:32)
[2024-10-29] MEDS: MIDAZOLAM HCL 2MG/2ML 2ml VIAL (1mg/ml) IV ONE (07:33)
[2024-10-29 07:59] LABS: Basophils # (auto) 0.1 10 ^3/uL (0-0.2); Eosinophils # (auto) 0.1 10 ^3/uL (0-0.8); Hemoglobin 8.9 g/dL (12.2-16.2); Platelet Count (auto) 662 10^3/uL (140-450)
[2024-10-29 08:01] LABS: Basophils % (auto) 0.8 % (0.0-2.0); Eosinophils % (auto) 1.9 % (0.0-7.0); Hematocrit 27.3 % (36.0-46.0); Lymphocytes # (auto) 1.3 10 ^3/uL (0.4-5.4); Mean Corpuscular Hemoglobin 25.7 pg (28.0-32.0); Mean Corpuscular Hgb Conc. 32.4 g/dL (32.0-36.0); Mean Corpuscular Volume 79.4 fL (80.0-100.0); Monocytes # (auto) 0.5 10 ^3/uL (0-1.3); Monocytes % (auto) 7.7 % (0.0-12.0); Neutrophils # (auto) 4.9 10 ^3/uL (1.6-8.6); Neutrophils % (auto) 70.6 % (37.0-80.0); Red Blood Cells 3.44 10^6/uL (4.0-5.20); Red Cell Distribution Width 16.5 % (11.8-14.3); White Blood Cell 6.9 10^3/uL (4.4-10.8)
[2024-10-29 08:12] LABS: Chloride 100 mmol/L (98-107); Potassium 4.2 mmol/L (3.5-5.1); Sodium 138 mmol/L (136-145)
[2024-10-29 08:13] LABS: Anion Gap 6 (5-15)
[2024-10-29 08:17] LABS: Calcium 8.5 mg/dL (8.7-10.4); Carbon Dioxide 32 mmol/L (20-31)
[2024-10-29 08:18] LABS: BUN/Creatinine Ratio 21.3 (10.0-20.0); Blood Urea Nitrogen 10 mg/dL (9-23); Glucose 227 mg/dL (74-106)
--- NOTE | 2024-10-29 15:29 | DVHPN2 ---
Subjective Reporting positive flatus. Continues to have abdominal pain. Reviewed: Care Plan, Labs, Medications Changes from previous H/P or p: No Changes General: Per HPI Objective Vitals Vital Signs Date Time Temp Pulse Resp B/P (MAP) Pulse Ox O2 Delivery O2 Flow Rate FiO2 10/29/24 14:34 96 19 113/76 10/29/24 13:00 98.4 96 98.4 10/29/24 11:53 Nasal Cannula 4.0 10/29/24 11:53 N/A Intake/Output Intake and Output 10/29/24 07:00 Intake Total 1490 ml Output Total 2820 ml Balance -1330 ml Intake Oral 1040 ml IV Total 450 ml Output Urine Total 2800 ml Gastric Drainage Total 5 ml Other 15 ml General Appearance: Alert, Oriented X3, Cooperative, moderate distress, Other (Generalized weakness) HEENT: Atraumatic, PERRLA Lungs: Clear to auscultation, Normal air movement Cardiovascular: Normal S1, Normal S2 Abdomen: Normal bowel sounds, Soft, No hepatospenomegaly, Other (CIRILO with serous fluid. Urosil drain bags with serosanguineous floor) Genitourinary: No Apparent Abnormalities Musculoskeletal: Normal sensory function, Normal motor function, Weak motor strength RLE, Weak motor strength LLE Neuro: Normal speech, Cranial nerves 3-12 NL Skin: Dry, Intact, Warm Psych/Mental Status: Mental status NL, Mood NL Medications Current Medications Medications Dose Ordered Sig/Rl Route Start Time Stop Time Status Last Admin Dose Admin Nitroglycerin 0.4 mg Q5MINP PRN SL 10/14/24 21:00 Morphine Sulfate 2 mg Q30M PRN IV 10/14/24 21:00 10/27/24 10:15 2 MG Acetaminophen 500 mg Q8HP PRN PO 10/15/24 15:45 10/24/24 16:17 500 MG Ondansetron HCl 4 mg Q6HP PRN IV 10/15/24 15:45 10/26/24 10:52 4 MG Pantoprazole Sodium 40 mg DAILY IV 10/18/24 10:00 10/29/24 09:42 40 MG Diagnostic Test (Pha) 1 strip ACHS 10/17/24 17:00 10/29/24 11:50 1 STRIP Insulin Human Regular ACHS SC 10/17/24 17:00 10/29/24 11:58 6 UNITS Dextrose 50 ml UD PRN IV 10/17/24 14:30 10/19/24 05:40 50 ML Oxycodone/ Acetaminophen 1 tab Q4HP PRN PO 10/20/24 14:45 10/29/24 08:41 1 TAB Docusate Sodium 100 mg BID PO 10/21/24 22:00 10/29/24 09:42 100 MG Albuterol 2.5 mg Q6HWA NEB 10/22/24 18:00 10/29/24 11:53 2.5 MG Ipratropium [place] 0.5 mg Q6HWA NEB 10/22/24 18:00 10/29/24 11:53 0.5 MG Insulin Glargine 15 units HS SC 10/23/24 22:00 10/28/24 21:07 15 UNITS Morphine Sulfate 2 mg Q3HPRN PRN IV 10/24/24 16:30 10/29/24 14:34 2 MG Metronidazole 100 ml @ 100 mls/hr Q8HR IV 10/25/24 14:00 10/29/24 14:33 100 MLS/HR Meropenem 50 ml @ 17 mls/hr Q8H IV 10/25/24 10:00 10/29/24 09:42 17 MLS/HR Laboratory Results Laboratory Tests 10/29/24 06:59 Chemistry Test 10/29/24 06:59 Calcium Level 8.5 mg/dL (8.7-10.4) L Urinalysis Test 10/14/24 20:15 Urine Color Yellow (Yellow) Urine Clarity Turbid (Clear) H Urine pH 5.0 (5.0-9.0) Urine Specific [place] 1.023 (1.001-1.035) Urine Protein Trace (Negative) H Urine Ketones 1+ (Negative) H Urine Blood Negative /uL (Negative) Urine Nitrite Negative (Negative) Urine Bilirubin Negative (Negative) Urine Urobilinogen 2 mg/dL (Negative) H Urine Leukocyte Esterase 3+ /uL (Negative) Urine RBC 8 /hpf (0 - 4) Urine Microscopic WBC 50 /HPF (0-5) H Urine Squamous Epithelial Cells Few /hpf (<5) Urine Bacteria None seen /hpf (None Seen) Urine Hyaline Casts Many /lpf (0 - 2) Urine Mucus Few (None Seen) Urine Glucose 4+ mg/dL (Normal) H Microbiology Microbiology Date/Time Source Procedure Growth Status 10/25/24 15:10 Aspirate Gram Stain - Final Resulted 10/25/24 15:10 Aspirate Body Fluid Culture - Preliminary Resulted 10/16/24 12:55 Abdomen Gram Stain - Final Complete 10/16/24 12:55 Abdomen Anaerobic Culture - Final Complete 10/16/24 12:55 Aerobic Culture - Final Streptococcus Group B Complete 10/14/24 20:15 Voided Urine Urine Culture - Final Complete 10/14/24 16:37 Blood Blood Culture - Final Staphylococcus epidermidis Complete Labs and/or images reviewed: Labs reviewed by me, Image(s) reviewed by me Assessment/Plan Assessment/Plan Impression: -diabetic ketoacidosis -severe sepsis -? Pelvic inflammatory disease -rule out appendicitis -complicated cystitis -diabetes mellitus with noncompliance -acute kidney injury, vasomotor nephropathy -acute hypoxic respiratory failure Plan: -events: Clinically patient was states she feels better. Drains with minimal output. White blood cell count normal. We will entertain repeat CT scan tomorrow. -continue diuresis -continue bronchodilators with EzPAP -change antibiotic therapy to meropenem and Flagyl and given recurrent abscess -continue Lantus and regular insulin sliding scale -stool softener, laxative -PPI -pain management achieved with Percocet -ambulate -repeat labs in a.m. Total time spent with patient discussing and formulating plan of care: 35 minutes. This medical document was created using an electronic medical record system with [employer] dictation system. Although this document has been carefully reviewed, there may still be some phonetic and typographical errors. These areas are purely typographical due to imperfections of the software programs, and do not reflect any compromise in the patient's medical care. Plan discussed with: Patient, Other (RN) Date of Service: Oct 29, 2024 Billing Provider: GARY LIM NP Common Visit Codes: [id number] INP/OBS CARE(HIGH) GARY LIM NP Oct 29, 2024 15:29
[2024-10-30] VITALS (15 sets, daily range): BP systolic 114–137; BP diastolic 72–86; PULSE 81–95; RESP 18; TEMP 97.8–98.4; O2SAT 92–99
--- NOTE | 2024-10-30 10:08 | DVHOP ---
DATE OF SURGERY: 10/16/2024 INTRAOPERATIVE CONSULTATION AND OPERATIVE PROCEDURE I was requested by Dr. Lee to assist him at surgery and perform appendectomy if needed. Indeed, the findings during the operation indicated inflammation of the right adnexa which contained purulent fluid as well as the adherence of the appendix to this mass. The appendix was mobilized and traced to the confluence with the cecum at the base. The appendix was crossclamped and divided at the confluence with the cecum. The appendix was then removed from the field and submitted for histopathologic examination. Subsequently, the remainder of the operation was concluded by Dr. Lee and the remainder of the operative procedure will be dictated by him separately. MD DIANA Leblanc/DAVID TID: [id number] RECEIPT: [id number]
--- NOTE | 2024-10-30 10:50 | DVH ---
US CHEST ULTRASOUND, HISTORY: FLUID CHECK COMPARISON(S): None TECHNICAL DATA: Transverse and longitudinal images are obtained of the chest. FINDING: IMPRESSION(S): Trace right effusion, none on the left. Not enough fluid seen for a therapeutic thoracentesis.
--- NOTE | 2024-10-30 16:11 | DVHPN2 ---
Subjective Patient denies any new symptoms. Reviewed: Care Plan, Labs, Medications Changes from previous H/P or p: No Changes General: Per HPI Objective Vitals Vital Signs Date Time Temp Pulse Resp B/P (MAP) Pulse Ox O2 Delivery O2 Flow Rate FiO2 10/30/24 13:15 97.9 83 18 123/78 (93) 99 97.9 10/30/24 11:54 Nasal Cannula 3.0 10/30/24 11:54 32 Intake/Output Intake and Output 10/30/24 07:00 Intake Total 2400 ml Output Total 3 ml Balance 2397 ml Intake Oral 2000 ml IV Total 400 ml Output Urine Total 3 ml # Voids 4 # Bowel Movements 1 General Appearance: Alert, Oriented X3, Cooperative, mild distress HEENT: Atraumatic, PERRLA Lungs: Clear to auscultation, Normal air movement Cardiovascular: Normal S1, Normal S2 Abdomen: Normal bowel sounds, Soft, No hepatospenomegaly, Other (Dressing D&I) Genitourinary: No Apparent Abnormalities Musculoskeletal: Normal sensory function, Normal motor function, Weak motor strength RLE, Weak motor strength LLE Neuro: Normal speech, Cranial nerves 3-12 NL Skin: Dry, Intact, Warm Psych/Mental Status: Mental status NL, Mood NL Medications Current Medications Medications Dose Ordered Sig/Rl Route Start Time Stop Time Status Last Admin Dose Admin Nitroglycerin 0.4 mg Q5MINP PRN SL 10/14/24 21:00 Morphine Sulfate 2 mg Q30M PRN IV 10/14/24 21:00 10/30/24 09:50 2 MG Acetaminophen 500 mg Q8HP PRN PO 10/15/24 15:45 10/24/24 16:17 500 MG Ondansetron HCl 4 mg Q6HP PRN IV 10/15/24 15:45 10/29/24 16:07 4 MG Pantoprazole Sodium 40 mg DAILY IV 10/18/24 10:00 10/30/24 09:50 40 MG Diagnostic Test (Pha) 1 strip ACHS 10/17/24 17:00 10/30/24 11:56 1 STRIP Insulin Human Regular ACHS SC 10/17/24 17:00 10/30/24 12:05 6 UNITS Dextrose 50 ml UD PRN IV 10/17/24 14:30 10/19/24 05:40 50 ML Oxycodone/ Acetaminophen 1 tab Q4HP PRN PO 10/20/24 14:45 10/30/24 14:22 1 TAB Docusate Sodium 100 mg BID PO 10/21/24 22:00 10/30/24 09:48 100 MG Albuterol 2.5 mg Q6HWA NEB 10/22/24 18:00 10/30/24 11:48 2.5 MG Ipratropium [place] 0.5 mg Q6HWA NEB 10/22/24 18:00 10/30/24 11:48 0.5 MG Morphine Sulfate 2 mg Q3HPRN PRN IV 10/24/24 16:30 10/30/24 03:57 2 MG Meropenem 50 ml @ 17 mls/hr Q8H IV 10/25/24 10:00 10/30/24 09:50 17 MLS/HR Insulin Glargine 20 units HS SC 10/30/24 22:00 Laboratory Results Laboratory Tests 10/29/24 06:59 Urinalysis Test 10/14/24 20:15 Urine Color Yellow (Yellow) Urine Clarity Turbid (Clear) H Urine pH 5.0 (5.0-9.0) Urine Specific [place] 1.023 (1.001-1.035) Urine Protein Trace (Negative) H Urine Ketones 1+ (Negative) H Urine Blood Negative /uL (Negative) Urine Nitrite Negative (Negative) Urine Bilirubin Negative (Negative) Urine Urobilinogen 2 mg/dL (Negative) H Urine Leukocyte Esterase 3+ /uL (Negative) Urine RBC 8 /hpf (0 - 4) Urine Microscopic WBC 50 /HPF (0-5) H Urine Squamous Epithelial Cells Few /hpf (<5) Urine Bacteria None seen /hpf (None Seen) Urine Hyaline Casts Many /lpf (0 - 2) Urine Mucus Few (None Seen) Urine Glucose 4+ mg/dL (Normal) H Microbiology Microbiology Date/Time Source Procedure Growth Status 10/25/24 15:10 Aspirate Gram Stain - Final Resulted 10/25/24 15:10 Aspirate Body Fluid Culture - Preliminary Resulted 10/16/24 12:55 Abdomen Gram Stain - Final Complete 10/16/24 12:55 Abdomen Anaerobic Culture - Final Complete 10/16/24 12:55 Aerobic Culture - Final Streptococcus Group B Complete 10/14/24 20:15 Voided Urine Urine Culture - Final Complete 10/14/24 16:37 Blood Blood Culture - Final Staphylococcus epidermidis Complete Labs and/or images reviewed: Labs reviewed by me, Image(s) reviewed by me Assessment/Plan Assessment/Plan Impression: -diabetic ketoacidosis -severe sepsis -? Pelvic inflammatory disease -rule out appendicitis -complicated cystitis -diabetes mellitus with noncompliance -acute kidney injury, vasomotor nephropathy -acute hypoxic respiratory failure Plan: -events: Drains with minimal output. We will repeat CT scan of abdomen and pelvis tomorrow. Plan to converse with both IR as well as General surgery regarding removing of IR and CIRILO drains. Noted O2 saturation of 92% on room air. Blood sugars have been somewhat uncontrolled. -continue diuresis -continue bronchodilators with EzPAP -change antibiotic therapy to meropenem and Flagyl and given recurrent abscess -increase Lantus to 25 units q.h.s.. Continue regular insulin sliding scale. -continue bowel regimen -PPI -pain management achieved with Percocet -ambulate -repeat labs in a.m. Total time spent with patient discussing and formulating plan of care: 35 minutes. This medical document was created using an electronic medical record system with [employer] dictation system. Although this document has been carefully reviewed, there may still be some phonetic and typographical errors. These areas are purely typographical due to imperfections of the software programs, and do not reflect any compromise in the patient's medical care. Plan discussed with: Patient, Other (RN) My Orders Orders - GARY LIM NP Procedure Category Date Status Time Chest Ultrasound US 10/30/24 Resulted 09:05 Insulin Lantus PHA 10/30/24 In Process (Glargine) (Lantus) 22:00 Comprehensive LAB 10/31/24 Verified Metabolic Panel 04:00 Complete Blood Count LAB 10/31/24 Verified 04:00 Date of Service: Oct 30, 2024 Billing Provider: GARY LIM NP Common Visit Codes: [id number] INP/OBS CARE(HIGH) GARY LIM NP Oct 30, 2024 16:11
[2024-10-30] MEDS: INSULIN LANTUS (GLARGINE) 1 /0.01ml (100units/ml) SC SCH (22:00)
[2024-10-31] VITALS (15 sets, daily range): BP systolic 115–126; BP diastolic 67–83; PULSE 70–98; RESP 16–18; TEMP 97.8–98.7; O2SAT 92–100
[2024-10-31 07:14] LABS: Eosinophils # (auto) 0.2 10 ^3/uL (0-0.8); Eosinophils % (auto) 2.4 % (0.0-7.0); Lymphocytes # (auto) 1.4 10 ^3/uL (0.4-5.4); Monocytes # (auto) 0.6 10 ^3/uL (0-1.3); Neutrophils # (auto) 4.4 10 ^3/uL (1.6-8.6); Neutrophils % (auto) 67.3 % (37.0-80.0); Nucleated Red Blood Cells % 0.1 %
[2024-10-31 07:17] LABS: Basophils # (auto) 0 10 ^3/uL (0-0.2); Basophils % (auto) 0.6 % (0.0-2.0); Hematocrit 29.6 % (36.0-46.0); Hemoglobin 9.4 g/dL (12.2-16.2); Lymphocytes % (auto) 21.1 % (10.0-50.0); Mean Corpuscular Hemoglobin 25.3 pg (28.0-32.0); Mean Corpuscular Hgb Conc. 31.8 g/dL (32.0-36.0); Mean Corpuscular Volume 79.5 fL (80.0-100.0); Monocytes % (auto) 8.6 % (0.0-12.0); Red Blood Cells 3.73 10^6/uL (4.0-5.20); Red Cell Distribution Width 16.4 % (11.8-14.3); White Blood Cell 6.5 10^3/uL (4.4-10.8)
[2024-10-31 07:27] LABS: Platelet Count (auto) 603 10^3/uL (140-450)
[2024-10-31 07:29] LABS: Alanine Aminotransferase 15 U/L (7-40); Alkaline Phosphatase 76 U/L (46-116); Anion Gap 8 (5-15); Calcium 8.8 mg/dL (8.7-10.4); Chloride 99 mmol/L (98-107); Potassium 3.8 mmol/L (3.5-5.1); Sodium 138 mmol/L (136-145); Total Protein 7.4 g/dL (5.7-8.2)
[2024-10-31 07:30] LABS: Aspartate Aminotransferase 25 U/L (13-40)
[2024-10-31 07:37] LABS: Bilirubin, Total 0.2 mg/dL (0.2-1.0); Carbon Dioxide 31 mmol/L (20-31); Glucose 200 mg/dL (74-106)
[2024-10-31 07:56] LABS: BUN/Creatinine Ratio 18.4 (10.0-20.0)
[2024-10-31 08:04] LABS: Blood Urea Nitrogen 9 mg/dL (9-23)
--- NOTE | 2024-10-31 13:10 | DVH ---
Exam: CT CT AB PEL WO CON-NO ORAL OR IV History: assess abdominal abscess Comparison Study: CT CT AB PEL WO CON-NO ORAL OR IV on DOS: 10/14/24 Technique: Multidetector spiral CT of the abdomen was performed from lung bases to pubic symphysis. I maging was performed without IV contrast. Axial, coronal and sagittal multiplanar reformats were obta ined from the axial data set by the technologist. Radiation Dose : 1. Abdomen/Pelvis: CTDIvol 8.92 mGy, DLP 503.73 mGy*cm. Findings: Evaluation of solid organs is limited due to lack of intravenous contrast use. Lung Bases: Small bilateral pleural effusions, [id number]-left. Bilateral lower lobe atelecta sis. Coronary artery calcifications. Liver: The liver is normal in size. No focal lesions. Gallbladder and Biliary Tree: Unremarkable Spleen: Unremarkable Pancreas: The pancreas is grossly normal in appearance. Adrenal Glands: Unremarkable Kidneys: Kidneys are grossly normal without calculi or hydronephrosis. Bladder: Grossly unremarkable for degree of distention. Bowel: The stomach is grossly normal in appearance. Large volume colonic stool. The appendix is not v isualized; however, no secondary findings of acute appendicitis identified. Ascites: Absent Lymphadenopathy: No mesenteric, retroperitoneal or periportal lymphadenopathy. Abdominal Wall and Mesentery: Surgical drain along the left pericolic gutter extending into the pelvi s. Pigtail drainage catheter in satisfactory position in the right lower quadrant adjacent to the diomede sarah. Surgical drain is present in the right pericolic gutter. Pigtail drainage catheter is present in the posterior right perihepatic space. Vasculature: The visualized abdominal aorta is normal in size and caliber. Evaluation of abdominal a nd pelvic vessels is limited due to lack of intravenous contrast. Pelvic Organs: Unremarkable Musculoskeletal: No aggressive focal bony lesions, acute fractures or dislocation. IMPRESSION: Satisfactory position of surgical drains. No residual abscess is present. Large volume colonic stool. Small bilateral pleural effusions, [id number]-left. Radiation optimization: All CT scans at this facility use at least one of these dose optimization james hniques: automated exposure control mA and/or kV adjustment per patient size (includes targeted exam s where dose is matched to clinical indication) or iterative reconstruction.
[2024-10-31] MEDS: BISACODYL 10 MG RECT SUPP PR ONE (14:15)
--- NOTE | 2024-10-31 14:59 | DVHPN2 ---
Subjective Patient denies any new symptoms. Reviewed: Care Plan, Labs, Medications Changes from previous H/P or p: No Changes General: Per HPI Objective Vitals Vital Signs Date Time Temp Pulse Resp B/P (MAP) Pulse Ox O2 Delivery O2 Flow Rate FiO2 10/31/24 13:00 97.8 92 18 121/78 (92) 99 97.8 10/31/24 11:21 Nasal Cannula 3.0 10/31/24 11:21 32 Intake/Output Intake and Output 10/31/24 07:00 Intake Total 2150 ml Output Total 10 ml Balance 2140 ml Intake Oral 1900 ml IV Total 250 ml Output Urine Total 4 ml Gastric Drainage Total 6 ml # Voids 4 General Appearance: Alert, Oriented X3, Cooperative, mild distress HEENT: Atraumatic, PERRLA Lungs: Clear to auscultation, Normal air movement Cardiovascular: Normal S1, Normal S2 Abdomen: Normal bowel sounds, Soft, No hepatospenomegaly, Other (Dressing D&I) Genitourinary: No Apparent Abnormalities Musculoskeletal: Normal sensory function, Normal motor function, Weak motor strength RLE, Weak motor strength LLE Neuro: Normal speech, Cranial nerves 3-12 NL Skin: Dry, Intact, Warm Psych/Mental Status: Mental status NL, Mood NL Medications Current Medications Medications Dose Ordered Sig/Rl Route Start Time Stop Time Status Last Admin Dose Admin Nitroglycerin 0.4 mg Q5MINP PRN SL 10/14/24 21:00 Morphine Sulfate 2 mg Q30M PRN IV 10/14/24 21:00 10/30/24 16:47 2 MG Acetaminophen 500 mg Q8HP PRN PO 10/15/24 15:45 10/24/24 16:17 500 MG Ondansetron HCl 4 mg Q6HP PRN IV 10/15/24 15:45 10/29/24 16:07 4 MG Pantoprazole Sodium 40 mg DAILY IV 10/18/24 10:00 10/31/24 11:21 40 MG Diagnostic Test (Pha) 1 strip ACHS 10/17/24 17:00 10/31/24 11:30 1 STRIP Insulin Human Regular ACHS SC 10/17/24 17:00 10/31/24 12:14 4 UNITS Dextrose 50 ml UD PRN IV 10/17/24 14:30 10/19/24 05:40 50 ML Oxycodone/ Acetaminophen 1 tab Q4HP PRN PO 10/20/24 14:45 10/31/24 11:20 1 TAB Docusate Sodium 100 mg BID PO 10/21/24 22:00 10/31/24 11:19 100 MG Albuterol 2.5 mg Q6HWA NEB 10/22/24 18:00 10/31/24 11:21 2.5 MG Ipratropium [place] 0.5 mg Q6HWA NEB 10/22/24 18:00 10/31/24 11:21 0.5 MG Morphine Sulfate 2 mg Q3HPRN PRN IV 10/24/24 16:30 10/31/24 09:45 2 MG Meropenem 50 ml @ 17 mls/hr Q8H IV 10/25/24 10:00 10/31/24 11:22 17 MLS/HR Insulin Glargine 20 units HS SC 10/30/24 22:00 10/30/24 22:00 20 UNITS Laboratory Results Laboratory Tests 10/31/24 05:59 Chemistry Test 10/31/24 05:59 Albumin 3.0 g/dL (3.2-4.8) L Calcium Level 8.8 mg/dL (8.7-10.4) Total Protein 7.4 g/dL (5.7-8.2) LFT Test 10/31/24 05:59 Alanine Aminotransferase (ALT) 15 U/L (7-40) Alkaline Phosphatase 76 U/L (46-116) Aspartate Amino Transferase (AST) 25 U/L (13-40) Total Bilirubin 0.2 mg/dL (0.2-1.0) Urinalysis Test 10/14/24 20:15 Urine Color Yellow (Yellow) Urine Clarity Turbid (Clear) H Urine pH 5.0 (5.0-9.0) Urine Specific [place] 1.023 (1.001-1.035) Urine Protein Trace (Negative) H Urine Ketones 1+ (Negative) H Urine Blood Negative /uL (Negative) Urine Nitrite Negative (Negative) Urine Bilirubin Negative (Negative) Urine Urobilinogen 2 mg/dL (Negative) H Urine Leukocyte Esterase 3+ /uL (Negative) Urine RBC 8 /hpf (0 - 4) Urine Microscopic WBC 50 /HPF (0-5) H Urine Squamous Epithelial Cells Few /hpf (<5) Urine Bacteria None seen /hpf (None Seen) Urine Hyaline Casts Many /lpf (0 - 2) Urine Mucus Few (None Seen) Urine Glucose 4+ mg/dL (Normal) H Microbiology Microbiology Date/Time Source Procedure Growth Status 10/25/24 15:10 Aspirate Gram Stain - Final Complete 10/25/24 15:10 Aspirate Body Fluid Culture - Final Complete 10/16/24 12:55 Abdomen Gram Stain - Final Complete 10/16/24 12:55 Abdomen Anaerobic Culture - Final Complete 10/16/24 12:55 Aerobic Culture - Final Streptococcus Group B Complete 10/14/24 20:15 Voided Urine Urine Culture - Final Complete 10/14/24 16:37 Blood Blood Culture - Final Staphylococcus epidermidis Complete Labs and/or images reviewed: Labs reviewed by me, Image(s) reviewed by me Assessment/Plan Assessment/Plan Impression: -diabetic ketoacidosis -severe sepsis -? Pelvic inflammatory disease -rule out appendicitis -complicated cystitis -diabetes mellitus with noncompliance -acute kidney injury, vasomotor nephropathy -acute hypoxic respiratory failure -small bilateral pleural effusions Plan: -events: Drains with minimal output. CT scan was performed of the abdomen and pelvis with resolution of abscess. IR consultation placed for possible removal of drains. Discussed with the patient also findings of constipation. -continue diuresis -continue bronchodilators with EzPAP -change antibiotic therapy to meropenem and Flagyl and given recurrent abscess -increase Lantus to 25 units q.h.s.. Continue regular insulin sliding scale. -continue bowel regimen: Continue Colace, Dulcolax suppository -PPI -pain management achieved with Percocet -ambulate -repeat labs in a.m. Total time spent with patient discussing and formulating plan of care: 35 minutes. This medical document was created using an electronic medical record system with [employer] dictation system. Although this document has been carefully reviewed, there may still be some phonetic and typographical errors. These areas are purely typographical due to imperfections of the software programs, and do not reflect any compromise in the patient's medical care. Plan discussed with: Patient, Other (RN) My Orders Orders - GARY LIM [employer] Procedure Category Date Status Time Ct Ab Pel Wo Con-No CT 10/31/24 Resulted Oral Or Iv 11:16 * Radiologist Consult CONS 10/31/24 Transmitted 14:04 Date of Service: Oct 31, 2024 Billing Provider: GARY LIM NP Common Visit Codes: [id number] INP/OBS CARE(HIGH) GARY LIM NP Oct 31, 2024 14:59
[2024-11-01] VITALS (15 sets, daily range): BP systolic 111–133; BP diastolic 69–83; PULSE 80–99; RESP 16–19; TEMP 97.6–98.3; O2SAT 93–98
--- NOTE | 2024-11-01 09:15 | DVHPN2 ---
Subjective Patient denies any new symptoms. Reviewed: Care Plan, Labs, Medications Changes from previous H/P or p: No Changes General: Per HPI Objective Vitals Vital Signs Date Time Temp Pulse Resp B/P (MAP) Pulse Ox O2 Delivery O2 Flow Rate FiO2 11/01/24 08:05 98.3 89 17 127/82 (97) 97 98.3 11/01/24 06:26 Room Air 0.0 11/01/24 06:26 21 Intake/Output Intake and Output 11/01/24 07:00 Intake Total 2270 ml Balance 2270 ml Intake Oral 2220 ml IV Total 50 ml # Voids 7 # Bowel Movements 2 General Appearance: Alert, Oriented X3, Cooperative, mild distress HEENT: Atraumatic, PERRLA Lungs: Clear to auscultation, Normal air movement Cardiovascular: Normal S1, Normal S2 Abdomen: Normal bowel sounds, Soft, No hepatospenomegaly, Other (Dressing D&I) Genitourinary: No Apparent Abnormalities Musculoskeletal: Normal sensory function, Normal motor function, Weak motor strength RLE, Weak motor strength LLE Neuro: Normal speech, Cranial nerves 3-12 NL Skin: Dry, Intact, Warm Psych/Mental Status: Mental status NL, Mood NL Medications Current Medications Medications Dose Ordered Sig/Rl Route Start Time Stop Time Status Last Admin Dose Admin Nitroglycerin 0.4 mg Q5MINP PRN SL 10/14/24 21:00 Morphine Sulfate 2 mg Q30M PRN IV 10/14/24 21:00 11/01/24 00:33 2 MG Acetaminophen 500 mg Q8HP PRN PO 10/15/24 15:45 10/24/24 16:17 500 MG Ondansetron HCl 4 mg Q6HP PRN IV 10/15/24 15:45 10/29/24 16:07 4 MG Diagnostic Test (Pha) 1 strip ACHS 10/17/24 17:00 11/01/24 06:12 1 STRIP Insulin Human Regular ACHS SC 10/17/24 17:00 11/01/24 06:13 6 UNITS Dextrose 50 ml UD PRN IV 10/17/24 14:30 10/19/24 05:40 50 ML Oxycodone/ Acetaminophen 1 tab Q4HP PRN PO 10/20/24 14:45 11/01/24 08:16 1 TAB Docusate Sodium 100 mg BID PO 10/21/24 22:00 10/31/24 21:14 100 MG Albuterol 2.5 mg Q6HWA NEB 10/22/24 18:00 11/01/24 06:26 2.5 MG Ipratropium [place] 0.5 mg Q6HWA NEB 10/22/24 18:00 11/01/24 06:26 0.5 MG Insulin Glargine 22 units HS SC 11/01/24 22:00 UNV Morphine Sulfate 2 mg Q6HPRN PRN IV 11/01/24 08:00 UNV Lactulose 30 ml DAILY PO 11/01/24 10:00 UNV Piperacillin Sod/ Tazobactam Sod 100 ml @ 25 mls/hr Q8HR IV 11/01/24 14:00 UNV Pantoprazole Sodium 40 mg DAILY@0600 PO 11/02/24 06:00 UNV Laboratory Results Laboratory Tests 10/31/24 05:59 Urinalysis Test 10/14/24 20:15 Urine Color Yellow (Yellow) Urine Clarity Turbid (Clear) H Urine pH 5.0 (5.0-9.0) Urine Specific [place] 1.023 (1.001-1.035) Urine Protein Trace (Negative) H Urine Ketones 1+ (Negative) H Urine Blood Negative /uL (Negative) Urine Nitrite Negative (Negative) Urine Bilirubin Negative (Negative) Urine Urobilinogen 2 mg/dL (Negative) H Urine Leukocyte Esterase 3+ /uL (Negative) Urine RBC 8 /hpf (0 - 4) Urine Microscopic WBC 50 /HPF (0-5) H Urine Squamous Epithelial Cells Few /hpf (<5) Urine Bacteria None seen /hpf (None Seen) Urine Hyaline Casts Many /lpf (0 - 2) Urine Mucus Few (None Seen) Urine Glucose 4+ mg/dL (Normal) H Microbiology Microbiology Date/Time Source Procedure Growth Status 10/25/24 15:10 Aspirate Gram Stain - Final Complete 10/25/24 15:10 Aspirate Body Fluid Culture - Final Complete 10/16/24 12:55 Abdomen Gram Stain - Final Complete 10/16/24 12:55 Abdomen Anaerobic Culture - Final Complete 10/16/24 12:55 Aerobic Culture - Final Streptococcus Group B Complete 10/14/24 20:15 Voided Urine Urine Culture - Final Complete 10/14/24 16:37 Blood Blood Culture - Final Staphylococcus epidermidis Complete Labs and/or images reviewed: Labs reviewed by me, Image(s) reviewed by me Assessment/Plan Assessment/Plan Impression: -diabetic ketoacidosis -severe sepsis -? Pelvic inflammatory disease -rule out appendicitis -complicated cystitis -diabetes mellitus with noncompliance -acute kidney injury, vasomotor nephropathy -acute hypoxic respiratory failure -small bilateral pleural effusions Plan: -events: Surgical drains removed. CIRILO drains remain. Noted serous fluid. Defer to surgery for removal. Patient currently on O2 supplementation. -continue bronchodilators with EzPAP -cultures reviewed. Change antibiotics to Zosyn -increase Lantus to 25 units q.h.s.. Continue regular insulin sliding scale. -continue bowel regimen: Continue Colace, and lactulose -PPI -pain management: Continue Percocet, change IV morphine to q.6 hours as needed -ambulate -repeat labs in a.m. Total time spent with patient discussing and formulating plan of care: 35 minutes. This medical document was created using an electronic medical record system with [employer] dictation system. Although this document has been carefully reviewed, there may still be some phonetic and typographical errors. These areas are purely typographical due to imperfections of the software programs, and do not reflect any compromise in the patient's medical care. Plan discussed with: Patient, Other (RN) My Orders Orders - GARY LIM NP Procedure Category Date Status Time Ct Ab Pel Wo Con-No CT 10/31/24 Resulted Oral Or Iv 11:16 * Radiologist Consult CONS 10/31/24 Transmitted 14:04 Insulin Lantus PHA 11/01/24 Logged (Glargine) (Lantus) 22:00 Morphine Sulfate PHA 11/01/24 Logged Injection 08:00 Lactulose Oral PHA 11/01/24 Logged 10:00 Piperacillin-Tazob PHA 11/01/24 Logged 3.375gm (Zosyn 3.375g 14:00 Pantoprazole Tablet PHA 11/02/24 Logged (Protonix Tablet) 06:00 Basic Metabolic Panel LAB 11/02/24 Verified 04:00 Complete Blood Count LAB 11/02/24 Verified 04:00 Date of Service: Nov 01, 2024 Billing Provider: GARY LIM NP Common Visit Codes: [id number] INP/OBS CARE(HIGH) GARY LIM NP Nov 01, 2024 09:15
[2024-11-01] MEDS: LACTULOSE 20Gm/30ML SOLN PO SCH (12:32)
[2024-11-01] MEDS: MORPHINE SULFATE INJ 2 MG/ml SYRG IV PRN (12:33)
--- NOTE | 2024-11-01 12:34 | DVHPN2 ---
Subjective Date Seen: Nov 01, 2024 Post op day Post op day: 16 Patient reports: No new complaints, Feels better, Other (Patient is very confused ... Decreased cognition) Nursing reports: No new complaints General: Normal HNT: Normal Cardiovascular: Normal Respiratory: Normal Gastrointestinal: Nausea, Abdominal Pain Genitourinary: Normal Musculoskeletal: Normal Neurological: Normal Objective Vitals Vital Sign Date Time Temp Pulse Resp B/P (MAP) Pulse Ox O2 Delivery O2 Flow Rate FiO2 11/01/24 12:17 98.0 87 16 133/83 (100) 97 98.0 11/01/24 11:34 Room Air* 0 21 Total Intake and Output 10/31/24 10/31/24 11/01/24 15:00 23:00 07:00 Intake Total 50 ml 1500 ml 720 ml Balance 50 ml 1500 ml 720 ml Medications Current Medications Medications Dose Ordered Sig/Rl Route Start Time Stop Time Status Last Admin Dose Admin Nitroglycerin 0.4 mg Q5MINP PRN SL 10/14/24 21:00 Acetaminophen 500 mg Q8HP PRN PO 10/15/24 15:45 10/24/24 16:17 500 MG Ondansetron HCl 4 mg Q6HP PRN IV 10/15/24 15:45 10/29/24 16:07 4 MG Diagnostic Test (Pha) 1 strip ACHS 10/17/24 17:00 11/01/24 06:12 1 STRIP Insulin Human Regular ACHS SC 10/17/24 17:00 11/01/24 06:13 6 UNITS Dextrose 50 ml UD PRN IV 10/17/24 14:30 10/19/24 05:40 50 ML Oxycodone/ Acetaminophen 1 tab Q4HP PRN PO 10/20/24 14:45 11/01/24 08:16 1 TAB Docusate Sodium 100 mg BID PO 10/21/24 22:00 11/01/24 09:23 100 MG Albuterol 2.5 mg Q6HWA NEB 10/22/24 18:00 11/01/24 11:34 2.5 MG Ipratropium [place] 0.5 mg Q6HWA NEB 10/22/24 18:00 11/01/24 11:34 0.5 MG Insulin Glargine 22 units HS SC 11/01/24 22:00 Morphine Sulfate 2 mg Q6HPRN PRN IV 11/01/24 08:00 Lactulose 30 ml DAILY PO 11/01/24 10:00 Piperacillin Sod/ Tazobactam Sod 100 ml @ 25 mls/hr Q8HR IV 11/01/24 14:00 Pantoprazole Sodium 40 mg DAILY@0600 PO 11/02/24 06:00 General: Normal, Well developed, Well nourished, Cachetic Head/Eyes: Normal ENT: Normal Lungs: Normal Cardiovascular: Normal (tachy 115) Abdominal: Normal, Soft, Non tender, Other (Her abdominopelvic exam was tender throughout left and right upper and lower quadrants pelvic exam she has cervical motion tenderness with malodorous discharge from the vagina) Musculoskeletal: Normal Extremities: Normal, No edema Skin: Normal Neurological: Normal Labs and Microbiology Laboratory Tests 10/31/24 05:59 Test 10/31/24 05:59 Range/Units Serum Glucose 200 H 74-106 mg/dL Ass/Plan Labs and/or images reviewed: Labs reviewed by me, Image(s) reviewed by me Problem List 10/17/24FEELS BETTER THAN BEFORE OPERATION, NO FLATUS,IS HUNGRY, ABDOMEN SOFT, APPROPRIATELY TENDER, CHRIS DRAINAGE SEROSANGUINEOUS. WILL DC NGT AND ALLOW ICE CHIPS, NEEDS TO START AMBULATION/ WBC STILL ELEVATED, H/H/STABLE. 10/18/24 afebrile, normotensive, wound clean and well approximated, drainage sero sanguineous, labs ok with leukocytosis decreasing. abdomen soft, appropriately tender , patient claims to have passed flatus, will start po intake, must ambulate 10/20/24 stable, having bowel movements, tolerated po, abdomen appropriately tender, wound clean and well approximated, CHRIS drainage sero sanguineous, Labs OK, reluctant to ambulate, explained significance. advance po 10/22/24 AFEBRILE, NORMOTENSIVE, NORMAL BOWEL ACTIVITY, chris DRAINAGE SEROUS, WOUND CLEAN AND WELL APPROXIMATED, LABS REVIEWED, HAS AMBULATED, ABDOMEN SOFT, NON DISTENDED, APPROPRIATELY TENDER. 10/23/24 normal bowel and bladder function, wound clean and well approximated, CHRIS drainage non purulent, has been ambulating better. tolerating po intake 10/25/24 ct shows multiple "abscesses" in the right abdomen, WBC improved since yesterday, collections in abdomen could be sequestered irrigation fluid ,will ask radiology to aspirate the largest collection, abdomen sopft, non distended, wound clean drains with clear serous fluid. Explained to patient 10/26/24 had aspiration of the largest collection by IR, abdomen non tender, wound clean, will resume po intake, she has a productive cough, will get pulmonary consult r/o pneumonia 10/27/24 Pneumonia most likely cause of her on going septic picture, abdomen B9 Assessment/Plan patient complaint of abdominal pain and nausea from pain abdomen soft , non distended, appropriately tender passing flatus, no BM CHRIS drain serous fluid 10cc Plan: Continue with current diet patient to ambulate continue IV antibiotics 11/01/24 s/p ovarian abscess, appendectomy no new complaint s, labs , nots reviewed 2 drains removed tolerating diet, bowel activity denies nausea or vomiting Plan: remove drains tomorrow patient to ambulate repeat labs am Prognosis: Excellent Plan discussed with patient, Dr. Ramirez Visit Coding Surgery Date of Service if different f: Nov 01, 2024 Billing Provider: RUBEN RAMIREZ MD Surgery Visit Codes: [id number] INP/OBS CARE(HIGH) [facility] Nov 01, 2024 12:34
[2024-11-01] MEDS: PIPERACILLIN-TAZOB 3.375GM 100 ML IV SCH (15:25)
[2024-11-01] MEDS: INSULIN LANTUS (GLARGINE) 1 /0.01ml (100units/ml) SC SCH (21:27)
[2024-11-02] VITALS (14 sets, daily range): BP systolic 111–135; BP diastolic 71–82; PULSE 82–99; RESP 15–20; TEMP 97.7–98.3; O2SAT 93–100
[2024-11-02] MEDS: PANTOPRAZOLE 40 MG TAB PO SCH (04:58)
[2024-11-02 06:51] LABS: Chloride 103 mmol/L (98-107); Potassium 3.9 mmol/L (3.5-5.1); Sodium 138 mmol/L (136-145)
[2024-11-02 06:52] LABS: Anion Gap 6 (5-15); Carbon Dioxide 29 mmol/L (20-31)
[2024-11-02 06:57] LABS: BUN/Creatinine Ratio 21.3 (10.0-20.0); Blood Urea Nitrogen 10 mg/dL (9-23)
[2024-11-02 06:58] LABS: Glucose 207 mg/dL (74-106)
[2024-11-02 06:59] LABS: Basophils # (auto) 0 10 ^3/uL (0-0.2); Eosinophils # (auto) 0.2 10 ^3/uL (0-0.8); Lymphocytes # (auto) 1.8 10 ^3/uL (0.4-5.4); Monocytes # (auto) 0.7 10 ^3/uL (0-1.3); Neutrophils # (auto) 2.6 10 ^3/uL (1.6-8.6)
[2024-11-02 07:02] LABS: Basophils % (auto) 0.7 % (0.0-2.0); Eosinophils % (auto) 4.3 % (0.0-7.0); Hematocrit 29.6 % (36.0-46.0); Hemoglobin 9.5 g/dL (12.2-16.2); Lymphocytes % (auto) 33.9 % (10.0-50.0); Mean Corpuscular Hemoglobin 25.7 pg (28.0-32.0); Mean Corpuscular Hgb Conc. 32.1 g/dL (32.0-36.0); Mean Corpuscular Volume 80.2 fL (80.0-100.0); Monocytes % (auto) 12.8 % (0.0-12.0); Neutrophils % (auto) 48.3 % (37.0-80.0); Nucleated Red Blood Cells % 0.1 %; Red Blood Cells 3.69 10^6/uL (4.0-5.20); Red Cell Distribution Width 16.9 % (11.8-14.3); White Blood Cell 5.4 10^3/uL (4.4-10.8)
[2024-11-02 07:17] LABS: Platelet Count (auto) 469 10^3/uL (140-450)
--- NOTE | 2024-11-02 11:02 | DVHPN2 ---
Subjective Date Seen: Nov 02, 2024 Post op day Post op day: 17 Patient reports: No new complaints, Feels better, Other (Patient is very confused ... Decreased cognition) Nursing reports: No new complaints General: Normal HNT: Normal Cardiovascular: Normal Respiratory: Normal Gastrointestinal: Nausea, Abdominal Pain Genitourinary: Normal Musculoskeletal: Normal Neurological: Normal Objective Vitals Vital Sign Date Time Temp Pulse Resp B/P (MAP) Pulse Ox O2 Delivery O2 Flow Rate FiO2 11/02/24 09:56 96 Room Air* 0 21 11/02/24 09:00 98.1 90 15 116/77 (90) 98.1 Total Intake and Output 11/01/24 11/01/24 11/02/24 15:00 23:00 07:00 Intake Total 725 ml 280 ml Output Total 800 ml Balance -75 ml 280 ml Medications Current Medications Medications Dose Ordered Sig/Rl Route Start Time Stop Time Status Last Admin Dose Admin Nitroglycerin 0.4 mg Q5MINP PRN SL 10/14/24 21:00 Acetaminophen 500 mg Q8HP PRN PO 10/15/24 15:45 10/24/24 16:17 500 MG Ondansetron HCl 4 mg Q6HP PRN IV 10/15/24 15:45 10/29/24 16:07 4 MG Diagnostic Test (Pha) 1 strip ACHS 10/17/24 17:00 11/02/24 05:10 1 STRIP Insulin Human Regular ACHS SC 10/17/24 17:00 11/02/24 05:11 4 UNITS Dextrose 50 ml UD PRN IV 10/17/24 14:30 10/19/24 05:40 50 ML Oxycodone/ Acetaminophen 1 tab Q4HP PRN PO 10/20/24 14:45 11/02/24 06:47 1 TAB Docusate Sodium 100 mg BID PO 10/21/24 22:00 11/02/24 09:29 100 MG Albuterol 2.5 mg Q6HWA NEB 10/22/24 18:00 11/02/24 06:33 2.5 MG Ipratropium [place] 0.5 mg Q6HWA NEB 10/22/24 18:00 11/02/24 06:33 0.5 MG Insulin Glargine 22 units HS SC 11/01/24 22:00 11/01/24 21:27 22 UNITS Morphine Sulfate 2 mg Q6HPRN PRN IV 11/01/24 08:00 11/02/24 05:02 2 MG Lactulose 30 ml DAILY PO 11/01/24 10:00 11/02/24 10:28 30 ML Piperacillin Sod/ Tazobactam Sod 100 ml @ 25 mls/hr Q8HR IV 11/01/24 14:00 11/02/24 04:57 25 MLS/HR Pantoprazole Sodium 40 mg DAILY@0600 PO 11/02/24 06:00 11/02/24 04:58 40 MG General: Normal, Well developed, Well nourished, Cachetic Head/Eyes: Normal ENT: Normal Lungs: Normal Cardiovascular: Normal (tachy 115) Abdominal: Normal, Soft, Non tender, Other (Her abdominopelvic exam was tender throughout left and right upper and lower quadrants pelvic exam she has cervical motion tenderness with malodorous discharge from the vagina) Musculoskeletal: Normal Extremities: Normal, No edema Skin: Normal Neurological: Normal Labs and Microbiology Laboratory Tests 11/02/24 04:30 Test 11/02/24 04:30 Range/Units Serum Glucose 207 H 74-106 mg/dL Ass/Plan Labs and/or images reviewed: Labs reviewed by me, Image(s) reviewed by me Problem List 10/17/24FEELS BETTER THAN BEFORE OPERATION, NO FLATUS,IS HUNGRY, ABDOMEN SOFT, APPROPRIATELY TENDER, CHRIS DRAINAGE SEROSANGUINEOUS. WILL DC NGT AND ALLOW ICE CHIPS, NEEDS TO START AMBULATION/ WBC STILL ELEVATED, H/H/STABLE. 10/18/24 afebrile, normotensive, wound clean and well approximated, drainage sero sanguineous, labs ok with leukocytosis decreasing. abdomen soft, appropriately tender , patient claims to have passed flatus, will start po intake, must ambulate 10/20/24 stable, having bowel movements, tolerated po, abdomen appropriately tender, wound clean and well approximated, CHRIS drainage sero sanguineous, Labs OK, reluctant to ambulate, explained significance. advance po 10/22/24 AFEBRILE, NORMOTENSIVE, NORMAL BOWEL ACTIVITY, chris DRAINAGE SEROUS, WOUND CLEAN AND WELL APPROXIMATED, LABS REVIEWED, HAS AMBULATED, ABDOMEN SOFT, NON DISTENDED, APPROPRIATELY TENDER. 10/23/24 normal bowel and bladder function, wound clean and well approximated, CHRIS drainage non purulent, has been ambulating better. tolerating po intake 10/25/24 ct shows multiple "abscesses" in the right abdomen, WBC improved since yesterday, collections in abdomen could be sequestered irrigation fluid ,will ask radiology to aspirate the largest collection, abdomen sopft, non distended, wound clean drains with clear serous fluid. Explained to patient 10/26/24 had aspiration of the largest collection by IR, abdomen non tender, wound clean, will resume po intake, she has a productive cough, will get pulmonary consult r/o pneumonia 10/27/24 Pneumonia most likely cause of her on going septic picture, abdomen B9 Assessment/Plan patient complaint of abdominal pain and nausea from pain abdomen soft , non distended, appropriately tender passing flatus, no BM CHRIS drain serous fluid 10cc Plan: Continue with current diet patient to ambulate continue IV antibiotics 11/01/24 s/p ovarian abscess, appendectomy no new complaint s, labs , nots reviewed 2 drains removed tolerating diet, bowel activity denies nausea or vomiting Plan: remove drains tomorrow patient to ambulate repeat labs am 11/02/24 s/p ovarian abscess, appendectomy no new complaint CHRIS drains removed x 2 tolerating diet, bowel activity denies nausea or vomiting Plan: per surgery point of view ok to discharge will sign off patient to follow up in surgery clinic in 2 weeks Prognosis: Excellent Plan discussed with patient, Dr. Ramirez Visit Coding Surgery Date of Service if different f: Nov 02, 2024 Billing Provider: RUBEN RAMIREZ MD Surgery Visit Codes: [id number] INP/OBS CARE(HIGH) [facility] Nov 02, 2024 11:02
--- NOTE | 2024-11-02 11:19 | DVHPN2 ---
Subjective The patient is seen and examined at bedside. The patient feel better today. Reviewed: Care Plan, Labs, Medications Changes from previous H/P or p: No Changes General: Per HPI Objective Vitals Vital Signs Date Time Temp Pulse Resp B/P (MAP) Pulse Ox O2 Delivery O2 Flow Rate FiO2 11/02/24 11:15 90 15 116/77 11/02/24 09:56 96 Room Air* 0 21 11/02/24 09:00 98.1 98.1 Intake/Output Intake and Output 11/02/24 07:00 Intake Total 1005 ml Output Total 800 ml Balance 205 ml Intake Oral 930 ml IV Total 75 ml Output Urine Total 800 ml # Voids 2 # Bowel Movements 2 General Appearance: Alert, Oriented X3, Cooperative, mild distress HEENT: Atraumatic, PERRLA Lungs: Clear to auscultation, Normal air movement Cardiovascular: Normal S1, Normal S2 Abdomen: Normal bowel sounds, Soft, No hepatospenomegaly, Other (Dressing D&I) Genitourinary: No Apparent Abnormalities Musculoskeletal: Normal sensory function, Normal motor function, Weak motor strength RLE, Weak motor strength LLE Neuro: Normal speech, Cranial nerves 3-12 NL Skin: Dry, Intact, Warm Psych/Mental Status: Mental status NL, Mood NL Medications Current Medications Medications Dose Ordered Sig/Rl Route Start Time Stop Time Status Last Admin Dose Admin Nitroglycerin 0.4 mg Q5MINP PRN SL 10/14/24 21:00 Acetaminophen 500 mg Q8HP PRN PO 10/15/24 15:45 10/24/24 16:17 500 MG Ondansetron HCl 4 mg Q6HP PRN IV 10/15/24 15:45 10/29/24 16:07 4 MG Diagnostic Test (Pha) 1 strip ACHS 10/17/24 17:00 11/02/24 05:10 1 STRIP Insulin Human Regular ACHS SC 10/17/24 17:00 11/02/24 05:11 4 UNITS Dextrose 50 ml UD PRN IV 10/17/24 14:30 10/19/24 05:40 50 ML Oxycodone/ Acetaminophen 1 tab Q4HP PRN PO 10/20/24 14:45 11/02/24 06:47 1 TAB Docusate Sodium 100 mg BID PO 10/21/24 22:00 11/02/24 09:29 100 MG Albuterol 2.5 mg Q6HWA NEB 10/22/24 18:00 11/02/24 06:33 2.5 MG Ipratropium [place] 0.5 mg Q6HWA NEB 10/22/24 18:00 11/02/24 06:33 0.5 MG Insulin Glargine 22 units HS SC 11/01/24 22:00 11/01/24 21:27 22 UNITS Morphine Sulfate 2 mg Q6HPRN PRN IV 11/01/24 08:00 11/02/24 11:15 2 MG Lactulose 30 ml DAILY PO 11/01/24 10:00 11/02/24 10:28 30 ML Piperacillin Sod/ Tazobactam Sod 100 ml @ 25 mls/hr Q8HR IV 11/01/24 14:00 11/02/24 04:57 25 MLS/HR Pantoprazole Sodium 40 mg DAILY@0600 PO 11/02/24 06:00 11/02/24 04:58 40 MG Laboratory Results Laboratory Tests 11/02/24 04:30 Chemistry Test 11/02/24 04:30 Calcium Level 9.0 mg/dL (8.7-10.4) Urinalysis Test 10/14/24 20:15 Urine Color Yellow (Yellow) Urine Clarity Turbid (Clear) H Urine pH 5.0 (5.0-9.0) Urine Specific [place] 1.023 (1.001-1.035) Urine Protein Trace (Negative) H Urine Ketones 1+ (Negative) H Urine Blood Negative /uL (Negative) Urine Nitrite Negative (Negative) Urine Bilirubin Negative (Negative) Urine Urobilinogen 2 mg/dL (Negative) H Urine Leukocyte Esterase 3+ /uL (Negative) Urine RBC 8 /hpf (0 - 4) Urine Microscopic WBC 50 /HPF (0-5) H Urine Squamous Epithelial Cells Few /hpf (<5) Urine Bacteria None seen /hpf (None Seen) Urine Hyaline Casts Many /lpf (0 - 2) Urine Mucus Few (None Seen) Urine Glucose 4+ mg/dL (Normal) H Microbiology Microbiology Date/Time Source Procedure Growth Status 10/25/24 15:10 Aspirate Gram Stain - Final Complete 10/25/24 15:10 Aspirate Body Fluid Culture - Final Complete 10/16/24 12:55 Abdomen Gram Stain - Final Complete 10/16/24 12:55 Abdomen Anaerobic Culture - Final Complete 10/16/24 12:55 Aerobic Culture - Final Streptococcus Group B Complete 10/14/24 20:15 Voided Urine Urine Culture - Final Complete 10/14/24 16:37 Blood Blood Culture - Final Staphylococcus epidermidis Complete Assessment/Plan Assessment/Plan -severe sepsis -? Pelvic inflammatory disease -rule out appendicitis -complicated cystitis -diabetes mellitus with noncompliance -acute kidney injury, vasomotor nephropathy -acute hypoxic respiratory failure -small bilateral pleural effusions Plan: Continuing current management. Surgical drains removed. CIRILO drains removed today Patient currently on O2 supplementation. -continue bronchodilators with EzPAP -cultures reviewed. Change antibiotics to Zosyn -increase Lantus to 25 units q.h.s.. Continue regular insulin sliding scale. -continue bowel regimen: Continue Colace, and lactulose -PPI -pain management: Continue Percocet, change IV morphine to q.6 hours as needed -ambulate Discharge planning This medical document was created using an electronic medical record system with [employer] computerized dictation system. Although this document has been carefully reviewed, there may still be some phonetic and typographical errors. These areas are purely typographical due to imperfections of the software programs, and do not reflect any compromise in the patient's medical care. Plan discussed with: Patient Date of Service: Nov 02, 2024 Billing Provider: WILTON SNIDER MD Common Visit Codes: [id number] INP/OBS CARE(HIGH) WILTON SNIDER MD Nov 02, 2024 11:19
[2024-11-03] VITALS (15 sets, daily range): BP systolic 110–135; BP diastolic 66–78; PULSE 73–95; RESP 16–20; TEMP 97.9–98.6; O2SAT 90–100
--- NOTE | 2024-11-03 23:06 | DVHPN2 ---
Subjective The patient is seen and examined at bedside. The patient feel better today. Reviewed: Care Plan, Labs, Medications Changes from previous H/P or p: No Changes General: Per HPI Objective Vitals Vital Signs Date Time Temp Pulse Resp B/P (MAP) Pulse Ox O2 Delivery O2 Flow Rate FiO2 11/03/24 20:00 90 18 110/66 97 0.0 21 11/03/24 20:00 Room Air* 11/03/24 16:50 98.6 98.6 Intake/Output Intake and Output 11/03/24 07:00 Intake Total 1695 ml Output Total 650 ml Balance 1045 ml Intake Oral 1595 ml IV Total 100 ml Output Urine Total 650 ml # Voids 4 # Bowel Movements 3 General Appearance: Alert, Oriented X3, Cooperative, mild distress HEENT: Atraumatic, PERRLA Lungs: Clear to auscultation, Normal air movement Cardiovascular: Normal S1, Normal S2 Abdomen: Normal bowel sounds, Soft, No hepatospenomegaly, Other (Dressing D&I) Genitourinary: No Apparent Abnormalities Musculoskeletal: Normal sensory function, Normal motor function, Weak motor strength RLE, Weak motor strength LLE Neuro: Normal speech, Cranial nerves 3-12 NL Skin: Dry, Intact, Warm Psych/Mental Status: Mental status NL, Mood NL Medications Current Medications Medications Dose Ordered Sig/Rl Route Start Time Stop Time Status Last Admin Dose Admin Nitroglycerin 0.4 mg Q5MINP PRN SL 10/14/24 21:00 Acetaminophen 500 mg Q8HP PRN PO 10/15/24 15:45 10/24/24 16:17 500 MG Ondansetron HCl 4 mg Q6HP PRN IV 10/15/24 15:45 11/02/24 17:30 4 MG Diagnostic Test (Pha) 1 strip ACHS 10/17/24 17:00 11/03/24 21:03 1 STRIP Insulin Human Regular ACHS SC 10/17/24 17:00 11/03/24 21:18 4 UNITS Dextrose 50 ml UD PRN IV 10/17/24 14:30 10/19/24 05:40 50 ML Oxycodone/ Acetaminophen 1 tab Q4HP PRN PO 10/20/24 14:45 11/03/24 21:03 1 TAB Docusate Sodium 100 mg BID PO 10/21/24 22:00 11/03/24 21:02 100 MG Albuterol 2.5 mg Q6HWA NEB 10/22/24 18:00 11/03/24 18:44 2.5 MG Ipratropium [place] 0.5 mg Q6HWA NEB 10/22/24 18:00 11/03/24 18:44 0.5 MG Insulin Glargine 22 units HS SC 11/01/24 22:00 11/03/24 21:18 22 UNITS Morphine Sulfate 2 mg Q6HPRN PRN IV 11/01/24 08:00 11/03/24 15:12 2 MG Lactulose 30 ml DAILY PO 11/01/24 10:00 11/03/24 08:52 30 ML Piperacillin Sod/ Tazobactam Sod 100 ml @ 25 mls/hr Q8HR IV 11/01/24 14:00 11/03/24 21:02 25 MLS/HR Pantoprazole Sodium 40 mg DAILY@0600 PO 11/02/24 06:00 11/03/24 04:52 40 MG Laboratory Results Laboratory Tests 11/02/24 04:30 Urinalysis Test 10/14/24 20:15 Urine Color Yellow (Yellow) Urine Clarity Turbid (Clear) H Urine pH 5.0 (5.0-9.0) Urine Specific [place] 1.023 (1.001-1.035) Urine Protein Trace (Negative) H Urine Ketones 1+ (Negative) H Urine Blood Negative /uL (Negative) Urine Nitrite Negative (Negative) Urine Bilirubin Negative (Negative) Urine Urobilinogen 2 mg/dL (Negative) H Urine Leukocyte Esterase 3+ /uL (Negative) Urine RBC 8 /hpf (0 - 4) Urine Microscopic WBC 50 /HPF (0-5) H Urine Squamous Epithelial Cells Few /hpf (<5) Urine Bacteria None seen /hpf (None Seen) Urine Hyaline Casts Many /lpf (0 - 2) Urine Mucus Few (None Seen) Urine Glucose 4+ mg/dL (Normal) H Microbiology Microbiology Date/Time Source Procedure Growth Status 10/25/24 15:10 Aspirate Gram Stain - Final Complete 10/25/24 15:10 Aspirate Body Fluid Culture - Final Complete 10/16/24 12:55 Abdomen Gram Stain - Final Complete 10/16/24 12:55 Abdomen Anaerobic Culture - Final Complete 10/16/24 12:55 Aerobic Culture - Final Streptococcus Group B Complete 10/14/24 20:15 Voided Urine Urine Culture - Final Complete 10/14/24 16:37 Blood Blood Culture - Final Staphylococcus epidermidis Complete Assessment/Plan Assessment/Plan -severe sepsis -? Pelvic inflammatory disease -rule out appendicitis -complicated cystitis -diabetes mellitus with noncompliance -acute kidney injury, vasomotor nephropathy -acute hypoxic respiratory failure -small bilateral pleural effusions Plan: Continuing current management. Surgical drains removed. CIRILO drains removed Patient currently on O2 supplementation. -continue bronchodilators with EzPAP -cultures reviewed. Change antibiotics to Zosyn -increase Lantus to 25 units q.h.s.. Continue regular insulin sliding scale. -continue bowel regimen: Continue Colace, and lactulose -PPI -pain management: Continue Percocet, change IV morphine to q.6 hours as needed -ambulate Discharge planning. Re-consult social work nurse for homeless resources. The patient states she is homeless. This medical document was created using an electronic medical record system with [employer] direct computerized dictation system. Although this document has been carefully reviewed, there may still be some phonetic and typographical errors. These areas are purely typographical due to imperfections of the software programs, and do not reflect any compromise in the patient's medical care. Plan discussed with: Patient Date of Service: Nov 03, 2024 Billing Provider: WILTON SNIDER MD Common Visit Codes: [id number] INP/OBS CARE(HIGH) WILTON SNIDER MD Nov 03, 2024 23:06
[2024-11-04] VITALS (11 sets, daily range): BP systolic 105–129; BP diastolic 65–75; PULSE 75–87; RESP 16–18; TEMP 97.5–98.2; O2SAT 94–100
[2024-11-04] MEDS ORDERED: PERCOT PO (14:01)
[2024-11-04] MEDS ORDERED: INSU1MIS44 XX (14:01)
[2024-11-04] MEDS ORDERED: INSLANTI SC (14:01)
[2024-11-04] MEDS ORDERED: LISI2.5T47 PO (14:01)
[2024-11-04] MEDS ORDERED: INSU-567 XX (14:01)
[2024-11-04] MEDS ORDERED: AUG875T PO (14:01)
[2024-11-04] MEDS ORDERED: OMEP20TA PO (14:01)
--- NOTE | 2024-11-04 14:07 | DVHPN2 ---
Subjective The patient is seen and examined at bedside. The patient feel better today. Reviewed: Care Plan, Labs, Medications General: Per HPI Objective Vitals Vital Signs Date Time Temp Pulse Resp B/P (MAP) Pulse Ox O2 Delivery O2 Flow Rate FiO2 11/04/24 13:47 83 16 103/65 11/04/24 12:49 97.5 95 97.5 11/04/24 11:38 Room Air* 0 21 Intake/Output Intake and Output 11/04/24 07:00 Intake Total 1550 ml Output Total 1720 ml Balance -170 ml Intake Oral 1250 ml IV Total 300 ml Output Urine Total 1720 ml General Appearance: Alert, Oriented X3, Cooperative, mild distress HEENT: Atraumatic, PERRLA Lungs: Clear to auscultation, Normal air movement Cardiovascular: Normal S1, Normal S2 Abdomen: Normal bowel sounds, Soft, No hepatospenomegaly, Other (Dressing D&I) Genitourinary: No Apparent Abnormalities Musculoskeletal: Normal sensory function, Normal motor function, Weak motor strength RLE, Weak motor strength LLE Neuro: Normal speech, Cranial nerves 3-12 NL Skin: Dry, Intact, Warm Psych/Mental Status: Mental status NL, Mood NL Medications Current Medications Medications Dose Ordered Sig/Rl Route Start Time Stop Time Status Last Admin Dose Admin Nitroglycerin 0.4 mg Q5MINP PRN SL 10/14/24 21:00 Acetaminophen 500 mg Q8HP PRN PO 10/15/24 15:45 10/24/24 16:17 500 MG Ondansetron HCl 4 mg Q6HP PRN IV 10/15/24 15:45 11/02/24 17:30 4 MG Diagnostic Test (Pha) 1 strip ACHS 10/17/24 17:00 11/04/24 11:27 1 STRIP Insulin Human Regular ACHS SC 10/17/24 17:00 11/04/24 11:33 6 UNITS Dextrose 50 ml UD PRN IV 10/17/24 14:30 10/19/24 05:40 50 ML Oxycodone/ Acetaminophen 1 tab Q4HP PRN PO 10/20/24 14:45 11/04/24 09:22 1 TAB Docusate Sodium 100 mg BID PO 10/21/24 22:00 11/04/24 09:22 100 MG Albuterol 2.5 mg Q6HWA NEB 10/22/24 18:00 11/04/24 11:38 2.5 MG Ipratropium [place] 0.5 mg Q6HWA NEB 10/22/24 18:00 11/04/24 11:38 0.5 MG Insulin Glargine 22 units HS SC 11/01/24 22:00 11/03/24 21:18 22 UNITS Morphine Sulfate 2 mg Q6HPRN PRN IV 11/01/24 08:00 11/04/24 13:47 2 MG Lactulose 30 ml DAILY PO 11/01/24 10:00 11/04/24 09:22 30 ML Piperacillin Sod/ Tazobactam Sod 100 ml @ 25 mls/hr Q8HR IV 11/01/24 14:00 11/04/24 13:46 25 MLS/HR Pantoprazole Sodium 40 mg DAILY@0600 PO 11/02/24 06:00 11/04/24 05:08 40 MG Laboratory Results Laboratory Tests 11/02/24 04:30 Urinalysis Test 10/14/24 20:15 Urine Color Yellow (Yellow) Urine Clarity Turbid (Clear) H Urine pH 5.0 (5.0-9.0) Urine Specific [place] 1.023 (1.001-1.035) Urine Protein Trace (Negative) H Urine Ketones 1+ (Negative) H Urine Blood Negative /uL (Negative) Urine Nitrite Negative (Negative) Urine Bilirubin Negative (Negative) Urine Urobilinogen 2 mg/dL (Negative) H Urine Leukocyte Esterase 3+ /uL (Negative) Urine RBC 8 /hpf (0 - 4) Urine Microscopic WBC 50 /HPF (0-5) H Urine Squamous Epithelial Cells Few /hpf (<5) Urine Bacteria None seen /hpf (None Seen) Urine Hyaline Casts Many /lpf (0 - 2) Urine Mucus Few (None Seen) Urine Glucose 4+ mg/dL (Normal) H Microbiology Microbiology Date/Time Source Procedure Growth Status 10/25/24 15:10 Aspirate Gram Stain - Final Complete 10/25/24 15:10 Aspirate Body Fluid Culture - Final Complete 10/16/24 12:55 Abdomen Gram Stain - Final Complete 10/16/24 12:55 Abdomen Anaerobic Culture - Final Complete 10/16/24 12:55 Aerobic Culture - Final Streptococcus Group B Complete 10/14/24 20:15 Voided Urine Urine Culture - Final Complete 10/14/24 16:37 Blood Blood Culture - Final Staphylococcus epidermidis Complete Assessment/Plan Assessment/Plan -severe sepsis -? Pelvic inflammatory disease -rule out appendicitis -complicated cystitis -diabetes mellitus with noncompliance -acute kidney injury, vasomotor nephropathy -acute hypoxic respiratory failure -small bilateral pleural effusions Plan: Continuing current management. Surgical drains removed. CIRILO drains removed today Patient currently on O2 supplementation. -continue bronchodilators with EzPAP -cultures reviewed. Change antibiotics to Zosyn -increase Lantus to 25 units q.h.s.. Continue regular insulin sliding scale. -continue bowel regimen: Continue Colace, and lactulose -PPI -pain management: Continue Percocet, change IV morphine to q.6 hours as needed -ambulate Discharge planning This medical document was created using an electronic medical record system with [employer] direct computerized dictation system. Although this document has been carefully reviewed, there may still be some phonetic and typographical errors. These areas are purely typographical due to imperfections of the software programs, and do not reflect any compromise in the patient's medical care. My Orders Orders - WILTON SNIDER MD Procedure Category Date Status Time Discharge DISCHARGE 11/04/24 Transmitted 13:48 * N[employer] Operator CONS 11/04/24 Transmitted Consult WILTON SNIDER MD Nov 04, 2024 14:07
--- NOTE | 2024-11-04 14:07 | DVHDS2 ---
Discharge Summary Date of Admission Oct 14, 2024 at 20:55 Date of Discharge: Nov 04, 2024 Admitting Diagnosis -severe sepsis -? Pelvic inflammatory disease -rule out appendicitis -complicated cystitis -diabetes mellitus with noncompliance -acute kidney injury, vasomotor nephropathy -acute hypoxic respiratory failure -small bilateral pleural effusions Labs/Diagnostic Data: Laboratory Results Test 11/04/24 11:11 11/02/24 04:30 10/31/24 05:59 10/25/24 15:10 POC Glucose 257 mg/dl (70-106) White Blood Count 5.4 10^3/uL (4.4-10.8) Red Blood Count 3.69 10^6/uL (4.0-5.20) Hemoglobin 9.5 g/dL (12.2-16.2) Hematocrit 29.6 % (36.0-46.0) Mean Corpuscular Volume 80.2 fL (80.0-100.0) Mean Corpuscular Hemoglobin 25.7 pg (28.0-32.0) Mean Corpuscular Hemoglobin Concent 32.1 g/dL (32.0-36.0) Red Cell Distribution Width 16.9 % (11.8-14.3) Platelet Count 469 10^3/uL (140-450) Mean Platelet Volume 6.9 fL (6.9-10.8) Neutrophils (%) (Auto) 48.3 % (37.0-80.0) Lymphocytes (%) (Auto) 33.9 % (10.0-50.0) Monocytes (%) (Auto) 12.8 % (0.0-12.0) Eosinophils (%) (Auto) 4.3 % (0.0-7.0) Basophils (%) (Auto) 0.7 % (0.0-2.0) Neutrophils # (Auto) 2.6 10 ^3/uL (1.6-8.6) Lymphocytes # (Auto) 1.8 10 ^3/uL (0.4-5.4) Monocytes # (Auto) 0.7 10 ^3/uL (0-1.3) Eosinophils # (Auto) 0.2 10 ^3/uL (0-0.8) Basophils # (Auto) 0 10 ^3/uL (0-0.2) Nucleated Red Blood Cells 0.1 % Sodium Level 138 mmol/L (136-145) Potassium Level 3.9 mmol/L (3.5-5.1) Chloride Level 103 mmol/L (98-107) Carbon Dioxide Level 29 mmol/L (20-31) Anion Gap 6 (5-15) Blood Urea Nitrogen 10 mg/dL (9-23) Creatinine 0.47 mg/dL (0.550-1.02) Glomerular Filtration Rate Calc 119 mL/min (>90) BUN/Creatinine Ratio 21.3 (10.0-20.0) Serum Glucose 207 mg/dL (74-106) Calcium Level 9.0 mg/dL (8.7-10.4) Total Bilirubin 0.2 mg/dL (0.2-1.0) Aspartate Amino Transferase (AST) 25 U/L (13-40) Alanine Aminotransferase (ALT) 15 U/L (7-40) Alkaline Phosphatase 76 U/L (46-116) Total Protein 7.4 g/dL (5.7-8.2) Albumin 3.0 g/dL (3.2-4.8) Body Fluid Glucose 3 mg/dL (.) Test 10/21/24 05:55 10/19/24 04:54 10/18/24 06:20 10/17/24 12:40 Differential Total Cells Counted 100.0 (100) Neutrophils % (Manual) 86 (37.0-80.0) Band Neutrophils % (Manual) 0 Lymphocytes % (Manual) 9 (10.0-50.0) Monocytes % (Manual) 5 (0-12) Eosinophils % (Manual) 0 (0-7) Basophils % (Manual) 0 (0.0-2.0) Metamyelocytes % (manual) 0 Myelocytes % (Manual) 0 Promyelocytes % (Manual) 0 Blast Cells % (Manual) 0 Reactive Lymphocytes 0 Platelet Estimate Adequate Magnesium Level 1.7 mg/dL (1.6-2.6) Hypochromasia (manual) Marked Microcytosis Marked Ovalocytes Few Phosphorus Level 2.8 mg/dL (2.4-5.1) Vancomycin Level Trough 15.1 ug/mL (5-10) Test 10/16/24 21:15 10/16/24 06:00 10/15/24 04:32 10/15/24 00:27 Treponema pallidum Antibody Non-reactive (Negative) HIV (1&2) Antibody Negative (Negative) Prothrombin Time 11.1 sec (9.3-11.8) Prothrombin Time INR 1.05 (0.9-1.15) Activated Partial Thromboplast Time 30.7 SEC (24.5-34.5) Hepatitis C Antibody Negative (Negative) Hemoglobin A1c 13.5 % A1C (<5.7) Troponin I High Sensitivity < 3 ng/L (</=34) Test 10/14/24 20:15 10/14/24 18:15 10/14/24 16:37 10/14/24 16:31 Urine Color Yellow (Yellow) Urine Clarity Turbid (Clear) Urine pH 5.0 (5.0-9.0) Urine Specific [place] 1.023 (1.001-1.035) Urine Protein Trace (Negative) Urine Ketones 1+ (Negative) Urine Blood Negative /uL (Negative) Urine Nitrite Negative (Negative) Urine Bilirubin Negative (Negative) Urine Urobilinogen 2 mg/dL (Negative) Urine Leukocyte Esterase 3+ /uL (Negative) Urine RBC 8 /hpf (0 - 4) Urine Microscopic WBC 50 /HPF (0-5) Urine Squamous Epithelial Cells Few /hpf (<5) Urine Bacteria None seen /hpf (None Seen) Urine Hyaline Casts Many /lpf (0 - 2) Urine Mucus Few (None Seen) Urine Glucose 4+ mg/dL (Normal) Lactic Acid Level 2.3 mmol/L (0.4-2.0) Lipase 21 U/L (12-53) Beta-Hydroxybutyric Acid 4.131 mmol/L (< 0.4) Beta HCG, Quantitative 2.1 mIU/mL (1.5-4.2) Hepatitis B Surface Antigen Negative (Negative) Blood Gas Specimen Type Arterial Blood Gas Sample Site Right radial Blood Gas Patient Temperature 37.0 Arterial Blood Date Drawn [id number] Arterial Blood pH 7.469 (7.350-7.450) Arterial Blood Partial Pressure CO2 31.2 mmHg (32.0-45.0) Arterial Blood Partial Pressure O2 83.0 mmHg (83.0-108.0) Arterial Blood HCO3 22.1 mmol/L (21.0-28.0) Arterial Blood Oxygen Saturation 96.3 % (94.0-98.0) Arterial Blood Base Excess -0.7 mmol/L (-2.0-3.0) Arterial Blood Oxyhemoglobin 95.3 % (94.0-98.0) Arterial Blood Carboxyhemoglobin 0.5 % (0.5-1.5) Arterial Blood Methemoglobin 0.5 % (0.0-1.5) Navi Test Yes Blood Gas Total Hemoglobin 13.00 g/dL (12.0-16.0) Blood Gas Modality Room air FiO2 % 21.0 Other Laboratory Tests 11/02/24 04:30 Brief Hx & Hospital Course: This is a 44 years old female came to emergency department because severe abdominal pain. The patient is homeless and she has been noncompliant with her diabetes. The diabetes medication was lost. The patient's blood glucose was 500. Patient CT scan abdomen pelvis showed: 1. Ill-defined, large approximately 7 x 6 cm inflammatory mass in the right lower quadrant between the cecum and uterus mass effect on the uterus that may represent appendiceal phlegmon, tubo- ovarian abscess or other etiologies. Evaluation is very limited due to lack of IV contrast. Recommend further evaluation by pelvic ultrasound, right lower quadrant sonogram if possible CT scan of the abdomen and pelvis with IV contrast. No free intraperitoneal air. Extensive inflammatory changes of the mesentery most prominent in the right lower quadrant. Small abdominopelvic ascites.Mild superior bladder wall thickening likely related to the inflammatory changes in the right side of the pelvis. Mild fluid distention of jejunum likely ileus. No evidence of bowel obstruction. Moderate fluid distention of stomach with evidence of gastroesophageal reflux. No signs of aspiration pneumonia at this time. OBGYN see the patient and did a Exploratory laparotomy, evacuation of pelvic abscess, right salpingo-oophorectomy, appendectomy, partial omentectomy with surgeon. Surgeon was also on board. The patient had a long course of hospitalization with the surgical drainage from her abdomen and also CIRILO drain. Subsequently it was discontinuing. Culture was sent and showed staph auricularis and epidermidis and strep group b. and patient on IV antibiotic with Zosyn and Flagyl. The patient on sliding scale insulin and Lantus. Today the patient doing better. Surgeon cleared the patient for discharge. The patient is homeless so I consult social economist for resources for homeless. I will prescribe for the patient the insulin in antibiotic for home. Activity as tolerated. Do not lift or move anything more than 10 lb. Diet per home diet. Recommend low-salt low-cholesterol 2000 ADA calorie diet. Follow up with surgeon and OBGYN per schedule. Follow up with primary care physician 1-2 weeks. Physical exam: HEENT: Normocephalic atraumatic pupils equal react to light and accommodation. Extraocular muscles intact, conjunctiva pink, oropharynx moist, no thrush, no exudate. Lymphatic: No lymphadenopathy Cardiovascular exam: S1, S2 was heard. No murmurs, rubs, gallops Lung: Clear on auscultation bilaterally, no wheeze, rale, rhonchi. GI: Abdominal soft, nondistended, nontenderness, positive bowel sounds. Extremity: No crepitus, cyanosis, edema. Pedal pulses present bilateral. Full range of motion. Skin: Normal turgor, no rash. Psych: Alert, oriented x3. Neurology: No focal deficits, cranial nerve II to XII grossly intact. This medical document was created using an electronic medical record system with [employer] direct computerized dictation system. Although this document has been carefully reviewed, there may still be some phonetic and typographical errors. These areas are purely typographical due to imperfections of the software programs, and do not reflect any compromise in the patient's medical care. Condition at Discharge: Stable Final Diagnosis/Problems List Tuboovarian abcess -severe sepsis -? Pelvic inflammatory disease -rule out appendicitis -complicated cystitis -diabetes mellitus with noncompliance -acute kidney injury, vasomotor nephropathy -acute hypoxic respiratory failure -small bilateral pleural effusions Discharge Disposition: Home Discharge Instruct/Medications Diet: Cardiac 2g Na,low cholest Activity: No Restrictions, As Tolerated Follow Up/Referral: pcp 1-2 weeks surgeon per schedule Medications: see medlist Discharge Statement: "Patient was advised to return to the ER or call 911 if any headaches, dizziness, shortness of breath, chest pain, abdominal pain, bleeding, fevers, or worsening of medical condition. Patient was counseled about treatment plan, medications, possible side effects, patientverbalized understanding. All questions were answered to the best of my ability. This discharge took greater then 30 minutes in planning, reviewing documentation, counseling the patient, and discussing with other team members." ASSESSMENT ASSESSMENT Assessment Tuboovarian abcess Date of Service: Nov 04, 2024 Billing Provider: WILTON SNIDER MD Common Visit Codes: [id number]/OBS DISCH DAY >30min WILTON NSIDER MD Nov 04, 2024 14:07
== END 2024-11-04 16:35 | disposition home or self-care (01) | DRG 710 ==
LOC: EDBD 13:42 → ER 13:42 → OVERFLOW 20:55 → TELE-WESTW 10-16 16:53 → WEST WING 10-24 12:03
PROVIDERS: ADMIT Internal Medicine; ATTEND Internal Medicine
PROC: 0DTJ0ZZ Resection of Appendix, Open Approach (ICD-10-PCS; 2024-10-16)
PROC: 0UB50ZZ Excision of Right Fallopian Tube, Open Approach (ICD-10-PCS; 2024-10-16)
PROC: 0UT00ZZ Resection of Right Ovary, Open Approach (ICD-10-PCS; 2024-10-16)
PROC: 0W9J0ZZ Drainage of Pelvic Cavity, Open Approach (ICD-10-PCS; 2024-10-16)
PROC: 0DBU0ZZ Excision of Omentum, Open Approach (ICD-10-PCS; principal; 2024-10-16 11:35)
PROC: 0W9J30Z Drainage of Pelvic Cavity with Drainage Device, Percutaneous Approach (ICD-10-PCS; 2024-10-25)
PROC: 5A0935A Assistance with Respiratory Ventilation, Less than 24 Consecutive Hours, High Flow/Velocity Cannula (ICD-10-PCS; 2024-10-29)
DX: A41.9 Sepsis, unspecified organism (principal); N17.0 Acute kidney failure with tubular necrosis; J96.01 Acute respiratory failure with hypoxia; K65.9 Peritonitis, unspecified; E11.10 Type 2 diabetes mellitus with ketoacidosis without coma; J90 Pleural effusion, not elsewhere classified; Z99.81 Dependence on supplemental oxygen; R65.20 Severe sepsis without septic shock; N73.9 Female pelvic inflammatory disease, unspecified; N30.90 Cystitis, unspecified without hematuria; F41.9 Anxiety disorder, unspecified; K37 Unspecified appendicitis; N70.93 Salpingitis and oophoritis, unspecified; J98.11 Atelectasis; K21.9 Gastro-esophageal reflux disease without esophagitis; I10 Essential (primary) hypertension; Z59.00 Homelessness unspecified; Z79.4 Long term (current) use of insulin; Z91.199 Patient's noncompliance with other medical treatment and regimen due to unspecified reason; Z98.891 History of uterine scar from previous surgery; Z79.899 Other long term (current) drug therapy; Z83.3 Family history of diabetes mellitus; Z82.49 Family history of ischemic heart disease and other diseases of the circulatory system
CPT/HCPCS: 10005; 36415; 36600; 71045; 71250; 72192; 74018; 74176; 74177; 75989; 76604; 76705; 76856; 77012; 80048; 80053; 80202; 81001; 82010; 82805; 82962; 83036; 83605; 83690; 83735; 84100; 84484; 84702; 85007; 85025; 85027; 85610; 85730; 86703; 86780; 86803; 86850; 86900; 86901; 87040; 87070; 87075; 87077; 87086; 87186; 87205; 87340; 93005; 94640; 97110; 97116; 97163; 97530; 99291; C1729; G0378; J0330; J1100; J1815; J2003; J2185; J2250; J2405; J2470; J2543; J2704; J3490

== ENCOUNTER 2024-11-20 06:55 | Emergency (ER) | payer MEDICAID ==
[~2024-11-20] VITALS: Ht 154.9 cm; Wt 59.0 kg
[~2024-11-20 06:55] MED LIST: AUG875T PO; INSLANTI SC; INSLISPI SC; INSU-567 XX; INSU1MIS44 XX; LISI2.5T47 PO; OMEP20TA PO; PERCOT PO
--- NOTE | 2024-11-20 07:42 | ED.PDOC ---
GI ASSESSMENT HPI Comments 44 year old female presents to the ED via EMS with a chief complaint of abdominal pain onset 1 month. Per EMS, patient has been experiencing abdominal pain with nausea for the past month. Patient had appendectomy and ovarian abscess drainage at [facility] about 1 month ago, was diagnosed with sepsis. Patient was discharged on antibiotics, did not pick them up from pharmacy. Upon EMS arrival patient was tachycardic 103 BPM, BS 178. PMHx DM. Denies vomiting, diarrhea, headache, dizziness, chest pain, shortness of breath, fevers, chills. No other symptoms or modifying factors present at this time. Chief Complaint: Abdominal Pain Time Seen by MD: 07:21 Reviewed Notes: Medications, Allergies Allergies: Coded Allergies: NO KNOWN ALLERGIES (Unverified , 11/20/24) Mode of Arrival: EMS Timing: Months Duration: Since onset Prehospital treatment: 12 Lead EKG Quality: Sharp Vomitus: None Severity: Moderate Recent: Recent Surgery (appendectomy - 1 month ago) Recent Hx of: Abdominal Surgery Pain Location: Diffuse Modifying Factors: Nothing Associated sign and symptoms: Nausea, Abdominal Pain Past Medical History PAST MEDICAL HISTORY: DM Surgical History: Appendectomy Surgical History (Other): ovarian abscess drainage [employer] History: Other (ovarian abscess) Family History Family History: Reviewed,noncontributory to illness, No family hx of Cancer, No family hx of DM, No family hx of Heart emeka, No family hx of HTN, No family hx ofKidney emeka, No family hx of Liver emeka, No family hx of Lung emeka, No family hx of Stroke Social History Smoker: Non-Smoker Alcohol: Denies ETOH Use Drugs: Denies Drug Use Lives In: Homeless Constitutional: denies: chills, diaphoresis, fatigue, fever, malaise, sweats, weakness, others EENTM: denies: blurred vision, double vision, ear bleeding, ear discharge, ear drainage, ear pain, ear ringing, eye pain, eye redness, hearing loss, mouth pain, mouth swelling, nasal discharge, nose bleeding, nose congestion, nose pain, photophobia, tearing, throat pain, throat swelling, voice changes, others Respiratory: denies: cough, hemoptysis, orthopnea, SOB at rest, shortness of breath, SOB with excertion, stridor, wheezing, others Cardiovascular: denies: chest pain, dizzy spells, diaphoresis, Dyspnea on exertion, edema, irregular heart beat, left arm pain, lightheadedness, palpitations, PND, syncope, others Gastrointestinal: reports: abdominal pain; denies: abdomen distended, blood streaked bowels, constipated, diarrhea, dysphagia, difficulty swallowing, hematemesis, melena, nausea, poor appetite, poor fluid intake, rectal bleeding, rectal pain, vomiting, others Genitourinary: denies: abnormal vagina bleeding, burning, dyspareunia, dysuria, flank pain, frequency, hematuria, incontinence, pain, , vagina discharge, urgency, others Neurological: denies: dizziness, fainting, headache, left sided numbness, left sided weakness, numbness, paresthesia, pre-existing deficit, right sided numbness, right sided weakness, seizure, speech problems, tingling, tremors, weakness, others Musculoskeletal: denies: back pain, gout, joint pain, joint swelling, muscle pain, muscle stiffness, neck pain, others Integumetry: denies: bruises, change in color, change in hair/nails, dryness, laceration, lesions, lumps, rash, wounds, others Allergic/Immunocompromised: denies: Difficulty Healing, Frequent Infections, Hives, Itching, others Hematologic/Lymphatic: denies: anemia, blood clots, easy bleeding, easy bruising, swollen glands, others Endocrine: denies: excessive hunger, excessive sweating, excessive thirst, excessive urination, flushing, intolerance to cold, intolerance to heat, unexplained weight gain, unexplained weight loss, others Psychiatric: denies: anxiety, bipolar disorder, depression, hopeless, panic disorder, schizophrenia, sleepless, suicidal, others All Other Systems: Reviewed and Negative Physical Exam General Appearance: No Apparent Distress, Normal HEENT: Normal ENT Inspection, Pharynx Normal, TMs Normal Neck: Full Range of Motion, Non-Tender, Normal, Normal Inspection Respiratory: Chest Non-Tender, Lungs Clear, No Accessory Muscle Use, No Respiratory Distress, Normal Breath Sounds Cardiovascular: No Edema, No JVD, No Murmur, No Gallop, Normal Peripheral Pulses, Regular Rate/Rhythm Breast Exam: Deferred Gastrointestinal: No Organomegaly, Non Tender, No Pulsatile Mass, Normal Bowel Sounds, Soft Genitalia: Deferred Pelvic: Deferred Rectal: Deferred Extremities: No calf tenderness, Normal capillary refill, Normal inspection, Normal range of motion, Non-tender, No pedal edema Musculoskeletal : Apperance: Normal Neurologic: Alert, undercover cop II-XII nml as Tested, No Motor Deficits, Normal Affect, Normal Mood, No Sensory Deficits Cerebellar Function: Normal Reflexes: Normal Skin: Dry, Normal Color, Warm Lymphatic: No Adenopathy Was a procedure done? Was a procedure done?: No GI differential Dx Differential Diagnosis: Dysmenorrhea, Inflammatory BD, Porphyria, Dehydration, Electrolyte Imbalance, Food Poisoning X-Ray, Labs, Meds, VS Vital Signs Date Time Temp Pulse Resp B/P (MAP) Pulse Ox O2 Delivery O2 Flow Rate FiO2 11/20/24 09:30 Room Air* 0 21 11/20/24 09:29 97.8 109 16 124/87 (99) 99 97.8 11/20/24 07:03 97.8 107 15 152/97 (115) 98 97.8 Lab Test 11/20/24 08:06 Range/Units White Blood Count 7.5 4.4-10.8 10^3/uL Red Blood Count 4.73 4.0-5.20 10^6/uL Hemoglobin 11.9 L 12.2-16.2 g/dL Hematocrit 37.4 36.0-46.0 % Mean Corpuscular Volume 79.1 L 80.0-100.0 fL Mean Corpuscular Hemoglobin 25.1 L 28.0-32.0 pg Mean Corpuscular Hemoglobin Concent 31.7 L 32.0-36.0 g/dL Red Cell Distribution Width 16.7 H 11.8-14.3 % Platelet Count 364 140-450 10^3/uL Mean Platelet Volume 7.2 6.9-10.8 fL Neutrophils (%) (Auto) 67.8 37.0-80.0 % Lymphocytes (%) (Auto) 21.4 10.0-50.0 % Monocytes (%) (Auto) 8.2 0.0-12.0 % Eosinophils (%) (Auto) 1.9 0.0-7.0 % Basophils (%) (Auto) 0.7 0.0-2.0 % Neutrophils # (Auto) 5.1 1.6-8.6 10 ^3/uL Lymphocytes # (Auto) 1.6 0.4-5.4 10 ^3/uL Monocytes # (Auto) 0.6 0-1.3 10 ^3/uL Eosinophils # (Auto) 0.1 0-0.8 10 ^3/uL Basophils # (Auto) 0 0-0.2 10 ^3/uL Nucleated Red Blood Cells 0.0 % Sodium Level 139 136-145 mmol/L Potassium Level 3.6 3.5-5.1 mmol/L Chloride Level 104 98-107 mmol/L Carbon Dioxide Level 27 20-31 mmol/L Anion Gap 8 5-15 Blood Urea Nitrogen 5 L 9-23 mg/dL Creatinine 0.60 0.550-1.02 mg/dL Glomerular Filtration Rate Calc 112 >90 mL/min BUN/Creatinine Ratio 8.3 L 10.0-20.0 Serum Glucose 227 H 74-106 mg/dL Calcium Level 9.6 8.7-10.4 mg/dL [place] [id number] Ph: [phone] DIAGNOSTIC IMAGING Diagnostic Imaging Report : [id number] Signed PATIENT: ANNITA GA ACCT: [id number] UNIT: [id number] : 1980 LOC: ER ROOM / BED: / AGE / SEX: 44 / F ADM STATUS: REG ER SERVICE [id number] ORDERING PHYSICIAN: BLAIR OVIEDO MD PROCEDURE(s): ABPLIV - CT AB PEL WITH IV CON ONLY REASON: abdominal pain s/p tuboovarian abscess ORDER NUMBER(s): [id number], ACCESSION NUMBER(s): [id number] Procedure: CT CT AB PEL WITH IV CON ONLY 11/20/2024 10:29 AM Indication: abdominal pain s/p tuboovarian abscess Comparison Study: None Technique: Axial images were obtained and reformatted in coronal and sagittal planes. All CT scans at this medical facility are performed using dose modulation techniques as appropriate to a performed exam including the following: Automated exposure control was utilized; adjustment of the MA and/or KV according to patient size; and use of iterative reconstruction technique. CT Dose: CTDI volume is 5 mGy. Dose-length product is 206 mGy*cm FINDINGS: Lower Chest: Unremarkable. Hepatobiliary: Unremarkable. Spleen: Unremarkable. Pancreas: Unremarkable. Adrenal Glands: Unremarkable. tract: The kidneys are normal in size bilaterally without hydronephrosis or nephrolithiasis. The urinary bladder is unremarkable. GI tract: The stomach is grossly normal in appearance. Nondistended fluid-filled small bowel loops throughout the abdomen with diffuse mural thickening. Mild ascending colon wall thickening and enhancement noted. Surgical clips are seen in the right lower quadrant adjacent to the cecum. The appendix is not identified. Peritoneal thickening and enhancement noted in the lower abdomen. Moderate mesenteric edema in the lower abdomen. Trace fluid in the right lower abdomen. Lymphatics: No mesenteric, retroperitoneal or periportal lymphadenopathy. Vasculature: The abdominal aorta is normal in caliber. Pelvic Organs: Unremarkable Bones/soft tissues: No acute abnormality. Other: None. IMPRESSION: 1. Findings concerning for peritonitis. Peritoneal thickening and enhancement in the lower abdomen noted. Trace fluid in the right paracolic gutter. Moderate mesenteric edema in the lower abdomen is seen. 2. Diffuse small and large bowel wall enhancement suggesting enterocolitis. 3. No evidence of bowel perforation. No pneumoperitoneum. No drainable fluid collection. ATED BY: JANE MCNEIL MD DICTATED DATE/TIME: 11/20/24 1139 SIGNED BY: JANE MCNEIL MD SIGNED DATE/TIME: 11/20/24 1139 CC: Time of 1ST Reevaluation: 07:51 Reevaluation 1ST: Unchanged Patient Education/Counseling: Diagnosis, Treatment, Prognosis Family Education/Counseling: No Family Present Additional Information The following tests were ordered, and results were reviewed by me: CBC, BMP, UA, CT AB PEL W IV CON Additional Information was gathered from interviewing the following independent historians: EMS I reviewed and agreed with the following test results read by other providers: CT AB PEL W IV CON I discussed treatment and results with medical personnel and: Patient Comprehensive systems review obtained and negative except for what is stated in the HPI. Departure 1 Departure Time of Disposition: 13:08 (Patient presented with abdominal pain that was concerning for possible appendicits, gastritis, cholecystitis, colitis, gastroenteritis, sbo, or orther possible surgical emergency. Data: 1. I ordered and reviewed the result of at least 3 labs including a CBC, BMP, and Urinalysis. 2. I independently interpreted the following tests: CT Abdoment and Pelvis is concerning for peritonitis .Risk:This patient has a high risk of morbidity due to further diagnostic testing or treatment and may suffer from an acute abdominal process disorder. Workup reveals concern for peritonitis and patient should be admitted for further workup. and possible expert consultation. ) Impression: Primary Impression: Peritonitis Additional Impression: Intractable abdominal pain Disposition: ADMITTED INPATIENT Admit to: Med Surg Condition: Serious Critical Care Note Critical Care Time?: Yes Critical care comment: Intractable abdominal pain Authorized and Performed by: Blair Oviedo MD Total critical care time: Approximately 39 minutes Due to a high probability of clinically significant, life threatening deterioration, the patient required my highest level of preparedness to intervene emergently and I personally spent this critical care time directly and personally managing the patient. This critical care time included obtaining a history; examining the patient; pulse oximetry; ordering and review of studies; arranging urgent treatment with development of a management plan; evaluation of patient's response to treatment; frequent reassessment; and, discussions with other providers. This critical care time was performed to assess and manage the high probability of imminent, life-threatening deterioration that could result in multi-organ failure. It was exclusive of separately billable procedures and treating other patients and teaching time. Please see my other sections and the rest of the note for further information on patient assessment and treatment. Stability Stability form required: No I personally scribed for BLAIR OVIEDO MD ([email or web address]) on 11/20/24 at 07:42. Electronically submitted by Leigh Ann Toussaint ([email or web address]). I personally scribed for BLAIR OVIEDO MD ([email or web address]) on 11/20/24 at 07:53. Electronically submitted by Leigh Ann Toussaint ([email or web address]). I personally scribed for BLAIR OVIEDO MD ([email or web address]) on 11/20/24 at 12:12. Electronically submitted by Leigh Ann Toussaint ([email or web address]). BLAIR OVIEDO MD Nov 20, 2024 07:42
[2024-11-20 08:33] LABS: Basophils # (auto) 0 10 ^3/uL (0-0.2); Basophils % (auto) 0.7 % (0.0-2.0); Eosinophils # (auto) 0.1 10 ^3/uL (0-0.8); Eosinophils % (auto) 1.9 % (0.0-7.0); Hematocrit 37.4 % (36.0-46.0); Hemoglobin 11.9 g/dL (12.2-16.2); Lymphocytes # (auto) 1.6 10 ^3/uL (0.4-5.4); Lymphocytes % (auto) 21.4 % (10.0-50.0); Mean Corpuscular Hemoglobin 25.1 pg (28.0-32.0); Mean Corpuscular Hgb Conc. 31.7 g/dL (32.0-36.0); Mean Corpuscular Volume 79.1 fL (80.0-100.0); Monocytes # (auto) 0.6 10 ^3/uL (0-1.3); Monocytes % (auto) 8.2 % (0.0-12.0); Neutrophils # (auto) 5.1 10 ^3/uL (1.6-8.6); Neutrophils % (auto) 67.8 % (37.0-80.0); Platelet Count (auto) 364 10^3/uL (140-450); Red Blood Cells 4.73 10^6/uL (4.0-5.20); Red Cell Distribution Width 16.7 % (11.8-14.3); White Blood Cell 7.5 10^3/uL (4.4-10.8)
[2024-11-20 08:45] LABS: Chloride 104 mmol/L (98-107); Potassium 3.6 mmol/L (3.5-5.1); Sodium 139 mmol/L (136-145)
[2024-11-20 08:46] LABS: Anion Gap 8 (5-15); Calcium 9.6 mg/dL (8.7-10.4); Carbon Dioxide 27 mmol/L (20-31)
[2024-11-20 08:52] LABS: BUN/Creatinine Ratio 8.3 (10.0-20.0)
[2024-11-20 08:56] LABS: Blood Urea Nitrogen 5 mg/dL (9-23); Glucose 227 mg/dL (74-106)
[2024-11-20 09:29] VITALS: BP 124/87; PULSE 109; RESP 16; TEMP 97.8; O2SAT 99
[2024-11-20] MEDS: IOHEXOL 300 MG/ML 100ML BOTTLE IJ ONE (10:33)
--- NOTE | 2024-11-20 11:41 | DVH ---
Procedure: CT CT AB PEL WITH IV CON ONLY 11/20/2024 10:29 AM Indication: abdominal pain s/p tuboovarian abscess Comparison Study: None Technique: Axial images were obtained and reformatted in coronal and sagittal planes. All CT scans at this medical facility are performed using dose modulation techniques as appropriate to a performed e xam including the following: Automated exposure control was utilized; adjustment of the MA and/or KV according to patient size; and use of iterative reconstruction technique. CT Dose: CTDI volume is 5 m Gy. Dose-length product is 206 mGy*cm FINDINGS: Lower Chest: Unremarkable. Hepatobiliary: Unremarkable. Spleen: Unremarkable. Pancreas: Unremarkable. Adrenal Glands: Unremarkable. tract: The kidneys are normal in size bilaterally without hydronephrosis or nephrolithiasis. The u rinary bladder is unremarkable. GI tract: The stomach is grossly normal in appearance. Nondistended fluid-filled small bowel loops th roughout the abdomen with diffuse mural thickening. Mild ascending colon wall thickening and enhancem ent noted. Surgical clips are seen in the right lower quadrant adjacent to the cecum. The appendix is not identified. Peritoneal thickening and enhancement noted in the lower abdomen. Moderate mesente saurabh edema in the lower abdomen. Trace fluid in the right lower abdomen. Lymphatics: No mesenteric, retroperitoneal or periportal lymphadenopathy. Vasculature: The abdominal aorta is normal in caliber. Pelvic Organs: Unremarkable Bones/soft tissues: No acute abnormality. Other: None. IMPRESSION: 1. Findings concerning for peritonitis. Peritoneal thickening and enhancement in the lower abdomen no leonid. Trace fluid in the right paracolic gutter. Moderate mesenteric edema in the lower abdomen is se en. 2. Diffuse small and large bowel wall enhancement suggesting enterocolitis. 3. No evidence of bowel perforation. No pneumoperitoneum. No drainable fluid collection.
[2024-11-20] MEDS ORDERED: MORPHINE SULFATE 4 MG/ML SYR/VIAL IV ONE (13:15)
[2024-11-20] MEDS ORDERED: metroNIDAZOLE 500MG/100ML 100 ML IV ONE (13:15)
[2024-11-20] MEDS ORDERED: ONDANSETRON HCL 4 MG/2 ML VIAL IV ONE (13:15)
[2024-11-20] MEDS ORDERED: ceFAZolin 2 GM/D5W50ml 50 ML IV ONE (13:15)
[2024-11-20] MEDS ORDERED: SODIUM CHLORIDE 0.9% 1,000 ML IV ONE (13:15)
== END 2024-11-20 14:58 | disposition left against medical advice (07) ==
LOC: ER 06:55 → EDUNIT# 06:55 → EDBD 06:55 → ER 13:24
DX: K65.9 Peritonitis, unspecified (principal); R10.84 Generalized abdominal pain; E11.9 Type 2 diabetes mellitus without complications; Z59.00 Homelessness unspecified; Z90.49 Acquired absence of other specified parts of digestive tract; Z98.890 Other specified postprocedural states
CPT/HCPCS: 36415; 74177; 80048; 83605; 85025; 87040; 99285; Q9967

== ENCOUNTER 2024-11-20 20:31 | Inpatient (IN) | payer MEDICAID ==
[~2024-11-20] VITALS: Ht 154.9 cm; Wt 57.1 kg
--- NOTE | 2024-11-20 20:59 | ED.PDOC ---
GI ASSESSMENT HPI Comments 44 y/o F presents with c/o abdominal pain. Patient is a poor historian. Reports pain being ongoing, intermittently, for several "months" after running out of her "pain medications" that she does not recall. Pain is generalized and diffused. She denies any nausea, vomiting, diarrhea, urinary symptoms, fever, chills, or other associated symptoms or modifiers at this time. Per previous ED encounter, patient was seen, earlier, today, for same complaints and was admitted after being found with Peritonitis vis CT abdomen/pelvis w/IV contrast scan. Before patient was admitted, she eloped from the ED. Vitals: temperature of 98.4F, pulse of 114, respiratory rate of 20, blood pressure of 146/92, SpO2 of 99%RA Past medical history: DM Past surgical history: cholecystectomy, tonsillectomy, appendectomy, ovarian abscess drainage, hernia repair HPI: Poor Historian. Patient was just here in the hospital and ready to be admitted but she can not be found. Patient was subsequently moved to tracking board. Patient already had a CT scan of abdomen and pelvis earlier. REVIEW OF SYSTEMS: CONSTITUTIONAL: Denies acute: fever, diaphoresis, chills, generalized weakness. HEAD: Denies acute: headache, photophobia Eyes: Denies acute: Double vision, vision loss, eye pain, eye discharge. EARS: Denies acute: tinnitus, hearing loss, ear discharge, ear pain, THROAT: Denies acute: sore throat, swelling, difficulty swallowing , pain with swallowing, change in voice. NECK: Denies acute: neck pain, neck swelling, stiff neck. HEART: Denies acute : chest pain, palpitations, LUNGS: Denies acute: SOB, wheezing, cough, hemoptysis ABDOMEN: Denies acute: Nausea, Vomiting, diarrhea, melena , hematemesis, hematochezia SKIN: Denies acute: rash, redness, lesions, itchiness. EXTREMITIES: Denies acute: calf pain, numbness, tingling, weakness, denies pain in extremity. Denies acute: Low back pain. Neuro: Denies acute: focal neurological deficit, motor or sensory focal neurological deficit, tremors, seizure like activity, confusion, dizziness, change in mental status, loss of bowel or bladder function, cauda equina like symptoms. : Denies acute: dysuria, hematuria, flank pain, increase in urinary frequency. PSYCH: Denies acute: hallucination, suicidal ideation, homicidal ideation. FEMALE: Denies acute: abnormal vaginal bleeding, foul odor, unusual discharge. PHYSICAL EXAM: General: ----no----acute distress, awake and alert. Head: normocephalic, atraumatic. Neck: supple, trachea is midline, no swelling. Throat: Normal phonation. Eyes:, no erythema, no purulent discharge, no proptosis, no icterus. Heart: regular rate, regular rhythm, no significant murmur appreciated. Lungs: no apparent respiratory distress, Able to speak in full sentences. No wheezing, no rhonchi, no crackles. No stridors Clear to auscultation bilaterally. Abdomen: Generalized tender to palpation, non distended, soft, no guarding, no rebound, + bowel sounds. Neuro: Awake, Alert, oriented to name, self, situation, follows commands GCS=15. Speech is normal. Skin: no petechia, no purpura, no cyanosis, non-pale, not jaundice. Lower extremities: --no - Pitting edema no deformity, no focal swelling, no calf TTP. Makes eye contact. moves all four extremities. Face: no apparent facial droop. Ambulating in the ED independently. 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 Was a procedure done?: No GI differential Dx Differential Diagnosis: Other (DDX include Diverticulitis, colitis, gastroenteritis, acute abdomen, SBO, enteritis, constipation, volvulus, appendicitis, Gallbladder disease, choledocolithiasis, ascending cholangitis, pancreatitis, intraAbdominal mass/neoplasm, hepatitis, UTI, pylonephritis, kidney stone, aneurysm, dissection, Inflammatory bowel disease, gastroparesis, ischemic bowel, ovarian torsion, ovarian cyst/mass, tubo-ovarian abscess, , ectopic , PID, STD.) X-Ray, Labs, Meds, VS Vital Signs Date Time Temp Pulse Resp B/P (MAP) Pulse Ox O2 Delivery O2 Flow Rate FiO2 11/20/24 20:52 98.4 114 20 146/92 (110) 99 98.4 Lab Test 11/20/24 21:35 11/20/24 20:50 Range/Units Troponin I High Sensitivity < 3 L < 3 L </=34 ng/L White Blood Count 6.4 4.4-10.8 10^3/uL Red Blood Count 4.49 4.0-5.20 10^6/uL Hemoglobin 10.9 L 12.2-16.2 g/dL Hematocrit 35.0 L 36.0-46.0 % Mean Corpuscular Volume 78.1 L 80.0-100.0 fL Mean Corpuscular Hemoglobin 24.3 L 28.0-32.0 pg Mean Corpuscular Hemoglobin Concent 31.0 L 32.0-36.0 g/dL Red Cell Distribution Width 17.4 H 11.8-14.3 % Platelet Count 342 140-450 10^3/uL Mean Platelet Volume 7.5 6.9-10.8 fL Neutrophils (%) (Auto) 66.7 37.0-80.0 % Lymphocytes (%) (Auto) 24.4 10.0-50.0 % Monocytes (%) (Auto) 7.6 0.0-12.0 % Eosinophils (%) (Auto) 0.8 0.0-7.0 % Basophils (%) (Auto) 0.5 0.0-2.0 % Neutrophils # (Auto) 4.3 1.6-8.6 10 ^3/uL Lymphocytes # (Auto) 1.6 0.4-5.4 10 ^3/uL Monocytes # (Auto) 0.5 0-1.3 10 ^3/uL Eosinophils # (Auto) 0.1 0-0.8 10 ^3/uL Basophils # (Auto) 0 0-0.2 10 ^3/uL Nucleated Red Blood Cells 0.0 % Sodium Level 136 136-145 mmol/L Potassium Level 3.6 3.5-5.1 mmol/L Chloride Level 101 98-107 mmol/L Carbon Dioxide Level 27 20-31 mmol/L Anion Gap 8 5-15 Blood Urea Nitrogen 9 9-23 mg/dL Creatinine 0.75 0.550-1.02 mg/dL Glomerular Filtration Rate Calc 99 >90 mL/min BUN/Creatinine Ratio 12.0 10.0-20.0 Serum Glucose 375 H 74-106 mg/dL Lactic Acid Level 1.2 0.4-2.0 mmol/L Calcium Level 9.3 8.7-10.4 mg/dL Magnesium Level 1.8 1.6-2.6 mg/dL Total Bilirubin 0.5 0.2-1.0 mg/dL Aspartate Amino Transferase (AST) 11 L 13-40 U/L Alanine Aminotransferase (ALT) < 9 7-40 U/L Alkaline Phosphatase 78 46-116 U/L Total Protein 7.8 5.7-8.2 g/dL Albumin 4.0 3.2-4.8 g/dL Lipase 53 12-53 U/L Plasma/Serum Blood Alcohol < 3.0 <10 mg/dL [place] [id number] Ph: [phone] DIAGNOSTIC IMAGING Diagnostic Imaging Report : [id number] Signed PATIENT: ANNITA GA ACCT: [id number] UNIT: [id number] : 1980 LOC: ER ROOM / BED: / AGE / SEX: 44 / F ADM STATUS: REG ER SERVICE [id number] ORDERING PHYSICIAN: BLAIR OVIEDO MD PROCEDURE(s): ABPLIV - CT AB PEL WITH IV CON ONLY REASON: abdominal pain s/p tuboovarian abscess ORDER NUMBER(s): [id number], ACCESSION NUMBER(s): [id number] Procedure: CT CT AB PEL WITH IV CON ONLY 11/20/2024 10:29 AM Indication: abdominal pain s/p tuboovarian abscess Comparison Study: None Technique: Axial images were obtained and reformatted in coronal and sagittal planes. All CT scans at this medical facility are performed using dose modulation techniques as appropriate to a performed exam including the following: Automated exposure control was utilized; adjustment of the MA and/or KV according to patient size; and use of iterative reconstruction technique. CT Dose: CTDI volume is 5 mGy. Dose-length product is 206 mGy*cm FINDINGS: Lower Chest: Unremarkable. Hepatobiliary: Unremarkable. Spleen: Unremarkable. Pancreas: Unremarkable. Adrenal Glands: Unremarkable. tract: The kidneys are normal in size bilaterally without hydronephrosis or nephrolithiasis. The urinary bladder is unremarkable. GI tract: The stomach is grossly normal in appearance. Nondistended fluid-filled small bowel loops throughout the abdomen with diffuse mural thickening. Mild ascending colon wall thickening and enhancement noted. Surgical clips are seen in the right lower quadrant adjacent to the cecum. The appendix is not identified. Peritoneal thickening and enhancement noted in the lower abdomen. Moderate mesenteric edema in the lower abdomen. Trace fluid in the right lower abdomen. Lymphatics: No mesenteric, retroperitoneal or periportal lymphadenopathy. Vasculature: The abdominal aorta is normal in caliber. Pelvic Organs: Unremarkable Bones/soft tissues: No acute abnormality. Other: None. IMPRESSION: 1. Findings concerning for peritonitis. Peritoneal thickening and enhancement in the lower abdomen noted. Trace fluid in the right paracolic gutter. Moderate mesenteric edema in the lower abdomen is seen. 2. Diffuse small and large bowel wall enhancement suggesting enterocolitis. 3. No evidence of bowel perforation. No pneumoperitoneum. No drainable fluid collection. ATED BY: JANE MCNEIL MD DICTATED DATE/TIME: 11/20/24 1139 SIGNED BY: JANE MCNEIL MD SIGNED DATE/TIME: 11/20/24 1139 CC: Time of 1ST Reevaluation: 20:45 Reevaluation 1ST: Unchanged Patient Education/Counseling: Diagnosis, Treatment Family Education/Counseling: No Family Present Comments Patient presented with the above HPI.---abdominal pain---workup was initiated. patient was found with the above mentioned diagnosis. the following medications were ordered: please refer to order lists of meds and tests obtained by myself Dr. Reed. Patient ED course and VS have been stabilized. Patient has been reassessed in the ED and remained in a stable condition. Pertinent incidental findings were discussed with the patient and/or family. Patient/family voices understanding and is agreeable with plan. Patient has been observed in the ED adequate length of time to insure improvement/stability. Escalation of care considered: Consideration of escalation to observation or admission Antibiotics initiated. Patient was ADMITTED to the medicine team for further evaluation and treatment of their presentation. All the reports of any imaging studies that were ordered by myself were reviewed by myself. Departure 1 Departure Time of Disposition: 21:21 Impression: Primary Impression: Peritonitis Additional Impression: Enterocolitis Disposition: ADMITTED INPATIENT Admit to: Tele Condition: Guarded Discharged With: Self Critical Care Note Critical Care Time?: No I personally scribed for ARMIN REED DO ([email or web address]) on 11/20/24 at 20:59. Electronically submitted by Abimael Booker ([email or web address]). I personally scribed for ARMIN REED DO ([email or web address]) on 11/20/24 at 21:30. Electronically submitted by Abimael Booker ([email or web address]). ARMIN REED DO Nov 20, 2024 20:59
[2024-11-20 21:07] LABS: Basophils # (auto) 0 10 ^3/uL (0-0.2); Eosinophils # (auto) 0.1 10 ^3/uL (0-0.8); Hemoglobin 10.9 g/dL (12.2-16.2); Monocytes # (auto) 0.5 10 ^3/uL (0-1.3); Neutrophils # (auto) 4.3 10 ^3/uL (1.6-8.6); White Blood Cell 6.4 10^3/uL (4.4-10.8)
[2024-11-20 21:09] LABS: Basophils % (auto) 0.5 % (0.0-2.0); Eosinophils % (auto) 0.8 % (0.0-7.0); Lymphocytes # (auto) 1.6 10 ^3/uL (0.4-5.4); Lymphocytes % (auto) 24.4 % (10.0-50.0); Mean Corpuscular Hemoglobin 24.3 pg (28.0-32.0); Mean Corpuscular Volume 78.1 fL (80.0-100.0); Monocytes % (auto) 7.6 % (0.0-12.0); Neutrophils % (auto) 66.7 % (37.0-80.0); Platelet Count (auto) 342 10^3/uL (140-450); Red Blood Cells 4.49 10^6/uL (4.0-5.20); Red Cell Distribution Width 17.4 % (11.8-14.3)
[2024-11-20 21:26] LABS: Alkaline Phosphatase 78 U/L (46-116); Anion Gap 8 (5-15); Blood Urea Nitrogen 9 mg/dL (9-23); Calcium 9.3 mg/dL (8.7-10.4); Carbon Dioxide 27 mmol/L (20-31); Chloride 101 mmol/L (98-107); Magnesium 1.8 mg/dL (1.6-2.6); Potassium 3.6 mmol/L (3.5-5.1); Total Protein 7.8 g/dL (5.7-8.2)
[2024-11-20 21:27] LABS: Bilirubin, Total 0.5 mg/dL (0.2-1.0); Blood Alcohol < 3.0 mg/dL (<10)
[2024-11-20 21:29] LABS: Alanine Aminotransferase < 9 U/L (7-40); Aspartate Aminotransferase 11 U/L (13-40); Glucose 375 mg/dL (74-106); Lipase 53 U/L (12-53); Sodium 136 mmol/L (136-145)
[2024-11-20] MEDS ORDERED: NITROGLYCERIN 0.4 MG SL TAB SL PRN (23:45)
[2024-11-21] VITALS (7 sets, daily range): BP systolic 103–118; BP diastolic 65–76; PULSE 70–102; RESP 16–19; TEMP 97.6–98.3; O2SAT 94–100
[2024-11-21 00:15] LABS: Urine Bacteria None Seen /hpf (None Seen)
[2024-11-21 00:43] LABS: Urine Blood Negative /uL (Negative); Urine Clarity Clear (Clear); Urine Color Yellow (Yellow); Urine Protein, UAD TRACE (Negative); Urine Squamous Epithelial Cell FEW /hpf (<5); Urine Urobilinogen Normal (Negative); Urine WBC 3 /HPF (0-5)
[2024-11-21 00:44] LABS: Urine Specific Gravity > 1.050 (1.001-1.035)
[2024-11-21] MEDS: CIPROFLOXACIN 400MG/200ML 200 ML IV ONE (01:43)
[2024-11-21] MEDS: metroNIDAZOLE 500MG/100ML 100 ML IV ONE (01:43)
[2024-11-21 01:48] LABS: Amphetamine Screen, Urine Pos (NEGATIVE); Barbiturate Scree,Urine Neg (NEGATIVE); Benzodiazephine Screen, Urine Neg (NEGATIVE); Cannabinoid Screen, Urine Neg (NEGATIVE); Cocaine Screen, Urine Neg (NEGATIVE); Opiate Scree,Urine Neg (NEGATIVE); Phencyclidine Screen, Urine Neg (NEGATIVE)
[2024-11-21] MEDS: SODIUM CHLORIDE 0.9% 1,000 ML IV ONE (02:00)
[2024-11-21] MEDS: PIPERACILLIN-TAZO 4.5GM 100 ML IV ONE (02:03)
[2024-11-21 02:13] LABS: INR 0.97 (0.9-1.15); Partial Thromboplastin Time 27.2 SEC (24.5-34.5); Prothrombin Time 10.3 sec (9.3-11.8)
[2024-11-21] MEDS: SODIUM CHLORIDE 0.9% 1,000 ML IV SCH (02:30)
[2024-11-21] MEDS: PIPERACILLIN-TAZOB 3.375GM 100 ML IV SCH (05:22)
--- NOTE | 2024-11-21 05:37 | DVHHPRES ---
History of Present Illness Resident Creating Document: ISAÍAS TROTTER RESIDENT History of Present Illness 44-year-old female presented with complaints of diffuse abdominal pain that started two days ago which she describes as excruciating pain radiating to back 10/10 associated with nausea and vomiting. Patient was recently admitted in the hospital because she had on and off pain for one year and in the hospital she was diagnosed with right tubo-ovarian abscess, and peritonitis and had Exploratory laparotomy, evacuation of pelvic abscess, right salpingo- oophorectomy, appendectomy, partial omentectomy done by Team of OBGYN and Surgery. Patient mentioned associated mild chest pain but denied shortness of breath, cough He denied any complaints of headache, dizziness, seizures, palpitations. PMH right tubo-ovarian abscess, and peritonitis PSH Exploratory laparotomy, evacuation of pelvic abscess, right salpingo- oophorectomy, appendectomy, partial omentectomy Social history Denied smoking, alcohol, marijuana or any other drug intake Allergic history No known allergies Review of Systems Review of Systems as described in the HPI Allergies: Coded Allergies: NO KNOWN ALLERGIES (Unverified , 10/14/24) Medications Current Medications Medications Dose Ordered Sig/Rl Route Start Time Stop Time Status Last Admin Dose Admin Nitroglycerin 0.4 mg Q5MINP PRN SL 11/20/24 23:45 Morphine Sulfate 2 mg Q4HPRN PRN IV 11/20/24 23:45 Piperacillin Sod/ Tazobactam Sod 100 ml @ 25 mls/hr Q6HR IV 11/21/24 06:00 Sodium Chloride 1,000 ml @ 100 mls/hr Q10H IV 11/21/24 02:30 Exam Vital Signs Vital Signs Date Time Temp Pulse Resp B/P (MAP) Pulse Ox O2 Delivery O2 Flow Rate FiO2 11/21/24 04:16 98.3 70 19 103/76 (85) 99 98.3 11/21/24 01:45 Room Air* 0 21 Exam Examination Limited exam as patient was in Lobby General Appearance: Alert, Oriented X3, Cooperative, No acute distress HEENT: EOMI Respiratory: Clear to auscultation, Normal air movement Cardiovascular: Regular rate, Normal S1, Normal S2 Abdominal: diffuse abd tenderness Extremities: No cyanosis, No edema, Normal pulses, No tenderness/swelling Skin: No rashes, No breakdown Neuro: Normal gait, Normal speech, Strength at 5/5 X4 ext, Normal tone, Sen sation intact, Cranial nerves 3-12 NL, Reflexes 2+ Psych/Mental Status: Mental status NL, Mood NL Labs/Xrays Labs Test 11/21/24 01:35 11/20/24 21:35 11/20/24 21:00 11/20/24 20:50 Range/Units Prothrombin Time 10.3 9.3-11.8 sec Prothrombin Time INR 0.97 0.9-1.15 Activated Partial Thromboplast Time 27.2 24.5-34.5 SEC Hemoglobin A1c 10.0 H <5.7 % A1C Troponin I High Sensitivity < 3 L </=34 ng/L Urine Color Yellow Yellow Urine Clarity Clear Clear Urine pH 6.0 5.0-9.0 Urine Specific [place] > 1.050 H 1.001-1.035 Urine Protein Trace H Negative Urine Ketones Negative Negative Urine Blood Negative Negative /uL Urine Nitrite Negative Negative Urine Bilirubin Negative Negative Urine Urobilinogen Normal Negative mg/dL Urine Leukocyte Esterase Negative Negative /uL Urine RBC 2 0 - 4 /hpf Urine Microscopic WBC 3 0-5 /HPF Urine Squamous Epithelial Cells Few <5 /hpf Urine Bacteria None seen None Seen /hpf Urine Glucose 4+ H Normal mg/dL Urine Test Negative Negative Urine Opiates Screen Neg NEGATIVE Urine Fentanyl Screen Neg NEGATIVE Urine Barbiturates Screen Neg NEGATIVE Urine Phencyclidine Screen Neg NEGATIVE Urine Amphetamines Screen Pos NEGATIVE Urine Benzodiazepines Screen Neg NEGATIVE Urine Cocaine Screen Neg NEGATIVE Urine Cannabinoids Screen Neg NEGATIVE White Blood Count 6.4 4.4-10.8 10^3/uL Red Blood Count 4.49 4.0-5.20 10^6/uL Hemoglobin 10.9 L 12.2-16.2 g/dL Hematocrit 35.0 L 36.0-46.0 % Mean Corpuscular Volume 78.1 L 80.0-100.0 fL Mean Corpuscular Hemoglobin 24.3 L 28.0-32.0 pg Mean Corpuscular Hemoglobin Concent 31.0 L 32.0-36.0 g/dL Red Cell Distribution Width 17.4 H 11.8-14.3 % Platelet Count 342 140-450 10^3/uL Mean Platelet Volume 7.5 6.9-10.8 fL Neutrophils (%) (Auto) 66.7 37.0-80.0 % Lymphocytes (%) (Auto) 24.4 10.0-50.0 % Monocytes (%) (Auto) 7.6 0.0-12.0 % Eosinophils (%) (Auto) 0.8 0.0-7.0 % Basophils (%) (Auto) 0.5 0.0-2.0 % Neutrophils # (Auto) 4.3 1.6-8.6 10 ^3/uL Lymphocytes # (Auto) 1.6 0.4-5.4 10 ^3/uL Monocytes # (Auto) 0.5 0-1.3 10 ^3/uL Eosinophils # (Auto) 0.1 0-0.8 10 ^3/uL Basophils # (Auto) 0 0-0.2 10 ^3/uL Nucleated Red Blood Cells 0.0 % Sodium Level 136 136-145 mmol/L Potassium Level 3.6 3.5-5.1 mmol/L Chloride Level 101 98-107 mmol/L Carbon Dioxide Level 27 20-31 mmol/L Anion Gap 8 5-15 Blood Urea Nitrogen 9 9-23 mg/dL Creatinine 0.75 0.550-1.02 mg/dL Glomerular Filtration Rate Calc 99 >90 mL/min BUN/Creatinine Ratio 12.0 10.0-20.0 Serum Glucose 375 H 74-106 mg/dL Lactic Acid Level 1.2 0.4-2.0 mmol/L Calcium Level 9.3 8.7-10.4 mg/dL Magnesium Level 1.8 1.6-2.6 mg/dL Total Bilirubin 0.5 0.2-1.0 mg/dL Aspartate Amino Transferase (AST) 11 L 13-40 U/L Alanine Aminotransferase (ALT) < 9 7-40 U/L Alkaline Phosphatase 78 46-116 U/L Total Protein 7.8 5.7-8.2 g/dL Albumin 4.0 3.2-4.8 g/dL Lipase 53 12-53 U/L Plasma/Serum Blood Alcohol < 3.0 <10 mg/dL Assessment/Plan Assessment/Plan # assessment and plan # peritonitis in the setting of recent surgery, enterocolitis seen on CT -history of recent right tubo-ovarian abscess, and peritonitis and had Exploratory laparotomy, evacuation of pelvic abscess, right salpingo- oophorectomy, appendectomy, partial omentectomy done by Team of OBGYN and Surgery. -NPO IV fluids IV antibiotics Surgical consult lipase pain meds # enterocolitis Seen on CT IV antibiotics Case discussion with dr lea Plan discussed with: Patient, Other My Orders Orders - ISAÍAS TROTTER Procedure Category Date Status Time Admit ADMIT 11/20/24 Transmitted 23:34 Oxygen By Nasal RT 11/20/24 Transmitted Cannula 23:34 Stat Ekg For Chest EMELINA 11/20/24 In Process Pain 23:34 Notify Md Of Changes EMELINA 11/20/24 In Process From Base 23:34 Logistics Director For EMELINA 11/20/24 In Process 24 Hours 23:34 Emergency Dysrhythmia EMELINA 11/20/24 In Process Protocol 23:34 Rhythm Strips Once EMELINA 11/20/24 In Process Every Shift 23:34 Nitroglycerin PHA 11/20/24 In Process Sublingual (Ntrostat 23:45 Morphine Sulfate PHA 11/20/24 In Process Injection 23:45 Npo (Nothing By DIET 11/21/24 Transmitted Mouth) Diet Breakfast Piperacillin-Tazob PHA 11/21/24 In Process 3.375gm (Zosyn 3.375g 06:00 Lipase LAB 11/21/24 Logged 02:26 Complete Blood Count LAB 11/21/24 Logged 02:26 Comprehensive LAB 11/21/24 Logged Metabolic Panel 02:26 Magnesium LAB 11/21/24 Logged 02:26 Sodium Chloride 0.9% PHA 11/21/24 In Process 02:30 Mrsa Screen MIRELLA 11/21/24 Uncollected 04:04 * Surgical Consult CONS 11/21/24 Verified Date of Service: Nov 20, 2024 Billing Provider: ALEAH LEA MD Common Visit Codes: [id number] INP/OBS CARE (HIGH) ISAÍAS TROTTER RESIDENT Nov 21, 2024 05:37 ALEAH LEA MD Nov 21, 2024 13:41
[2024-11-21 06:40] LABS: Basophils # (auto) 0 10 ^3/uL (0-0.2); Basophils % (auto) 0.6 % (0.0-2.0); Eosinophils # (auto) 0.1 10 ^3/uL (0-0.8); Eosinophils % (auto) 2.1 % (0.0-7.0); Hematocrit 32.5 % (36.0-46.0); Hemoglobin 10.1 g/dL (12.2-16.2); Lymphocytes # (auto) 1.7 10 ^3/uL (0.4-5.4); Lymphocytes % (auto) 26.2 % (10.0-50.0); Mean Corpuscular Hemoglobin 24.4 pg (28.0-32.0); Mean Corpuscular Volume 78.9 fL (80.0-100.0); Monocytes # (auto) 0.6 10 ^3/uL (0-1.3); Monocytes % (auto) 9.7 % (0.0-12.0); Neutrophils # (auto) 4.1 10 ^3/uL (1.6-8.6); Neutrophils % (auto) 61.4 % (37.0-80.0); Nucleated Red Blood Cells % 0.2 %; Platelet Count (auto) 308 10^3/uL (140-450); Red Blood Cells 4.12 10^6/uL (4.0-5.20); Red Cell Distribution Width 17.1 % (11.8-14.3); White Blood Cell 6.7 10^3/uL (4.4-10.8)
[2024-11-21 06:52] LABS: Albumin 3.5 g/dL (3.2-4.8); Alkaline Phosphatase 70 U/L (46-116); Anion Gap 9 (5-15); BUN/Creatinine Ratio 12.7 (10.0-20.0); Calcium 8.9 mg/dL (8.7-10.4); Carbon Dioxide 23 mmol/L (20-31); Chloride 106 mmol/L (98-107); Magnesium 1.7 mg/dL (1.6-2.6); Sodium 138 mmol/L (136-145); Total Protein 6.8 g/dL (5.7-8.2)
[2024-11-21 06:53] LABS: Bilirubin, Total 0.5 mg/dL (0.2-1.0)
[2024-11-21 06:59] LABS: Alanine Aminotransferase < 9 U/L (7-40); Aspartate Aminotransferase 10 U/L (13-40); Blood Urea Nitrogen 7 mg/dL (9-23); Glucose 242 mg/dL (74-106); Potassium 3.4 mmol/L (3.5-5.1)
[2024-11-21 07:46] LABS: Lipase 54 U/L (12-53)
[2024-11-21] MEDS ORDERED: POTASSIUM CHL 20MEQ/50ML 50 ML IV ONE (08:30)
[2024-11-21] MEDS: ONDANSETRON HCL 4 MG/2 ML VIAL IV PRN (10:19)
[2024-11-21] MEDS: POTASSIUM EFFERVESENT TAB 25 MEQ PO ONE (10:21)
[2024-11-21] MEDS: MORPHINE SULFATE INJ 2 MG/ml SYRG IV PRN (10:21)
--- NOTE | 2024-11-21 11:44 | DVHPNRES ---
Progress Note Date Seen: Nov 21, 2024 Resident Creating Document: PIEDAD LANCASTER RESIDENT Medical Necessity Reason Pt with a Central, PICC or Fol: No Subjective Review of Systems This 44-year-old female with past surgical history of status post exploratory laparotomy presented to the ED with a chief complaint of diffuse abdominal pain that started 2 days ago which she describes as excruciating pain radiating to back 10/10 associated with nausea and vomiting. Patient was recently admitted in the hospital because of abdominal pain and was diagnosed with right tubo-ovarian abscess, peritonitis and had an Exploratory laparotomy, evacuation of pelvic abscess, right salpingo-oophorectomy, appendectomy, partial omentectomy done by Team of OBGYN and Surgery. Patient was seen and examined on the bedside. oriented x3. complaint of diffuse abdominal pain and nausea. no other active complaint Constitutional: No: Fever, Chills, Sweats, Weakness, Malaise, Other Eyes: No: Pain, Vision change, Conjunctivae inflammation, Eyelid inflammation, Other, Redness ENT: No: Ear pain, Ear discharge, Nose pain, Nose discharge, Nose congestion, Mouth pain, Mouth swelling, Throat pain, Throat swelling, Other Respiratory: Shortness of breath, improving No: Cough, Dry,Wheezing, Hemoptysis, Pleuritic Pain, Sputum, Wheezing, Other Cardiovascular: No: Chest Pain, Palpitations, Orthopnea, Paroxysmal Noc. Dyspnea, Edema, Lt Headedness, Other Gastrointestinal: Nausea, Abdominal Pain, No vomiting, Diarrhea, Constipation, Melena, Hematochezia, Other Musculoskeletal: No: other, neck pain, shoulder pain, arm pain, back pain, hand pain, leg pain, foot pain Neurological:; No: Weakness, Numbness, Incoordination, Change in speech, Confusion, Seizures Objective vital signs Vital Sign Date Time Temp Pulse Resp B/P (MAP) Pulse Ox O2 Delivery O2 Flow Rate FiO2 11/21/24 10:21 86 18 126/77 11/21/24 05:00 99 11/21/24 04:16 98.3 98.3 11/21/24 03:58 Room Air* 0 21 Total Intake and Output 11/20/24 11/20/24 11/21/24 15:00 23:00 07:00 Intake Total 1100 ml Balance 1100 ml medications Current Medications Medications Dose Ordered Sig/Rl Route Start Time Stop Time Status Last Admin Dose Admin Nitroglycerin 0.4 mg Q5MINP PRN SL 11/20/24 23:45 Morphine Sulfate 2 mg Q4HPRN PRN IV 11/20/24 23:45 11/21/24 10:21 2 MG Piperacillin Sod/ Tazobactam Sod 100 ml @ 25 mls/hr Q6HR IV 11/21/24 06:00 11/21/24 05:22 25 MLS/HR Sodium Chloride 1,000 ml @ 100 mls/hr Q10H IV 11/21/24 02:30 Ondansetron HCl 4 mg Q8HPRN PRN IV 11/21/24 08:45 11/21/24 10:19 4 MG Examination Physical examination: General Appearance: Alert, Oriented X3, Cooperative, No acute distress HEENT: Atraumatic, PERRLA, EOMI, Mucous membrane moist/pink Respiratory: Clear to auscultation, Normal air movement Cardiovascular: Regular rate, Normal S1, Normal S2, No murmurs, no chest wall tenderness Abdominal: Normal bowel sounds, soft, tenderness present mostly in the bilateral flanks, No hepatospenomegaly, No masses Extremities: No clubbing, No cyanosis, No edema, Normal pulses, No tenderness/swelling Skin: No rashes, No breakdown, No significant lesion Neuro: Normal gait, Normal speech, Strength at 5/5 X4 ext, Normal tone, Sensation intact, Cranial nerves 3-12 NL, Reflexes 2+ Psych/Mental Status: Mental status NL, Mood NL laboratory and microbiology Laboratory Tests 11/21/24 06:00 Test 11/21/24 06:00 Range/Units Serum Glucose 242 H 74-106 mg/dL Labs and/or images reviewed: Labs reviewed by me, Image(s) reviewed by me Problem List/Assessment/Plan Problem List/Assessment/Plan Assessment and plan : # Intractable abdominal pain and nausea likely due to peritonitis # History of right tubo-ovarian abscess and peritonitis # Status post exploratory laparotomy including evacuation of pelvic abscess, right salpingo-oophorectomy, appendectomy, partial omentectomy # Acute enterocolitis # Ruled out pancreatitis - CT abdomen demonstrated findings concerning for peritonitis, peritoneal thickening and enhancement in the lower abdomen, trace fluid in the right paracolic gutter, moderate mesenteric edema of the lower abdomen. small and large bowel wall enhancement suggesting enterocolitis, no evidence of bowel perforation, pneumoperitoneum or drainable fluid collection. - Lipase is 54 - NPO - IV normal saline at 100 mL/hour - IV morphine 2 mg q.4 PRN - IV ondansetron 4 mg Q 8 p.r.n. - IV Zosyn 3.375 g q.6 hours - Consulted surgery # Uncontrolled type 2 diabetes mellitus, HbA1c 10% - Lantus 10 units at q.p.m. and mild sliding scale of insulin # hypokalemia - replenished # Methamphetamine use disorder - UDS is positive for amphetamine - Counseled patient regarding methamphetamine abuse and rehabilitation # Homelessness - house worker was consulted regarding providing resources # PUD prophylaxis - Protonix 40 mg IV daily # DVT prophylaxis - Lovenox 40 mg sc daily Goal of care discussed with the patient for more than 20 minutes full code Plan discussed with Dr. Tierney Plan discussed with: Patient, Other My Orders My Orders Orders - PIEDAD LANCASTER Procedure Category Date Status Time Ondansetron Hcl PHA 11/21/24 In Process (Zofran) 08:45 Mrsa Screen MIRELLA 11/21/24 In Process 08:30 Date of Service: Nov 21, 2024 Billing Provider: ALEAH TIERNEY MD Common Visit Codes: [id number] INP/OBS CARE(HIGH) PIEDAD LANCASTER RESIDENT Nov 21, 2024 11:44 ALEAH TIERNEY MD Nov 21, 2024 15:18
[2024-11-21] MEDS ORDERED: DEXTROSE (50%) 50ML SYRG IV PRN (11:45)
[2024-11-21] MEDS: PANTOPRAZOLE 40 MG/10 ML VIAL INJ IV ONE (15:41)
[2024-11-21] MEDS: ACCU-CHEK COMFORT CURVE STRIP VI SCH (16:08)
[2024-11-21] MEDS: InsuLIN REG 1unit/0.01ml Soln (100units/ml) SC SCH (16:08)
[2024-11-21] MEDS ORDERED: InsuLIN REG 1unit/0.01ml Soln (100units/ml) SC SCH ×2 (17:00→22:00)
--- NOTE | 2024-11-21 21:04 | DVHINCON2 ---
SURGICAL CONSULTATION HISTORY OF PRESENT ILLNESS: The patient is a 44-year-old female who was at the time of initial evaluation homeless and presented with sepsis and right salpingo-oophorectomy, was done on an exploratory laparotomy due to pelvic abscess, appendectomy and omentectomy was done at the same time. The patient recovered slowly and was discharged to home with social work assisting. The patient now presenting with complaint of diffuse abdominal pain, which started approximately 48 hours ago. THE PATIENT PAST HISTORY: She was operated on at this facility, had a right salpingo-oophorectomy, appendectomy and partial omentectomy to treat a pelvic abscess. ALLERGIES: The patient has no known medicinal allergies. SOCIAL HISTORY: She denies smoking and drug use, although in the past, I believe she admitted to using methamphetamine. REVIEW OF SYSTEMS: The patient's review of systems is negative and all 12 systems reviewed. PHYSICAL EXAMINATION: GENERAL: Reveals a well-developed, well-nourished female, in no acute distress. HEENT: Pupils are equal, round, reactive equally. Sclerae nonicteric. Extraocular motion is intact. Uvula midline. Trachea midline. Carotids are full without bruits. Jugular veins are collapsed. HEART: Regular rate and rhythm without murmur or gallop. ABDOMEN: Nondistended nonguarded. There is some tenderness to deep palpation. No rebound tenderness is noted. No CVA tenderness. EXTREMITIES: No peripheral vascular insufficiency. No venous stasis. LABORATORY DATA: The patient's laboratory evaluation included a CBC, which shows normal white count, normal differential. Stable H and H. The patient PT is 10.3 and INR 0.97. Chemistry was essentially normal with the exception of elevated blood sugar 242 with a hemoglobin A1c of 10. The patient imaging was done by means of CT scan, which was done with IV contrast and is interpreted as showing findings concerning for peritonitis with peritoneal thickening and enhancement of lower abdominal wall. The patient has trace fluid in the right paracolic gutter with moderate mesenteric edema in the lower abdomen. There is diffuse small and large bowel, enterocolitis, no pneumoperitoneum, no drainable fluid. No evidence of bowel perforation. ASSESSMENT AND PLAN: I believe the patient may have a residual inflammation since original surgery in several weeks ago. I would continue IV antibiotics. She may have clear liquids p.o. and I will follow with you. Kvng Ramirez MD PF/HI TID: [id number] RECEIPT: [id number]
[2024-11-21] MEDS: MUPIROCIN 2% OINT 15gm or 22gm FOR MRSA NARES EACHNOSTRI SCH (22:05)
[2024-11-21] MEDS: INSULIN LANTUS (GLARGINE) 1 /0.01ml (100units/ml) SC SCH (22:10)
[2024-11-22 05:00] VITALS: BP 107/65; PULSE 72; RESP 17; TEMP 98; O2SAT 99
[2024-11-22 08:29] LABS: Anion Gap 7 (5-15); Carbon Dioxide 27 mmol/L (20-31); Chloride 107 mmol/L (98-107); Sodium 141 mmol/L (136-145)
[2024-11-22 08:30] VITALS: BP 124/79; PULSE 77; RESP 17; TEMP 97.8; O2SAT 100
[2024-11-22 08:30] LABS: Potassium 3.5 mmol/L (3.5-5.1)
[2024-11-22 08:31] LABS: Calcium 9.2 mg/dL (8.7-10.4)
[2024-11-22 08:35] LABS: Glucose 97 mg/dL (74-106)
[2024-11-22 08:37] LABS: BUN/Creatinine Ratio 9.6 (10.0-20.0); Blood Urea Nitrogen < 5 mg/dL (9-23)
[2024-11-22] MEDS: ENOXAPARIN SOD 40 MG/0.4 ML SYRINGE SC SCH (09:09)
[2024-11-22] MEDS: PANTOPRAZOLE 40 MG/10 ML VIAL INJ IV SCH (09:09)
--- NOTE | 2024-11-22 09:58 | DVHPNRES ---
Progress Note Date Seen: Nov 22, 2024 Resident Creating Document: PIEDAD LANCASTER RESIDENT Medical Necessity Reason Pt with a Central, PICC or Fol: No Subjective Review of Systems The patient was seen and examined on the bedside. She is alert oriented x3. Complaint of intermittent diffuse abdominal pain but less intense than yesterday. No other active complaint. Objective vital signs Vital Sign Date Time Temp Pulse Resp B/P (MAP) Pulse Ox O2 Delivery O2 Flow Rate FiO2 11/22/24 08:30 97.8 77 17 124/79 (94) 100 97.8 11/21/24 03:58 Room Air* 0 21 Total Intake and Output 11/21/24 11/21/24 11/22/24 15:00 23:00 07:00 Intake Total 100 ml 100 ml Balance 100 ml 100 ml medications Current Medications Medications Dose Ordered Sig/Rl Route Start Time Stop Time Status Last Admin Dose Admin Nitroglycerin 0.4 mg Q5MINP PRN SL 11/20/24 23:45 Morphine Sulfate 2 mg Q4HPRN PRN IV 11/20/24 23:45 11/22/24 05:18 2 MG Piperacillin Sod/ Tazobactam Sod 100 ml @ 25 mls/hr Q6HR IV 11/21/24 06:00 11/22/24 05:53 25 MLS/HR Sodium Chloride 1,000 ml @ 100 mls/hr Q10H IV 11/21/24 02:30 11/22/24 09:11 100 MLS/HR Ondansetron HCl 4 mg Q8HPRN PRN IV 11/21/24 08:45 11/21/24 10:19 4 MG Diagnostic Test (Pha) 1 strip ACHS 11/21/24 17:00 11/22/24 05:56 1 STRIP Dextrose 50 ml UD PRN IV 11/21/24 11:45 Pantoprazole Sodium 40 mg DAILY IV 11/22/24 10:00 11/22/24 09:09 40 MG Enoxaparin Sodium 40 mg DAILY SC 11/22/24 10:00 11/22/24 09:09 40 MG Insulin Human Regular ACHS SC 11/21/24 17:00 11/21/24 22:10 3 UNITS Insulin Glargine 10 units HS SC 11/21/24 22:00 11/21/24 22:10 10 UNITS Mupirocin 1 applic BID EACHNOSTRI 11/21/24 22:00 11/26/24 21:59 11/22/24 09:09 1 APPLIC Examination Physical examination: General Appearance: Alert, Oriented X3, Cooperative, No acute distress HEENT: Atraumatic, PERRLA, EOMI, Mucous membrane moist/pink Respiratory: Clear to auscultation, Normal air movement Cardiovascular: Regular rate, Normal S1, Normal S2, No murmurs, no chest wall tenderness Abdominal: Normal bowel sounds, Soft, mild tenderness, No hepatospenomegaly, No masses Extremities: No clubbing, No cyanosis, No edema, Normal pulses, No tenderness/swelling Skin: No rashes, No breakdown, No significant lesion Neuro: Normal gait, Normal speech, Strength at 5/5 X4 ext, Normal tone, Sensation intact, Cranial nerves 3-12 NL, Reflexes 2+ Psych/Mental Status: Mental status NL, Mood NL laboratory and microbiology Laboratory Tests 11/22/24 07:45 11/21/24 06:00 Test 11/22/24 07:45 Range/Units Serum Glucose 97 74-106 mg/dL Microbiology Date/Time Source Procedure Growth Status 11/21/24 08:30 Nose MRSA Screen - Final Methicillin Resistant S.aureus Complete Labs and/or images reviewed: Labs reviewed by me, Image(s) reviewed by me Problem List/Assessment/Plan Problem List/Assessment/Plan Assessment and plan : # Intractable abdominal pain and nausea likely due to peritonitis # History of right tubo-ovarian abscess and peritonitis # Status post exploratory laparotomy including evacuation of pelvic abscess, right salpingo-oophorectomy, appendectomy, partial omentectomy # Acute enterocolitis # Ruled out pancreatitis - CT abdomen demonstrated findings concerning for peritonitis, peritoneal thickening and enhancement in the lower abdomen, trace fluid in the right paracolic gutter, moderate mesenteric edema of the lower abdomen. small and large bowel wall enhancement suggesting enterocolitis, no evidence of bowel perforation, pneumoperitoneum or drainable fluid collection. - Lipase is 54 - NPO - IV normal saline at 100 mL/hour - IV morphine 2 mg q.4 PRN - IV ondansetron 4 mg Q 8 p.r.n. - IV Zosyn 3.375 g q.6 hours - Surgery recommended conservative management, no surgical intervention necessary and follow up CT scan in 1 week. # Uncontrolled type 2 diabetes mellitus, HbA1c 10% - Lantus 10 units at q.p.m. and mild sliding scale of insulin # hypokalemia - replenished # Methamphetamine use disorder - UDS is positive for amphetamine - Counseled patient regarding methamphetamine abuse and rehabilitation # Homelessness - fancy needleworker was consulted regarding providing resources # PUD prophylaxis - Protonix 40 mg IV daily # DVT prophylaxis - Lovenox 40 mg sc daily Goal of care discussed with the patient for more than 20 minutes full code Plan discussed with Dr. Tierney Plan discussed with: Patient, Other My Orders My Orders Orders - PIEDAD LANCASTER Procedure Category Date Status Time Glucose Blood PHA 11/21/24 In Process (Accu-Chek Comfort 17:00 Dextrose 50% Syringe PHA 11/21/24 In Process 11:45 Pantoprazole PHA 11/22/24 In Process (Protonix) 10:00 Enoxaparin Sodium PHA 11/22/24 In Process (Lovenox) 10:00 Insulin R (Human) PHA 11/21/24 In Process (Insulin R) 17:00 Insulin Lantus PHA 11/21/24 In Process (Glargine) (Lantus) 22:00 Mupirocin 2% Oint PHA 11/21/24 In Process Mrsa Nares (Bactroban 22:00 Date of Service: Nov 22, 2024 Billing Provider: ALEAH TIERNEY MD Common Visit Codes: [id number] INP/OBS CARE(HIGH) PIEDAD LANCASTER RESIDENT Nov 22, 2024 09:58 ALEAH TIERNEY MD Nov 22, 2024 19:30
[2024-11-22 10:00] VITALS: BP 150/75; PULSE 77; RESP 16; TEMP 97.6; O2SAT 99
--- NOTE | 2024-11-22 10:47 | DVHPN2 ---
Progress Note Date Seen: Nov 22, 2024 Medical Necessity Reason Pt with a Central, PICC or Fol: No Objective vital signs Vital Sign Date Time Temp Pulse Resp B/P (MAP) Pulse Ox O2 Delivery O2 Flow Rate FiO2 11/22/24 08:30 97.8 77 17 124/79 (94) 100 97.8 11/21/24 03:58 Room Air* 0 21 Total Intake and Output 11/21/24 11/21/24 11/22/24 15:00 23:00 07:00 Intake Total 100 ml 100 ml Balance 100 ml 100 ml medications Current Medications Medications Dose Ordered Sig/Rl Route Start Time Stop Time Status Last Admin Dose Admin Nitroglycerin 0.4 mg Q5MINP PRN SL 11/20/24 23:45 Morphine Sulfate 2 mg Q4HPRN PRN IV 11/20/24 23:45 11/22/24 05:18 2 MG Piperacillin Sod/ Tazobactam Sod 100 ml @ 25 mls/hr Q6HR IV 11/21/24 06:00 11/22/24 05:53 25 MLS/HR Sodium Chloride 1,000 ml @ 100 mls/hr Q10H IV 11/21/24 02:30 11/22/24 09:11 100 MLS/HR Ondansetron HCl 4 mg Q8HPRN PRN IV 11/21/24 08:45 11/21/24 10:19 4 MG Diagnostic Test (Pha) 1 strip ACHS 11/21/24 17:00 11/22/24 05:56 1 STRIP Dextrose 50 ml UD PRN IV 11/21/24 11:45 Pantoprazole Sodium 40 mg DAILY IV 11/22/24 10:00 11/22/24 09:09 40 MG Enoxaparin Sodium 40 mg DAILY SC 11/22/24 10:00 11/22/24 09:09 40 MG Insulin Human Regular ACHS SC 11/21/24 17:00 11/21/24 22:10 3 UNITS Insulin Glargine 10 units HS SC 11/21/24 22:00 11/21/24 22:10 10 UNITS Mupirocin 1 applic BID EACHNOSTRI 11/21/24 22:00 11/26/24 21:59 11/22/24 09:09 1 APPLIC laboratory and microbiology Laboratory Tests 4/17/25 07:45 11/21/24 06:00 Test 11/22/24 07:45 Range/Units Serum Glucose 97 74-106 mg/dL Problem List/Assessment/Plan Problem List/Assessment/Plan 11/22/24 IMPROVING, ABDOMEN NON DISTENDED, NON TENDER, PT IS HOMELESS AND ALTHOUGH SHE DENIES USE OF ILLICIT DRUGS SHE STATES THAT SHE "IS ARROUNFD PEOPLE WHO USE A LOT". RECOMMEND ADVANCING DIET, REPEAT CT SCAN IN ONE WEEKS, AT PRESENT THERE IS NO INDICATION FOR SURGICAL INTERVENTION Plan discussed with: Patient RUBEN DEL VALLE MD Nov 22, 2024 10:47
[2024-11-22 12:47] VITALS: BP 126/75; PULSE 92; RESP 17; TEMP 97.6; O2SAT 99
[2024-11-22 17:00] VITALS: BP 132/82; PULSE 85; RESP 16; TEMP 97.7; O2SAT 98
[2024-11-22 21:00] VITALS: BP 125/71; PULSE 78; RESP 18; TEMP 97.7; O2SAT 99
[2024-11-23] VITALS (8 sets, daily range): BP systolic 124–155; BP diastolic 70–91; PULSE 78–91; RESP 15–18; TEMP 97.7–99.3; O2SAT 96–99
[2024-11-23] MEDS ORDERED: AUG875T PO (11:23)
[2024-11-23] MEDS: LACTULOSE 20Gm/30ML SOLN PO ONE (11:46)
--- NOTE | 2024-11-23 14:29 | DVHPNRES ---
Progress Note Date Seen: Nov 23, 2024 Resident Creating Document: PIEDAD LANCASTER RESIDENT Medical Necessity Reason Pt with a Central, PICC or Fol: No Subjective Review of Systems Patient was seen and examined on the bedside. She is alert oriented x3. Complaint of mild diffuse abdominal pain especially more on the bilateral flanks and constipation. No other active complaint. Objective vital signs Vital Sign Date Time Temp Pulse Resp B/P (MAP) Pulse Ox O2 Delivery O2 Flow Rate FiO2 11/23/24 10:06 88 15 126/78 11/23/24 09:00 99.0 97 99.0 11/23/24 08:00 Room Air* 0 21 Total Intake and Output 11/22/24 11/22/24 11/23/24 15:00 23:00 07:00 Intake Total 100 ml 300 ml 25 ml Balance 100 ml 300 ml 25 ml medications Current Medications Medications Dose Ordered Sig/Rl Route Start Time Stop Time Status Last Admin Dose Admin Nitroglycerin 0.4 mg Q5MINP PRN SL 11/20/24 23:45 Morphine Sulfate 2 mg Q4HPRN PRN IV 11/20/24 23:45 11/23/24 10:06 2 MG Piperacillin Sod/ Tazobactam Sod 100 ml @ 25 mls/hr Q6HR IV 11/21/24 06:00 11/23/24 11:48 25 MLS/HR Sodium Chloride 1,000 ml @ 100 mls/hr Q10H IV 11/21/24 02:30 11/23/24 05:55 100 MLS/HR Ondansetron HCl 4 mg Q8HPRN PRN IV 11/21/24 08:45 11/21/24 10:19 4 MG Diagnostic Test (Pha) 1 strip ACHS 11/21/24 17:00 11/23/24 11:46 1 STRIP Dextrose 50 ml UD PRN IV 11/21/24 11:45 Pantoprazole Sodium 40 mg DAILY IV 11/22/24 10:00 11/23/24 10:05 40 MG Enoxaparin Sodium 40 mg DAILY SC 11/22/24 10:00 11/23/24 10:05 40 MG Insulin Human Regular ACHS SC 11/21/24 17:00 11/23/24 11:47 4 UNITS Insulin Glargine 10 units HS SC 11/21/24 22:00 11/22/24 21:33 10 UNITS Mupirocin 1 applic BID EACHNOSTRI 11/21/24 22:00 11/26/24 21:59 11/23/24 10:17 1 APPLIC Examination Physical examination: General Appearance: Alert, Oriented X3, Cooperative, No acute distress HEENT: Atraumatic, PERRLA, EOMI, Mucous membrane moist/pink Respiratory: Clear to auscultation, Normal air movement Cardiovascular: Regular rate, Normal S1, Normal S2, No murmurs, no chest wall tenderness Abdominal: Normal bowel sounds, Soft, mild tenderness, No hepatospenomegaly, No masses Extremities: No clubbing, No cyanosis, No edema, Normal pulses, No tenderness/swelling Skin: No rashes, No breakdown, No significant lesion Neuro: Normal gait, Normal speech, Strength at 5/5 X4 ext, Normal tone, Sensation intact, Cranial nerves 3-12 NL, Reflexes 2+ Psych/Mental Status: Mental status NL, Mood NL laboratory and microbiology Laboratory Tests 11/22/24 07:45 11/21/24 06:00 Test 11/22/24 07:45 Range/Units Serum Glucose 97 74-106 mg/dL Microbiology Date/Time Source Procedure Growth Status 11/21/24 08:30 Nose MRSA Screen - Final Methicillin Resistant S.aureus Complete Labs and/or images reviewed: Labs reviewed by me, Image(s) reviewed by me Problem List/Assessment/Plan Problem List/Assessment/Plan Assessment and plan : # Intractable abdominal pain and nausea likely due to peritonitis # History of right tubo-ovarian abscess and peritonitis # Status post exploratory laparotomy including evacuation of pelvic abscess, right salpingo-oophorectomy, appendectomy, partial omentectomy # Acute enterocolitis # Ruled out pancreatitis - CT abdomen demonstrated findings concerning for peritonitis, peritoneal thickening and enhancement in the lower abdomen, trace fluid in the right paracolic gutter, moderate mesenteric edema of the lower abdomen. small and large bowel wall enhancement suggesting enterocolitis, no evidence of bowel perforation, pneumoperitoneum or drainable fluid collection. - Lipase is 54 - Consistent carbohydrate diet. - IV morphine 2 mg q.4 PRN - IV ondansetron 4 mg Q 8 p.r.n. - IV Zosyn 3.375 g q.6 hours ( Started on 11/21/24) - Surgery recommended conservative management, no surgical intervention necessary and follow up CT scan in 1 week. # Uncontrolled type 2 diabetes mellitus, HbA1c 10% - Lantus 10 units at q.p.m. and mild sliding scale of insulin # hypokalemia - replenished # Methamphetamine use disorder - UDS is positive for amphetamine - Counseled patient regarding methamphetamine abuse and rehabilitation # Homelessness - harness worker was consulted regarding providing resources # PUD prophylaxis - Protonix 40 mg IV daily # DVT prophylaxis - Lovenox 40 mg sc daily Goal of care discussed with the patient for more than 20 minutes full code Plan discussed with Dr. Tierney Plan discussed with: Patient, Other Date of Service: Nov 23, 2024 Billing Provider: ALEAH TIERNEY MD Common Visit Codes: [id number] INP/OBS CARE(HIGH) PIEDAD LANCASTER RESIDENT Nov 23, 2024 14:29 ALEAH TIERNEY MD Nov 23, 2024 16:47
[2024-11-23] MEDS: DOCUSATE SOD 100 MG CAP PO SCH (23:01)
[2024-11-24 05:00] VITALS: BP 156/86; PULSE 69; RESP 16; TEMP 97.8; O2SAT 100
[2024-11-24 05:52] LABS: Basophils # (auto) 0 10 ^3/uL (0-0.2); Eosinophils # (auto) 0.1 10 ^3/uL (0-0.8); Lymphocytes # (auto) 1.8 10 ^3/uL (0.4-5.4); White Blood Cell 5.2 10^3/uL (4.4-10.8)
[2024-11-24 05:54] LABS: Basophils % (auto) 0.6 % (0.0-2.0); Eosinophils % (auto) 1.9 % (0.0-7.0); Hematocrit 30.3 % (36.0-46.0); Lymphocytes % (auto) 34.1 % (10.0-50.0); Mean Corpuscular Hemoglobin 25.5 pg (28.0-32.0); Mean Corpuscular Hgb Conc. 32.9 g/dL (32.0-36.0); Mean Corpuscular Volume 77.5 fL (80.0-100.0); Monocytes # (auto) 0.4 10 ^3/uL (0-1.3); Neutrophils # (auto) 2.9 10 ^3/uL (1.6-8.6); Neutrophils % (auto) 56.4 % (37.0-80.0); Platelet Count (auto) 270 10^3/uL (140-450); Red Blood Cells 3.91 10^6/uL (4.0-5.20); Red Cell Distribution Width 16.4 % (11.8-14.3)
[2024-11-24 06:05] LABS: Anion Gap 8 (5-15); Carbon Dioxide 29 mmol/L (20-31); Chloride 104 mmol/L (98-107); Sodium 141 mmol/L (136-145)
[2024-11-24 06:07] LABS: Calcium 8.9 mg/dL (8.7-10.4)
[2024-11-24 06:11] LABS: BUN/Creatinine Ratio 9.7 (10.0-20.0)
[2024-11-24 06:13] LABS: Blood Urea Nitrogen 6 mg/dL (9-23); Glucose 161 mg/dL (74-106); Potassium 3.4 mmol/L (3.5-5.1)
[2024-11-24 08:00] VITALS: PULSE 83; RESP 17; O2SAT 97
[2024-11-24 09:00] VITALS: BP 152/85; PULSE 83; RESP 17; TEMP 98; O2SAT 97
--- NOTE | 2024-11-24 10:11 | DVHPN2 ---
Subjective Date Seen: Nov 24, 2024 Post op day Post op day: 0 Patient reports: No new complaints Nursing reports: No new complaints General: Normal HNT: Normal Cardiovascular: Normal Respiratory: Normal Gastrointestinal: Abdominal Pain Genitourinary: Normal Musculoskeletal: Normal Neurological: Normal Objective Vitals Vital Sign Date Time Temp Pulse Resp B/P (MAP) Pulse Ox O2 Delivery O2 Flow Rate FiO2 11/24/24 09:00 98.0 83 17 152/85 (107) 97 98.0 11/23/24 20:00 Room Air* 0 21 Total Intake and Output 11/23/24 11/23/24 11/24/24 15:00 23:00 07:00 Intake Total 75 ml 100 ml 600 ml Balance 75 ml 100 ml 600 ml Medications Current Medications Medications Dose Ordered Sig/Rl Route Start Time Stop Time Status Last Admin Dose Admin Nitroglycerin 0.4 mg Q5MINP PRN SL 11/20/24 23:45 Morphine Sulfate 2 mg Q4HPRN PRN IV 11/20/24 23:45 11/24/24 04:41 2 MG Piperacillin Sod/ Tazobactam Sod 100 ml @ 25 mls/hr Q6HR IV 11/21/24 06:00 11/24/24 06:26 25 MLS/HR Ondansetron HCl 4 mg Q8HPRN PRN IV 11/21/24 08:45 11/21/24 10:19 4 MG Diagnostic Test (Pha) 1 strip ACHS 11/21/24 17:00 11/24/24 06:26 1 STRIP Dextrose 50 ml UD PRN IV 11/21/24 11:45 Pantoprazole Sodium 40 mg DAILY IV 11/22/24 10:00 11/23/24 10:05 40 MG Enoxaparin Sodium 40 mg DAILY SC 11/22/24 10:00 11/23/24 10:05 40 MG Insulin Human Regular ACHS SC 11/21/24 17:00 11/24/24 06:38 3 UNITS Insulin Glargine 10 units HS SC 11/21/24 22:00 11/23/24 23:16 10 UNITS Mupirocin 1 applic BID EACHNOSTRI 11/21/24 22:00 11/26/24 21:59 11/23/24 23:19 1 APPLIC Docusate Sodium 100 mg BID PO 11/23/24 22:00 11/23/24 23:01 100 MG General: Normal, Well developed, Well nourished Head/Eyes: Normal ENT: Normal Neck: Normal, Supple Lungs: Normal, Normal inspection Cardiovascular: Normal, Regular rate and rhythm Abdominal: Other (minimally tender) Musculoskeletal: Normal Extremities: Normal, No clubbing, No cyanosis Skin: Other (abdominal scars) Neurological: Normal, Normal Speech Labs and Microbiology Laboratory Tests 11/24/24 05:07 Test 11/24/24 05:07 Range/Units Serum Glucose 161 H 74-106 mg/dL Ass/Plan Labs and/or images reviewed: Labs reviewed by me, Image(s) reviewed by me Problem List Assessment and plan : # Intractable abdominal pain and nausea likely due to peritonitis # History of right tubo-ovarian abscess and peritonitis # Status post exploratory laparotomy including evacuation of pelvic abscess, right salpingo-oophorectomy, appendectomy, partial omentectomy # Acute enterocolitis # Ruled out pancreatitis - CT abdomen demonstrated findings concerning for peritonitis, peritoneal thickening and enhancement in the lower abdomen, trace fluid in the right paracolic gutter, moderate mesenteric edema of the lower abdomen. small and large bowel wall enhancement suggesting enterocolitis, no evidence of bowel perforation, pneumoperitoneum or drainable fluid collection. - Lipase is 54 - Consistent carbohydrate diet. - IV morphine 2 mg q.4 PRN - IV ondansetron 4 mg Q 8 p.r.n. - IV Zosyn 3.375 g q.6 hours ( Started on 11/21/24) - Surgery recommended conservative management, no surgical intervention necessary and follow up CT scan in 1 week. # Uncontrolled type 2 diabetes mellitus, HbA1c 10% - Lantus 10 units at q.p.m. and mild sliding scale of insulin # hypokalemia - replenished # Methamphetamine use disorder - UDS is positive for amphetamine - Counseled patient regarding methamphetamine abuse and rehabilitation # Homelessness - workers' compensation mediator was consulted regarding providing resources # PUD prophylaxis - Protonix 40 mg IV daily # DVT prophylaxis - Lovenox 40 mg sc daily Goal of care discussed with the patient for more than 20 minutes full code Plan discussed with Dr. Tierney Problems(with codes): (1) Post-op pain (2) Peritonitis Assessment/Plan patient history of abdominal surgery exploratory laparotomy due to pelvic abscess, appendectomy and omentectomy, a few weeks ago came into ER with abdominal pain tolerating diet, denies nausea or vomiting today patient states she feels better, abdomen soft , non distended, minimally tender , normal wbc patient advised to ambulate Plan: continue IV antibiotics per surgery point of view ok to discharge , send home with antibiotics Prognosis: Excellent Plan discussed with patient, Dr. Ramirez Visit Coding Surgery Date of Service if different f: Nov 24, 2024 Billing Provider: RUBEN RAMIREZ MD Surgery Visit Codes: [id number] INP/OBS CARE(HIGH) [facility] Nov 24, 2024 10:11
[2024-11-24 13:00] VITALS: BP 157/75; PULSE 78; RESP 17; TEMP 98.1; O2SAT 99
--- NOTE | 2024-11-24 13:09 | DVHPN2 ---
Reviewed: Care Plan, H&P, Labs, Medications, Previous Orders, Radiology Changes from previous H/P or p: No Changes Objective Vitals Vital Signs Date Time Temp Pulse Resp B/P (MAP) Pulse Ox O2 Delivery O2 Flow Rate FiO2 11/24/24 12:54 78 16 157/75 11/24/24 09:00 98.0 97 98.0 11/23/24 20:00 Room Air* 0 21 Intake/Output Intake and Output 11/24/24 07:00 Intake Total 775 ml Balance 775 ml Intake Oral 500 ml IV Total 275 ml # Voids 1 # Bowel Movements 2 Medications Current Medications Medications Dose Ordered Sig/Rl Route Start Time Stop Time Status Last Admin Dose Admin Nitroglycerin 0.4 mg Q5MINP PRN SL 11/20/24 23:45 Morphine Sulfate 2 mg Q4HPRN PRN IV 11/20/24 23:45 11/24/24 12:54 2 MG Piperacillin Sod/ Tazobactam Sod 100 ml @ 25 mls/hr Q6HR IV 11/21/24 06:00 11/24/24 12:53 25 MLS/HR Ondansetron HCl 4 mg Q8HPRN PRN IV 11/21/24 08:45 11/21/24 10:19 4 MG Diagnostic Test (Pha) 1 strip ACHS 11/21/24 17:00 11/24/24 11:30 1 STRIP Dextrose 50 ml UD PRN IV 11/21/24 11:45 Pantoprazole Sodium 40 mg DAILY IV 11/22/24 10:00 11/24/24 10:33 40 MG Enoxaparin Sodium 40 mg DAILY SC 11/22/24 10:00 11/24/24 10:33 40 MG Insulin Human Regular ACHS SC 11/21/24 17:00 11/24/24 11:30 4 UNITS Insulin Glargine 10 units HS SC 11/21/24 22:00 11/23/24 23:16 10 UNITS Mupirocin 1 applic BID EACHNOSTRI 11/21/24 22:00 11/26/24 21:59 11/24/24 10:00 1 APPLIC Docusate Sodium 100 mg BID PO 11/23/24 22:00 11/24/24 10:33 100 MG Laboratory Results Laboratory Tests 11/24/24 05:07 Chemistry Test 11/24/24 05:07 Calcium Level 8.9 mg/dL (8.7-10.4) Urinalysis Test 11/20/24 21:00 Urine Color Yellow (Yellow) Urine Clarity Clear (Clear) Urine pH 6.0 (5.0-9.0) Urine Specific [place] > 1.050 (1.001-1.035) Urine Protein Trace (Negative) H Urine Ketones Negative (Negative) Urine Blood Negative /uL (Negative) Urine Nitrite Negative (Negative) Urine Bilirubin Negative (Negative) Urine Urobilinogen Normal mg/dL (Negative) Urine Leukocyte Esterase Negative /uL (Negative) Urine RBC 2 /hpf (0 - 4) Urine Microscopic WBC 3 /HPF (0-5) Urine Squamous Epithelial Cells Few /hpf (<5) Urine Bacteria None seen /hpf (None Seen) Urine Glucose 4+ mg/dL (Normal) H Urine Test Negative (Negative) Microbiology Microbiology Date/Time Source Procedure Growth Status 11/21/24 08:30 Nose MRSA Screen - Final Methicillin Resistant S.aureus Complete Labs and/or images reviewed: Labs reviewed by me, Image(s) reviewed by me Assessment/Plan Assessment/Plan Covering for resident physician Acute abdominal pain Status post exploratory laparotomy with evacuation of pelvic abscess right salpingo-oophorectomy appendectomy partial omentectomy on 10/16/2024 Acute enterocolitis Zosyn Pancreatitis ruled out Uncontrolled diabetes Acute hypokalemia Methamphetamine abuse: Counseling Homeless Moderate malnutrition Condition guarded Time spent 50 minutes Plan discussed with: Patient Date of Service: Nov 24, 2024 Billing Provider: VIKY ADAN MD Common Visit Codes: [id number] INP/OBS CARE(HIGH) VIKY ADAN MD Nov 24, 2024 13:09
[2024-11-25 05:00] VITALS: BP 136/70; PULSE 67; RESP 20; TEMP 97.6; O2SAT 94
[2024-11-25 08:00] VITALS: RESP 18
[2024-11-25 09:00] VITALS: BP 142/75; PULSE 73; RESP 15; TEMP 97.9; O2SAT 96
[2024-11-25] MEDS: POTASSIUM EFFERVESENT TAB 25 MEQ PO ONE (09:32)
--- NOTE | 2024-11-25 11:12 | DVHDSRES ---
Discharge Summary Date of Admission Resident Creating Document: PIEDAD LANCASTER RESIDENT Nov 20, 2024 at 23:34 Date of Discharge: Nov 25, 2024 Admitting Diagnosis # Intractable abdominal pain and nausea likely due to peritonitis Wounds: No wound was present. Labs/Diagnostic Data: Laboratory Results Test 11/24/24 05:07 11/23/24 05:34 11/21/24 06:00 11/21/24 01:35 White Blood Count 5.2 10^3/uL (4.4-10.8) Red Blood Count 3.91 10^6/uL (4.0-5.20) Hemoglobin 10.0 g/dL (12.2-16.2) Hematocrit 30.3 % (36.0-46.0) Mean Corpuscular Volume 77.5 fL (80.0-100.0) Mean Corpuscular Hemoglobin 25.5 pg (28.0-32.0) Mean Corpuscular Hemoglobin Concent 32.9 g/dL (32.0-36.0) Red Cell Distribution Width 16.4 % (11.8-14.3) Platelet Count 270 10^3/uL (140-450) Mean Platelet Volume 7.5 fL (6.9-10.8) Neutrophils (%) (Auto) 56.4 % (37.0-80.0) Lymphocytes (%) (Auto) 34.1 % (10.0-50.0) Monocytes (%) (Auto) 7.0 % (0.0-12.0) Eosinophils (%) (Auto) 1.9 % (0.0-7.0) Basophils (%) (Auto) 0.6 % (0.0-2.0) Neutrophils # (Auto) 2.9 10 ^3/uL (1.6-8.6) Lymphocytes # (Auto) 1.8 10 ^3/uL (0.4-5.4) Monocytes # (Auto) 0.4 10 ^3/uL (0-1.3) Eosinophils # (Auto) 0.1 10 ^3/uL (0-0.8) Basophils # (Auto) 0 10 ^3/uL (0-0.2) Nucleated Red Blood Cells 0.0 % Sodium Level 141 mmol/L (136-145) Potassium Level 3.4 mmol/L (3.5-5.1) Chloride Level 104 mmol/L (98-107) Carbon Dioxide Level 29 mmol/L (20-31) Anion Gap 8 (5-15) Blood Urea Nitrogen 6 mg/dL (9-23) Creatinine 0.62 mg/dL (0.550-1.02) Glomerular Filtration Rate Calc 111 mL/min (>90) BUN/Creatinine Ratio 9.7 (10.0-20.0) Serum Glucose 161 mg/dL (74-106) Calcium Level 8.9 mg/dL (8.7-10.4) POC Glucose 176 mg/dl (70-106) Magnesium Level 1.7 mg/dL (1.6-2.6) Total Bilirubin 0.5 mg/dL (0.2-1.0) Aspartate Amino Transferase (AST) 10 U/L (13-40) Alanine Aminotransferase (ALT) < 9 U/L (7-40) Alkaline Phosphatase 70 U/L (46-116) Total Protein 6.8 g/dL (5.7-8.2) Albumin 3.5 g/dL (3.2-4.8) Lipase 54 U/L (12-53) Prothrombin Time 10.3 sec (9.3-11.8) Prothrombin Time INR 0.97 (0.9-1.15) Activated Partial Thromboplast Time 27.2 SEC (24.5-34.5) Hemoglobin A1c 10.0 % A1C (<5.7) Test 11/20/24 21:35 11/20/24 21:00 11/20/24 20:50 Troponin I High Sensitivity < 3 ng/L (</=34) Urine Color Yellow (Yellow) Urine Clarity Clear (Clear) Urine pH 6.0 (5.0-9.0) Urine Specific [place] > 1.050 (1.001-1.035) Urine Protein Trace (Negative) Urine Ketones Negative (Negative) Urine Blood Negative /uL (Negative) Urine Nitrite Negative (Negative) Urine Bilirubin Negative (Negative) Urine Urobilinogen Normal mg/dL (Negative) Urine Leukocyte Esterase Negative /uL (Negative) Urine RBC 2 /hpf (0 - 4) Urine Microscopic WBC 3 /HPF (0-5) Urine Squamous Epithelial Cells Few /hpf (<5) Urine Bacteria None seen /hpf (None Seen) Urine Glucose 4+ mg/dL (Normal) Urine Test Negative (Negative) Urine Opiates Screen Neg (NEGATIVE) Urine Fentanyl Screen Neg (NEGATIVE) Urine Barbiturates Screen Neg (NEGATIVE) Urine Phencyclidine Screen Neg (NEGATIVE) Urine Amphetamines Screen Pos (NEGATIVE) Urine Benzodiazepines Screen Neg (NEGATIVE) Urine Cocaine Screen Neg (NEGATIVE) Urine Cannabinoids Screen Neg (NEGATIVE) Lactic Acid Level 1.2 mmol/L (0.4-2.0) Plasma/Serum Blood Alcohol < 3.0 mg/dL (<10) Other Laboratory Tests 11/24/24 05:07 Brief Hx & Hospital Course: This 44-year-old female with past surgical history of status post exploratory laparotomy presented to the ED with a chief complaint of diffuse abdominal pain that started 2 days ago which she describes as excruciating pain radiating to back 10/10 associated with nausea and vomiting. Patient was recently admitted in the hospital because of abdominal pain and was diagnosed with right tubo-ovarian abscess, peritonitis and had an Exploratory laparotomy, evacuation of pelvic abscess, right salpingo-oophorectomy, appendectomy, partial omentectomy done by Team of OBGYN and Surgery. Hospital course: CT abdomen demonstrated findings concerning for peritonitis, peritoneal thickening and enhancement in the lower abdomen, trace fluid in the right paracolic gutter, moderate mesenteric edema of the lower abdomen. small and large bowel wall enhancement suggesting enterocolitis, no evidence of bowel perforation, pneumoperitoneum or drainable fluid collection. Lipase was 54 and patient was treated with ist NPO then slowly advanced to consistent carb diet, IV normal saline,IV morphine 2 mg q.4 PRN, IV ondansetron 4 mg Q 8 p.r.n.,IV Zosyn 3.375 g q.6 hour .Surgery recommended conservative management, no surgical intervention necessary and follow up CT scan in 1 week. HbA1c was 10% and treated with Lantus 10 units at q.p.m. and mild sliding scale of insulin. Hypokalemia was replenished. UDS was positive for amphetamine and Counseled patient regarding methamphetamine abuse and rehabilitation. Discharge plan was discussed with the patient after surgical clearance for discharge and all questions were answered. Patient is being discharged to home with Augmentin 875 mg bid for 7days and advise to follow up with DC clinic in 1 week and outpatient Surgery in 1 to 2 weeks. Physical examination: General Appearance: Alert, Oriented X3, Cooperative, No acute distress HEENT: Atraumatic, PERRLA, EOMI, Mucous membrane moist/pink Respiratory: Clear to auscultation, Normal air movement Cardiovascular: Regular rate, Normal S1, Normal S2, No murmurs, no chest wall tenderness Abdominal: Normal bowel sounds, Soft, No tenderness, No hepatospenomegaly, No masses Extremities: No clubbing, No cyanosis, No edema, Normal pulses, No tenderness/swelling Skin: No rashes, No breakdown, No significant lesion Neuro: Normal gait, Normal speech, Strength at 5/5 X4 ext, Normal tone, Sensation intact, Cranial nerves 3-12 NL, Reflexes 2+ Psych/Mental Status: Mental status NL, Mood NL Consults/Reason for consult Surgery was consulted Operations or Procedures Procedure: CT CT AB PEL WITH IV CON ONLY 11/20/2024 10:29 AM Indication: abdominal pain s/p tuboovarian abscess FINDINGS: Lower Chest: Unremarkable. Hepatobiliary: Unremarkable. Spleen: Unremarkable. Pancreas: Unremarkable. Adrenal Glands: Unremarkable. tract: The kidneys are normal in size bilaterally without hydronephrosis or nephrolithiasis. The urinary bladder is unremarkable. GI tract: The stomach is grossly normal in appearance. Nondistended fluid-filled small bowel loops throughout the abdomen with diffuse mural thickening. Mild ascending colon wall thickening and enhancement noted. Surgical clips are seen in the right lower quadrant adjacent to the cecum. The appendix is not identified. Peritoneal thickening and enhancement noted in the lower abdomen. Moderate mesenteric edema in the lower abdomen. Trace fluid in the right lower abdomen. Lymphatics: No mesenteric, retroperitoneal or periportal lymphadenopathy. Vasculature: The abdominal aorta is normal in caliber. Pelvic Organs: Unremarkable Bones/soft tissues: No acute abnormality. Other: None. IMPRESSION: 1. Findings concerning for peritonitis. Peritoneal thickening and enhancement in the lower abdomen noted. Trace fluid in the right paracolic gutter. Moderate mesenteric edema in the lower abdomen is seen. 2. Diffuse small and large bowel wall enhancement suggesting enterocolitis. 3. No evidence of bowel perforation. No pneumoperitoneum. No drainable fluid collection. Condition at Discharge: Guarded Final Diagnosis/Problems List # Intractable abdominal pain and nausea likely due to peritonitis # History of right tubo-ovarian abscess and peritonitis # Status post exploratory laparotomy including evacuation of pelvic abscess, right salpingo-oophorectomy, appendectomy, partial omentectomy # Acute enterocolitis # Ruled out pancreatitis # Uncontrolled type 2 diabetes mellitus, HbA1c 10% # Hypokalemia # Methamphetamine use disorder Discharge Disposition: Home Discharge Instruct/Medications Diet: Consistent carbohydrate Activity: No Restrictions, As Tolerated Follow Up/Referral: Follow up [facility] clinic in 1 week Follow up with outpatient Surgery in 1 to 2 weeks Medications: Augmentin 875 mg bid for 7 days. Discharge Statement: "Patient was advised to return to the ER or call 911 if any headaches, dizziness, shortness of breath, chest pain, abdominal pain, bleeding, fevers, or worsening of medical condition. Patient was counseled about treatment plan, medications, possible side effects, patientverbalized understanding. All questions were answered to the best of my ability. This discharge took greater then 30 minutes in planning, reviewing documentation, counseling the patient, and discussing with other team members." ASSESSMENT ASSESSMENT Assessment # Intractable abdominal pain and nausea likely due to peritonitis # History of right tubo-ovarian abscess and peritonitis # Status post exploratory laparotomy including evacuation of pelvic abscess, right salpingo-oophorectomy, appendectomy, partial omentectomy # Acute enterocolitis # Ruled out pancreatitis # Uncontrolled type 2 diabetes mellitus, HbA1c 10% # Hypokalemia # Methamphetamine use disorder Date of Service: Nov 25, 2024 Billing Provider: WILTON SNIDER MD Common Visit Codes: 68689-ORX/OBS DISCH DAY >30min PIEDAD LANCASTER RESIDENT Nov 25, 2024 11:12 WILTON SNIDER MD Nov 26, 2024 11:24
[2024-11-25 13:00] VITALS: BP 146/87; PULSE 78; RESP 16; TEMP 98.2; O2SAT 97
[2024-11-25] MEDS ORDERED: AUG875T PO (13:52)
[2024-11-25 13:53] VITALS: BP 129/77; PULSE 66; RESP 18; TEMP 36.8; O2SAT 95
[2024-11-25 13:58] VITALS: BP 126/77; PULSE 65; RESP 18; TEMP 36.8; O2SAT 95
== END 2024-11-25 15:30 | disposition home or self-care (01) | DRG 248 ==
LOC: ER 20:31 → OVERFLOW 23:34 → EDUNIT# 23:34 → OVERFLOW 23:36 → EAST 11-22 10:00 → CENTRAL 11-24 19:12
PROVIDERS: ADMIT Family Medicine; ATTEND Family Medicine
DX: K65.9 Peritonitis, unspecified (principal); E44.0 Moderate protein-calorie malnutrition; E11.65 Type 2 diabetes mellitus with hyperglycemia; F15.10 Other stimulant abuse, uncomplicated; K52.9 Noninfective gastroenteritis and colitis, unspecified; E87.6 Hypokalemia; Z59.00 Homelessness unspecified; Z68.23 Body mass index [BMI] 23.0-23.9, adult; Z79.4 Long term (current) use of insulin
CPT/HCPCS: 36415; 80048; 80053; 80307; 80320; 81001; 81025; 82962; 83036; 83605; 83690; 83735; 84484; 85025; 85610; 85730; 87081; 97163; G0378; J1815; J2405; J2470; J2543

== ENCOUNTER 2024-12-19 05:25 | Emergency (ER) | payer MEDICAID ==
[~2024-12-19] VITALS: Ht 154.9 cm; Wt 53.2 kg
[2024-12-19 05:30] VITALS: BP 160/85; PULSE 103; RESP 18; TEMP 97.3; O2SAT 100
--- NOTE | 2024-12-19 06:15 | ED.PDOC ---
GI ASSESSMENT HPI Comments 44 year old female presents to the ED with chief complaint of abdominal pain. Patient reports that she has been experiencing abdominal pain for the past 2 months with no nausea or vomiting. Patient denies any diarrhea, chest pain, dizziness, fever, chills, dysuria, or hematuria. Chief Complaint: Abdominal Pain Time Seen by MD: 06:13 Primary Care Provider: GER Brooks Notes: Nurses Notes, Medications, Allergies Allergies: Coded Allergies: NO KNOWN ALLERGIES (Unverified , 10/14/24) Home Meds Active Scripts Amoxicillin & Pot Clavulanate (AUGMENTIN TABLET) 875 Mg Tb, 875 MG PO BID for 7 Days, #14 TAB Prov:PIEDAD LANCASTER RESIDENT 11/25/24 Oxycodone W/ Acetaminophen (Percocet 5/325MG) 1 Tab Tb, 1 TAB PO QID PRN, #30 TAB Prov:WILTON SNIDER MD 11/04/24 Insulin Syringe/Needle U-100 (Bd Insulin Syringe Ultraf) 1 Ml/31 G Mis, ML XX DAILY, #100 9 Refills Prov:WILTON SNIDER MD 11/04/24 Insulin Syringe/Needle U-100 (ADVOCATE INSULIN SYRINGE/) 0.5 Mg/31 G Mis, MG XX, #100 9 Refills Prov:WILTON SNIDER MD 11/04/24 Insulin Glargine (Lantus) 100 Unit/Ml Inj, 22 UNITS SC HS, #90 INJ 5 Refills Prov:WILTON SNIDER MD 11/04/24 Lisinopril (Lisinopril) 2.5 Mg Tab, 2.5 MG PO DAILY for 30 Days, #90 TAB Prov:WILTON SNIDER MD 11/04/24 Omeprazole (Gnp Omeprazole) 20 Mg Tab, 1 TAB PO DAILY, #90 TAB 1 Refill Prov:WILTON SNIDER MD 11/04/24 Reported Medications Insulin Lispro (Human) (Humalog) 100 Unit/Ml Inj, SC, INJ 10/14/24 Information Source: Patient Mode of Arrival: Ambulatory Timing: Months Duration: Since onset Prehospital treatment: None Quality: Aching Vomitus: None Stool: Normal Severity: Moderate Recent: None Recent Hx of: None Pain Location: Epigastric Modifying Factors: Nothing Associated sign and symptoms: Abdominal Pain Past Medical History PAST MEDICAL HISTORY: DM Surgical History: Appendectomy, Cholecystectomy, Tonsillectomy, Tubal Ligation Surgical History (Other): oophorectomy [employer] History: Other Family History Family History: Reviewed,noncontributory to illness, No family hx of Cancer, No family hx of DM, No family hx of Heart emeka, No family hx of HTN, No family hx ofKidney emeka, No family hx of Liver emeka, No family hx of Lung emeka, No family hx of Stroke Social History Smoker: Non-Smoker Alcohol: Denies ETOH Use Drugs: Denies Drug Use Lives In: Homeless Constitutional: denies: chills, diaphoresis, fatigue, fever, malaise, sweats, weakness, others EENTM: denies: blurred vision, double vision, ear bleeding, ear discharge, ear drainage, ear pain, ear ringing, eye pain, eye redness, hearing loss, mouth pain, mouth swelling, nasal discharge, nose bleeding, nose congestion, nose pain, photophobia, tearing, throat pain, throat swelling, voice changes, others Respiratory: denies: cough, hemoptysis, orthopnea, SOB at rest, shortness of breath, SOB with excertion, stridor, wheezing, others Cardiovascular: denies: chest pain, dizzy spells, diaphoresis, Dyspnea on exertion, edema, irregular heart beat, left arm pain, lightheadedness, palpitations, PND, syncope, others Gastrointestinal: reports: abdominal pain; denies: abdomen distended, blood streaked bowels, constipated, diarrhea, dysphagia, difficulty swallowing, hematemesis, melena, nausea, poor appetite, poor fluid intake, rectal bleeding, rectal pain, vomiting, others Genitourinary: denies: abnormal vagina bleeding, burning, dyspareunia, dysuria, flank pain, frequency, hematuria, incontinence, pain, , vagina discharge, urgency, others Neurological: denies: dizziness, fainting, headache, left sided numbness, left sided weakness, numbness, paresthesia, pre-existing deficit, right sided numbness, right sided weakness, seizure, speech problems, tingling, tremors, w eakness, others Musculoskeletal: denies: back pain, gout, joint pain, joint swelling, muscle pain, muscle stiffness, neck pain, others Integumetry: denies: bruises, change in color, change in hair/nails, dryness, laceration, lesions, lumps, rash, wounds, others Allergic/Immunocompromised: denies: Difficulty Healing, Frequent Infections, Hives, Itching, others Hematologic/Lymphatic: denies: anemia, blood clots, easy bleeding, easy bruising, swollen glands, others Endocrine: denies: excessive hunger, excessive sweating, excessive thirst, excessive urination, flushing, intolerance to cold, intolerance to heat, unexplained weight gain, unexplained weight loss, others Psychiatric: denies: anxiety, bipolar disorder, depression, hopeless, panic disorder, schizophrenia, sleepless, suicidal, others All Other Systems: Reviewed and Negative Physical Exam General Appearance: Moderate Distress, Normal HEENT: Normal ENT Inspection, Pharynx Normal, TMs Normal Neck: Full Range of Motion, Non-Tender, Normal, Normal Inspection Respiratory: Chest Non-Tender, Lungs Clear, No Accessory Muscle Use, No Respiratory Distress, Normal Breath Sounds Cardiovascular: No Edema, No JVD, No Murmur, No Gallop, Normal Peripheral Pulses, Regular Rate/Rhythm Breast Exam: Deferred Gastrointestinal: No Organomegaly, Non Tender, No Pulsatile Mass, Normal Bowel Sounds, Soft Genitalia: Deferred Pelvic: Deferred Rectal: Deferred Extremities: No calf tenderness, Normal capillary refill, Normal inspection, Normal range of motion, Non-tender, No pedal edema Musculoskeletal : Apperance: Normal Neurologic: Alert, stonework tracer II-XII nml as Tested, No Motor Deficits, Normal Affect, Normal Mood, No Sensory Deficits Cerebellar Function: Normal Reflexes: Normal Skin: Dry, Normal Color, Warm Peripheral Pulses: 3+ Radial (R), 3+ Radial (L) Lymphatic: No Adenopathy Was a procedure done? Was a procedure done?: No GI differential Dx Differential Diagnosis: Constipation, Diverticular disease, Esophagitis, Gastritis/PUD, Gastroenteritis, UTI, Dehydration, Food Poisoning, Bacterial, V iral X-Ray, Labs, Meds, VS Vital Signs Date Time Temp Pulse Resp B/P (MAP) Pulse Ox O2 Delivery O2 Flow Rate FiO2 12/19/24 05:30 97.3 103 18 160/85 (110) 100 97.3 Patient alert. Complaining of abdominal discomfort for many months. Abdomen is soft non tender. Vitals stable. No sign of any distress. Ambulating without difficulty. Saturation pristine on room air. Continues to smoke cigarettes. Counseled patient effects of smoking cigarettes for 15 minutes. Blood pressure slightly elevated. Was given clonidine. Reviewed her history. Possible gastritis. Was given prescription of Protonix. Explained to the patient effects of drugs smoking exercise diet. Was told to follow up with her primary care physician. Was told to come back if there is any problem. Time of 1ST Reevaluation: 07:13 Reevaluation 1ST: Improved Patient Education/Counseling: Diagnosis, Treatment Family Education/Counseling: No Family Present Additional Information The following tests were ordered, and results were reviewed by me: CBC, BMP, UA Additional Information was gathered from interviewing the following independent historians: None I reviewed and agreed with the following test results read by other providers: None I discussed treatment and results with medical personnel and: patient Comprehensive systems review obtained and negative except for what is stated in the HPI. Departure 1 Departure Time of Disposition: 06:28 Impression: Primary Impression: HTN (hypertension) Qualified Codes: I10 - Essential (primary) hypertension Additional Impression: Gastritis Qualified Codes: K29.00 - Acute gastritis without bleeding Disposition: 01 HOME / SELF CARE / HOMELESS Condition: Good Discharged With: Self Comments Spoke to and examined patient at 6:13, discussing treatment plan at this time. Critical Care Note Critical Care Time?: No Stability Stability form required: No Heart Score Heart Score: Heart Score Response (Comments) Value History N/A 0 EKG N/A 0 Age N/A 0 Risk Factors N/A 0 Troponin N/A 0 Total 0 I personally scribed for PASTORA ZEE MD ([email or web address]) on 12/19/24 at 06:15. Electronically submitted by Natalio Sullivan ([email or web address]). I personally scribed for PASTORA ZEE MD (PINEDA) on 12/19/24 at 06:24. Electronically submitted by Natalio Sullivan ([email or web address]). I personally scribed for PASTORA ZEE MD (PINEDA) on 12/19/24 at 06:43. Electronically submitted by Natalio Sullivan ([email or web address]). PASTORA ZEE MD December 19, 2024 06:15
[2024-12-19] MEDS ORDERED: cloNIDine HCL 0.1 MG TAB PO ONE (06:45)
== END 2024-12-19 09:04 | disposition left against medical advice (07) ==
LOC: ER 05:25
DX: K29.70 Gastritis, unspecified, without bleeding (principal); I10 Essential (primary) hypertension; E11.9 Type 2 diabetes mellitus without complications; Z79.899 Other long term (current) drug therapy; Z90.49 Acquired absence of other specified parts of digestive tract; Z90.721 Acquired absence of ovaries, unilateral; Z90.89 Acquired absence of other organs; Z98.51 Tubal ligation status